=== PATIENT | female | born 1945 | race Caucasian/White ===

== ENCOUNTER 2024-10-05 09:58 | Inpatient (IN) ==
[2024-10-05] MEDS: ONDANSETRON INJ 2 MG/ML 2 ML VIAL IV STA (10:58)
[2024-10-05] MEDS: KETOROLAC TROMETHAMINE 15 MG/ML VIAL IV STA (10:58)
[2024-10-05 11:03] LABS: Basophils # (auto) 0.07 K/uL (0.00-0.20); Basophils % (auto) 0.5 %; Eosinophils # (auto) 0.13 K/uL (0.00-0.50); Hematocrit (blood only) 35.5 % (37.0-47.0); Hemoglobin 11.6 g/dl (12.0-16.0); Immature Granulocytes # (auto) 0.06 K/uL (0.01-0.20); Immature Granulocytes % (auto) 0.5 %; Lymphocytes % (auto) 17.9 %; Mean Corpuscular Hemoglobin 29.7 pg (25.0-34.0); Mean Corpuscular Hgb Conc 32.7 g/dL (32.0-36.0); Mean Corpuscular Volume 90.8 fL (80.0-100.0); Monocytes # (auto) 1.44 K/uL (0.11-0.59); Monocytes % (auto) 11.2 %; Neutrophils # (auto) 8.86 K/uL (1.40-6.50); Neutrophils % (auto) 68.9 %; Platelet Count 253 K/uL (130-400); RDW Coefficient of Variation 14.9 % (11.5-14.5); RDW Standard Deviation 49.2 fL (36.4-46.3); Red Blood Count 3.91 M/uL (4.20-5.40); White Blood Count 12.86 K/ul (4.8-10.8)
[2024-10-05 11:19] LABS: Albumin Level 3.9 gm/dl (3.4-5.0); BUN Creatinine Ratio 16.2 (10-20); Bilirubin Direct 0.2 mg/dl (0-0.2); Bilirubin,Total 0.8 mg/dl (0.2-1.0); Calcium 9.2 mg/dl (8.6-10.3); Creatinine Clr Calc Pharmacy 77.7 ml/min; Potassium 3.8 mmol/L (3.5-5.1); Total Protein 7.3 gm/dl (6.0-8.3)
[2024-10-05 11:24] LABS: Troponin I High Sensitivity 10.2 pg/ml (0-14)
[2024-10-05 11:34] LABS: Partial Thromboplastin Time 28 Seconds (21-31); Prothrombin Time 10.9 Seconds (9.0-12.0)
--- NOTE | 2024-10-05 11:38 | Emergency Department Note ---
History of Present Illness General Chief Complaint: Abdominal Pain Stated Complaint: RUQ PAIN W/ BLOOD TINGED SPUTUM Time Seen by Provider: 10/05/24 10:33 History of Present Illness Provider Complaint: abdominal pain Onset (ago): hour(s) (14) Pain Consistency: intermittent Location: RUQ Radiation: R flank Severity: severe Maximum Pain Intensity: 10 Current Pain Intensity: 9 Quality: + stabbing and + sharp Relieved By: + nothing Exacerbated By: + nothing Context: no foreign travel, no possible food poisoning, no sick contacts, no recent antibiotic use, no recent surgery/procedure, no recent injury or no history of similar episodes Associated Symptoms: + nausea and + dysuria; no vomiting, no fever, no chills, no hematemesis, no hematuria, no chest pain and no breathing difficulty Related Data Patient Confirmed : No Home Medications Medication Instructions Recorded Confirmed Type duloxetine 60 mg capsule,delayed 60 mg PO QAM 11/25/21 10/05/24 History release sprinkle gabapentin 300 mg capsule 300 mg PO TID 11/25/21 10/05/24 History insulin aspart U-100 100 unit/mL 40 unit subcut TIDM 11/25/21 10/05/24 History subcutaneous solution insulin glargine 100 unit/mL (3 50 unit subcut BID 11/25/21 10/05/24 History mL) subcutaneous pen pantoprazole 40 mg tablet,delayed 40 mg PO QAM 11/25/21 10/05/24 History release aspirin 325 mg tablet,delayed 325 mg PO QAM 10/20/22 10/05/24 History release metoprolol succinate 25 mg 12.5 mg PO QAM 10/20/22 10/05/24 History tablet,extended release 24 hr psyllium husk 0.4 gram capsule 0.4 g PO DAILY PRN Constipation 10/20/22 10/05/24 History (Metamucil) cholecalciferol (vitamin D3) 25 25 mcg PO DAILY 10/05/24 10/05/24 History mcg (1,000 unit) tablet (Vitamin D3) dulaglutide 0.75 mg/0.5 mL 0.75 mg subcut WK 10/05/24 10/05/24 History subcutaneous pen injector (Trulicity) Allergies Allergy/AdvReac Type Severity Reaction Status Date / Time Sulfa (Sulfonamide Allergy Intermediate Rash Verified 10/05/24 13:43 Antibiotics) [id number] Reductase AdvReac Intermediate MUSCLE Verified 10/05/24 13:43 Inhibitor PAIN/STIFFNESS Past Med/Surg History Problem List (Updated 10/05/24 @ 15:26 by Mejia Carroll MD) Pulmonary emboli (Acute) CAD (coronary artery disease) Acute pulmonary embolism Encounter for pre-operative examination Medical History Diastolic heart failure Aortic stenosis Borderline severe per 10/14/22 ECHO Poor historian Hard of hearing Femoral artery stenosis, left stent placed several yrs ago Neuropathy Depression Constipation Irregular heart beat metoprolol for this per pt> follows with Dr. Marley Hyperlipidemia hx of > no meds Hypertension History of COVID-2020 Sleep apnea cpap Diabetes mellitus, type 2 GERD (gastroesophageal reflux disease) Surgical History Hx of lipoma removed from neck History of total knee replacement left History of colonoscopy History of cholecystectomy History of appendectomy History of cataract surgery bilat Family History Mother Diabetes Grandmother (Maternal) Diabetes Social History Smoking Status: Never smoker Second Hand Exposure: No; Do You Dip or Chew Tobacco: No; Hx Alcohol Use: No Hx Substance Use: No Preferred Language: Slovenian Communication Ability: Effective Tenant Relations Coordinator Required: No Beliefs That Will Affect Care: None Current Living Situation: Alone Feels Safe at Home: Yes Assistive Devices: CPAP, Glasses, Hearing Aid - Bilateral and Walker Physical Exam 2 Vital Signs: Vital Signs - 24 hr 10/05/24 10:14 10/05/24 10:28 10/05/24 10:29 Temperature 37 C 37 C Temperature Source Oral Oral Pulse Rate 70 74 Pulse Rate [Apical ] 74 Pulse Rate from Sp O2 Sensor Pulse Rhythm Regular Pulse Rhythm [Apic al] Regular Pulse Strength Normal Pulse Strength [Ap ical] Normal Respiratory Rate 25 H 25 H Respiratory Effort / Characteristics Labored Spontaneous Labore d Respiratory Depth Shallow Shallow Respiratory Patter n Tachypnea Tachypnea Blood Pressure 158/66 H Blood Pressure [Ri ght Arm] 158/66 H Blood Pressure Dorie n 96 Blood Pressure Dorie n [Right Arm] 96 Blood Pressure Pos ition [Right Arm] Sitting Pulse Oximetry 96 96 Oxygen Delivery Me thod Room Air Room Air Sepsis Recent Feve r Within 48 Hours No Sepsis New/Unexpla ined Change in Men jesus manuel Status No Sepsis Action Take n by Nursing No Action Required 10/05/24 10:41 10/05/24 11:00 10/05/24 11:30 Temperature Temperature Source Pulse Rate 75 72 67 Pulse Rate [Apical ] Pulse Rate from Sp O2 Sensor 71 67 Pulse Rhythm Regular Pulse Rhythm [Apic al] Pulse Strength Pulse Strength [Ap ical] Respiratory Rate 20 14 20 Respiratory Effort / Characteristics Respiratory Depth Respiratory Patter n Blood Pressure 130/60 137/60 Blood Pressure [Ri ght Arm] Blood Pressure Dorie n 83 85 Blood Pressure Dorie n [Right Arm] Blood Pressure Pos ition [Right Arm] Pulse Oximetry 96 97 92 Oxygen Delivery Me thod Room Air Room Air Room Air Sepsis Recent Feve r Within 48 Hours Sepsis New/Unexpla ined Change in Men jesus manuel Status Sepsis Action Take n by Nursing 10/05/24 12:48 10/05/24 14:30 10/05/24 14:31 Temperature Temperature Source Pulse Rate 65 66 Pulse Rate [Apical ] 64 Pulse Rate from Sp O2 Sensor 65 Pulse Rhythm Pulse Rhythm [Apic al] Pulse Strength Pulse Strength [Ap ical] Respiratory Rate 16 18 Respiratory Effort / Characteristics Non-Labored Respiratory Depth Normal Respiratory Patter n Blood Pressure 132/44 L Blood Pressure [Ri ght Arm] 130/53 L Blood Pressure Dorie n 73 Blood Pressure Dorie n [Right Arm] 78 Blood Pressure Pos ition [Right Arm] Pulse Oximetry 93 98 Oxygen Delivery Me thod Room Air Room Air Sepsis Recent Feve r Within 48 Hours Sepsis New/Unexpla ined Change in Men jesus manuel Status Sepsis Action Take n by Nursing Physical Exam: Physical Exam GENERAL: oriented to person, place, and time. appears well-developed and well- nourished. She does not appear distressed. HENT: Exam performed. -Head: Normocephalic and atraumatic. -Right Ear: External ear normal. No mastoid erythema -Left Ear: External ear normal. No mastoid erythema -Mouth/Throat: The oropharynx is clear and moist. No trismus in the jaw. No dental abscesses or uvula swelling. No oropharyngeal exudate or tonsillar abscesses. EYES: Conjunctivae and EOM are normal.Right eye exhibits no discharge. Left eye exhibits no discharge. No scleral icterus. NECK: Normal range of motion. Neck supple. No JVD present. No tracheal deviation and normal range of motion present. CV: Normal rate, regular rhythm, systolic murmur and intact distal pulses. There is no peripheral edema. Palpable radial pulses bue. PULM/CHEST: Effort normal and breath sounds normal. No respiratory distress. No stridor. no wheezes.no rales. -Chest Wall: no tenderness to palpation ABD: The abdomen is soft. Bowel sounds are normal. no distension. No mass is present. There is tenderness to palpation of the right upper quadrant. There is no rebound, no guarding, positive Barakat's sign and no tenderness at McBurney's point. Rovsig negative MUSC/SKEL: Normal range of motion. There is no peripheral edema, tenderness or deformity. NEURO: Motor and sensation grossly intact. SKIN: Skin is warm and dry. not diaphoretic. PSYCH: normal mood and affect. Behavior is normal. Judgment and thought content normal. Course Course 1033: The patient was evaluated in room C5. A complete history and physical exam was performed Cardiac monitoring: An order was placed for continuous cardiac monitoring. The monitor shows a rate of 70 with sinus rhythm interpreted by me 1150: Patient's D-dimer is elevated. Will obtain CT of the chest. 1320: Vital signs stable. Labs show white blood cell count 12.86 hemoglobin 11.6 otherwise unremarkable. Imaging is significant for bilateral pulmonary emboli with moderate clot burden but no evidence of right heart strain. There is also some pulmonary infarct. Patient be started on heparin drip and admitted to the hospitalist team. Administered Medications Heparin Sodium/Dextrose (Heparin 09777 Unit/500 Ml D5w) 25,000 units in 500 mls @ 29 mls/hr IV .[id number] PENDING SALE TO [facility]; Protocol Stop: 11/04/24 13:44 Last Admin: 10/05/24 13:50 Dose: 1,450 units/hr, 29 mls/hr Documented By: SRL Co-signed By: HB Discontinued Medications Heparin Sodium (Porcine) (Heparin Sod (Porcine) 1000 Unit/Ml) 1 units IV NOW ONE Stop: 10/05/24 13:37 Last Admin: 10/05/24 13:49 Dose: 6,000 units Documented By: SRL Co-signed By: HB Heparin Sodium/Dextrose (Heparin Iv Adult Wt-Based Standard W/ Initial Bolus Protocol) 1 each IV NOW STA; Protocol Stop: 10/05/24 13:22 Last Admin: 10/05/24 13:48 Dose: Not Given Documented By: APOORVA Ioversol (Optiray 320 125ml) 120 ml IV ONCE ONE Stop: 10/05/24 12:31 Last Admin: 10/05/24 12:31 Dose: 120 ml Documented By: KSENIA Ketorolac Tromethamine (Ketorolac Tromethamine 15 Mg/Ml Vial) 15 mg IV NOW STA Stop: 10/05/24 10:42 Last Admin: 10/05/24 10:58 Dose: 15 mg Documented By: APOORVA Ondansetron HCl (Ondansetron Inj 2 Mg/Ml 2 Ml Vial) 4 mg IV NOW STA Stop: 10/05/24 10:42 Last Admin: 10/05/24 10:58 Dose: 4 mg Documented By: APOORVA Medical Decision Making Laboratory Data Attestation: I reviewed the patient's lab results. 10/05/24 10:10 10/05/24 10:10 Lab Results 10/05/24 10/05/24 Range/Units 10:10 10:59 WBC 12.86 H (4.8-10.8) K/ul RBC 3.91 L (4.20-5.40) M/uL Hgb 11.6 L (12.0-16.0) g/dl Hct 35.5 L (37.0-47.0) % MCV 90.8 (80.0-100.0) fL MCH 29.7 (25.0-34.0) pg MCHC 32.7 (32.0-36.0) g/dL RDW Std Deviation 49.2 H (36.4-46.3) fL RDW Coeff of Elaine 14.9 H (11.5-14.5) % Plt Count 253 (130-400) K/uL MPV 9.0 L (9.4-12.4) fL Immature Gran % (Auto) 0.5 % Neut % (Auto) 68.9 % Lymph % (Auto) 17.9 % [place] % (Auto) 11.2 % Eos % (Auto) 1.0 % Baso % (Auto) 0.5 % Neut # (Auto) 8.86 H (1.40-6.50) K/uL Lymph # (Auto) 2.30 (1.20-3.40) K/uL [place] # (Auto) 1.44 H (0.11-0.59) K/uL Eos # (Auto) 0.13 (0.00-0.50) K/uL Baso # (Auto) 0.07 (0.00-0.20) K/uL Immature Gran # (Auto) 0.06 (0.01-0.20) K/uL PT 10.9 (9.0-12.0) Seconds INR 1.0 (0.9-1.1) APTT 28 (21-31) Seconds PTT Ratio 1.0 D-Dimer 5860 H* (0-500) ug/L FEU Sodium 138 (136-145) mmol/L Potassium 3.8 (3.5-5.1) mmol/L Chloride 98 (98-107) mmol/L Carbon Dioxide 32 (21-32) mmol/L Anion Gap 8 (3-11) BUN 12 (6-23) mg/dl Creatinine 0.74 (0.6-1.2) mg/dl Est Cr Clr Drug Dosing 77.7 ml/min eGFR 82.25 BUN/Creatinine Ratio 16.2 (10-20) Glucose 177 H (70-99(Fasting)) mg/dl Calcium 9.2 (8.6-10.3) mg/dl Total Bilirubin 0.8 (0.2-1.0) mg/dl Direct Bilirubin 0.2 (0-0.2) mg/dl AST 12 L (13-39) U/L ALT 9 (7-52) U/L Alkaline Phosphatase 61 (34-104) U/L Troponin I High Sens 10.2 (0-14) pg/ml Total Protein 7.3 (6.0-8.3) gm/dl Albumin 3.9 (3.4-5.0) gm/dl Lipase 3 L (11-82) U/L SARS-CoV-2 (PCR) NEGATIVE (Negative) Influenza Type A (PCR) Negative (Neg) Influenza Type B (PCR) Negative (Neg) RSV (RT-PCR) Negative (Neg) Imaging Data Radiologist's Impression: Chest/Abdomen X-ray 10/05/24 10:41 PA CHEST RADIOGRAPH AND UPRIGHT AND SUPINE AP RADIOGRAPHS OF THE ABDOMEN CLINICAL HISTORY: Abdominal pain. COMPARISON STUDY: CT of the abdomen and pelvis July 20, 2023. Chest radiograph July 20, 2023. FINDINGS: No pneumothorax or pleural effusion is present. Mild cardiomegaly is noted. There is no evidence for pulmonary edema. A 6.5 cm hazy right lower lung opacity is present. Status post cholecystectomy. Gas throughout small and large bowel is noted. There is a moderate amount of stool within the colon and rectum. No evidence for a bowel obstruction. No free air. IMPRESSION: 1. 6.5 cm hazy right lower lung opacity. Given pulmonary emboli on same-day chest CT, this represents a pulmonary infarct. 2. No free air or evidence for a bowel obstruction. 3. Moderate amount of stool within the colon and rectum. ACT 112: Negative or not required by law. Electronically signed by: Maik Chakraborty M.D. 10/05/2024 12:41 PM Gallbladder Ultrasound 10/05/24 10:41 US gallbladder CLINICAL HISTORY: ruq pain status post cholecystectomy COMPARISON STUDY: CT dated 07/20/2023 FINDINGS: The pancreas is obscured by bowel gas and body habitus. The liver is diffusely echogenic, likely associated with steatosis. No focal liver lesions are depicted. There is no ascites. The gallbladder surgically absent. The common bile duct measures 14 mm which is rather distended even for the postcholecystectomy patient. The right kidney demonstrate no focal lesions. No hydronephrosis. IMPRESSION: Echogenic liver consistent with steatosis. Dilated common bile duct of uncertain significance and status post cholecystectomy patient. ACT 112: Negative or not required by law. Electronically signed by: Renea Daniels M.D. 10/05/2024 12:03 PM Chest CTA 10/05/24 11:48 CT angio chest PE protocol CT DOSE: 2380.91 mGy.cm HISTORY: Right upper quadrant pain, shortness of breath, hemoptysis TECHNIQUE: Multiple CTA images of the chest were obtained after the intravenous administration of 112 ml Optiray. Coronal and sagittal MIPS were obtained from the axial data set and were submitted for review. All measurements were obtained according to NASCET criteria. A dose lowering technique was utilized adhering to the principles of ALARA. COMPARISON STUDY: None FINDINGS: There are multiple bilateral acute pulmonary emboli resulting in a moderate clot burden. There is no definite evidence of significant right heart strain at the present time. There is a consolidation in the periphery of the right upper lobe. It is somewhat wedge-shaped. It could represent a pulmonary infarct. There is also an area of pleural enhancement in the left lower lobe for which a CT follow-up is recommended in 3 months. The lung bae otherwise clear. The upper airway is unremarkable. The heart is enlarged. There is no pericardial effusion. IMPRESSION: Bilateral, moderate clot burden pulmonary emboli. No definite evidence of right heart strain. Developing pulmonary infarct versus pneumonia right upper lobe. Focal area of pleural thickening and enhancement left lower lobe. Recommend a 3 month follow-up chest CT for evaluation of this finding. ACT 112: Negative or not required by law. The above report was generated using voice recognition software. It may contain grammatical, syntax or spelling errors. Electronically signed by: Renea Daniels M.D. 10/05/2024 1:01 PM Abdomen/Pelvis CT 10/05/24 12:29 CT OF THE ABDOMEN AND PELVIS WITH CONTRAST CLINICAL HISTORY: Abdominal pain. COMPARISON STUDY: CT of the abdomen and pelvis July 20, 2023. TECHNIQUE: Following IV administration of 120 mL of Optiray, axial images of the abdomen and pelvis were obtained from the lung bases to the proximal femurs. Images were reviewed in the axial, sagittal, and coronal planes. IV contrast was administered without complication. Automated exposure control was utilized for the study. A dose lowering technique was utilized adhering to the principles of ALARA. FINDINGS: Multiple pulmonary emboli are better depicted on the chest CT. A right middle lobe airspace opacity represents a pulmonary infarct. No pneumatosis, free air or portal venous gas is present. Biliary ductal dilatation is unchanged and related to cholecystectomy. There are no hepatic lesions. Spleen, adrenal glands and pancreas are unremarkable. There is no evidence for a bowel obstruction. Sigmoid diverticulosis is noted. No evidence for acute diverticulitis. There is no lymphadenopathy. There are no fluid collections. A 3.8 cm hypodense right ovarian lesion is noted. Nodular component within the wall measures approximately 1.7 cm. This lesion is indeterminate. No hydronephrosis. Left lower pole renal cyst is present. IMPRESSION: 1. No acute process within the abdomen or pelvis. 2. No bowel obstruction. No bowel wall thickening. Colonic diverticulosis. No evidence for acute diverticulitis. 3. 3.8 cm cystic right ovarian lesion with possible nodular thickening of the wall. This is indeterminate. Nonemergent pelvic ultrasound is recommended to assess complexity. 4. Multiple pulmonary emboli and a right middle lobe pulmonary infarct better depicted on the chest CT which will be reported separately. ACT 112: Positive. There are findings on this exam that require communication between the performing entity and the patient following Patient Test Result Information Act ([place] Act 112) guidelines. Electronically signed by: Maik Chakraborty M.D. 10/05/2024 1:12 PM ECG Data Attestation: I personally reviewed and interpreted this ECG as follows: Indication: abdominal pain Rate (beats per minute): 69 Rhythm: normal sinus Findings: + RBBB; no ST depression, no ST elevation or no prolonged QT MDM Narrative 1033: The patient was evaluated in room C5. A complete history and physical exam was performed Cardiac monitoring: An order was placed for continuous cardiac monitoring. The monitor shows a rate of 70 with sinus rhythm interpreted by me 1150: Patient's D-dimer is elevated. Will obtain CT of the chest. 1320: Vital signs stable. Labs show white blood cell count 12.86 hemoglobin 11.6 otherwise unremarkable. Imaging is significant for bilateral pulmonary emboli with moderate clot burden but no evidence of right heart strain. There is also some pulmonary infarct. Patient be started on heparin drip and admitted to the hospitalist team. Impression & Plan Pulmonary emboli Critical Care Time Critical Care Time: Yes Total Critical Care Time: 42 I have personally spent greater than 42 minutes of critical care time in the direct management of this patient. This includes bedside care, interpretation of diagnostic studies, and testing, discussion with consultants, patient, and family members, and other required patient management activities. This 42 minutes is in excess of all separately billable procedures. Discharge Plan Visit Data Chief Complaint: Abdominal Pain Stated Complaint: RUQ PAIN W/ BLOOD TINGED SPUTUM ED Provider: Mejia Carroll Discharge Problem: Pulmonary emboli Patient Disposition: Admitted As Inpatient Forms Stand Alone Forms: My [facility] Prescriptions Prescriptions: No Action insulin aspart U-100 100 unit/mL Solution 40 unit SUBCUT TIDM pantoprazole 40 mg Tablet,Delayed Release (Dr/Ec) 40 mg PO QAM gabapentin 300 mg Capsule 300 mg PO TID insulin glargine 100 unit/mL (3 mL) Insulin Pen 50 unit SUBCUT BID Rx Instructions: Inject 50 units in the morning AND 50 units before bedtime duloxetine 60 mg Capsule, Delayed Rel Sprinkle 60 mg PO QAM aspirin 325 mg Tablet,Delayed Release (Dr/Ec) 325 mg PO QAM metoprolol succinate 25 mg tablet extended release 24 hr 12.5 mg PO QAM psyllium husk [Metamucil] 0.4 gram Capsule 0.4 g PO DAILY PRN (Reason: Constipation) Trulicity 0.75 mg/0.5 mL pen injector 0.75 mg SUBCUT WK Rx Instructions: WED cholecalciferol (vitamin D3) [Vitamin D3] 25 mcg (1,000 unit) Tablet 25 mcg PO DAILY Referrals Referrals: Charito Valdez CRNP [Primary Care Provider] - Discharge Problem: Pulmonary emboli Qualifiers: Pulmonary embolism type: unspecified Chronicity: unspecified Acute cor pulmonale presence: without acute cor pulmonale Qualified Code(s): I26.99 - Other pulmonary embolism without acute cor pulmonale
[2024-10-05 11:43] LABS: D Dimer 5860 ug/L FEU (0-500)
--- NOTE | 2024-10-05 12:05 | Ultrasound Report ---
US gallbladder CLINICAL HISTORY: ruq pain status post cholecystectomy COMPARISON STUDY: CT dated 07/20/2023 FINDINGS: The pancreas is obscured by bowel gas and body habitus. The liver is diffusely echogenic, likely associated with steatosis. No focal liver lesions are depict ed. There is no ascites. The gallbladder surgically absent. The common bile duct measures 14 mm which is rather distended even for the postcholecystectomy patient. The right kidney demonstrate no focal lesions. No hydronephrosis. IMPRESSION: Echogenic liver consistent with steatosis. Dilated common bile duct of uncertain signifi cance and status post cholecystectomy patient. ACT 112: Negative or not required by law. Electronically signed by: Renea Daniels M.D. 10/05/2024 12:03 PM
--- OUTSIDE RECORDS SUMMARY | 2024-10-05 12:07 | External Medical Summary | Summary of Care ---
Author Name Unknown Organization [facility] Address [address] [place] [address] Phone [phone] Care Team Providers Care Community Resource Officer Name Role Phone Charito Valdez Argelia JOHNSON Primary Care Provider Reason for Visit * Reason Onset Date Comments Test Results 09/14/2024 Encounter Details Date Type Department Care Team (Late st Contact Info) Description 09/14/2024 Telephone Family Medicine [address] [place] [phone] Delmi Palacios MD [address] [place] [address] [place] [address] Test Results Allergies Active Allergy Reactions Criticality Noted Date Comments Statins Muscle pain 10/08/2021 Sulfa Antibiotics Hives 03/20/2021 documented as of this encounter (statuses as of 09/14/2024) Medications Folic Acid 400 MCG Oral Tablet Take 1 Tablet by mouth in the morning. Active Blood Pressure Cuff CHECK B/P DAILY 1 Each 2 Active CPAP every night at bedtime . Active Metamucil 0.36 GM Oral Capsule (Psyllium) Take by mouth daily. Active Aspirin 325 MG Oral Tablet Take 1 Tablet by mouth in the morning. Active Docusate Sodium 100 MG Oral Capsule (Colace) Take 1 Capsule by mouth in the morning and 1 Capsule before bedtime. 60 Capsule 11 3 Active Insulin Syringe-Needle U-100 30G X 1/2" 1 ML Use as directed. 180 Each 3 3 Active DULoxetine HCl 60 MG Oral Capsule Delayed Release Particles (Cymbalta)Indicat ions:Current moderate episode of major depressive disorder, unspecified whether recurrent (HCC),DM type 2 with diabetic peripheral neuropathy (HCC) Take 1 Capsule by mouth in the morning. Do not cut, crush or chew. 90 Capsule 3 4 Active Albuterol Sulfate HFA 108 (90 Base) MCG/ACT Inhalation Aerosol SolutionIndicatio ns:Upper respiratory tract infection, unspecified type Inhale 2 Puffs by mouth every 6 hours as needed for Cough. 18 g 3 4 Active Global Ease Inject Pen [place] 31G X 8 MM (Insulin Pen Needle) Use as needed up to 4 times per day 400 Each 3 4 Active OneTouch Ultra In Vitro Strip (Glucose Blood)Indications :Type 2 diabetes mellitus with stage 1 chronic kidney disease, with long-term current use of insulin (HCC) USE UP TO 3 TIMES A DAY DIRECTED. 300 Strip 1 4 Active BD Insulin Syringe 25G X 5/8" 1 ML (Insulin Syringe-Needle U-100) Use as indicated for daily insulin injections 100 Each 5 4 Active Pantoprazole Sodium 40 MG Oral Tablet Delayed Release (Protonix)Indicat ions:Gastro-esoph ageal reflux disease without esophagitis Take 1 Tablet by mouth in the morning. 90 Tablet 2 4 Active Insulin Aspart 100 UNIT/ML Injection Solution (NovoLOG)Indicati ons:Type 2 diabetes mellitus with diabetic peripheral angiopathy without gangrene, unspecified whether residential insulin use (HCC) INJECT UNDER THE SKIN 40 UNITS 3 TIMES DAILY BEFORE MEALS 40 mL 5 4 Active Lantus SoloStar 100 UNIT/ML Subcutaneous Solution Pen-injector Inject 50 Units under the skin in the morning and 50 Units before bedtime. 30 mL 5 4 Active Ezetimibe 10 MG Oral Tablet (Zetia) Take 1 Tablet by mouth in the morning. 30 Tablet 11 4 Active Fluticasone Propionate 50 MCG/ACT Nasal Suspension (Flonase) Administer 2 Sprays into each nostril in the morning. 18.2 mL 3 4 Active Torsemide 10 MG Oral Tablet (Demadex) Take 2 Tablets by mouth in the morning. 60 Tablet 3 4 12/10/19 25 Active Trulicity 0.75 MG/0.5ML Subcutaneous Solution Auto-injector (Dulaglutide)Mirian cations:Type 2 diabetes mellitus with stage 1 chronic kidney disease, with long-term current use of insulin (HCC) Inject 0.75 mg under the skin once a week. 2 mL 5 Active Metoprolol Succinate ER 25 MG Oral Tablet Extended Release 24 Hour (toPROL XL)Indications:Hy pertension goal BP (blood pressure) < 140/90 Take 1/2 TABLET BY MOUTH DAILY in the morning. 45 Tablet 1 5 Active Gabapentin 300 MG Oral Capsule (Neurontin)Indica tions:Chronic right-sided low back pain with right-sided sciatica take 1 capsule in the morning, 1 capsule at noon and 2 capsules in the evening. 120 Capsule 5 Active Cefdinir 300 MG Oral Capsule (Omnicef)Indicati ons:Acute cystitis without hematuria Take 1 Capsule by mouth in the morning and 1 Capsule before bedtime. Do all this for 7 days. 14 Capsule 5 09/21/19 25 Active documented as of this encounter (statuses as of 09/14/2024) Active Problems Problem Noted Date Diagnosed Date Face pain 07/20/2024 Fall 07/20/2024 Bilateral impacted cerumen 07/20/2024 Lipoma of torso 04/25/2024 Deformity of toenail 03/28/2024 Onychomycosis 03/28/2024 Upper respiratory tract infection 03/28/2024 Suprapubic mass 03/28/2024 Bilateral leg edema 01/27/2024 Need for amrizcnmja-ehhhxnf-cohuxvqrs (Tdap) vac cine 01/27/2024 Skin lesion 10/07/2023 Need for hepatitis C screening test 10/07/2023 Open wound of pinna of ear w ithout complication, right, initial encounter 08/17/2023 Type 2 diabetes mellitus with diabetic cataract 06/08/2023 Hypertensive heart and kidne y disease without heart failure and with chronic kidney disease stage I 03/23/2023 Atherosclerosis of aorta 01/20/2023 Seasonal allergic rhinitis due to pollen 023 Cataract 12/09/2022 Chronic idiopathic constipation 10/26/2022 Disorder of thyroid, unspecified 06/10/2022 Body mass index (BMI) of 40.0 to 44.9 in adult 0 01/25/2022 Overview: Per Obesity protocol Aortic valve stenosis 12/08/2021 RANDALL (obstructive sleep apnea) 12/08/2021 Current moderate episode of major depressive dis order 11/23/2021 Morbid obesity due to excess calories 11/23/2021 Type 2 diabetes mellitus wit h diabetic polyneuropathy, with long-term current use of insulin 11/23/2021 Gastro-esophageal reflux disease without esophag itis 06/22/2021 Type 2 diabetes mellitus wit h stage 1 chronic kidney disease, with long-term current use of insulin 03/20/2021 HTN, goal below 140/90 03/20/2021 documented as of this encounter (statuses as of 09/14/2024) Resolved Problems Problem Noted Date Diagnosed Date Resolved Date Hospital discharge follow-up 10/07/2023 01/27/2024 Otitis externa 06/16/2023 01/03/2024 Preoperative general physical examination 12/09/2022 03/15/2023 Hypertensive heart disease w ithout CHF (congestive heart failure) 06/10/2022 08/16/2023 Overview (08/16/2023): More specified condition noted on pl PRUITT (dyspnea on exertion) 12/08/2021 Type 2 diabetes mellitus wit h diabetic peripheral angiopathy without gangrene 11/23/2021 0 03/15/2023 documented as of this encounter (statuses as of 09/14/2024) Immunizations Name Administration Dates Next Due COVID-19 mRNA, LNP-s, No Pre serve, 2-Dose Series (Moderna) 11/08/2020,10/11/2020 Pneumococcal Conjugate Vacc, 13 Valent (Prevnar) 05/31/2016 Pneumococcal Polysaccharide PPV23 (Pneumovax) 02/24/2012 Seasonal Influenza Virus Vac cine, Unspecified Formulation 06/22/2021 Seasonal Influenza, High Dos e, Trivalent, PF, IM (Fluzone HD) 06/05/2024 Seasonal Influenza, Quadriva lent Hd (Fluzone Hd) 06/16/2023,05/04/2022,06/22/2021 TDAP (age 10 and older)(Boostrix) 01/27/2024 documented as of this encounter Social History Tobacco Use Types Packs/Day Years Used Date Smoking Tobacco: Never Smokeless Tobacco: Never Alcohol Use Standard Drinks/Week Comments Never 0 (1 standard drink = 0.6 oz pur e alcohol) AUDIT-C Answer Date Recorded Q1: How often do you have a drink containing alc ohol? Never 03/20/2021 Q2: How many drinks containi ng alcohol do you have on a typical day when you are drinking? Not asked 03/20/2021 Q3: How often do you have six or more drinks on one occasion? Never 03/20/2021 PHQ-2 Answer Date Recorded PHQ Adult Total Score 4 06/05/2024 Utilities Answer Date Recorded Do you have trouble paying y our heating, water, or electric bill? (Adult - for ages 18 years and over) Not on file 01/31/2024 Is your family able to pay t he heat, water, or electric bill? (Household - for ages 0-17 years) Not on file 01/31/2024 Does your family have access to good internet? (Household - for ages 0-17 years) Not on file 01/31/2024 Social Connections Answer Date Recorded How often do you feel lonely or isolated from those around you? (Adult - for ages 18 years and over) Not on file 01/31/2024 Comments No Sex and Gender Information Value Date Recorded Sex Assigned at Not on file Legal Sex Female 5:05 AM EST Gender Identity Not on file Sexual Orientation Not on file documented as of this encounter Miscellaneous Notes * Telephone Encounter - Oneyda Conrad LPN - 09/14/2024 3:46 PM EST Will cotton picking machine operator Rx for ABX * Telephone Encounter - Minnie Mancilla OSA - 09/14/2024 3:44 PM EST Reason for patient's call: patient calling for clarification on UTI results. Caller was transferred to at the nurse line. Caller was transferred Oneyda to nurse line. * Telephone Encounter - Delmi Palacios MD - 09/14/2024 2:52 PM EST Spoke to the pt - sent cefdinir 300mg BID for 1 week documented in this encounter Plan of Treatment Upcoming Encounters Date Type Department Care Team (Late st Contact Info) Description 09/27/2024 1:30 PM EST Office Visit Cardiology, [facility] [address] [place] [address] Judit Little CRNP [address] [place] [address] 10/19/2024 4:20 PM EST Office Visit Family Medicine [address] [place] [phone] William Crowder CRNP [address] [place] [address] [place] [address] 11/01/2024 3:20 PM EDT Office Visit [facility] [place] [phone] Mariola Gonzalez PA-C [address] [place] [address] [place] [address] 11/07/2024 9:30 AM EDT Cardiac Studies Cardiac Studies, [facility] [address] [place] [address] 11/07/2024 1:00 PM EDT Office Visit Cardiology, [facility] [address] [place] [address] Abdullahi Richards MD [address] [place] [address] Health Maintenance Due Date Last Done Comments Zoster Vaccines (1 of 2) 1994 DXA Scan 08/05/2022 08/05/2015, 08/05/2015 Diabetic Foot Exam 06/10/2023 06/10/2022, 06/22/2021 COVID-19 Vaccine ( season) 2024 11/08/2020, 10/11/2020 Diabetic Eye Exam 09/28/2024 09/28/2023, , 06/22/2022, Additional history exists Albumin/Creatinine Ratio 10/07/2024 024, 06/10/2022, 06/22/2021 HbA1c 12/04/2024 06/05/2024, 08/0 04/2024, 10/07/2023, Additional history exists Adult Wellness Visit 06/05/2025 06/05/2024 Depression Monitoring 06/05/2025 06/05/2024 GFR 07/20/2025 07/20/2024, 08/0 04/2024, 01/03/2024, Additional history exists DTap/Tdap Vaccines (2 - Td or Tdap) 01/26/2034 01/27/2024 Pneumococcal Vaccine: 50+ Years Completed 05/31/2016, 02/24/2012 Influenza Vaccine (FLU shot) Completed , 06/16/2023, 05/04/2022, Additional history exists HPV (Gardasil) Vaccine Aged Out No lo nger eligible based on patient's age to complete this topic Hepatitis B Vaccine Aged Out No longe r eligible based on patient's age to complete this topic MENINGOCOCCAL (MENACTRA/MENVEO) Aged Out No longer eligible based on patient's age to complete this topic documented as of this encounter Medical Devices Implanted Type Area Sales Order Clerk Device Identifier Shelf Expiration Date Model / Serial / Lot Lens Intraoc 22.5 - [id number] - [id number] Implanted:Qty: 1 on 10/19/2022 by Jamaal Cristina MD at OR [facility] Left: Eye [employer]CH [employer] LOMB 07/14/2027 [id number] / [id number] / [id number] documented as of this encounter Visit Diagnoses Diagnosis Acute cystitis without hematuria- Primary Acute cystitis documented in this encounter Advance Directives * Full Code (Latest Code Status on File) Date Activated Date Inactivated Comments 05/18/2024 12:44 PM 05/18/2024 5:43 PM This order reflects the patients wishes and were consensually agreed upon. Question Answer Comments Discussion of Advance Directives occurred with: Patient * Full Code Date Activated Date Inactivated Comments 05/18/2024 10:01 AM 05/18/2024 12:44 PM This order reflects the patients wishes and were consensually agreed upon. Question Answer Comments Discussion of Advance Directives occurred with: Patient * No Code Date Activated Date Inactivated Comments 10/19/2022 7:31 AM 10/19/2022 2:22 PM This order ref lects the patients wishes and were consensually agreed upon. Question Answer Comments Discussion of Advance Directives occurred with: Patient Does the patient have a Living Will? No Does the patient have Health Care Power of Attor jasmyne? No Care Teams Community Resource Officer Relationship Specialty Start Date End Date Charito Valdez CRNP [address] [place] [address] PCP - General Nurse Practitioner 10/08/22 documented as of this encounter
--- OUTSIDE RECORDS SUMMARY | 2024-10-05 12:07 | External Medical Summary | Summary of Care ---
Author Name Unknown Organization [facility] Address [address] [place] [address] Phone [phone] Care Team Providers Care Minor League Baseball Player Name Role Phone Charito Valdez Argelia JOHNSON Primary Care Provider Reason for Visit * Reason Onset Date Comments Test Results 09/14/2024 Encounter Details Date Type Department Care Team (Late st Contact Info) Description 09/14/2024 Telephone Family Medicine [address] [place] [phone] Delmi Palacios MD [address] [place] [address] [place] [address] Test Results Allergies Active Allergy Reactions Criticality [...] 3 4 Active Global Ease Inject Pen [place] 31G X 8 MM (Insulin Pen Needle) [...] diabetic peripheral angiopathy without gangrene, unspecified whether mcc insulin use (HCC) INJECT UNDER THE SKIN [...] 03/28/2024 Bilateral leg edema 01/27/2024 Need for vbubbwcuye-pbsyxks-hlinphztm (Tdap) vac cine 01/27/2024 Skin lesion 10/07/2023 [...] LPN - 09/14/2024 3:46 PM EST Will picker packer Rx for ABX * Telephone Encounter - [...] 09/27/2024 1:30 PM EST Office Visit Cardiology, [facility] [address] [place] [address] Judit Little CRNP [address] [place] [address] 10/19/2024 4:20 PM EST Office Visit Family Medicine [address] [place] [address] William Crowder CRNP [address] [place] [address] [place] [address] 11/01/2024 3:20 PM EDT Office Visit [facility] [address] [facility] [place] [phone] Mariola Gonzalze PA-C [address] [place] [address] [place] [address] 11/07/2024 9:30 AM EDT Cardiac Studies Cardiac Studies, [facility] [address] [place] [address] 11/07/2024 1:00 PM EDT Office Visit Cardiology, [facility] [address] [place] [address] Abdullahi Richards MD [address] [place] [address] Health Maintenance Due Date Last Done Comments [...] this encounter Medical Devices Implanted Type Area Leader Tier Device Identifier Shelf Expiration Date Model / Serial / Lot Lens Intraoc 22.5 - [id number] - [id number] Implanted:Qty: 1 on 10/19/2022 by Jamaal Cristina MD at OR [facility] Left: Eye BAUSCH [employer] LOMB 07/14/2027 [id number] / [id number] / [id number] documented as of this encounter Visit Diagnoses [...] Power of Attor jasmyne? No Care Teams Minor League Baseball Player Relationship Specialty Start Date End Date Charito Valdez CRNP [address] [place] [address] PCP - General Nurse Practitioner 10/08/22 documented as of this encounter
--- OUTSIDE RECORDS SUMMARY | 2024-10-05 12:07 | External Medical Summary | Summary of Care ---
Author Name Unknown Organization [facility] Address [address] [place] [address] Phone [phone] Care Team Providers Care Line Service Attendant Name Role Phone Charito Valdez Argelia JOHNSON Primary Care Provider Reason for Visit * Reason Onset Date Comments Test Results 09/14/2024 Encounter Details Date Type Department Care Team (Late st Contact Info) Description 09/14/2024 Telephone Family Medicine [address] [place] [phone] Delmi Palacios MD [address] [place] [address] [place] [address] Test Results Allergies Active Allergy Reactions Criticality [...] 3 4 Active Global Ease Inject Pen [place] 31G X 8 MM (Insulin Pen Needle) [...] diabetic peripheral angiopathy without gangrene, unspecified whether halfway insulin use (HCC) INJECT UNDER THE SKIN [...] 03/28/2024 Bilateral leg edema 01/27/2024 Need for ujkzwszxbf-dgmegob-kuzjiitgf (Tdap) vac cine 01/27/2024 Skin lesion 10/07/2023 [...] LPN - 09/14/2024 3:46 PM EST Will pick up operator Rx for ABX * Telephone Encounter [...] 09/27/2024 1:30 PM EST Office Visit Cardiology, [facility] [address] [place] [address] Judit Little CRNP [address] [place] [address] 10/19/2024 4:20 PM EST Office Visit Family Medicine [address] [place] [phone] William Crowder CRNP [address] [place] [address] [place] [address] 11/01/2024 3:20 PM EDT Office Visit [facility] [address] [facility] [place] [phone] Mariola Gonzalez PA-C [address] [place] [address] [place] [address] 11/07/2024 9:30 AM EDT Cardiac Studies Cardiac Studies, [facility] [address] [place] [address] 11/07/2024 1:00 PM EDT Office Visit Cardiology, [facility] [address] [place] [address] Abdullahi Richards MD [address] [place] [address] Health Maintenance Due Date Last Done Comments [...] this encounter Medical Devices Implanted Type Area Model Artists' Device Identifier Shelf Expiration Date Model / Serial / Lot Lens Intraoc 22.5 - [id number] - [id number] Implanted:Qty: 1 on 10/19/2022 by Jamaal Cristina MD at OR [facility] Left: Eye BAUSCH & LOMB 07/14/2027 [id number] / [id number] / [id number] documented as of this encounter Visit Diagnoses [...] Power of Attor jasmyne? No Care Teams Line Service Attendant Relationship Specialty Start Date End Date Charito Valdez CRNP [address] [place] [address] PCP - General Nurse Practitioner 10/08/22 documented as of this encounter
--- OUTSIDE RECORDS SUMMARY | 2024-10-05 12:07 | External Medical Summary | Summary of Care ---
Author Name Unknown Organization [facility] Address [address] [place] [address] Phone [phone] Care Team Providers Care Aerospace Technician Name Role Phone Charito Valdez Argelia JOHNSON Primary Care Provider Reason for Visit * Reason Onset Date Comments Test Results 09/13/2024 Encounter Details Date Type Department Care Team (Late st Contact Info) Description 09/13/2024 Telephone Family Medicine [address] [place] [phone] Delmi Palacios MD [address] [place] [address] [place] [address] Test Results Allergies Active Allergy Reactions Criticality [...] 3 4 Active Global Ease Inject Pen [place] 31G X 8 MM (Insulin Pen Needle) [...] diabetic peripheral angiopathy without gangrene, unspecified whether retirement insulin use (HCC) INJECT UNDER THE SKIN [...] in the evening. 120 Capsule 5 Active documented as of this encounter (statuses as of 09/14/2024) Active Problems Problem Noted Date Diagnosed Date Face pain 07/20/2024 Fall 07/20/2024 Bilateral impacted cerumen 07/20/2024 Lipoma of torso 04/25/2024 Deformity of toenail 03/28/2024 Onychomycosis 03/28/2024 Upper respiratory tract infection 03/28/2024 Suprapubic mass 03/28/2024 Bilateral leg edema 01/27/2024 Need for yeeflgmlgf-ggzrrmk-yzdlswgrx (Tdap) vac cine 01/27/2024 Skin lesion 10/07/2023 [...] encounter Miscellaneous Notes * Telephone Encounter - Ana Doan CMA - 09/14/2024 2:47 PM EST Patient is aware. * Telephone Encounter - Delmi Palacios MD - 09/13/2024 7:52 AM EST Please call the pt Your urine analysis showed no sign of infection but please increase your water intake documented in this encounter Plan of Treatment Upcoming Encounters Date Type Department Care Team (Late st Contact Info) Description 09/27/2024 1:30 PM EST Office Visit Cardiology, [facility] [address] [facility] [place] [address] Judit Little CRNP [address] [facility] [place] [address] 10/19/2024 4:20 PM EST Office Visit Family Medicine [address] [place] [phone] William Crowder CRNP [address] [place] [address] [place] [address] 11/01/2024 3:20 PM EDT [facility] [address] [facility] [place] [phone] Mariola Gonzalez PA-C [address] [place] [address] [place] [address] 11/07/2024 9:30 AM EDT Cardiac Studies Cardiac Studies, [facility] [address] [facility] [place] [address] 11/07/2024 1:00 PM EDT Office Visit Cardiology, [facility] [address] [facility] [place] [address] Abdullahi Richards MD [address] [place] [address] Health Maintenance Due Date Last Done Comments [...] this encounter Medical Devices Implanted Type Area Flatbed Driver Device Identifier Shelf Expiration Date Model / Serial / Lot Lens Intraoc 22.5 - [id number] - [id number] Implanted:Qty: 1 on 10/19/2022 by Jamaal Cristina MD at OR [facility] Left: Eye BAUSCH & LOMB 07/14/2027 [id number] / [id number] / [id number] documented as of this encounter Advance Directives * Full Code [...] Power of Attor jasmyne? No Care Teams Aerospace Technician Relationship Specialty Start Date End Date Charito Valdez CRNP [address] [place] [address] PCP - General Nurse Practitioner 10/08/22 documented as of this encounter
--- OUTSIDE RECORDS SUMMARY | 2024-10-05 12:07 | External Medical Summary | Summary of Care ---
Author Name Unknown Organization [facility] Address [address] [place] [address] Phone [phone] Care Team Providers Care Single Pointed Operator Name Role Phone Charito Valdez Primary Care Provider Reason for Visit * Reason Comments eRx-Medication Refill Encounter Details Date Type Department Care Team (Late st Contact Info) Description 09/20/2024 Refill Family Practice [facility] [address] [place] [address] Charito Valdez CRNP [address] [place] [address] Type 2 diabetes mellitus with stage 1 chronic kidney disease, with long-term current use of insulin ([facility]) Allergies Active Allergy Reactions Criticality Noted Date Comments Statins Muscle pain 10/08/2021 Sulfa Antibiotics Hives 03/20/2021 documented as of this encounter (statuses as of 09/21/2024) Medications Folic Acid 400 MCG Oral Tablet Take 1 Tablet by mouth in the morning. Active Blood Pressure Cuff CHECK B/P DAILY 1 Each 03/04/20 22 Active CPAP every night at bedtime . Active Metamucil 0.36 GM Oral Capsule (Psyllium) Take by mouth daily. Active Aspirin 325 MG Oral Tablet Take 1 Tablet by mouth in the morning. Active Docusate Sodium 100 MG Oral Capsule (Colace) Take 1 Capsule by mouth in the morning and 1 Capsule before bedtime. 60 Capsule 11 12/10/19 23 Active Insulin Syringe-Needle U-100 30G X 1/2" 1 ML Use as directed. 180 Each 3 06/16/20 23 Active DULoxetine HCl 60 MG Oral Capsule Delayed Release Particles (Cymbalta)Indica tions:Current moderate episode of major depressive disorder, unspecified whether recurrent (HCC),DM type 2 with diabetic peripheral neuropathy (HCC) Take 1 Capsule by mouth in the morning. Do not cut, crush or chew. 90 Capsule 3 12/27/19 24 Active Albuterol Sulfate HFA 108 (90 Base) MCG/ACT Inhalation Aerosol SolutionIndicati ons:Upper respiratory tract infection, unspecified type Inhale 2 Puffs by mouth every 6 hours as needed for Cough. 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 300 Strip 1 06/11/20 24 Active BD Insulin Syringe 25G X 5/8" 1 ML (Insulin Syringe-Needle U-100) Use as indicated for daily insulin injections 100 Each 5 06/15/20 24 Active Pantoprazole Sodium 40 MG Oral Tablet Delayed Release (Protonix)Indica tions:Gastro-eso phageal reflux disease without esophagitis Take 1 Tablet by mouth in the morning. 90 Tablet 2 06/28/20 24 Active Insulin Aspart 100 UNIT/ML Injection Solution (NovoLOG)Indicat ions:Type 2 diabetes mellitus with diabetic peripheral angiopathy without gangrene, unspecified whether long wall mining machine tender insulin use (HCC) INJECT UNDER THE SKIN 40 UNITS 3 TIMES DAILY BEFORE MEALS 40 mL 5 07/04/20 24 Active Lantus SoloStar 100 UNIT/ML Subcutaneous Solution Pen-injector Inject 50 Units under the skin in the morning and 50 Units before bedtime. 30 mL 5 07/04/20 24 Active Ezetimibe 10 MG Oral Tablet (Zetia) Take 1 Tablet by mouth in the morning. 30 Tablet 11 07/20/20 24 Active Fluticasone Propionate 50 MCG/ACT Nasal Suspension (Flonase) Administer 2 Sprays into each nostril in the morning. 18.2 mL 3 07/20/20 24 Active Torsemide 10 MG Oral Tablet (Demadex) Take 2 Tablets by mouth in the morning. 60 Tablet 3 08/11/20 24 025 Active Metoprolol Succinate ER 25 MG Oral Tablet Extended Release 24 Hour (toPROL XL)Indications:H ypertension goal BP (blood pressure) < 140/90 Take 1/2 TABLET BY MOUTH DAILY in the morning. 45 Tablet 1 08/24/19 25 Active Gabapentin 300 MG Oral Capsule (Neurontin)Indic ations:Chronic right-sided low back pain with right-sided sciatica take 1 capsule in the morning, 1 capsule at noon and 2 capsules in the evening. 120 Capsule 09/06/19 25 Active Cefdinir 300 MG Oral Capsule (Omnicef)Indicat ions:Acute cystitis without hematuria Take 1 Capsule by mouth in the morning and 1 Capsule before bedtime. Do all this for 7 days. 14 Capsule 09/14/19 25 025 Active Trulicity 0.75 MG/0.5ML Subcutaneous Solution Auto-injector (Dulaglutide)Ind ications:Type 2 diabetes mellitus with stage 1 chronic kidney disease, with long-term current use of insulin (HCC) Inject 0.75 mg under the skin once a week. 2 mL 3 09/21/19 25 Active Trulicity 0.75 MG/0.5ML Subcutaneous Solution Auto-injector (Dulaglutide)Ind ications:Type 2 diabetes mellitus with stage 1 chronic kidney disease, with long-term current use of insulin (HCC) Inject 0.75 mg under the skin once a week. 2 mL 08/22/19 25 025 Discontinued documented as of this encounter (statuses as of 09/21/2024) Active Problems Problem Noted Date Diagnosed Date Face pain 07/20/2024 Fall 07/20/2024 Bilateral impacted cerumen 07/20/2024 Lipoma of torso 04/25/2024 Deformity of toenail 03/28/2024 Onychomycosis 03/28/2024 Upper respiratory tract infection 03/28/2024 Suprapubic mass 03/28/2024 Bilateral leg edema 01/27/2024 Need for plizjhwmqt-hkspmep-exrjesnob (Tdap) vac cine 01/27/2024 Skin lesion 10/07/2023 [...] as of this encounter (statuses as of 09/21/2024) Resolved Problems Problem Noted Date Diagnosed Date Resolved Date Hospital discharge follow-up 10/07/2023 01/27/2024 Otitis externa 06/16/2023 01/03/2024 Preoperative general physical examination 12/09/2022 03/15/2023 [facility] (congestive heart failure) 06/10/2022 08/16/2023 Overview (08/16/2023): More specified condition noted on pl [address] (dyspnea on exertion) 12/08/2021 Type 2 diabetes mellitus wit h diabetic peripheral angiopathy without gangrene 11/23/2021 0 03/15/2023 documented as of this encounter (statuses as of 09/21/2024) Immunizations Name Administration Dates Next Due COVID-19 [...] encounter Miscellaneous Notes * Telephone Encounter - Megan Wyatt [facility] - 09/21/2024 7:49 AM ESTSigned Prescriptions: Disp Refills Trulicity 0.75 MG/0.5ML Subcutaneous Solut*2 mL 3 Sig: Inject 0.75 mg under the skin once a week.Authorizing Provider: CHARITO VALDEZ User: MEGAN WYATT documented in this encounter Plan of Treatment Upcoming Encounters Date Type Department Care Team (Late st Contact Info) Description 09/27/2024 1:30 PM EST Office Visit Cardiology, [facility] [address] [facility] [place] [address] Judit Little CRNP 132 [facility] [place] [address] 10/19/2024 4:20 PM EST Office Visit Family Medicine [address] [place] [phone] William Crowder CRNP [address] [place] [address] [place] [address] 11/01/2024 3:20 PM EDT Office Visit [facility]at[facility] [place] [address] [facility] [place] [phone] Mariola Gonzalez PA-C [address] [place] [address] [place] [address] 11/07/2024 9:30 AM EDT Cardiac Studies Cardiac Studies, [facility] [address] [facility] [place] [address] 11/07/2024 1:00 PM EDT Office Visit Cardiology, [facility] [place] [address] Abdullahi Richards MD [address] [facility] [place] [address] Health Maintenance Due Date Last Done Comments [...] this encounter Medical Devices Implanted Type Area Policy Analyst Device Identifier Shelf Expiration Date Model / Serial / Lot Lens Intraoc 22.5 - [id number] - [id number] Implanted:Qty: 1 on 10/19/2022 by Jamaal Cristina MD at OR [facility] Left: Eye [employer] 07/14/2027 [id number] / [id number] documented as of this encounter Visit Diagnoses Diagnosis Type 2 diabetes mellitus with stage 1 chronic kidney disease, with long-term current use of insulin (HCC) documented in this encounter Advance Directives * [...] Power of Attor jasmyne? No Care Teams Single Pointed Operator Relationship Specialty Start Date End Date Charito Valdez CRNP [address] [place] [address] PCP - General Nurse Practitioner 10/08/22 documented as of this encounter
--- OUTSIDE RECORDS SUMMARY | 2024-10-05 12:08 | External Medical Summary | Summary of Care ---
Author Name Unknown Organization [facility] Address [address] [place] [address] Phone [phone] Care Team Providers Care Compliance Professional Name Role Phone Charito Valdez Argelia JOHNSON Primary Care Provider Reason for Visit * Reason Onset Date Comments Test Results 09/13/2024 Encounter Details Date Type Department Care Team (Late st Contact Info) Description 09/13/2024 Telephone Family Medicine [address] [place] [phone] Delmi Palacios MD [address] [place] [address] [place] [address] Test Results Allergies Active Allergy Reactions Criticality Noted Date Comments Statins Muscle pain 10/08/2021 Sulfa Antibiotics Hives 03/20/2021 documented as of this encounter (statuses as of 09/13/2024) Medications Folic Acid 400 MCG Oral Tablet [...] 3 4 Active Global Ease Inject Pen [place] 31G X 8 MM (Insulin Pen Needle) [...] diabetic peripheral angiopathy without gangrene, unspecified whether skilled nursing insulin use (HCC) INJECT UNDER THE SKIN [...] as of this encounter (statuses as of 09/13/2024) Active Problems Problem Noted Date Diagnosed Date Face pain 07/20/2024 Fall 07/20/2024 Bilateral impacted cerumen 07/20/2024 Lipoma of torso 04/25/2024 Deformity of toenail 03/28/2024 Onychomycosis 03/28/2024 Upper respiratory tract infection 03/28/2024 Suprapubic mass 03/28/2024 Bilateral leg edema 01/27/2024 Need for mnrczpqglh-mxkussb-yqrkcqgxi (Tdap) vac cine 01/27/2024 Skin lesion 10/07/2023 [...] as of this encounter (statuses as of 09/13/2024) Resolved Problems Problem Noted Date Diagnosed Date [...] as of this encounter (statuses as of 09/13/2024) Immunizations Name Administration Dates Next Due COVID-19 [...] encounter Miscellaneous Notes * Telephone Encounter - Delmi Palacios MD - 09/13/2024 7:52 AM EST Please call the pt Your urine analysis showed no sign of infection but please increase your water intake documented in this encounter Plan of Treatment Upcoming Encounters Date Type Department Care Team (Late st Contact Info) Description 09/27/2024 1:30 PM EST Office Visit Cardiology, [facility] [address] [place] [address] Judit Little CRNP [address] [place] [address] 10/19/2024 4:20 PM EST Office Visit Family Medicine [address] [place] [phone] William Crowder CRNP [address] [place] [address] [place] [address] 11/01/2024 3:20 PM EDT [facility] [address] [facility] [phone] Mariola Gonzalez PA-C [address] [place] [address] [place] [address] 11/07/2024 9:30 AM EDT Cardiac Studies Cardiac Studies, [facility] 132 [place] [address] 11/07/2024 1:00 PM EDT Office Visit Cardiology, [facility] [address] [place] [address] Abdullahi Richards MD [address] [place] [address] Health Maintenance Due Date Last Done Comments Zoster Vaccines (1 of 2) 1994 DXA Scan 08/05/2022 08/05/2015, 08/05/2015 Diabetic Foot Exam 06/10/2023 06/10/2022, 06/22/2021 COVID-19 Vaccine ( season) 2024 11/08/2020, 10/11/2020 Diabetic Eye Exam 09/28/2024 09/28/2023, , 06/22/2022, Additional history exists Albumin/Creatinine Ratio 10/07/202410/07/2 024, 06/10/2022, 06/22/2021 HbA1c 12/04/2024 06/05/2024, 08/0 [...] this encounter Medical Devices Implanted Type Area Silk Screener Device Identifier Shelf Expiration Date Model / Serial / Lot Lens Intraoc 22.5 - [id number] - [id number] Implanted:Qty: 1 on 10/19/2022 by Jamaal Cristina MD at OR [facility] Left: Eye [employer] 07/14/2027 [id number] / [id number] / [id number] documented as of this encounter Advance Directives [...] Power of Attor jasmyne? No Care Teams Compliance Professional Relationship Specialty Start Date End Date Charito Valdez CRNP [address] [place] [address] PCP - General Nurse Practitioner 10/08/22 documented as of this encounter
--- OUTSIDE RECORDS SUMMARY | 2024-10-05 12:08 | External Medical Summary ---
Author Name Unknown Address Unknown Organization K01:LABORATORY [facility] - [address] [facility] [address] Laboratory Report Ordering Provider Test Date Status CAROLEE FISHER 09/12/2024 13:06:13 Marianne l Observation Date Value Abnormality Reference (Units ) Status Color of Urine by Auto 09/12/2024 13:06:13 Colorless Colorless, Light Yellow, Yellow, Dark Yellow Final Clarity, Urine 09/12/2024 13:06:13 Clear Clear Final Glucose [Mass/volume] in Urine by Automated test strip 09/12/2024 13:06:13 Negative Negative (mg/dL) Final Bilirubin.total [Presence] in Urine by Automated test strip 09/12/2024 13:06:13 Negative Negative Final Ketones [Mass/volume] in Urine by Automated test strip 09/12/2024 13:06:13 Negative Negative (mg/dL) Final Specific gravity, Urine 09/12/2024 13:06:13 1.008 1.003-1.030 Final Hemoglobin [Presence] in Urine by Automated test strip 09/12/2024 13:06:13 Negative Negative Final pH, Urine 09/12/2024 13:06:13 6.0 5.0-7.5 (Units) Final Protein [Mass/volume] in Urine by Automated test strip 09/12/2024 13:06:13 Negative Negative (mg/dL) Final Urobilinogen [Mass/volume] in Urine by Automated test strip 09/12/2024 13:06:13 Normal Normal (mg/dL) Final Nitrite [Presence] in Urine by Automated test strip 09/12/2024 13:06:13 Negative Negative Final Leukocyte esterase [Presence] in Urine by Automated test strip 09/12/2024 13:06:13 Negative Negative Final RBC, Urine 09/12/2024 13:06:13 0-2 0-2 (/HPF) Final WBC, Urine 09/12/2024 13:06:13 0-2 0-2 (/HPF) Final Bacteria [#/area] in Urine sediment by Microscopy high power field 09/12/2024 13:06:13 0-25 0-25 (/HPF) Final Hyaline casts, Urine 09/12/2024 13:06:13 5-9 Abnormal None (/LPF) Final Performing Location LAB[facility]ATORY [facility] - [facility] [address] [facility] [address]
--- OUTSIDE RECORDS SUMMARY | 2024-10-05 12:08 | External Medical Summary ---
Author Name Unknown Address Unknown Organization K01:[facility]ORY [facility] - [address] [address] [facility] [place] [address] Laboratory Report Ordering Provider Test Date Status CAROLEE FISHER 09/12/2024 13:06:13 Marianne l <10,000 colonies/ml mixed no rmal mounika Observation Date Value Abnormality Reference (Units ) Status Bacteria identified in Specimen by Culture 09/12/2024 13:06:13 [id number]^ESCHE RICHIA COLI Abnormal Final 10,000 to 100,000 colonies/m L Escherichia coli Performing Location [facility]ORY [facility] - [address] [facility] [address] [facility] [place] [address] Ordering Provider Test Date Status CAROLEE FISHER 09/12/2024 13:06:13 Marianne l Observation Date Value Abnormality Reference (Units ) Status Ampicillin 09/12/2024 13:06:13 >=32 Resistant Final Ampicillin + Sulbactam 09/12/2024 13:06:13 >=32 Resistant Final Cefazolin 09/12/2024 13:06:13 <=4 Susceptible Final Cefepime susceptibility 09/12/2024 13:06:13 <=1 Susceptible Final Ceftriaxone suceptibility 09/12/2024 13:06:13 <=1 Susceptible Final Ciprofloxacin 09/12/2024 13:06:13 1 Resistant Final Due to serious side effects, the FDA has advised against using Ciprofloxacin to treat uncomplicated UTIs and respiratory tract infections unless there are no alternative treatment options. Gentamicin susceptibility 09/12/2024 13:06:13 <=1 Susc eptible Final Levofloxacin susceptibility 09/12/2024 13:06:13 1 In termediate Final Due to serious side effects, the FDA has advised against using Levofloxacin to treat uncomplicated UTIs and respiratory tract infections unless there are no alternative treatment options. Nitrofurantoin susceptibility 09/12/2024 13:06:13 <=16 Susceptible Final Piperacillin + Tazobactamsusceptibility 09/12/2024 13:06:13 <=4 Susceptible Final TMP-SMZ susceptibility 09/12/2024 13:06:13 <=20 Suscept ible Final Test: Culture, Urine, Quanti tative
Specimen Source: Urine, Clean Catch
Specimen Type: Urine
Specimen Date: 09/12/2024 1306
Result Date: 09/14/2024 1341
Result Status: Final result
Abnormal: Yes
Resulting Lab: LAB[facility]ORY [facility]
[address]
[facility] [address]

CULTURE

10,000 to 100,000 colonies/mL Escherichia coli (Abnormal)

<10,000 colonies/ml mixed normal mounika

SUSCEPTIBILITY

Escherichia coli
METHOD MICROBROTH
DILUTIONS

AMPICILLIN >=32 Resistant
AMPICILLIN/SULBACTAM >=32 Resistant
CEFAZOLIN <=4 Susceptible
CEFEPIME <=1 Susceptible
CEFTRIAXONE <=1 Susceptible
CIPROFLOXACIN 1 Resistant
[1]
GENTAMICIN <=1 Susceptible
LEVOFLOXACIN 1 Intermediate
[2]
NITROFURANTOIN <=16 Susceptible
PIPERACILLIN TAZOBACTAM <=4 Susceptible
TRIMETH/SULFAMETHOXAZOLE <=20 Susceptible

[1] Due to serious side effects, the FDA has advised against using
Ciprofloxacin to treat uncomplicated UTIs and respiratory tract infections
unless there are no alternative treatment options.

[2] Due to serious side effects, the FDA has advised against using
Levofloxacin to treat uncomplicated UTIs and respiratory tract infections
unless there are no alternative treatment options.

null Performing Location LABORATORY [facility] - [address] [facility] [place] [address]
--- OUTSIDE RECORDS SUMMARY | 2024-10-05 12:08 | External Medical Summary | Summary of Care ---
Author Name Unknown Organization [facility] Address [address] [place] [address] Phone [phone] Care Team Providers Care Spice Miller Name Role Phone Charito Valdez Argelia JOHNSON Primary Care Provider Reason for Visit * Reason Onset Date Comments Test Results 09/13/2024 Encounter Details Date Type Department Care Team (Late st Contact Info) Description 09/13/2024 Telephone Family Medicine [address] [place] [phone] Delmi Palacios MD [address] [place] [address] [place] [address] Test Results Allergies Active Allergy Reactions Criticality [...] 3 4 Active Global Ease Inject Pen [place] 31G X 8 MM (Insulin Pen Needle) [...] diabetic peripheral angiopathy without gangrene, unspecified whether mcfp insulin use (HCC) INJECT UNDER THE SKIN [...] 03/28/2024 Bilateral leg edema 01/27/2024 Need for idztvsoqpb-uzfumzc-djsjrgxbv (Tdap) vac cine 01/27/2024 Skin lesion 10/07/2023 [...] 09/27/2024 1:30 PM EST Office Visit Cardiology, [facility] [address] [facility] [place] [address] Judit Little CRNP [address] [facility] [place] [address] 10/19/2024 4:20 PM EST Office Visit Family Medicine [address] [place] [phone] William Crowder CRNP [address] [place] [address] [place] [address] 11/01/2024 3:20 PM EDT [facility] [address] [place] [phone] Mariola Gonzalez PA-C [address] [place] [address] [place] [address] 11/07/2024 9:30 AM EDT Cardiac Studies Cardiac Studies, [facility] [address] [facility] [place] [address] 11/07/2024 1:00 PM EDT Office Visit Cardiology, [facility] [address] [facility] [place] [address] Abdullahi Richards MD [address] [place] [address] Health Maintenance Due Date Last Done Comments [...] this encounter Medical Devices Implanted Type Area Medical Sales Representative Device Identifier Shelf Expiration Date Model / Serial / Lot Lens Intraoc 22.5 - [id number] - [id number] Implanted:Qty: 1 on 10/19/2022 by Jamaal Cristina MD at OR [facility] Left: Eye [employer]OM[employer] 07/14/2027 [id number] / [id number] documented as of this encounter Advance Directives [...] Power of Attor jasmyne? No Care Teams Spice Miller Relationship Specialty Start Date End Date Charito Valdez CRNP [address] [place] [address] PCP - General Nurse Practitioner 10/08/22 documented as of this encounter
--- OUTSIDE RECORDS SUMMARY | 2024-10-05 12:08 | External Medical Summary | Summary of Care ---
Author Name Unknown Organization [facility] Address [address] [place] [address] Phone [phone] Care Team Providers Care Field Worker Name Role Phone Charito Freed Primary Care Provider Reason for Visit * Reason Comments eRx-Medication Refill Encounter Details Date Type Department Care Team (Late st Contact Info) Description 08/24/2024 Refill Family Practice [facility] [address] [place] [address] Charito Freed CRNP [address] [place] [address] Hypertension goal BP (blood pressure) < 140/90 Allergies Active Allergy Reactions Criticality Noted Date Comments Statins Muscle pain 10/08/2021 Sulfa Antibiotics Hives 03/20/2021 documented as of this encounter (statuses as of 08/24/2024) Medications Folic Acid 400 MCG Oral Tablet Take 1 Tablet by mouth in the morning. Active Blood Pressure Cuff CHECK B/P DAILY 1 Each 022 Active CPAP every night at bedtime . Active Metamucil 0.36 GM Oral Capsule (Psyllium) Take by mouth daily. Active Aspirin 325 MG Oral Tablet Take 1 Tablet by mouth in the morning. Active One-A-Day Womens 50+ Oral Tablet Take 1 Tablet by mouth every morning. Active Docusate Sodium 100 MG Oral Capsule (Colace) Take 1 Capsule by mouth in the morning and 1 Capsule before bedtime. 60 Capsule 11 023 Active Insulin Syringe-Needle U-100 30G X 1/2" 1 ML Use as directed. 180 Each 3 023 Active DULoxetine HCl 60 MG Oral Capsule Delayed Release Particles (Cymbalta)Indicati ons:Current moderate episode of major depressive disorder, unspecified whether recurrent (HCC),DM type 2 with diabetic peripheral neuropathy (HCC) Take 1 Capsule by mouth in the morning. Do not cut, crush or chew. 90 Capsule 3 024 Active Albuterol Sulfate HFA 108 (90 Base) MCG/ACT Inhalation Aerosol SolutionIndication s:Upper respiratory tract infection, unspecified type Inhale 2 Puffs by mouth every 6 hours as needed for Cough. 18 g 3 024 Active Global Ease Inject Pen Rebuck 31G X 8 MM (Insulin Pen Needle) Use as needed up to 4 times per day 400 Each 3 024 Active OneTouch Ultra In Vitro Strip (Glucose Blood)Indications: Type 2 diabetes mellitus with stage 1 chronic kidney disease, with long-term current use of insulin (HCC) USE UP TO 3 TIMES A DAY DIRECTED. 300 Strip 1 024 Active BD Insulin Syringe 25G X 5/8" 1 ML (Insulin Syringe-Needle U-100) Use as indicated for daily insulin injections 100 Each 5 024 Active Pantoprazole Sodium 40 MG Oral Tablet Delayed Release (Protonix)Indicati ons:Gastro-esophag eal reflux disease without esophagitis Take 1 Tablet by mouth in the morning. 90 Tablet 2 024 Active Insulin Aspart 100 UNIT/ML Injection Solution (NovoLOG)Indicatio ns:Type 2 diabetes mellitus with diabetic peripheral angiopathy without gangrene, unspecified whether termite technician insulin use (HCC) INJECT UNDER THE SKIN 40 UNITS 3 TIMES DAILY BEFORE MEALS 40 mL 5 024 Active Lantus SoloStar 100 UNIT/ML Subcutaneous Solution Pen-injector Inject 50 Units under the skin in the morning and 50 Units before bedtime. 30 mL 5 024 Active Erythromycin Ethylsuccinate 200 MG/5ML Oral Suspension Reconstituted (Ees)Indications:G astroparesis Take 2.5 mL by mouth in the morning and 2.5 mL at noon and 2.5 mL before bedtime. with meals. 250 mL 1 024 Active Ezetimibe 10 MG Oral Tablet (Zetia) Take 1 Tablet by mouth in the morning. 30 Tablet 11 024 Active Levocetirizine Dihydrochloride 5 MG Oral Tablet Take 0.5 Tablets by mouth every evening. 90 Tablet 3 024 Active Fluticasone Propionate 50 MCG/ACT Nasal Suspension (Flonase) Administer 2 Sprays into each nostril in the morning. 18.2 mL 3 024 Active Gabapentin 300 MG Oral Capsule (Neurontin)Indicat ions:Chronic right-sided low back pain with right-sided sciatica take 1 capsule in the morning, 1 capsule at noon and 2 capsules in the evening. 120 Capsule 024 Active Torsemide 10 MG Oral Tablet (Demadex) Take 2 Tablets by mouth in the morning. 60 Tablet 3 024 2024 Active Trulicity 0.75 MG/0.5ML Subcutaneous Solution Auto-injector (Dulaglutide)Indic ations:Type 2 diabetes mellitus with stage 1 chronic kidney disease, with long-term current use of insulin (HCC) Inject 0.75 mg under the skin once a week. 2 mL 025 Active Metoprolol Succinate ER 25 MG Oral Tablet Extended Release 24 Hour (toPROL XL)Indications:Hyp ertension goal BP (blood pressure) < 140/90 Take 1/2 TABLET BY MOUTH DAILY in the morning. 45 Tablet 1 025 Active Metoprolol Succinate ER 25 MG Oral Tablet Extended Release 24 Hour (toPROL XL)Indications:Hyp ertension goal BP (blood pressure) < 140/90 Take 1/2 TABLET BY MOUTH DAILY in the morning. 45 Tablet 2 024 2024 Discontinued documented as of this encounter (statuses as of 08/24/2024) Active Problems Problem Noted Date Diagnosed Date Face pain 07/20/2024 Fall 07/20/2024 Bilateral impacted cerumen 07/20/2024 Lipoma of torso 04/25/2024 Deformity of toenail 03/28/2024 Onychomycosis 03/28/2024 Upper respiratory tract infection 03/28/2024 Suprapubic mass 03/28/2024 Bilateral leg edema 01/27/2024 Need for gtmdjfyhnx-yxahmhq-atqgzgznj (Tdap) vac cine 01/27/2024 Skin lesion 10/07/2023 [...] as of this encounter (statuses as of 08/24/2024) Resolved Problems Problem Noted Date Diagnosed Date [...] as of this encounter (statuses as of 08/24/2024) Immunizations Name Administration Dates Next Due COVID-19 [...] encounter Miscellaneous Notes * Telephone Encounter - Tata Sinclair RPh - 08/24/2024 4:18 PM ESTSigned Prescriptions: Disp Refills Metoprolol Succinate ER 25 MG Oral Tablet *45 Tab*1 Sig: Take 1/2 TABLET BY MOUTH DAILY in the morning.Authorizing Provider: CHARITO FREED User: TATA SINCLAIR documented in this encounter Plan of Treatment Upcoming Encounters Date Type Department Care Team (Late st Contact Info) Description 08/28/2024 11:30 AM EST Office Visit Pharmacy, [facility] [address] [facility] [address] [place] [address] [facility] [address] [facility] [place] [address] 09/27/2024 1:30 PM EST Office Visit Cardiology, [facility] [address] [facility] [facility] [place] [address] Judit Little CRNP [address] [place] [address] 10/18/2024 1:00 PM EST Office Visit Family Medicine [address] [place] [phone] William Crowder CRNP [address] [place] [address] [place] [address] 11/01/2024 3:20 PM EDT [facility] [address] [facility] [place] [phone] Mariola Gonzalez PA-C [address] [place] [address] [place] [address] Health Maintenance Due Date Last Done Comments [...] this encounter Medical Devices Implanted Type Area Mason Apprentice Device Identifier Shelf Expiration Date Model / Serial / Lot Lens Intraoc 22.5 - [id number] - [id number] Implanted:Qty: 1 on 10/19/2022 by Jamaal Cristina MD at OR [facility] Left: Eye [employer] LOMB 07/14/2027 [id number] / [id number] / [id number] documented as of this encounter Visit Diagnoses Diagnosis Hypertension goal BP (blood pressure) < 140/90 Unspecified essential hypertension documented in this encounter Advance Directives * [...] Power of Attor jasmyne? No Care Teams Field Worker Relationship Specialty Start Date End Date Charito Freed CRNP [address] [place] [address] PCP - General Nurse Practitioner 10/08/22 documented as of this encounter
--- OUTSIDE RECORDS SUMMARY | 2024-10-05 12:08 | External Medical Summary | Summary of Care ---
Author Name Unknown Organization [facility] Address [address] [place] [address] Phone [phone] Care Team Providers Care Waste Salvager Name Role Phone Charito Valdez Argelia JOHNSON Primary Care Provider Encounter Details Date Type Department Care Team (Late st Contact Info) Description 09/04/2024 Population Health External Data Unspecified Department Allergies Active Allergy Reactions Criticality Noted Date Comments Statins Muscle pain 10/08/2021 Sulfa Antibiotics Hives 03/20/2021 documented as of this encounter (statuses as of 09/04/2024) Medications Folic Acid 400 MCG Oral Tablet [...] 60 MG Oral Capsule Delayed Release Particles (Cymbalta)Indicatio ns:Current moderate episode of major depressive disorder, unspecified whether recurrent (HCC),DM type 2 with diabetic peripheral neuropathy (HCC) Take 1 Capsule by mouth in the morning. Do not cut, crush or chew. 90 Capsule 3 12/27/19 24 Active Albuterol Sulfate HFA 108 (90 Base) MCG/ACT Inhalation Aerosol SolutionIndications :Upper respiratory tract infection, unspecified type Inhale 2 Puffs by mouth every 6 hours as needed for Cough. 18 g 3 03/23/20 24 Active Global Ease Inject Pen Holley 31G X 8 MM (Insulin Pen Needle) Use as needed up to 4 times per day 400 Each 3 06/11/20 24 Active OneTouch Ultra In Vitro Strip (Glucose Blood)Indications:T ype 2 diabetes mellitus with stage 1 chronic kidney disease, with long-term current use of insulin (HCC) USE UP TO 3 TIMES A DAY DIRECTED. 300 Strip 1 06/11/20 24 Active BD Insulin Syringe 25G X 5/8" 1 ML (Insulin Syringe-Needle U-100) Use as indicated for daily insulin injections 100 Each 5 06/15/20 24 Active Pantoprazole Sodium 40 MG Oral Tablet Delayed Release (Protonix)Indicatio ns:Gastro-esophagea l reflux disease without esophagitis Take 1 Tablet by mouth in the morning. 90 Tablet 2 06/28/20 24 Active Insulin Aspart 100 UNIT/ML Injection Solution (NovoLOG)Indication s:Type 2 diabetes mellitus with diabetic peripheral angiopathy without gangrene, unspecified whether residential insulin use (HCC) INJECT UNDER THE SKIN 40 UNITS 3 TIMES DAILY BEFORE MEALS 40 mL 5 07/04/20 24 Active Lantus SoloStar 100 UNIT/ML Subcutaneous Solution Pen-injector Inject 50 Units under the skin in the morning and 50 Units before bedtime. 30 mL 5 07/04/20 24 Active Erythromycin Ethylsuccinate 200 MG/5ML Oral Suspension Reconstituted (Ees)Indications:Ga stroparesis Take 2.5 mL by mouth in the morning and 2.5 mL at noon and 2.5 mL before bedtime. with meals. 250 mL 1 07/06/20 24 Active Ezetimibe 10 MG Oral Tablet (Zetia) Take 1 Tablet by mouth in the morning. 30 Tablet 11 07/20/20 24 Active Levocetirizine Dihydrochloride 5 MG Oral Tablet Take 0.5 Tablets by mouth every evening. 90 Tablet 3 07/20/20 24 Active Fluticasone Propionate 50 MCG/ACT Nasal Suspension (Flonase) Administer 2 Sprays into each nostril in the morning. 18.2 mL 3 07/20/20 24 Active Gabapentin 300 MG Oral Capsule (Neurontin)Indicati ons:Chronic right-sided low back pain with right-sided sciatica take 1 capsule in the morning, 1 capsule at noon and 2 capsules in the evening. 120 Capsule 08/02/20 24 Active Torsemide 10 MG Oral Tablet (Demadex) Take 2 Tablets by mouth in the morning. 60 Tablet 3 08/11/20 24 025 Active Trulicity 0.75 MG/0.5ML Subcutaneous Solution Auto-injector (Dulaglutide)Indica tions:Type 2 diabetes mellitus with stage 1 chronic kidney disease, with long-term current use of insulin (HCC) Inject 0.75 mg under the skin once a week. 2 mL 08/22/19 25 Active Metoprolol Succinate ER 25 MG Oral Tablet Extended Release 24 Hour (toPROL XL)Indications:Hype rtension goal BP (blood pressure) < 140/90 Take 1/2 TABLET BY MOUTH DAILY in the morning. 45 Tablet 1 08/24/19 25 Active documented as of this encounter (statuses as of 09/04/2024) Active Problems Problem Noted Date Diagnosed Date Face pain 07/20/2024 Fall 07/20/2024 Bilateral impacted cerumen 07/20/2024 Lipoma of torso 04/25/2024 Deformity of toenail 03/28/2024 Onychomycosis 03/28/2024 Upper respiratory tract infection 03/28/2024 Suprapubic mass 03/28/2024 Bilateral leg edema 01/27/2024 Need for cdwnvcbgej-lbdsgqh-bwgqnuvab (Tdap) vac cine 01/27/2024 Skin lesion 10/07/2023 [...] as of this encounter (statuses as of 09/04/2024) Resolved Problems Problem Noted Date Diagnosed Date [...] as of this encounter (statuses as of 09/04/2024) Immunizations Name Administration Dates Next Due COVID-19 [...] on file documented as of this encounter Plan of Treatment Upcoming Encounters Date Type Department Care Team (Late st Contact Info) Description 09/27/2024 1:30 PM EST Office Visit Cardiology, [facility] [address] [place] [address] Judit Little CRNP [address] [place] [address] 10/18/2024 1:00 PM EST Office Visit Family Medicine [address] [phone] William Crowder CRNP [address] [place] [address] [place] [address] 11/01/2024 3:20 PM EDT Office Visit Dermatology, [address] [place] [phone] Mariola Gonzalez, ALFONZO [address] [place] [address] [place] [address] 11/07/2024 9:30 AM EDT Cardiac Studies Cardiac Studies, [facility] [address] [facility] [place] [address] 11/07/2024 1:00 PM EDT Office Visit Cardiology, [facility] [address] [facility] [place] [address] Abdullahi Richards MD [address], [place] [id number] Health Maintenance Due Date Last Done Comments Zoster Vaccines (1 of 2) 1994 DXA Scan 08/05/2022 08/05/2015, 08/05/2015 Diabetic Foot Exam 06/10/2023 06/10/2022, 06/22/2021 COVID-19 Vaccine ( season) 2024 11/08/2020, 10/11/2020 Diabetic Eye Exam 09/28/2024 09/28/2023, , 06/22/2022, Additional history exists Albumin/Creatinine Ratio 10/07/20242 024, 06/10/2022, 06/22/2021 HbA1c 12/04/2024 06/05/2024, 08/0 [...] this encounter Medical Devices Implanted Type Area Night Baker Device Identifier Shelf Expiration Date Model / Serial / Lot Lens Intraoc 22.5 - [id number] - [id number] Implanted:Qty: 1 on 10/19/2022 by Jamaal Cristina MD at OR [facility] Left: Eye [employer]CH [employer] LOMB 07/14/2027 [id number] / [id number] / [id number] documented as of this encounter Advance Directives [...] Power of Attor jasmyne? No Care Teams Waste Salvager Relationship Specialty Start Date End Date Charito Valdez CRNP [address] [place] [address] PCP - General Nurse Practitioner 10/08/22 documented as of this encounter
--- OUTSIDE RECORDS SUMMARY | 2024-10-05 12:08 | External Medical Summary | Summary of Care ---
Author Name Unknown Organization [facility] Address [address] [place] [address] Phone [phone] Care Team Providers Care Java Programmer Name Role Phone Charito Freed Primary Care Provider Reason for Visit * Reason Comments eRx-Medication Refill Encounter Details Date Type Department Care Team (Late st Contact Info) Description 09/06/2024 Refill Family Practice [facility] [address] [place] [address] Charito Freed CRNP [address] [place] [address] Chronic right-sided low back pain with right-sided sciatica Allergies Active Allergy Reactions Criticality Noted Date Comments Statins Muscle pain 10/08/2021 Sulfa Antibiotics Hives 03/20/2021 documented as of this encounter (statuses as of 09/06/2024) Medications Folic Acid 400 MCG Oral Tablet [...] 3 024 Active Global Ease Inject Pen Bagley 31G X 8 MM (Insulin Pen Needle) [...] diabetic peripheral angiopathy without gangrene, unspecified whether jail insulin use (HCC) INJECT UNDER THE SKIN [...] the morning. 18.2 mL 3 024 Active Torsemide 10 MG Oral Tablet [...] the morning. 45 Tablet 1 025 Active Gabapentin 300 MG Oral Capsule (Neurontin)Indicat ions:Chronic right-sided low back pain with right-sided sciatica take 1 capsule in the morning, 1 capsule at noon and 2 capsules in the evening. 120 Capsule 025 Active Gabapentin 300 MG Oral Capsule (Neurontin)Indicat ions:Chronic right-sided low back pain with right-sided sciatica take 1 capsule in the morning, 1 capsule at noon and 2 capsules in the evening. 120 Capsule 024 2024 Discontinued documented as of this encounter (statuses as of 09/06/2024) Active Problems Problem Noted Date Diagnosed Date Face pain 07/20/2024 Fall 07/20/2024 Bilateral impacted cerumen 07/20/2024 Lipoma of torso 04/25/2024 Deformity of toenail 03/28/2024 Onychomycosis 03/28/2024 Upper respiratory tract infection 03/28/2024 Suprapubic mass 03/28/2024 Bilateral leg edema 01/27/2024 Need for bkgsdzhcyl-lfclpfc-vzecmmjxt (Tdap) vac cine 01/27/2024 Skin lesion 10/07/2023 [...] as of this encounter (statuses as of 09/06/2024) Resolved Problems Problem Noted Date Diagnosed Date [...] as of this encounter (statuses as of 09/06/2024) Immunizations Name Administration Dates Next Due COVID-19 [...] encounter Miscellaneous Notes * Telephone Encounter - Rhed, Charito Argelia, SIMULATION SOFTWARE ENGINEER - 09/06/2024 12:53 PM EST Signed Prescriptions: Disp Refills Gabapentin 300 MG Oral Capsule (Neurontin) 120 Ca*0 Sig: take 1 capsule in the morning, 1 capsule at noon and 2 capsules in the evening. Authorizing Provider: CHARITO FREED * Telephone Encounter - Jayleen Mejia RPh - 09/06/2024 12:46 PM EST Pending Prescriptions: Disp Refills Gabapentin 300 MG Oral Capsule [Pharmacy M*120 Ca*0 Sig: take 1 capsule in the morning, 1 capsule at noon and 2 capsules in the evening. * Telephone Encounter - Jayleen Mejia RPh - 09/06/2024 12:46 PM EST [facility] is currently not authorized to approve refills for the pended medication(s) per refill protocol. Please approve if appropriate. Thank you, Jayleen Mejia, PharmD Clinical Pharmacist [facility] ([facility]) 09/06/24 12:46 PM [phone] documented in this encounter Plan of Treatment Upcoming Encounters Date Type Department Care Team (Late st Contact Info) Description 09/27/2024 1:30 PM EST Office Visit Cardiology, [facility] [address] [facility] [place] [address] Judit Little CRNP [address] [facility] [place] [address] 10/18/2024 1:00 PM EST Office Visit Family Medicine [address] [place] [phone] William Crowder CRNP [address] [place] [address] [place] [address] 11/01/2024 3:20 PM EDT [facility] [address] [facility] [place] [phone] Mariola Gonzalez PA-C [address] [place] [address] [place] [address] 11/07/2024 9:30 AM EDT Cardiac Studies Cardiac Studies, [facility] [address] [facility] [place] [address] 11/07/2024 1:00 PM EDT Office Visit Cardiology, [facility] [address] [facility] [place] [address] Abdullahi Richards MD [address] [place] [address] Health Maintenance Due Date Last Done Comments [...] this encounter Medical Devices Implanted Type Area Cable Rigger Device Identifier Shelf Expiration Date Model / Serial / Lot Lens Intraoc 22.5 - [id number] - [id number] Implanted:Qty: 1 on 10/19/2022 by Jamaal Cristina MD at OR [facility] Left: Eye [employer] LOMB 07/14/2027 [id number] / [id number] / [id number] documented as of this encounter Visit Diagnoses Diagnosis Chronic right-sided low back pain with right-sided sciatica documented in this encounter Advance Directives * [...] Power of Attor jasmyne? No Care Teams Java Programmer Relationship Specialty Start Date End Date Charito Freed CRNP [address] [place] [address] PCP - General Nurse Practitioner 10/08/22 documented as of this encounter
--- OUTSIDE RECORDS SUMMARY | 2024-10-05 12:09 | External Medical Summary | Summary of Care ---
Author Name Unknown Organization [facility] Address [address] [place] [address] Phone [phone] Care Team Providers Care Second Baker Name Role Phone Charito Valdez Primary Care Provider Encounter Details Date Type Department Care Team (Late st Contact Info) Description 07/23/2024 Telephone Family Practice [facility] [address] [place] [address] Charito Valdez CRNP [address] [place] [address] Allergies Active Allergy Reactions Criticality Noted Date Comments Statins Muscle pain 10/08/2021 Sulfa Antibiotics Hives 03/20/2021 documented as of this encounter (statuses as of 07/25/2024) Medications Folic Acid 400 MCG Oral Tablet [...] ML Use as directed. 180 Each 3 11/02/20 23 Active Metoprolol Succinate ER 25 MG Oral Tablet Extended Release 24 Hour (toPROL XL)Indications:Hype rtension goal BP (blood pressure) < 140/90 Take 1/2 TABLET BY MOUTH DAILY in the morning. 45 Tablet 2 11/22/19 24 Active DULoxetine HCl 60 MG Oral Capsule [...] 03/23/20 24 Active Global Ease Inject Pen Campbell 31G X 8 MM (Insulin Pen Needle) [...] injections 100 Each 5 06/15/20 24 Active Gabapentin 300 MG Oral Capsule (Neurontin)Indicati ons:Chronic right-sided low back pain with right-sided sciatica take 1 capsule in the morning, 1 capsule at noon and 2 capsules in the evening. 120 Capsule 06/28/20 24 Active Pantoprazole Sodium 40 MG Oral Tablet Delayed Release (Protonix)Indicatio ns:Gastro-esophagea l reflux disease without esophagitis Take 1 Tablet by mouth in the morning. 90 Tablet 2 06/28/20 24 Active Insulin Aspart 100 UNIT/ML Injection Solution (NovoLOG)Indication s:Type 2 diabetes mellitus with diabetic peripheral angiopathy without gangrene, unspecified whether senior living insulin use (HCC) INJECT UNDER THE SKIN [...] morning. 18.2 mL 3 07/20/20 24 Active documented as of this encounter (statuses as of 07/25/2024) Active Problems Problem Noted Date Diagnosed Date Face pain 07/20/2024 Fall 07/20/2024 Bilateral impacted cerumen 07/20/2024 Lipoma of torso 04/25/2024 Deformity of toenail 03/28/2024 Onychomycosis 03/28/2024 Upper respiratory tract infection 03/28/2024 Suprapubic mass 03/28/2024 Bilateral leg edema 01/27/2024 Need for uxsupglukf-ylunvbs-sqwqbsrag (Tdap) vac cine 01/27/2024 Skin lesion 10/07/2023 [...] as of this encounter (statuses as of 07/25/2024) Resolved Problems Problem Noted Date Diagnosed Date [...] as of this encounter (statuses as of 07/25/2024) Immunizations Name Administration Dates Next Due COVID-19 [...] encounter Miscellaneous Notes * Telephone Encounter - Meghana Ferguson LPN - 07/25/2024 1:50 PM EST Attempted to call pt's mobile number - mailbox full Called pt's son/POA made aware of message * Telephone Encounter - Charito Valdez CRNP - 07/23/2024 6:53 AM EST Please notify pat that her kidneys and electolytes and magnesium are normal. Jose, DILMA, ALEX [facility] documented in this encounter Plan of Treatment Upcoming Encounters Date Type Department Care Team (Late st Contact Info) Description 08/28/2024 11:30 AM EST Office Visit Pharmacy, [facility] [address] [facility] [place] [address] [facility] [place] [address] 09/27/2024 1:30 PM EST Office Visit Cardiology, [facility] [address] [place] [address] Judit Little CRNP [address] [facility] [place] [address] 10/18/2024 1:00 PM EST Office Visit Family Medicine [address] [place] [phone] William Crowder CRNP [address] [place] [address] [place] [address] 11/01/2024 3:20 PM EDT [facility] [place] [phone] Mariola Gonzalez PA-C [address] [place] [address] [place] [address] Health Maintenance Due Date Last Done Comments [...] Td or Tdap) 01/26/2034 01/27/2024 Pneumococcal Vaccine: 65+ Years Completed 05/31/2016, 02/24/2012 Influenza Vaccine (FLU [...] this encounter Medical Devices Implanted Type Area Gas System Operator Device Identifier Shelf Expiration Date Model / Serial / Lot Lens Intraoc 22.5 - [id number] - [id number] Implanted:Qty: 1 on 10/19/2022 by Jamaal Cristina MD at OR [facility] Left: Eye [employer]CH [employer] LOMB 07/14/2027 [id number] / [id number] / [id number] documented as of this encounter Advance Directives [...] Power of Attor jasmyne? No Care Teams Second Baker Relationship Specialty Start Date End Date Charito Valdez CRNP [address] [place] [address] PCP - General Nurse Practitioner 10/08/22 documented as of this encounter
--- OUTSIDE RECORDS SUMMARY | 2024-10-05 12:09 | External Medical Summary ---
Author Name Unknown Address Unknown Organization K0G:[facility] [address] [place] [address] Laboratory Report Ordering Provider Test Date Status LOURDES GUTIERREZ 07/20/2024 11:56:00 Final Observation Date Value Abnormality Reference (Units ) Status BUN 07/20/2024 11:56:00 13 6-20 (mg/dL) Final Creatinine 07/20/2024 11:56:00 0.8 0.5-1.0 (mg/dL) Final Glomerular filtration rate/1.73 sq M.predicted [Volume Rate/Area] in Serum, Plasma or Blood by Creatinine-based formula (CKD-EPI) 07/20/2024 11:56:00 75 >=60 (mL/min) Final eGFR is calculated based on the CKD-EPI 2020 equation. Sodium 07/20/2024 11:56:00 139 135-146 (m mol/L) Final Potassium 07/20/2024 11:56:00 4.4 3.5-5.1 (m mol/L) Final Cl 07/20/2024 11:56:00 96 Below low normal 98- 107 (mmol/L) Final CO2 07/20/2024 11:56:00 31 22-32 (mmo l/L) Final Anion gap 07/20/2024 11:56:00 12 7-15 (mmol /L) Final Glucose 07/20/2024 11:56:00 176 Above high normal 70 -120 (mg/dL) Final Calcium 07/20/2024 11:56:00 9.5 8.4-10.2 ( mg/dL) Final Performing Location [facility] [place] [address]
--- OUTSIDE RECORDS SUMMARY | 2024-10-05 12:09 | External Medical Summary | Summary of Care ---
Author Name Unknown Organization [facility] Address [address] [place] [address] Phone [phone] Care Team Providers Care Order Picker/Assembler Name Role Phone Charito Valdezlle ALEX Primary Care Provider Reason for Visit * Reason Onset Date Comments No Show 07/19/2024 [facility] No Show Auto mation Encounter Details Date Type Department Care Team (Late st Contact Info) Description 07/19/2024 Telephone Otolaryngology [facility] [address] [place] [address] Mahesh Martin PA-C [address] [place] [address] No Show ([facility] No Show Automation) Allergies Active Allergy Reactions Criticality Noted Date Comments Statins Muscle pain 10/08/2021 Sulfa Antibiotics Hives 03/20/2021 documented as of this encounter (statuses as of 07/19/2024) Medications Folic Acid 400 MCG Oral Tablet [...] bedtime. 60 Capsule 11 12/10/19 23 Active Levocetirizine Dihydrochloride 5 MG Oral Tablet TAKE ONE TABLET BY MOUTH ONE TIME DAILY IN THE EVENING 90 Tablet 3 04/06/20 23 Active Fluticasone Propionate 50 MCG/ACT Nasal Suspension (Flonase) Administer 2 Sprays into each nostril in the morning. 18.2 mL 3 04/06/20 Active Insulin Syringe-Needle U-100 30G X 1/2" 1 ML Use as directed. 180 Each 3 06/16/20 Active Metoprolol Succinate ER 25 MG Oral Tablet Extended Release 24 Hour (toPROL XL)Indications:Hype rtension goal BP (blood pressure) < 140/90 Take 1/2 TABLET BY MOUTH DAILY in the morning. 45 Tablet 2 11/22/19 24 Active Lidocaine 0.5 % External GelIndications:Type 2 diabetes mellitus with diabetic polyneuropathy, with long-term current use of insulin (HCC) Apply topically to affected area 2 times a day. Apply to hand and feet twice daily 170 g 3 12/02/19 Active Additional Information Patient not taking.Reported on 05/18/2024 DULoxetine HCl 60 MG Oral Capsule Delayed [...] Cough. 18 g 3 03/23/20 24 Active Benzonatate 100 MG Oral CapsuleIndications: Upper respiratory tract infection, unspecified type Take 1 Capsule by mouth 3 times a day as needed for Cough. 30 Capsule 1 03/23/20 24 Active Additional Information Patient not taking.Reported on 05/18/2024 oxyCODONE-Acetamino phen 5-325 MG Oral Tablet (Percocet) Take 1 Tablet by mouth every 6 hours as needed for Pain, Moderate. 10 Tablet 1:20 PM EDT 05/18/20 Active Additional Information Patient not taking.Reported on 06/18/2024 Cephalexin 500 MG Oral Capsule (Keflex) Take 1 Capsule by mouth every 6 hours. 40 Capsule 06/04/20 24 Active Trulicity 3 MG/0.5ML Subcutaneous Solution Pen-injector (Dulaglutide) Inject 3 mg under the skin once a week. 3 mL 3 3:45 PM EDT 06/05/20 Active Global Ease Inject Pen [place] 31G X 8 MM (Insulin Pen Needle) Use as needed up to 4 times per day 400 Each 3 06/11/20 Active OneTouch Ultra In Vitro Strip (Glucose Blood)Indications:T ype 2 diabetes mellitus with stage 1 chronic kidney disease, with long-term current use of insulin (HCC) USE UP TO 3 TIMES A DAY DIRECTED. 300 Strip 1 06/11/20 Active BD Insulin Syringe 25G X 5/8" [...] diabetic peripheral angiopathy without gangrene, unspecified whether half-way insulin use (HCC) INJECT UNDER THE SKIN [...] meals. 250 mL 1 07/06/20 24 Active documented as of this encounter (statuses as of 07/19/2024) Active Problems Problem Noted Date Diagnosed Date Lipoma of torso 04/25/2024 Deformity of toenail 03/28/2024 Onychomycosis 03/28/2024 Upper respiratory tract infection 03/28/2024 Suprapubic mass 03/28/2024 Bilateral leg edema 01/27/2024 Need for wufeyeqqmx-enhdanq-utlktusps (Tdap) vac cine 01/27/2024 Skin lesion 10/07/2023 [...] as of this encounter (statuses as of 07/19/2024) Resolved Problems Problem Noted Date Diagnosed Date [...] as of this encounter (statuses as of 07/19/2024) Immunizations Name Administration Dates Next Due COVID-19 [...] encounter Miscellaneous Notes * Telephone Encounter - Kevin, No Show - 07/19/2024 8:13 AM EST Dear Melanie Arrieta, Looks like you missed an appointment with MAHESH MARTIN on 07/16/2024 at 11:30 AM. If you haven't already rescheduled, you have a couple of options: Reschedule in [email or web address] Call us at [phone] Can't make a future appointment? Cancel and let someone else have your spot! It's easy to do via [email or web address] or by calling us. [facility]. We hope to see you back in our office soon. Sincerely, MAHESH MARTIN documented in this encounter Plan of Treatment Upcoming Encounters Date Type Department Care Team (Late st Contact Info) Description 07/20/2024 11:00 AM EST Office Visit Family Practice [facility] [address] [place] [address] Charito Valdez CRNP [address] [place] [address] 08/28/2024 11:30 AM EST Office Visit Pharmacy, [facility] [address] [place] [address] [facility] [address] [place] [address] 09/27/2024 1:30 PM EST Office Visit Cardiology, [facility] [address] [place] [address] Judit Little CRNP [address] [place] [address] 11/01/2024 3:20 PM EDT Office Visit Dermatology, [address] [place] [phone] Mariola Gonzalez PA-C [address] [place] [address] [place] [address] Health Maintenance Due Date Last Done Comments Zoster Vaccines (1 of 2) 1994 DXA Scan 08/05/2022 08/05/2015, 08/05/2015 Diabetic Foot Exam 06/10/2023 06/10/2022, 06/22/2021 COVID-19 Vaccine ( season) 2024 11/08/2020, 10/11/2020 Diabetic Eye Exam 09/28/2024 09/28/2023, , 06/22/2022, Additional history exists Albumin/Creatinine Ratio 10/07/2024 024, 06/10/2022, 06/22/2021 HbA1c 12/04/2024 06/05/2024, 08/0 04/2024, 10/07/2023, Additional history exists GFR 03/23/2025 03/23/2024, 05/2 08/2023, 09/30/2023, Additional history exists Adult Wellness Visit 06/05/2025 06/05/2024 Depression Monitoring 06/05/2025 06/05/2024 DTap/Tdap Vaccines (2 - Td or Tdap) [...] this encounter Medical Devices Implanted Type Area Environmental Services Assistant Device Identifier Shelf Expiration Date Model / Serial / Lot Lens Intraoc 22.5 - [id number] - [id number] Implanted:Qty: 1 on 10/19/2022 by Jamaal Cristina MD at OR [facility] Left: Eye BAUSCH & LOMB 07/14/2027 [id number] / [id number] documented as of this encounter Advance Directives [...] Power of Attor jasmyne? No Care Teams Order Picker/Assembler Relationship Specialty Start Date End Date Charito Valdez CRNP [address] [place] [address] PCP - General Nurse Practitioner 10/08/22 documented as of this encounter
--- OUTSIDE RECORDS SUMMARY | 2024-10-05 12:09 | External Medical Summary | Summary of Care ---
Author Name Unknown Organization [facility] Address [address] [place] [address] Phone [phone] Care Team Providers Care Target Man Name Role Phone Charito Valdez Argelia JOHNSON Primary Care Provider Reason for Visit * Reason Comments Outpatient Testing Encounter Details Date Type Department Care Team (Late st Contact Info) Description 07/20/2024 11:50 AM EST Laboratory Laboratory, [facility] [address] [place] [address] [facility] [address] [place] [address] HTN, goal below 140/90 Allergies Active Allergy Reactions Criticality Noted Date Comments Statins Muscle pain 10/08/2021 Sulfa Antibiotics Hives 03/20/2021 documented as of this encounter (statuses as of 07/20/2024) Medications Folic Acid 400 MCG Oral Tablet [...] directed. 180 Each 3 06/16/20 23 Active Metoprolol Succinate ER 25 MG [...] 03/23/20 24 Active Global Ease Inject Pen [place] 31G X 8 MM (Insulin Pen Needle) [...] diabetic peripheral angiopathy without gangrene, unspecified whether terminal operator insulin use (HCC) INJECT UNDER THE SKIN [...] meals. 250 mL 1 07/06/20 24 Active Trulicity 0.75 MG/0.5ML Subcutaneous Solution Auto-injector (Dulaglutide)Indica tions:Type 2 diabetes mellitus with stage 1 chronic kidney disease, with long-term current use of insulin (HCC) Inject 0.75 mg under the skin once a week. 2 mL 07/20/20 24 Active Ezetimibe 10 MG Oral Tablet [...] as of this encounter (statuses as of 07/20/2024) Active Problems Problem Noted Date Diagnosed Date Face pain 07/20/2024 Fall 07/20/2024 Bilateral impacted cerumen 07/20/2024 Lipoma of torso 04/25/2024 Deformity of toenail 03/28/2024 Onychomycosis 03/28/2024 Upper respiratory tract infection 03/28/2024 Suprapubic mass 03/28/2024 Bilateral leg edema 01/27/2024 Need for rgojxqxevr-ruccdyp-jzqdzwqoe (Tdap) vac cine 01/27/2024 Skin lesion 10/07/2023 [...] as of this encounter (statuses as of 07/20/2024) Resolved Problems Problem Noted Date Diagnosed Date [...] as of this encounter (statuses as of 07/20/2024) Immunizations Name Administration Dates Next Due COVID-19 [...] 08/28/2024 11:30 AM EST [facility] [address] [place] [address] [facility] [place] [address] [place] [address] 09/27/2024 1:30 PM EST Office Visit Cardiology, [facility] [address] [place] [address] Judit Little CRNP [address] [place] [address] 10/18/2024 1:00 PM EST Office Visit Family Medicine [address] [place] [phone] William Crowder CRNP [address] [place] [address] [place] [address] 11/01/2024 3:20 PM EDT Office Visit Dermatology, [place] [facility] [address] [facility] [place] [phone] Mariola Gonzalez PA-C [address] [place] [address] [place] [address] Pending Results Name Type Priority Associated Diagnoses Date /Time BASIC METABOLIC PANEL Lab Routine HTN, goal below 140/90 07/20/2024 11:56 AM EST MAGNESIUM Lab Routine HTN, goal below 140/90 07/20/2024 11:56 AM EST Health Maintenance Due Date Last Done Comments Zoster Vaccines (1 of 2) 1994 DXA Scan 08/05/2022 08/05/2015, 08/05/2015 Diabetic Foot Exam 06/10/2023 06/10/2022, 06/22/2021 COVID-19 Vaccine ( season) 2024 11/08/2020, 10/11/2020 Diabetic Eye Exam 09/28/2024 09/28/2023, , 06/22/2022, Additional history exists Albumin/Creatinine Ratio 10/07/2024 024, 06/10/2022, 06/22/2021 HbA1c 12/04/2024 06/05/2024, 08/0 04/2024, 10/07/2023, Additional history exists GFR 03/23/2025 03/23/2024, 12/14, 09/30/2023, Additional history exists Adult Wellness Visit [...] this encounter Medical Devices Implanted Type Area Engine Pilot Device Identifier Shelf Expiration Date Model / Serial / Lot Lens Intraoc 22.5 - [id number] - [id number] Implanted:Qty: 1 on 10/19/2022 by Jamaal Cristina MD at OR [facility] Left: Eye BAUSCH & LOMB 07/14/2027 [id number] / [id number] / [id number] documented as of this encounter Visit Diagnoses Diagnosis HTN, goal below 140/90 Unspecified essential hypertension documented in this [...] Power of Attor jasmyne? No Care Teams Target Man Relationship Specialty Start Date End Date Charito Valdez CRNP [address] [place] [address] PCP - General Nurse Practitioner 10/08/22 documented as of this encounter
--- OUTSIDE RECORDS SUMMARY | 2024-10-05 12:09 | External Medical Summary | Summary of Care ---
Author Name Unknown Organization [facility] Address [address] [place] [address] Phone [phone] Care Team Providers Care Plaster Helper Name Role Phone Charito Valdezlle ALEX Primary Care Provider Reason for Visit * Reason Onset Date Comments Advice 04/19/2024 Encounter Details Date Type Department Care Team (Late st Contact Info) Description 04/19/[address] [facility] [address] [place] [address] Yovany Pringle MD [address] [place] [address] Advice Allergies Active Allergy Reactions Criticality Noted Date [...] before bedtime. 60 Capsule 11 023 Active Levocetirizine Dihydrochloride 5 MG Oral Tablet TAKE ONE TABLET BY MOUTH ONE TIME DAILY IN THE EVENING 90 Tablet 3 023 Active Fluticasone Propionate 50 MCG/ACT Nasal Suspension (Flonase) Administer 2 Sprays into each nostril in the morning. 18.2 mL 3 023 Active Insulin Syringe-Needle U-100 30G X 1/2" 1 ML Use as directed. 180 Each 3 023 Active Metoprolol Succinate ER 25 MG Oral Tablet Extended Release 24 Hour (toPROL XL)Indications:Hyp ertension goal BP (blood pressure) < 140/90 Take 1/2 TABLET BY MOUTH DAILY in the morning. 45 Tablet 2 024 Active Lidocaine 0.5 % External GelIndications:Typ e 2 diabetes mellitus with diabetic polyneuropathy, with long-term current use of insulin (HCC) Apply topically to affected area 2 times a day. Apply to hand and feet twice daily 170 g 3 024 Active Additional Information Patient not taking.Reported on [...] for Cough. 18 g 3 024 Active Benzonatate 100 MG Oral CapsuleIndications :Upper respiratory tract infection, unspecified type Take 1 Capsule by mouth 3 times a day as needed for Cough. 30 Capsule 1 024 Active Additional Information Patient not taking.Reported on 05/18/2024 Global Ease Inject Pen [place] 31G X 8 MM (Insulin Pen Needle) Use as needed up to 4 times per day 400 Each 3 10/29/ 023 2023 Discontinued(R efill) Pantoprazole Sodium 40 MG Oral Tablet Delayed Release (Protonix)Indicati ons:Gastro-esophag eal reflux disease without esophagitis Take 1 Tablet by mouth in the morning. 90 Tablet 2 024 2023 Discontinued OneTouch Ultra In Vitro Strip (Glucose Blood)Indications: Type 2 diabetes mellitus with stage 1 chronic kidney disease, with long-term current use of insulin (HCC) USE UP TO 3 TIMES A DAY DIRECTED. 300 Strip 1 024 2023 Discontinued(R efill) Lantus SoloStar 100 UNIT/ML Subcutaneous Solution Pen-injector Inject 50 Units under the skin in the morning and 50 Units before bedtime. 90 mL 1 024 2023 Discontinued Lisinopril 5 MG Oral Tablet (Prinivil) Take 1 Tablet by mouth in the morning. 30 Tablet 6 024 2023 Discontinued(M edication List Clean Up) Torsemide 10 MG Oral Tablet (Demadex) Take 2 Tablets by mouth in the morning. 60 Tablet 3 024 2023 Trulicity 1.5 MG/0.5ML Subcutaneous Solution Pen-injector (Dulaglutide) Inject 1.5 mg under the skin once a week. E11.9 2 mL 3 05/11/20 24 4:46 PM EDT 024 2023 Discontinued Gabapentin 300 MG Oral Capsule (Neurontin)Indicat ions:Chronic right-sided low back pain with right-sided sciatica take 1 capsule in the morning, 1 capsule at noon and 2 capsules in the evening. 120 Capsule 024 2023 Discontinued Insulin Aspart 100 UNIT/ML Injection Solution (NovoLOG)Indicatio ns:Type 2 diabetes mellitus with diabetic peripheral angiopathy without gangrene, unspecified whether fci insulin use (HCC) INJECT UNDER THE SKIN 40 UNITS 3 TIMES A DAY BEFORE MEALS. 40 mL 2 024 2023 Discontinued Erythromycin Ethylsuccinate 200 MG/5ML Oral Suspension Reconstituted (Ees)Indications:G astroparesis Take 2.5 mL by mouth in the morning and 2.5 mL at noon and 2.5 mL before bedtime. with meals. 250 mL 1 024 2023 Discontinued(R efill) documented as of this encounter (statuses as of 07/19/2024) Active Problems Problem Noted Date Diagnosed Date Lipoma of torso 04/25/2024 Deformity of toenail 03/28/2024 Onychomycosis 03/28/2024 Upper respiratory tract infection 03/28/2024 Suprapubic mass 03/28/2024 Bilateral leg edema 01/27/2024 Need for xdxpqgfrbs-anvmlpz-zhtlddmsa (Tdap) vac cine 01/27/2024 Skin lesion 10/07/2023 [...] Vac cine, Unspecified Formulation 06/22/2021 Seasonal Influenza, Quadriva lent Hd (Fluzone Hd) [...] encounter Miscellaneous Notes * Telephone Encounter - Raine Lam LPN - 04/23/2024 8:08 AM EDT Called pt again, unable to reach her, her poa answered and he made aware that it was cancelled, also aware that will follow up with issues if needed, and that it was not a hernia per dr pringle ( explained to pt when in office) * Telephone Encounter - Raine Lam LPN - 04/20/2024 12:39 PM EDT Attempted to call pt regarding cancelling the US- unable to reach her, voicemail full, unable to leave a msg. But it looks like the US was cancelled. * Telephone Encounter - Bonifacio Oglesby RDMS - 04/20/2024 8:01 AM EDT Scheduling: Can you please notify patient of the above and cancel their ultrasound appt scheduled for today. Thank you! Ultrasound Dept. * Telephone Encounter - Raine Lam LPN - 04/19/2024 4:[address] pringle , please see and advise * Telephone Encounter - Gali Calderon RDMS - 04/19/2024 4:00 PM EDT Melanie is scheduled for an abdomen US tomorrow. This was ordered for "suprapubic mass /hernia". The patient just had an US last week for the same reason. US was performed 04/11/24. It was read as "grossly unremarkable". Please advise if US should be repeated. Thank you! documented in this encounter Plan of Treatment Upcoming Encounters Date Type Department Care Team (Late st Contact Info) Description 07/20/2024 11:00 AM EST Office Visit Family Practice [facility] [address] [facility] [place] [address] Charito Valdez CRNP [address] [place] [address] 08/28/2024 11:30 AM EST Office Visit Pharmacy, [facility] [address] [facility] [place] [address] [facility] [address] [facility] [place] [address] 09/27/2024 1:30 PM EST Office Visit Cardiology, [facility] [address] [facility] [place] [address] Judit Little CRNP [address] [place] [address] 11/01/2024 3:20 PM EDT Office Visit [facility]ology[facility] [address] [place] [phone] Mariola Gonzalez PA-C [address] [place] [address] [place] [address] Health Maintenance Due Date Last Done Comments [...] this encounter Medical Devices Implanted Type Area Calender Roll Operator Device Identifier Shelf Expiration Date Model / Serial / Lot Lens Intraoc 22.5 - [id number] - [id number] Implanted:Qty: 1 on 10/19/2022 by Jamaal Cristina MD at OR [facility] Left: Eye BAUSCH & LOMB 07/14/2027 [id number] / [id number] / [id number] documented as of this encounter Advance Directives [...] Power of Attor jasmyne? No Care Teams Plaster Helper Relationship Specialty Start Date End Date Charito Valdez CRNP [address] [place] [address] PCP - General Nurse Practitioner 10/08/22 documented as of this encounter
--- OUTSIDE RECORDS SUMMARY | 2024-10-05 12:09 | External Medical Summary | Summary of Care ---
Author Name Unknown Organization [facility] Address [address] [place] [address] Phone [phone] Care Team Providers Care Sand Mill Operator Core Sand Name Role Phone Charito Valdez Primary Care Provider Reason for Visit * Reason Comments Medication Refill Encounter Details Date Type Department Care Team (Late st Contact Info) Description 08/22/2024 Refill Family Practice [facility] [address] [facility] [place] [address] Charito Valdez CRNP [address] [place] [address] Type 2 diabetes mellitus with stage 1 chronic kidney disease, with long-term current use of insulin ([facility]) Allergies Active Allergy Reactions Criticality Noted Date Comments Statins Muscle pain 10/08/2021 Sulfa Antibiotics Hives 03/20/2021 documented as of this encounter (statuses as of 08/22/2024) Medications Folic Acid 400 MCG Oral Tablet [...] 03/23/20 24 Active Global Ease Inject Pen [place] 31G X 8 MM (Insulin Pen Needle) [...] peripheral angiopathy without gangrene, unspecified whether termite control representative insulin use (HCC) INJECT UNDER THE SKIN [...] a week. 2 mL 08/22/19 25 Active Trulicity 0.75 MG/0.5ML Subcutaneous Solution Auto-injector (Dulaglutide)Indica tions:Type 2 diabetes mellitus with stage 1 chronic kidney disease, with long-term current use of insulin (HCC) Inject 0.75 mg under the skin once a week. 2 mL 4 2:44 PM EST 07/24/20 24 025 Discontin ued(Refil l) documented as of this encounter (statuses as of 08/22/2024) Active Problems Problem Noted Date Diagnosed Date Face pain 07/20/2024 Fall 07/20/2024 Bilateral impacted cerumen 07/20/2024 Lipoma of torso 04/25/2024 Deformity of toenail 03/28/2024 Onychomycosis 03/28/2024 Upper respiratory tract infection 03/28/2024 Suprapubic mass 03/28/2024 Bilateral leg edema 01/27/2024 Need for ozyzxhqobw-odmvtaj-swuhxteje (Tdap) vac cine 01/27/2024 Skin lesion 10/07/2023 [...] as of this encounter (statuses as of 08/22/2024) Resolved Problems Problem Noted Date Diagnosed Date [...] as of this encounter (statuses as of 08/22/2024) Immunizations Name Administration Dates Next Due COVID-19 [...] encounter Miscellaneous Notes * Telephone Encounter - Charito Valdez CRNP - 08/22/2024 2:31 PM EST Signed Prescriptions: Disp Refills Trulicity 0.75 MG/0.5ML Subcutaneous Solut*2 mL 0 Sig: Inject 0.75 mg under the skin once a week. Authorizing Provider: CHARITO VALDEZ * Telephone Encounter - Inez Worthington MED MGIUEL - 08/22/2024 2:17 PM EST Pending Prescriptions: Disp Refills Trulicity 0.75 MG/0.5ML Subcutaneous Solut*2 mL 0 Sig: Inject 0.75 mg under the skin once a week. documented in this encounter Plan of Treatment Upcoming Encounters Date Type Department Care Team (Late st Contact Info) Description 08/28/2024 11:30 AM EST [facility] [place] [address] [facility] [place] [address] [place] [address] 09/27/2024 1:30 PM EST [facility] [address] [address] Judit Little, ALEX [address] [place] [address] 10/18/2024 1:00 PM EST Office Visit Family Medicine [address] [place] [phone] William Crowder CRNP [address] [place] [address] [place] [address] 11/01/2024 3:20 PM EDT Office Visit Dermatology, [address] [place] [phone] Mariola Gonzalez PA-C [address] [place] [address] [place] [address] Health Maintenance Due Date Last Done Comments [...] this encounter Medical Devices Implanted Type Area Escapement Matcher Device Identifier Shelf Expiration Date Model / Serial / Lot Lens Intraoc 22.5 - [id number] - [id number] Implanted:Qty: 1 on 10/19/2022 by Jamaal Cristina MD at OR [facility] Left: Eye BAUSCH & LOMB 07/14/2027 [id number] / [id number] / [id number] documented as of this encounter Visit Diagnoses [...] Power of Attor jasmyne? No Care Teams Sand Mill Operator Core Sand Relationship Specialty Start Date End Date Charito Valdez CRNP [address] [place] [address] PCP - General Nurse Practitioner 10/08/22 documented as of this encounter
--- OUTSIDE RECORDS SUMMARY | 2024-10-05 12:09 | External Medical Summary | Summary of Care ---
Author Name Unknown Organization [facility] Address [address] [place] [address] Phone [phone] Care Team Providers Care Laborer Dairy Farm Name Role Phone Charito Valdez Primary Care Provider Reason for Visit * Reason Comments eRx-Medication Refill Encounter Details Date Type Department Care Team (Late st Contact Info) Description 08/09/2024 Refill Family Practice [facility] [address] [place] [address] Charito Valdez CRNP [address] [place] [address] Allergies Active Allergy Reactions Criticality Noted Date Comments Statins Muscle pain 10/08/2021 Sulfa Antibiotics Hives 03/20/2021 documented as of this encounter (statuses as of 08/11/2024) Medications Folic Acid 400 MCG Oral Tablet [...] the morning. 45 Tablet 2 024 Active DULoxetine HCl 60 MG Oral Capsule [...] 3 024 Active Global Ease Inject Pen [place] 31G X 8 MM (Insulin Pen Needle) [...] diabetic peripheral angiopathy without gangrene, unspecified whether correction insulin use (HCC) INJECT UNDER THE SKIN [...] before bedtime. with meals. 250 mL 1 Active Ezetimibe 10 MG Oral Tablet (Zetia) Take 1 Tablet by mouth in the morning. 30 Tablet 11 Active Levocetirizine Dihydrochloride 5 MG Oral Tablet Take 0.5 Tablets by mouth every evening. 90 Tablet 3 Active Fluticasone Propionate 50 MCG/ACT Nasal Suspension (Flonase) Administer 2 Sprays into each nostril in the morning. 18.2 mL 3 Active Trulicity 0.75 MG/0.5ML Subcutaneous Solution Auto-injector (Dulaglutide)Indic ations:Type 2 diabetes mellitus with stage 1 chronic kidney disease, with long-term current use of insulin (HCC) Inject 0.75 mg under the skin once a week. 2 mL 4 2:44 PM EST Active Gabapentin 300 MG Oral Capsule (Neurontin)Indicat ions:Chronic right-sided low back pain with right-sided sciatica take 1 capsule in the morning, 1 capsule at noon and 2 capsules in the evening. 120 Capsule Active Torsemide 10 MG Oral Tablet (Demadex) Take 2 Tablets by mouth in the morning. 60 Tablet 3 024 2024 Active Torsemide 10 MG Oral Tablet (Demadex) Take 2 Tablets by mouth in the morning. 60 Tablet 3 024 2023 Discontinued documented as of this encounter (statuses as of 08/11/2024) Active Problems Problem Noted Date Diagnosed Date Face pain 07/20/2024 Fall 07/20/2024 Bilateral impacted cerumen 07/20/2024 Lipoma of torso 04/25/2024 Deformity of toenail 03/28/2024 Onychomycosis 03/28/2024 Upper respiratory tract infection 03/28/2024 Suprapubic mass 03/28/2024 Bilateral leg edema 01/27/2024 Need for efrpsvxtgg-odfyfqk-evhgxmqhl (Tdap) vac cine 01/27/2024 Skin lesion 10/07/2023 [...] as of this encounter (statuses as of 08/11/2024) Resolved Problems Problem Noted Date Diagnosed Date Resolved Date Hospital discharge follow-up 10/07/2023 01/27/2024 Otitis externa 06/16/2023 01/03/2024 Preoperative general physical examination 12/09/2022 03/15/2023 [facility] 06/10/2022 08/16/2023 Overview (08/16/2023): More specified condition noted on pl [address] (dyspnea on exertion) 12/08/2021 Type 2 diabetes mellitus wit h diabetic peripheral angiopathy without gangrene 11/23/2021 0 03/15/2023 documented as of this encounter (statuses as of 08/11/2024) Immunizations Name Administration Dates Next Due COVID-19 [...] encounter Miscellaneous Notes * Telephone Encounter - Susannah Núñez [facility] - 08/11/2024 6:19 AM ESTSigned Prescriptions: Disp Refills Torsemide 10 MG Oral Tablet (Demadex) 60 Tab*3 Sig: Take 2 Tablets by mouth in the morning.Authorizing Provider: CHARITO VALDEZ User: SUSANNAH NÚÑEZ documented in this encounter Plan of Treatment Upcoming Encounters Date Type Department Care Team (Late st Contact Info) Description 08/28/2024 11:30 AM EST Office Visit Pharmacy, [facility] [address] [facility] [place] [address] [facility] [address] [facility] [place] [address] 09/27/2024 1:30 PM EST Office Visit Cardiology, [facility] [address] [facility] [place] [address] Judit Little CRNP 132 [facility] [place] [address] 10/18/2024 1:00 PM EST Office Visit Family Medicine [address] [place] [phone] William Crowder CRNP [address] [place] [address] [place] [address] 11/01/2024 3:20 PM EDT [facility] [address] [facility] [place] [phone] Mariola Gonzalez PA-C [address] [place] [address] [place] [address] Health Maintenance Due Date Last Done Comments [...] this encounter Medical Devices Implanted Type Area Pneumatic Tube Fitter Device Identifier Shelf Expiration Date Model / Serial / Lot Lens Intraoc 22.5 - [id number] - [id number] Implanted:Qty: 1 on 10/19/2022 by Jamaal Cristina MD at OR [facility] Left: Eye [employer] 07/14/2027 [id number] / [id number] / [id number] documented as of this encounter Advance Directives [...] Power of Attor jasmyne? No Care Teams Laborer Dairy Farm Relationship Specialty Start Date End Date Charito Valdez CRNP [address] [place] [address] PCP - General Nurse Practitioner 10/08/22 documented as of this encounter
--- OUTSIDE RECORDS SUMMARY | 2024-10-05 12:09 | External Medical Summary | Summary of Care ---
Author Name Unknown Organization [facility] Address [address] [place] [address] Phone [phone] Care Team Providers Care Laboratory Director Name Role Phone Charito Valdez Primary Care Provider Reason for Visit * Reason Comments Medication Refill Encounter Details Date Type Department Care Team (Late st Contact Info) Description 07/23/2024 Refill Family Practice [facility] [address] [facility] [place] [address] Charito Valdez CRNP [address] [facility] [place] [address] Type 2 diabetes mellitus with stage 1 chronic kidney disease, with long-term current use of insulin ([facility]) Allergies Active Allergy Reactions Criticality Noted Date Comments Statins Muscle pain 10/08/2021 Sulfa Antibiotics Hives 03/20/2021 documented as of this encounter (statuses as of 07/24/2024) Medications Folic Acid 400 MCG Oral Tablet [...] 03/23/20 24 Active Global Ease Inject Pen [place] 31G X 8 MM (Insulin Pen Needle) [...] morning. 18.2 mL 3 07/20/20 24 Active Trulicity 0.75 MG/0.5ML Subcutaneous Solution Auto-injector (Dulaglutide)Indica tions:Type 2 diabetes mellitus with stage 1 chronic kidney disease, with long-term current use of insulin (HCC) Inject 0.75 mg under the skin once a week. 2 mL 07/24/20 24 Active Trulicity 0.75 MG/0.5ML Subcutaneous Solution Auto-injector (Dulaglutide)Indica tions:Type 2 diabetes mellitus with stage 1 chronic kidney disease, with long-term current use of insulin (HCC) Inject 0.75 mg under the skin once a week. 2 mL 07/20/20 24 024 Discontin ued(Refil l) documented as of this encounter (statuses as of 07/24/2024) Active Problems Problem Noted Date Diagnosed Date Face pain 07/20/2024 Fall 07/20/2024 Bilateral impacted cerumen 07/20/2024 Lipoma of torso 04/25/2024 Deformity of toenail 03/28/2024 Onychomycosis 03/28/2024 Upper respiratory tract infection 03/28/2024 Suprapubic mass 03/28/2024 Bilateral leg edema 01/27/2024 Need for hdixachpye-qicmmwn-qxcsbqiww (Tdap) vac cine 01/27/2024 Skin lesion 10/07/2023 [...] as of this encounter (statuses as of 07/24/2024) Resolved Problems Problem Noted Date Diagnosed Date [...] as of this encounter (statuses as of 07/24/2024) Immunizations Name Administration Dates Next Due COVID-19 [...] encounter Miscellaneous Notes * Telephone Encounter - Nichelle Ramirez RP - 07/24/2024 3:45 PM EST Signed Prescriptions: Disp Refills Trulicity 0.75 MG/0.5ML Subcutaneous Solut*2 mL 0 Sig: Inject 0.75 mg under the skin once a week.Authorizing Provider: CHARITO VALDEZ User: NICHELLE RAMIREZ * Telephone Encounter - Nichelle Ramirez RPh - 07/24/2024 3:44 PM EST Patient is switching pharmacies. Reissued balance of refills on current prescription(s) to [facility] Thank you, Jameson KleinD, LOIS Clinical Pharmacist [facility] 07/24/24 3:45 PM [phone] documented in this encounter Plan of Treatment Upcoming Encounters Date Type Department Care Team (Late st Contact Info) Description 08/28/2024 11:30 AM EST Office Visit Pharmacy, [facility] [address] [place] [address] [facility] [address] [place] [address] 09/27/2024 1:30 PM EST Office Visit Cardiology, [facility] [address] [place] [address] Judit Little CRNP [address] [place] [address] 10/18/2024 1:00 PM EST Office Visit Family Medicine [address] [place] [phone] William Crowder CRNP [address] [place] [address] [place] [address] 11/01/2024 3:20 PM EDT Office [address] [place] [phone] Mariola Gonzalez PA-C [address] [place] [address] [place] [address] Health Maintenance Due Date Last Done Comments [...] this encounter Medical Devices Implanted Type Area Bed And Breakfast Innkeeper Device Identifier Shelf Expiration Date Model / Serial / Lot Lens Intraoc 22.5 - [id number] - [id number] Implanted:Qty: 1 on 10/19/2022 by Jamaal Cristina MD at OR [facility] Left: Eye [employer] 07/14/2027 [id number] / [id number] / [id number] documented as of this encounter Visit Diagnoses [...] Power of Attor jasmyne? No Care Teams Laboratory Director Relationship Specialty Start Date End Date Charito Valdez CRNP [address] [place] [address] PCP - General Nurse Practitioner 10/08/22 documented as of this encounter
--- OUTSIDE RECORDS SUMMARY | 2024-10-05 12:09 | External Medical Summary | Summary of Care ---
Author Name Unknown Organization [facility] Address [address] [place] [address] Phone [phone] Care Team Providers Care Dyeing Machine Feeder Name Role Phone Charito Valdez Argelia JOHNSON Primary Care Provider Reason for Visit * Reason Comments eRx-Medication Refill Encounter Details Date Type Department Care Team (Late st Contact Info) Description 08/02/2024 Refill Family Practice [facility] [address] [place] [address] Torres Crespo MD [address] [place] [address] Chronic right-sided low back pain with right-sided sciatica Allergies Active Allergy Reactions Criticality Noted Date Comments Statins Muscle pain 10/08/2021 Sulfa Antibiotics Hives 03/20/2021 documented as of this encounter (statuses as of 08/02/2024) Medications Folic Acid 400 MCG Oral Tablet [...] 3 024 Active Global Ease Inject Pen [place] 31G X 8 MM (Insulin Pen Needle) [...] diabetic peripheral angiopathy without gangrene, unspecified whether local company intermodal truck driver insulin use (HCC) INJECT UNDER THE SKIN [...] capsules in the evening. 120 Capsule Active Gabapentin 300 MG Oral Capsule (Neurontin)Indicat ions:Chronic right-sided low back pain with right-sided sciatica take 1 capsule in the morning, 1 capsule at noon and 2 capsules in the evening. 120 Capsule 024 2023 Discontinued documented as of this encounter (statuses as of 08/02/2024) Active Problems Problem Noted Date Diagnosed Date Face pain 07/20/2024 Fall 07/20/2024 Bilateral impacted cerumen 07/20/2024 Lipoma of torso 04/25/2024 Deformity of toenail 03/28/2024 Onychomycosis 03/28/2024 Upper respiratory tract infection 03/28/2024 Suprapubic mass 03/28/2024 Bilateral leg edema 01/27/2024 Need for gwimtovmph-muxfuoy-anwxneffq (Tdap) vac cine 01/27/2024 Skin lesion 10/07/2023 Need for hepatitis C screening test 10/07/2023 [facility], initial encounter 08/17/2023 Type 2 [...] as of this encounter (statuses as of 08/02/2024) Resolved Problems Problem Noted Date Diagnosed Date [...] as of this encounter (statuses as of 08/02/2024) Immunizations Name Administration Dates Next Due COVID-19 [...] Telephone Encounter - Charito Valdez CRNP - 08/02/2024 2:37 PM EST Signed Prescriptions: Disp Refills Gabapentin 300 MG Oral Capsule (Neurontin) 120 Ca*0 Sig: take 1 capsule in the morning, 1 capsule at noon and 2 capsules in the evening. Authorizing Provider: CHARITO VALDEZ * Telephone Encounter - Aneta Allen LPN - 08/02/2024 2:19 PM ESTPending Prescriptions: Disp Refills Gabapentin 300 MG Oral Capsule [Pharmacy M*120 Ca*0 Sig: take 1 capsule in the morning, 1 capsule at noon and 2 capsules in the evening. * Telephone Encounter - Aneta Allen LPN - 08/02/2024 2:19 PM EST Did you pend patient's preferred pharmacy and medication before forwarding?yes Pharmacy: [id number] [address] [facility] Pending Prescriptions: Disp Refills Gabapentin 300 MG Oral Capsule (Neurontin*120 Ca*0 Sig: take 1 capsule in the morning, 1 capsule at noon and 2 capsules in the evening. Last Visit: 07/20/2024 (in office), 07/03/2021 (telemedicine) Next Visit: Visit date not found If no future appointments scheduled, and last appointment is greater than a year ago, please schedule patient for a follow-up appointment Last date the medication was ordered: 06/28/2024 Is this request for a controlled substance?No Urine Drug Screen:No results found for this or any previous visit. Patient Phone Numbers Labs: Lab Results Component Value Date/Time CREAT 0.8 07/20/2024 11:56 AM POTASSIUM 4.4 07/20/2024 11:56 AM TSH 1.84 09/09/2022 02:52 PM LDL 158 (H) 06/05/2024 03:37 PM ALT 22 01/03/2024 02:05 PM HGBA1C 7.6 (H) 06/05/2024 03:37 PM * Telephone Encounter - Manjinder Brown - 08/02/2024 1:13 PM ESTPending Prescriptions: Disp Refills Gabapentin 300 MG Oral Capsule [Pharmacy M*120 Ca*0 Sig: take 1capsule in the morning, 1 capsule at noon and 2 capsules in the evening. documented in this encounter Plan of Treatment Upcoming Encounters Date Type Department Care Team (Late st Contact Info) Description 08/28/2024 11:30 AM EST Office Visit Pharmacy, [facility] [address] [place] [address] [facility] [address] [place] [address] 09/27/2024 1:30 PM EST Office Visit Cardiology, [facility] [address] [place] [address] Judit Little CRNP [address] [place] [address] 10/18/2024 1:00 PM EST Office Visit Family Medicine [address] [place] [phone] William Crowder, ALEX [address] [place] [address] [place] [address] 11/01/2024 3:20 PM EDT Office Visit [address] [place] [phone] Mariola Gonzalez PA-C [address] [place] [address] [place] [address] Health Maintenance Due Date Last Done Comments [...] this encounter Medical Devices Implanted Type Area Boom Stick Worker Device Identifier Shelf Expiration Date Model / Serial / Lot Lens Intraoc 22.5 - [id number] - [id number] Implanted:Qty: 1 on 10/19/2022 by Jamaal Cristina MD at [facility] Left: Eye [employer]OM[employer] 07/14/2027 [id number] / [id number] / [id number] documented as of this encounter Visit Diagnoses [...] Power of Attor jasmyne? No Care Teams Dyeing Machine Feeder Relationship Specialty Start Date End Date Charito Valdez CRNP [address] [place] [address] PCP - General Nurse Practitioner 10/08/22 documented as of this encounter
--- OUTSIDE RECORDS SUMMARY | 2024-10-05 12:09 | External Medical Summary | Summary of Care ---
Author Name Unknown Organization [facility] Address [address] [place] [address] Phone [phone] Care Team Providers Care Tubing Tester Name Role Phone Charito Valdez Primary Care Provider Reason for Visit * Reason Comments Follow Up Patient presents in office today for a 3m follow-up visit. Encounter Details Date Type Department Care Team (Late st Contact Info) Description 07/20/2024 11:00 AM EST Office Visit Family Practice [facility] [address] [place] [address] Charito Valdez CRNP [address] [place] [address] Type 2 diabetes mellitus with stage 1 chronic kidney disease, with long-term current use of insulin (HCC)*; Disorder of thyroid, unspecified; HTN, goal below 140/90; Fall, initial encounter; Face pain; Bilateral impacted cerumen Allergies Active Allergy Reactions Criticality Noted Date [...] 3 024 Active Global Ease Inject Pen [place] 31G X 8 MM (Insulin Pen Needle) Use as needed up to 4 times per day 400 Each 3 024 Active OneTouch Ultra In Vitro Strip (Glucose Blood)Indications: Type 2 diabetes mellitus with stage 1 chronic kidney disease, with long-term current use of insulin ([facility]) USE UP TO 3 TIMES A DAY DIRECTED. 300 Strip 1 024 Active BD Insulin Syringe 25G X 5/8" 1 ML (Insulin Syringe-Needle U-100) Use as indicated for daily insulin injections 100 Each 5 024 Active Gabapentin 300 MG Oral Capsule (Neurontin)Indicat ions:Chronic right-sided low back pain with right-sided sciatica take 1 capsule in the morning, 1 capsule at noon and 2 capsules in the evening. 120 Capsule 024 Active Pantoprazole Sodium 40 MG Oral Tablet Delayed Release (Protonix)Indicati ons:Gastro-esophag eal reflux disease without esophagitis Take 1 Tablet by mouth in the morning. 90 Tablet 2 11/14/2 024 Active Insulin Aspart 100 UNIT/ML Injection [...] with meals. 250 mL 1 024 Active Trulicity 0.75 MG/0.5ML Subcutaneous Solution Auto-injector (Dulaglutide)Indic ations:Type 2 diabetes mellitus with stage 1 chronic kidney disease, with long-term current use of insulin (HCC) Inject 0.75 mg under the skin once a week. 2 mL Active Ezetimibe 10 MG Oral Tablet (Zetia) Take 1 Tablet by mouth in the morning. 30 Tablet 11 024 Active Levocetirizine Dihydrochloride 5 MG Oral Tablet Take 0.5 Tablets by mouth every evening. 90 Tablet 3 Active Fluticasone Propionate 50 MCG/ACT Nasal Suspension (Flonase) Administer 2 Sprays into each nostril in the morning. 18.2 mL 3 024 Active Levocetirizine Dihydrochloride 5 MG Oral Tablet TAKE ONE TABLET BY MOUTH ONE TIME DAILY IN THE EVENING 90 Tablet 3 023 2023 Discontinued(R efill) Fluticasone Propionate 50 MCG/ACT Nasal Suspension (Flonase) Administer 2 Sprays into each nostril in the morning. 18.2 mL 3 023 2023 Discontinued(R efill) Lidocaine 0.5 % External GelIndications:Typ e 2 diabetes mellitus with diabetic polyneuropathy, with long-term current use of insulin (HCC) Apply topically to affected area 2 times a day. Apply to hand and feet twice daily 170 g 3 024 2023 Discontinued Benzonatate 100 MG Oral CapsuleIndications :Upper respiratory tract infection, unspecified type Take 1 Capsule by mouth 3 times a day as needed for Cough. 30 Capsule 1 024 2023 Discontinued oxyCODONE-Acetamin ophen 5-325 MG Oral Tablet (Percocet) Take 1 Tablet by mouth every 6 hours as needed for Pain, Moderate. 10 Tablet 05/18/20 1:20 PM EDT 024 2023 Discontinued Cephalexin 500 MG Oral Capsule (Keflex) Take 1 Capsule by mouth every 6 hours. 40 Capsule 024 2023 Discontinued Trulicity 3 MG/0.5ML Subcutaneous Solution Pen-injector (Dulaglutide) Inject 3 mg under the skin once a week. 3 mL 3 06/05/20 24 3:45 PM EDT 024 2023 Discontinued documented as of this encounter (statuses as of 07/20/2024) Active Problems Problem Noted Date Diagnosed Date Face pain 07/20/2024 Fall 07/20/2024 Bilateral impacted cerumen 07/20/2024 Lipoma of torso 04/25/2024 Deformity of toenail 03/28/2024 Onychomycosis 03/28/2024 Upper respiratory tract infection 03/28/2024 Suprapubic mass 03/28/2024 Bilateral leg edema 01/27/2024 Need for mdnfyuhlqh-sysirgn-xbdecwzlv (Tdap) vac cine 01/27/2024 Skin lesion 10/07/2023 [...] on file documented as of this encounter Last Filed Vital Signs Vital Sign Reading Time Taken Comments Blood Pressure 120/60 07/20/2024 10:48 AM EST Pulse 71 07/20/2024 10:48 AM EST Temperature - - Respiratory Rate 16 07/20/2024 10:48 AM EST Oxygen Saturation 98% 07/20/2024 10:48 AM EST Inhaled Oxygen Concentration - - Weight 107.5 kg (237 lb) 07/20/2024 10:48 AM EST Height 162.6 cm (5' 4") 07/20/2024 10:48 AM EST Body Mass Index 40.68 07/20/2024 10:48 AM EST documented in this encounter Progress Notes * Charito Valdez CRNP - 07/20/2024 11:10 AM EST Images from the original note were not included. Follow up Family Medicine Visit CC: Chief Complaint Patient presents with Follow Up Patient presents in office today for a 3m follow-up visit. History of Present Illness: Melanie Arrieta is a 78 year old female presenting today for followup. She notes that she fell because her walker flipped over. She fell forward and hit her face. She still has left orbital tenderness. Nose was sore and headache afterward. She now has new heavy duty walker and balance. She wasn't to now get her labs results by phone and not to go to grandson who is working. She stopped taking trulicity on 06/29/2024 due to nausea and vomiting. She got eyes checked not long ago. New glasses are now digging into side of left face. Wavy lines in vision sometimes. Social History Socioeconomic History Marital status: Single Spouse name: Not on file Number of children: Not on file Years of education: Not on file Highest education level: Not on file Occupational History Not on file Tobacco Use Smoking status: Never Smokeless tobacco: Never Vaping Use Vaping status: Never Used Substance and Sexual Activity Alcohol use: Never Drug use: Never Sexual activity: Not on file Other Topics Concern Not on file Social History Narrative Not on file Social Needs Financial Resource Strain: Not on file Food Insecurity: Not on file Transportation Needs: Not on file Social Connections: Unknown (01/31/2024) Social Connections How often do you feel lonely or isolated from those around you? (Adult - for ages 18 years and over): Not on file Housing Stability: Not on file PMH: Past Medical History: Diagnosis Date Sleep apnea, obstructive Past Surgical History: Procedure Laterality Date CORONARY ANGIOGRAPHY W/LEFT HEART CATH Right 09/30/2023 CORONARY ANGIOGRAPHY W/LEFT HEART CATH performed by Abdullahi Richards MD at [facility] [place]K/CHEST SUBQ TUMOR REMOVAL, 3 CM OR MORE N/A 05/18/2024 EXCISION NECK/CHEST SUBQ TUMOR, 3 CM OR MORE performed by Yovany Lynn MD at [facility] PROCEDURE - GENERAL 05/18/2024 excision of lipoma, torso by Dr Yovany Lnyn REMOVE CATARACT, INSERT LENS PROSTH Left 10/19/2022 LEFT EXTRACAPSULAR CATARACT REMOVAL WITH INTRAOCULAR LENS performed by Jamaal Cristina MD at OR [facility] Current Outpatient Medications Medication Sig Dispense Refill Erythromycin Ethylsuccinate 200 MG/5ML Oral Suspension Reconstituted (Ees) Take 2.5 mL by mouth in the morning and 2.5 mL at noon and 2.5 mL before bedtime. with meals. 250 mL 1 Insulin Aspart 100 UNIT/ML Injection Solution (NovoLOG) INJECT UNDER THE SKIN 40 UNITS 3 TIMES DAILY BEFORE MEALS 40 mL 5 Lantus SoloStar 100 UNIT/ML Subcutaneous Solution Pen-injector Inject 50 Units under the skin in the morning and 50 Units before bedtime. 30 mL 5 Gabapentin 300 MG Oral Capsule (Neurontin) take 1 capsule in the morning, 1 capsule at noon and 2 capsules in the evening. 120 Capsule 0 Pantoprazole Sodium 40 MG Oral Tablet Delayed Release (Protonix) Take 1 Tablet by mouth in the morning. 90 Tablet 2 BD Insulin Syringe 25G X 5/8" 1 ML (Insulin Syringe-Needle U-100) Use as indicated for daily insulin injections 100 Each 5 Global Ease Inject Pen [place] 31G X 8 MM (Insulin Pen Needle) Use as needed up to 4 times per day 400 Each 3 OneTouch Ultra In Vitro Strip (Glucose Blood) USE UP TO 3 TIMES A DAY DIRECTED. 300 Strip 1 Albuterol Sulfate HFA 108 (90 Base) MCG/ACT Inhalation Aerosol Solution Inhale 2 Puffs by mouth every 6 hours as needed for Cough. 18 g 3 DULoxetine HCl 60 MG Oral Capsule Delayed Release Particles (Cymbalta) Take 1 Capsule by mouth in the morning. Do not cut, crush or chew. 90 Capsule 3 Metoprolol Succinate ER 25 MG Oral Tablet Extended Release 24 Hour (toPROL XL) Take 1/2 TABLET BY MOUTH DAILY in the morning. 45 Tablet 2 Insulin Syringe-Needle U-100 30G X 1/2" 1 ML Use as directed. 180 Each 3 Levocetirizine Dihydrochloride 5 MG Oral Tablet TAKE ONE TABLET BY MOUTH ONE TIME DAILY IN THE EVENING 90 Tablet 3 Docusate Sodium 100 MG Oral Capsule (Colace) Take 1 Capsule by mouth in the morning and 1 Capsule before bedtime. 60 Capsule 11 One-A-Day Womens 50+ Oral Tablet Take 1 Tablet by mouth every morning. Aspirin 325 MG Oral Tablet Take 1 Tablet by mouth in the morning. Metamucil 0.36 GM Oral Capsule (Psyllium) Take by mouth daily. CPAP every night at bedtime . Blood Pressure Cuff CHECK B/P DAILY 1 Each 0 Folic Acid 400 MCG Oral Tablet Take 1 Tablet by mouth in the morning. Trulicity 3 MG/0.5ML Subcutaneous Solution Pen-injector (Dulaglutide) Inject 3 mg under the skin once a week. (Patient not taking: Reported on 07/20/2024) 3 mL 3 Cephalexin 500 MG Oral Capsule (Keflex) Take 1 Capsule by mouth every 6 hours. (Patient not taking:Reported on 07/20/2024) 40 Capsule 0 oxyCODONE-Acetaminophen 5-325 MG Oral Tablet (Percocet) Take 1 Tablet by mouth every 6 hours as needed for Pain, Moderate. (Patient not taking: Reported on 07/20/2024) 10 Tablet 0 Benzonatate 100 MG Oral Capsule Take 1 Capsule by mouth 3 times a day as needed for Cough. (Patientnot taking: Reported on 07/20/2024) 30 Capsule 1 Lidocaine 0.5 % External Gel Apply topically to affected area 2 times a day. Apply to hand and feettwice daily (Patient not taking: Reported on 07/20/2024) 170 g 3 Fluticasone Propionate 50 MCG/ACT Nasal Suspension (Flonase) Administer 2 Sprays into each nostril in the morning. (Patient not taking: Reported on 07/20/2024) 18.2 mL 3 No current facility-administered medications for this visit. Review of patient's allergies indicates: Allergen Reactions Statins Muscle pain Sulfa Antibiotics Hives Most Recent Immunizations Administered Date(s) Administered COVID-19 mRNA, LNP-s, No Preserve, 2-Dose Series (Moderna) 11/08/2020 Pneumococcal Conjugate Vacc, 13 Valent (Prevnar) 05/31/2016 Pneumococcal Polysaccharide PPV23 (Pneumovax) 02/24/2012 Seasonal Influenza Virus Vaccine, Unspecified Formulation 06/22/2021 Seasonal Influenza, High Dose, Trivalent, PF, IM (Fluzone HD) 06/05/2024 Seasonal Influenza, Quadrivalent Hd (Fluzone Hd) 06/16/2023 TDAP (age 10 and older)(Boostrix) 01/27/2024 Review of Systems: Review of Systems Constitutional: Negative for fatigue and fever. HENT: Left sided facial soreness Respiratory: Negative for shortness of breath. Cardiovascular: Negative for chest pain. Gastrointestinal: Negative for abdominal pain. Neurological: Negative for dizziness and syncope. Physical Exam: BP 120/60 | Pulse 71 | Resp 16 | Ht 5' 4" (1.626 m) | Wt 237 lb (107.5 kg) | SpO2 98% | BMI 40.68 kg/m | BSA 2.2 m Physical Exam HENT: Head: Normocephalic. Comments: Ttp, at site of glasses Right Ear: There is impacted cerumen. Left Ear: There is impacted cerumen. Cardiovascular: Rate and Rhythm: Normal rate and regular rhythm. Pulmonary: Effort: Pulmonary effort is normal. Breath sounds: Normal breath sounds. Neurological: General: No focal deficit present. Mental Status: She is alert and oriented to person, place, and time. Psychiatric: Mood and Affect: Mood normal. Behavior: Behavior normal. Thought Content: Thought content normal. Judgment: Judgment normal. Assessment and Plan: 1. Type 2 diabetes mellitus with stage 1 chronic kidney disease, with long-term current use of insulin (HCC) (Primary) Stopped trulicity due to se with increased dose Recommend start at lower dose. She is agreeable - Trulicity 0.75 MG/0.5ML Subcutaneous Solution Auto-injector (Dulaglutide); Inject 0.75 mg under the skin once a week. Dispense: 2 mL; Refill: 0 2. Disorder of thyroid, unspecified Due for recheck 3. HTN, goal below 140/90 stable - BASIC METABOLIC PANEL; Future - MAGNESIUM; Future 4. Fall, initial encounter Fell and saw UC 5. Face pain At site of glasses Recommend she have adjustment 6. Bilateral impacted cerumen PLANNED on irrigating but patient and I forgot and she left before this was completed. I have advised the patient to call our office incase of any worsening or new symptoms. I spent a total of 40-54 minutes (exact time 40 mins) on the date of service in preparation, delivery, and documentation of the care provided to Melanie Arrieta excluding any time spent in the performance of separately billed services. Jose, DILMA, ALEX [facility] documented in this encounter Nursing Notes * Inez Worthington, MED ASSIST - 07/20/2024 10:44 AM EST The patient has been properly identified by confirmation of name and date of . Chief Complaint Patient presents with Follow Up Patient presents in office today for a 3m follow-up visit. documented in this encounter Plan of Treatment Upcoming Encounters Date Type Department Care Team (Late st Contact Info) Description 08/28/2024 11:30 AM EST Office Visit Pharmacy, [facility] [address] [facility] [place] [address] [facility] [address] [facility] [place] [address] 09/27/2024 1:30 PM EST Office Visit Cardiology, [facility] [address] [facility] [place] [address] Judit Little CRNP [address] [facility] [place] [address] 10/18/2024 1:00 PM EST Office Visit Family Medicine [address] [place] [phone] William Crowder CRNP [address] [place] [address] [place] [address] 11/01/2024 3:20 PM EDT Office [facility] [address] [facility] [place] [phone] Mariola Gonzalez PA-C [address] [place] [address] [place] [id number] Pending Results Name Type Priority Associated Diagnoses Date /Time MAGNESIUM Lab Routine HTN, goal below 140/90 07/20/2024 11:56 AM EST Scheduled Orders Name Type Priority Associated Diagnoses Orde r Schedule MAGNESIUM Lab Routine HTN, goal below 140/90 Expected: 07/20/2024 (Approximate), Expires: 07/20/2025 Health Maintenance Due Date Last Done Comments [...] this encounter Medical Devices Implanted Type Area Operations Trainer Device Identifier Shelf Expiration Date Model / Serial / Lot Lens Intraoc 22.5 - [id number] - [id number] Implanted:Qty: 1 on 10/19/2022 by Jamaal Cristina MD at OR [facility] Left: Eye [employer] 07/14/2027 [id number] / [id number] / [id number] documented as of this encounter Results * (ABNORMAL) BASIC METABOLIC PANEL (07/20/2024 11:56 AM EST) BUN 13 6 - 20 mg/dL 07/20/2024 1:11 PM EST [facility] [place] 57-10 CREATININE 0.8 0.5 - 1.0 mg/dL 07/20/2024 1:11 PM EST [facility] 57-10 EGFR 75 >=60 mL/min 07/20/2024 1:11 PM EST [facility] 57-10 Comment:eGFR is calculated b ased on the CKD-EPI 2020 equation. SODIUM 139 135 - 146 mmol/L 07/20/2024 1:11 PM EST [facility] [place] 57-10 POTASSIUM 4.4 3.5 - 5.1 mmol/L 07/20/2024 1:11 PM EST [facility] 57-10 CHLORIDE 96(L) 98 - 107 mmol/L 07/20/2024 1:11 PM EST [facility] 57-10 CO2 31 22 - 32 mmol/L 07/20/2024 1:11 PM EST [facility] [place] 57-10 ANION GAP 12 7 - 15 mmol/L 07/20/2024 1:11 PM EST [facility] [place] 57-10 GLUCOSE 176(H) 70 - 120 mg/dL 07/20/2024 1:11 PM EST [facility] [place] 57-10 CALCIUM 9.5 8.4 - 10.2 mg/dL 07/20/2024 1:11 PM EST [facility] 57-10 Blood Venous blood specimen / Unknown Venipuncture / Unknown 07/20/2024 11:56 AM EST 07/20/2024 11:56 AM EST us Charito JOHNSON LAB BLOOD ORDERABLES F inal Result [facility] 57-[address] [place] [address] documented in this encounter Visit Diagnoses Diagnosis Type 2 diabetes mellitus with stage 1 chronic kidney disease, with long-term current use of insulin (HCC)- Primary Disorder of thyroid, unspecified HTN, goal below 140/90 Unspecified essential hypertension Fall, initial encounter Face pain Headache Bilateral impacted cerumen Impacted cerumen documented in this encounter Advance Directives * [...] Power of Attor jasmyne? No Care Teams Tubing Tester Relationship Specialty Start Date End Date Charito Valdez CRNP [address] [place] [address] PCP - General Nurse Practitioner 10/08/22 documented as of this encounter
--- OUTSIDE RECORDS SUMMARY | 2024-10-05 12:09 | External Medical Summary ---
Author Name Unknown Address Unknown Organization [id number]:[facility] [address] [facility] [address] Laboratory Report Ordering Provider Test Date Status LOURDES GUTIERREZ 07/20/2024 11:56:00 Final Observation Date Value Abnormality Reference (Units ) Status Magnesium 07/20/2024 11:56:00 2.3 1.5-2.6 (m g/dL) Final Performing Location [facility] [address] [facility] [address]
--- OUTSIDE RECORDS SUMMARY | 2024-10-05 12:10 | External Medical Summary | Summary of Care ---
Author Name Unknown Organization [facility] Address [address] [place] [address] Phone [phone] Care Team Providers Care Snuff Box Finisher Name Role Phone Charito Valdez Primary Care Provider Reason for Visit * Reason Comments eRx-Medication Refill Encounter Details Date Type Department Care Team (Late st Contact Info) Description 06/26/[address] [facility] [address] [facility] [place] [address] Charito Valdez CRNP [address] [place] [address] Chronic right-sided low back pain with right-sided sciatica; Gastro-esophageal reflux disease without esophagitis Allergies Active Allergy Reactions Criticality Noted Date Comments Statins Muscle pain 10/08/2021 Sulfa Antibiotics Hives 03/20/2021 documented as of this encounter (statuses as of 06/28/2024) Medications Folic Acid 400 MCG Oral Tablet [...] and 1 Capsule before bedtime. 60 Capsule 023 Active Levocetirizine Dihydrochloride 5 MG Oral Tablet TAKE ONE TABLET BY MOUTH ONE TIME DAILY IN THE EVENING 90 Tablet 023 Active Fluticasone Propionate 50 MCG/ACT Nasal [...] hand and feet twice daily 170 g 024 Active Additional Information Patient not taking.Reported on 05/18/2024 Lantus SoloStar 100 UNIT/ML Subcutaneous Solution Pen-injector Inject 50 Units under the skin in the morning and 50 Units before bedtime. 90 mL 024 Active DULoxetine HCl 60 MG Oral Capsule Delayed Release Particles (Cymbalta)Indicati ons:Current moderate episode of major depressive disorder, unspecified whether recurrent (HCC),DM type 2 with diabetic peripheral neuropathy (HCC) Take 1 Capsule by mouth in the morning. Do not cut, crush or chew. 90 Capsule 024 Active Albuterol Sulfate HFA 108 (90 Base) MCG/ACT Inhalation Aerosol SolutionIndication s:Upper respiratory tract infection, unspecified type Inhale 2 Puffs by mouth every 6 hours as needed for Cough. 18 g 024 Active Benzonatate 100 MG Oral CapsuleIndications :Upper respiratory tract infection, unspecified type Take 1 Capsule by mouth 3 times a day as needed for Cough. 30 Capsule 1 024 Active Additional Information Patient not taking.Reported on 05/18/2024 Insulin Aspart 100 UNIT/ML Injection Solution (NovoLOG)Indicatio ns:Type 2 diabetes mellitus with diabetic peripheral angiopathy without gangrene, unspecified whether retirement insulin use (HCC) INJECT UNDER THE SKIN 40 UNITS 3 TIMES A DAY BEFORE MEALS. 40 mL 2 Active Erythromycin Ethylsuccinate 200 MG/5ML Oral Suspension Reconstituted (Ees)Indications:G astroparesis Take 2.5 mL by mouth in the morning and 2.5 mL at noon and 2.5 mL before bedtime. with meals. 250 mL 1 Active oxyCODONE-Acetamin ophen 5-325 MG Oral Tablet (Percocet) Take 1 Tablet by mouth every 6 hours as needed for Pain, Moderate. 10 Tablet 05/18/20 24 1:20 PM EDT Active Additional Information Patient not taking.Reported on 06/18/2024 Cephalexin 500 MG Oral Capsule (Keflex) Take 1 Capsule by mouth every 6 hours. 40 Capsule Active Trulicity 3 MG/0.5ML Subcutaneous Solution Pen-injector (Dulaglutide) Inject 3 mg under the skin once a week. 3 mL 3 06/05/20 24 3:45 PM EDT Active Global Ease Inject Pen [place] 31G X 8 MM (Insulin Pen Needle) Use as needed up to 4 times per day 400 Each 3 Active OneTouch Ultra In Vitro Strip (Glucose Blood)Indications: Type 2 diabetes mellitus with stage 1 chronic kidney disease, with long-term current use of insulin (HCC) USE UP TO 3 TIMES A DAY DIRECTED. 300 Strip 1 Active BD Insulin Syringe 25G X 5/8" 1 ML (Insulin Syringe-Needle U-100) Use as indicated for daily insulin injections 100 Each 5 Active Gabapentin 300 MG Oral Capsule (Neurontin)Indicat ions:Chronic right-sided low back pain with right-sided sciatica take 1 capsule in the morning, 1 capsule at noon and 2 capsules in the evening. 120 Capsule Active Pantoprazole Sodium 40 MG Oral Tablet Delayed Release (Protonix)Indicati ons:Gastro-esophag eal reflux disease without esophagitis Take 1 Tablet by mouth in the morning. 90 Tablet 2 024 Active Pantoprazole Sodium 40 MG Oral Tablet Delayed Release (Protonix)Indicati ons:Gastro-esophag eal reflux disease without esophagitis Take 1 Tablet by mouth in the morning. 90 Tablet 2 024 2023 Discontinued Gabapentin 300 MG Oral Capsule (Neurontin)Indicat ions:Chronic right-sided low back pain with right-sided sciatica take 1 capsule in the morning, 1 capsule at noon and 2 capsules in the evening. 120 Capsule 024 2023 Discontinued documented as of this encounter (statuses as of 06/28/2024) Active Problems Problem Noted Date Diagnosed Date Lipoma of torso 04/25/2024 Deformity of toenail 03/28/2024 Onychomycosis 03/28/2024 Upper respiratory tract infection 03/28/2024 Suprapubic mass 03/28/2024 Bilateral leg edema 01/27/2024 Need for ztfqjxetko-iyqrnyg-xfdxgrhqq (Tdap) vac cine 01/27/2024 Skin lesion 10/07/2023 [...] as of this encounter (statuses as of 06/28/2024) Resolved Problems Problem Noted Date Diagnosed Date [...] as of this encounter (statuses as of 06/28/2024) Immunizations Name Administration Dates Next Due COVID-19 [...] encounter Miscellaneous Notes * Telephone Encounter - Torres Rucker MD - 06/28/2024 11:16 AM EST Signed Prescriptions: Disp Refills Gabapentin 300 MG Oral Capsule (Neurontin) 120 Ca*0 Sig: take 1 capsule in the morning, 1 capsule at noon and 2 capsules in the evening. Authorizing Provider: TORRES RUCKER Pantoprazole Sodium 40 MG Oral Tablet Mary Ann*90 Tab*2 Sig: Take 1 Tablet by mouth in the morning. Authorizing Provider: CHARITO VALDEZ Ordering User: YAW DRUMMOND * Telephone Encounter - Yaw Drummond [facility] - 06/28/2024 9:21 AM EST Pending Prescriptions: Disp Refills Gabapentin 300 MG Oral Capsule (Neurontin) 120 Ca*0 Sig: take 1 capsule in the morning, 1 capsule at noon and 2 capsules in the evening. Signed Prescriptions: Disp Refills Pantoprazole Sodium 40 MG Oral Tablet Mary Ann*90 Tab*2 Sig: Take 1 Tablet by mouth in the morning. Authorizing Provider: CHARITO VALDEZ Ordering User: YAW DRUMMOND * Telephone Encounter - Yaw Drummond RP - 06/28/2024 9:21 AM EST Pending Prescriptions: Disp Refills Gabapentin 300 MG Oral Capsule (Neurontin) 120 Ca*0 Sig: take 1 capsule in the morning, 1 capsule at noon and 2 capsules in the evening. Signed Prescriptions: Disp Refills Pantoprazole Sodium 40 MG Oral Tablet Mary Ann*90 Tab*2 Sig: Take 1 Tablet by mouth in the morning. Authorizing Provider: CHARITO VALDEZ Ordering User: YAW DRUMMOND 03/28/2024 (in office), 07/03/2021 (telemedicine) 07/20/2024 If no future appointments scheduled, and last appointment is greater than a year ago, please schedule patient for a follow-up appointment Last date the medication was ordered: 05/24/24 Pharmacy: [id number] [facility] Is this request for a controlled substance?No Urine Drug Screen:No results found for this or any previous visit. Patient Phone Numbers Labs: Lab Results Component Value Date/Time CREAT 0.8 03/23/2024 03:35 PM POTASSIUM 4.5 03/23/2024 03:35 PM TSH 1.84 09/09/2022 02:52 PM LDL 158 (H) 06/05/2024 03:37 PM ALT 22 01/03/2024 02:05 PM HGBA1C 7.6 (H) 06/05/2024 03:37 PM documented in this encounter Plan of Treatment Upcoming Encounters Date Type Department Care Team (Late st Contact Info) Description 07/16/2024 11:30 AM EST Office Visit Otolaryngology [facility] [address] [place] [address] Ross Martin PA-C [address] [place] [address] 07/20/2024 11:00 AM EST Office Visit Family Practice [facility] [address] [facility] [place] [address] Charito Valdez CRNP [address] [facility] [place] [address] 08/28/2024 11:30 AM EST Office Visit Pharmacy, [facility] [address] [facility] [place] [address] [facility] [address] [facility] [place] [address] 09/27/2024 1:30 PM EST Office Visit Cardiology, [facility] [address] [facility] [place] [address] Judit Little CRNP [address] [facility] [place] [address] 11/01/2024 3:20 PM EDT [address] [address] Mariola Gonzalez PA-C [address] [place] [address] [place] [address] Health Maintenance Due Date Last Done Comments Zoster Vaccines (1 of 2) 1994 DXA Scan 08/05/2022 08/05/2015, 08/05/2015 Diabetic Foot Exam 06/10/2023 06/10/2022, 06/22/2021 COVID-19 Vaccine (3 - 2024-25 season) 2024 11/08/2020, 10/11/2020 Diabetic Eye Exam [...] this encounter Medical Devices Implanted Type Area Patternmaker All Around Device Identifier Shelf Expiration Date Model / Serial / Lot Lens Intraoc 22.5 - [id number] - [id number] Implanted:Qty: 1 on 10/19/2022 by Jamaal Cristina MD at OR [facility] Left: Eye [employer] LOMB 07/14/2027 [id number] / [id number] documented as of this encounter Visit Diagnoses Diagnosis Chronic right-sided low back pain with right-sided sciatica Gastro-esophageal reflux disease without esophagitis Esophageal reflux documented in this encounter Advance Directives * [...] Power of Attor jasmyne? No Care Teams Snuff Box Finisher Relationship Specialty Start Date End Date Charito Valdez CRNP [address] [place] [address] PCP - General Nurse Practitioner 10/08/22 documented as of this encounter
--- OUTSIDE RECORDS SUMMARY | 2024-10-05 12:10 | External Medical Summary | Summary of Care ---
Author Name Unknown Organization [facility] Address [address] [place] [address] Phone [phone] Care Team Providers Care Bisque Finisher Name Role Phone Charito Valdez Primary Care Provider Reason for Visit * Reason Onset Date Comments Medication Refill 06/11/2024 Encounter Details Date Type Department Care Team (Late st Contact Info) Description 06/11/2024 Telephone Family Practice [facility] [address] [facility] [place] [address] Charito Valdez CRNP [address] [facility] [place] [address] Medication Refill Allergies Active Allergy Reactions Criticality Noted Date Comments Statins Muscle pain 10/08/2021 Sulfa Antibiotics Hives 03/20/2021 documented as of this encounter (statuses as of 06/12/2024) Medications Medication Sig Dispensed Refills Start Date End Date Status Folic Acid 400 MCG Oral Tablet Take 1 Tablet by mouth in the morning. Active Blood Pressure Cuff CHECK B/P DAILY 1 Each 03/04/2022 Active CPAP every night at bedtime . [...] 1 Capsule before bedtime. 60 Capsule 11 12/09/2022 Active Levocetirizine Dihydrochloride 5 MG Oral Tablet TAKE ONE TABLET BY MOUTH ONE TIME DAILY IN THE EVENING 90 Tablet 3 04/06/2023 Active Fluticasone Propionate 50 MCG/ACT Nasal Suspension (Flonase) Administer 2 Sprays into each nostril in the morning. 18.2 mL 3 04/06/2023 Active Insulin Syringe-Needle U-100 30G X 1/2" 1 ML Use as directed. 180 Each 3 06/16/2023 Active Pantoprazole Sodium 40 MG Oral Tablet Delayed Release (Protonix)Indications :Gastro-esophageal reflux disease without esophagitis Take 1 Tablet by mouth in the morning. 90 Tablet 2 11/22/2023 Active Metoprolol Succinate ER 25 MG Oral Tablet Extended Release 24 Hour (toPROL XL)Indications:Hypert ension goal BP (blood pressure) < 140/90 Take 1/2 TABLET BY MOUTH DAILY in the morning. 45 Tablet 2 11/22/2023 Active Lidocaine 0.5 % External GelIndications:Type 2 diabetes mellitus with diabetic polyneuropathy, with long-term current use of insulin (HCC) Apply topically to affected area 2 times a day. Apply to hand and feet twice daily 170 g 3 12/02/2023 Active Additional Information Patient not taking.Reported on 05/18/2024 Lantus SoloStar 100 UNIT/ML Subcutaneous Solution Pen-injector Inject 50 Units under the skin in the morning and 50 Units before bedtime. 90 mL 1 12/27/2023 Active DULoxetine HCl 60 MG Oral Capsule Delayed Release Particles (Cymbalta)Indications :Current moderate episode of major depressive disorder, unspecified whether recurrent (HCC),DM type 2 with diabetic peripheral neuropathy (HCC) Take 1 Capsule by mouth in the morning. Do not cut, crush or chew. 90 Capsule 3 12/27/2023 Active Albuterol Sulfate HFA 108 (90 Base) MCG/ACT Inhalation Aerosol SolutionIndications:U pper respiratory tract infection, unspecified type Inhale 2 Puffs by mouth every 6 hours as needed for Cough. 18 g 3 03/23/2024 Active Benzonatate 100 MG Oral CapsuleIndications:Up per respiratory tract infection, unspecified type Take 1 Capsule by mouth 3 times a day as needed for Cough. 30 Capsule 1 03/23/2024 Active Additional Information Patient not taking.Reported on 05/18/2024 Insulin Aspart 100 UNIT/ML Injection Solution (NovoLOG)Indications: Type 2 diabetes mellitus with diabetic peripheral angiopathy without gangrene, unspecified whether fci insulin use (HCC) INJECT UNDER THE SKIN 40 UNITS 3 TIMES A DAY BEFORE MEALS. 40 mL 2 04/04/2024 Active Erythromycin Ethylsuccinate 200 MG/5ML Oral Suspension Reconstituted (Ees)Indications:Jordyn roparesis Take 2.5 mL by mouth in the morning and 2.5 mL at noon and 2.5 mL before bedtime. with meals. 250 mL 1 04/10/2024 Active oxyCODONE-Acetaminoph en 5-325 MG Oral Tablet (Percocet) Take 1 Tablet by mouth every 6 hours as needed for Pain, Moderate. 10 Tablet 05/18/2024 Active Gabapentin 300 MG Oral Capsule (Neurontin)Indication s:Chronic right-sided low back pain with right-sided sciatica take 1 capsule in the morning, 1 capsule at noon and 2 capsules in the evening. 120 Capsule 05/24/2024 Active Cephalexin 500 MG Oral Capsule (Keflex) Take 1 Capsule by mouth every 6 hours. 40 Capsule 06/04/2024 Active Trulicity 3 MG/0.5ML Subcutaneous Solution Pen-injector (Dulaglutide) Inject 3 mg under the skin once a week. 3 mL 3 06/05/2024 Active Global Ease Inject Pen [place] 31G X 8 MM (Insulin Pen Needle) Use as needed up to 4 times per day 400 Each 3 06/11/2024 Active OneTouch Ultra In Vitro Strip (Glucose Blood)Indications:Typ e 2 diabetes mellitus with stage 1 chronic kidney disease, with long-term current use of insulin (HCC) USE UP TO 3 TIMES A DAY DIRECTED. 300 Strip 1 06/11/2024 Active documented as of this encounter (statuses as of 06/12/2024) Active Problems Problem Noted Date Diagnosed Date Lipoma of torso 04/25/2024 Deformity of toenail 03/28/2024 Onychomycosis 03/28/2024 Upper respiratory tract infection 03/28/2024 Suprapubic mass 03/28/2024 Bilateral leg edema 01/27/2024 Need for fibinitnhj-zasshlc-qfgyunere (Tdap) vac cine 01/27/2024 Skin lesion 10/07/2023 [...] as of this encounter (statuses as of 06/12/2024) Resolved Problems Problem Noted Date Diagnosed Date Resolved Date Hospital discharge follow-up 10/07/2023 01/27/2024 Otitis externa 06/16/2023 01/03/2024 Preoperative general physical examination 12/09/2022 03/15/2023 [facility] 06/10/2022 08/16/2023 Overview: More specified condition noted on pl [address] (dyspnea on exertion) 12/08/2021 Type 2 diabetes mellitus wit h diabetic peripheral angiopathy without gangrene 11/23/2021 0 03/15/2023 documented as of this encounter (statuses as of 06/12/2024) Immunizations Name Administration Dates Next Due COVID-19 [...] years and over) Not on file 01/31/2024 Sex and Gender Information Value Date Recorded Sex Assigned at Not on file Gender Identity Not on file Sexual Orientation Not on file Job Start Date Occupation Industry Not on file Not on file Not on file documented as of this encounter Miscellaneous Notes * Telephone Encounter - Charito Valdez CRNP - 06/12/2024 2:35 PM EDT 1/2 INCH IS ABOUT 12 MM. That is quite long Please call patient and find out what is going on. Jose, MSN, ALEX [facility] * Telephone Encounter - Sulema Gleason yam curer - 06/11/2024 9:45 AM EDT Pt asking if she can get a longer needle than the Insulin Syringe-Needle U-100 30G X 1/2" 1 ML, dueto =it bending when she uses it. Please advise. Thank you, Sulema Gleason [facility] Lab Tech II [facility] ([facility]) 06/11/2024,9:47 AM documented in this encounter Plan of Treatment Upcoming Encounters Date Type Department Care Team (Late st Contact Info) Description 06/18/2024 2:00 PM EST Office Visit General Surgery, [facility] [address] [place] [address] Yovany Lynn MD [address] [place] [address] 07/16/2024 11:30 AM EST Office Visit Otolaryngology [facility] [address] [place] [address] Ross Martin PA-C [address] [place] [address] 07/20/2024 1:40 PM EST Office Visit Family Practice [facility] [address] [place] [address] Charito Valdez CRNP [address] [place] [address] 08/28/2024 11:30 AM EST [facility] [place] [address] [facility] [address] [place] [address] 09/27/2024 1:30 PM EST Office Visit Cardiology, [facility] [place] [address] Judit Little CRNP [address] [place] [address] 11/01/2024 3:20 PM EDT Office Visit Dermatology[address] [place] [address] Mariola Gonzalez, ALFONZO [address] [place] [address] [place] [address] Health Maintenance Due Date Last Done Comments [...] this encounter Medical Devices Implanted Type Area Cooker Loader Device Identifier Shelf Expiration Date Model / Serial / Lot Lens Intraoc 22.5 - [id number] - [id number] Implanted:Qty: 1 on 10/19/2022 by Jamaal Cristina MD at OR [facility] Left: Eye [employer] LOMB 07/14/2027 [id number] / [id number] / [id number] documented as of this encounter Advance Directives [...] Power of Attor jasmyne? No Care Teams Bisque Finisher Relationship Specialty Start Date End Date Charito Valdez CRNP [address] [place] [address] PCP - General Nurse Practitioner 10/08/22 documented as of this encounter
--- OUTSIDE RECORDS SUMMARY | 2024-10-05 12:10 | External Medical Summary | Summary of Care ---
Author Name Unknown Organization [facility] Address [address] [place] [address] Phone [phone] Care Team Providers Care Textile Designs Sales Representative Name Role Phone Charito Valdez Primary Care Provider Reason for Visit * Reason Onset Date Comments Medication Refill 06/11/2024 Encounter Details Date Type Department Care Team (Late st Contact Info) Description 06/11/2024 Refill Family Practice [facility] [address] [place] [address] Charito Valdez CRNP [address] [place] [address] Allergies Active Allergy Reactions Criticality Noted Date Comments Statins Muscle pain 10/08/2021 Sulfa Antibiotics Hives 03/20/2021 documented as of this encounter (statuses as of 06/15/2024) Medications Medication Sig Dispensed Refills Start Date [...] 3 06/05/2024 Active Global Ease Inject Pen [place] 31G X 8 MM (Insulin Pen Needle) [...] as of this encounter (statuses as of 06/15/2024) Active Problems Problem Noted Date Diagnosed Date Lipoma of torso 04/25/2024 Deformity of toenail 03/28/2024 Onychomycosis 03/28/2024 Upper respiratory tract infection 03/28/2024 Suprapubic mass 03/28/2024 Bilateral leg edema 01/27/2024 Need for stiorpygyf-fcmyoeg-qccwoldyt (Tdap) vac cine 01/27/2024 Skin lesion 10/07/2023 [...] as of this encounter (statuses as of 06/15/2024) Resolved Problems Problem Noted Date Diagnosed Date Resolved Date Hospital discharge follow-up 10/07/2023 01/27/2024 Otitis externa 06/16/2023 01/03/2024 Preoperative general physical examination 12/09/2022 03/15/2023 Hypertensive heart disease w ithout CHF (congestive heart failure) 06/10/2022 08/16/2023 Overview: More specified condition noted on pl [address] (dyspnea on exertion) 12/08/2021 Type 2 diabetes mellitus wit h diabetic peripheral angiopathy without gangrene 11/23/2021 0 03/15/2023 documented as of this encounter (statuses as of 06/15/2024) Immunizations Name Administration Dates Next Due COVID-19 [...] as of this encounter Miscellaneous Notes * Addendum Note - Tg Anaya LPN - 06/15/2024 1:48 PM EDTAddended by: TG ANAYA on: 06/15/2024 01:48 PM Modules accepted: Orders * Telephone Encounter - Tg Anaya LPN - 06/15/2024 1:47 PM EDT 25G 5/8in is a subQ size needle. Can she try that? * Telephone Encounter - Meghana Ferguson LPN - 06/13/2024 3:34 PM EDT Left message for pt to call back. * Telephone Encounter - Charito Valdez CRNP - 06/12/2024 2:35 PM EDT 1/2 INCH IS ABOUT 12 MM. That is quite long Please call patient and find out what is going on. Jose, DILMA, ALEX [facility] * Telephone Encounter - Sulema Gleason PHARM Tech - 06/11/2024 9:45 AM EDT Pt asking if she can get a longer needle than the Insulin Syringe-Needle U-100 30G X 1/2" 1 ML, dueto =it bending when she uses it. Please advise. Thank you, Sulema Gleason [facility] Cash Register Servicer II [facility] ([facility]) 06/11/2024,9:47 AM documented in this encounter Plan of Treatment Upcoming Encounters Date Type Department Care Team (Late st Contact Info) Description 06/18/2024 2:00 PM EST Office Visit General Surgery, [facility] [address] [place] [address] Yovany Lynn MD [address] [place] [address] 07/16/2024 11:30 AM EST Office Visit Otolaryngology [facility] [address] [place] [address] Ross Martin PA-C [address] [place] [address] 07/20/2024 1:40 PM EST Office Visit Family Practice [facility] [address] [place] [address] Charito Valdez CRNP [address] [place] [address] 08/28/2024 11:30 AM EST Office Visit Pharmacy, [facility] [address] [facility] [place] [address] [facility] [address] [place] [address] 09/27/2024 1:30 PM EST Office Visit Cardiology, [facility] [address] [facility] [place] [address] Judit Little CRNP [address] [place] [address] 11/01/2024 3:20 PM EDT Office Visit Dermatology[address] [place] [address] Mariola Gonzalez [place]hel[place] [address] [place] [address] [place] [address] Health Maintenance Due Date Last Done Comments [...] this encounter Medical Devices Implanted Type Area Digital Imaging Technician Device Identifier Shelf Expiration Date Model / Serial / Lot Lens Intraoc 22.5 - [id number] - [id number] Implanted:Qty: 1 on 10/19/2022 by Jamaal Cristina MD at OR [facility] Left: Eye [employer] LOMB 07/14/2027 [id number] / [id number] / [id number] documented as of this encounter Advance Directives [...] Power of Attor jasmyne? No Care Teams Textile Designs Sales Representative Relationship Specialty Start Date End Date Charito Valdez CRNP [address] [place] [address] PCP - General Nurse Practitioner 10/08/22 documented as of this encounter
--- OUTSIDE RECORDS SUMMARY | 2024-10-05 12:10 | External Medical Summary | Summary of Care ---
Author Name Unknown Organization [facility] Address [address] [place] [address] Phone [phone] Care Team Providers Care String Winding Machine Operator Name Role Phone Charito Valdez Argelia JOHNSON Primary Care Provider Reason for Visit * Reason Onset Date Comments Medication Refill 07/06/2024 Encounter Details Date Type Department Care Team (Late st Contact Info) Description 07/06/2024 Refill Family Practice [facility] [address] [facility] [place] [address] Lizette Hill PA-C [address] [facility] [place] [address] Gastroparesis Allergies Active Allergy Reactions Criticality Noted Date Comments Statins Muscle pain 10/08/2021 Sulfa Antibiotics Hives 03/20/2021 documented as of this encounter (statuses as of 07/06/2024) Medications Folic Acid 400 MCG Oral Tablet [...] in the morning. 18.2 mL 3 04/06/20 23 Active Insulin Syringe-Needle U-100 30G X [...] feet twice daily 170 g 3 12/02/19 24 Active Additional Information Patient not taking.Reported [...] skin once a week. 3 mL 3 4 3:45 PM EDT 06/05/20 Active Global Ease Inject Pen [place] 31G X 8 MM (Insulin Pen Needle) [...] diabetic peripheral angiopathy without gangrene, unspecified whether custodial insulin use (HCC) INJECT UNDER THE SKIN [...] meals. 250 mL 1 07/06/20 24 Active Erythromycin Ethylsuccinate 200 MG/5ML Oral Suspension Reconstituted (Ees)Indications:Ga stroparesis Take 2.5 mL by mouth in the morning and 2.5 mL at noon and 2.5 mL before bedtime. with meals. 250 mL 1 04/10/20 24 024 Discontin ued(Refil l) documented as of this encounter (statuses as of 07/06/2024) Active Problems Problem Noted Date Diagnosed Date Lipoma of torso 04/25/2024 Deformity of toenail 03/28/2024 Onychomycosis 03/28/2024 Upper respiratory tract infection 03/28/2024 Suprapubic mass 03/28/2024 Bilateral leg edema 01/27/2024 Need for tsxwnwqhfz-jenduyd-wdlvbizqr (Tdap) vac cine 01/27/2024 Skin lesion 10/07/2023 [...] as of this encounter (statuses as of 07/06/2024) Resolved Problems Problem Noted Date Diagnosed Date [...] as of this encounter (statuses as of 07/06/2024) Immunizations Name Administration Dates Next Due COVID-19 [...] Telephone Encounter - Charito Valdez CRNP - 07/06/2024 3:53 PM EST Signed Prescriptions: Disp Refills Erythromycin Ethylsuccinate 200 MG/5ML Ora*250 mL 1 Sig: Take 2.5 mL by mouth in the morning and 2.5 mL at noon and 2.5 mL before bedtime. with meals. Authorizing Provider: CHARITO VALDEZ * Telephone Encounter - Gaviota Ruiz NA - 07/06/2024 2:03 PM ESTPending Prescriptions: Disp Refills Erythromycin Ethylsuccinate 200 MG/5ML Ora*250 mL 1 Sig: Take 2.5 mL by mouth in the morning and 2.5 mL at noon and 2.5 mL before bedtime. with meals. * Telephone Encounter - Jeanette Savage OSA - 07/06/2024 1:57 PM EST Did you pend patient's preferred pharmacy and medication before forwarding?yes Pharmacy: [id number] [id number] [facility] Pending Prescriptions: Disp Refills Erythromycin Ethylsuccinate 200 MG/5ML Or*250 mL 1 Sig: Take 2.5 mL by mouth in the morning and 2.5 mL at noon and 2.5 mL before bedtime. with meals. Last Visit: 06/28/2023 (in office), Visit date not found (telemedicine) Next Visit: Visit date not found If no future appointments scheduled, and last appointment is greater than a year ago, please schedule patient for a follow-up appointment Last date the medication was ordered: 04/10/2024 Is this request for a controlled substance?No Urine Drug Screen:No results found for this or any previous visit. Patient Phone Numbers Labs: Lab Results Component Value Date/Time CREAT 0.8 03/23/2024 03:35 PM POTASSIUM 4.5 03/23/2024 03:35 PM TSH 1.84 09/09/2022 02:52 PM LDL 158 (H) 06/05/2024 03:37 PM ALT 22 01/03/2024 02:05 PM HGBA1C 7.6 (H) 06/05/2024 03:37 PM * Telephone Encounter - Jeanette Savage OSA - 07/06/2024 1:55 PM EST Needed Prior Auth : Erythrom ETH 200 Mg/ 5 ML DALY Anip Third Republican Rejection Information: [facility]: [id number] documented in this encounter Plan of Treatment Upcoming Encounters Date Type Department Care Team (Late st Contact Info) Description 07/16/2024 11:30 AM EST Office Visit Otolaryngology [facility] [address] [place] [address] Ross Martin PA-C [address] [place] [address] 07/20/2024 11:00 AM EST Office Visit Family Practice [facility] [address] [place] [address] Charito Valdez CRNP [address] [place] [address] 08/28/2024 11:30 AM EST Office Visit Pharmacy, [facility] 132 [facility] [place] [address] [facility] [place] [address] 09/27/2024 1:30 PM EST Office Visit Cardiology, [facility] [address] [place] [address] Judit Little CRNP [address] [place] [address] 11/01/2024 3:20 PM EDT Office Visit Dermatology, [facility] [address] [place] [id number] Mariola Gonzalez PA-C [address] [place] [address] [place] [address] Health Maintenance Due Date Last Done Comments [...] this encounter Medical Devices Implanted Type Area Retail Salesworker Device Identifier Shelf Expiration Date Model / Serial / Lot Lens Intraoc 22.5 - [id number] - [id number] Implanted:Qty: 1 on 10/19/2022 by Jamaal Cristina MD at OR [facility] Left: Eye BAUSCH & LOMB 07/14/2027 [id number] / [id number] / [id number] documented as of this encounter Visit Diagnoses Diagnosis Gastroparesis documented in this encounter Advance Directives * [...] Power of Attor jasmyne? No Care Teams String Winding Machine Operator Relationship Specialty Start Date End Date Charito Valdez CRNP [address] [place] [address] PCP - General Nurse Practitioner 10/08/22 documented as of this encounter
--- OUTSIDE RECORDS SUMMARY | 2024-10-05 12:10 | External Medical Summary | Summary of Care ---
Author Name Unknown Organization [facility] Address [address] [place] [address] Phone [phone] Care Team Providers Care Green Prize Packer Name Role Phone Charito Valdez Primary Care Provider Reason for Visit * Reason Onset Date Comments Medication Refill 06/11/2024 Encounter Details Date Type Department Care Team (Late st Contact Info) Description 06/11/2024 Telephone Family Practice [facility] [address] [facility] [place] [address] Charito Valdez CRNP [address] [facility] [place] [address] Medication Refill Allergies Active Allergy Reactions Criticality Noted Date Comments Statins Muscle pain 10/08/2021 Sulfa Antibiotics Hives 03/20/2021 documented as of this encounter (statuses as of 06/13/2024) Medications Medication Sig Dispensed Refills Start Date [...] 3 06/05/2024 Active Global Ease Inject Pen [place] 31G X 8 MM (Insulin Pen Needle) [...] as of this encounter (statuses as of 06/13/2024) Active Problems Problem Noted Date Diagnosed Date Lipoma of torso 04/25/2024 Deformity of toenail 03/28/2024 Onychomycosis 03/28/2024 Upper respiratory tract infection 03/28/2024 Suprapubic mass 03/28/2024 Bilateral leg edema 01/27/2024 Need for zozrnjxmfh-jpfegbb-bjbnueesp (Tdap) vac cine 01/27/2024 Skin lesion 10/07/2023 [...] as of this encounter (statuses as of 06/13/2024) Resolved Problems Problem Noted Date Diagnosed Date Resolved Date Hospital discharge follow-up 10/07/2023 01/27/2024 Otitis externa 06/16/2023 01/03/2024 Preoperative general physical examination 12/09/2022 03/15/2023 [facility] 06/10/2022 08/16/2023 Overview: More specified condition noted on pl [address] (dyspnea on exertion) 12/08/2021 Type 2 diabetes mellitus wit h diabetic peripheral angiopathy without gangrene 11/23/2021 0 03/15/2023 documented as of this encounter (statuses as of 06/13/2024) Immunizations Name Administration Dates Next Due COVID-19 [...] what is going on. Jose, MSN, [place] [facility] * Telephone Encounter - Sulema Gleason PHARM Tech - 06/11/2024 9:45 AM EDT Pt asking if she can get a longer needle than the Insulin Syringe-Needle U-100 30G X 1/2" 1 ML, dueto =it bending when she uses it. Please advise. Thank you, Sulema Gleason [facility] Psychiatric Nursing Assistant II [facility] ([facility]) 06/11/2024,9:47 AM documented in this encounter Plan of Treatment Upcoming Encounters Date Type Department Care Team (Late st Contact Info) Description 06/18/2024 2:00 PM EST Office Visit General Surgery, [facility] [address] [place] [address] [address] Yovany Lynn MD [address] [place] [address] 07/16/2024 11:30 AM EST Office Visit Otolaryngology [facility] [address] [place] [address] Ross Martin PA-C [address] [place] [address] 07/20/2024 1:40 PM EST Office Visit Family Practice [facility] [address] [place] [address] Charito Valdez CRNP [address] [place] [address] 08/28/2024 11:30 AM EST Office Visit Pharmacy, [address] [place] [address] [facility] [address] [place] [address] 09/27/2024 1:30 PM EST Office Visit Cardiology, [facility] [place] [address] Judit Little CRNP [address] [place] [address] 11/01/2024 3:20 PM EDT Office Visit Dermatology[address], [place] [address] Mariola Gonzalez, PAChel[place] [address] [place] [address] [place] [address] Health Maintenance Due Date Last Done Comments Zoster Vaccines (1 of 2) 1994 DXA Scan 08/05/2022 08/05/2015, 08/05/2015 Diabetic Foot Exam 06/10/2023 06/10/2022, 06/22/2021 COVID-19 Vaccine ( season) 2024 11/08/2020, 10/11/2020 Diabetic Eye Exam 09/28/2024 09/28/2023, , 06/22/2022, Additional history exists Albumin/Creatinine Ratio 10/07/202410/07/2 024, 06/10/2022, 06/22/2021 HbA1c 12/04/2024 06/05/2024, 08/0 04/2024, 10/07/2023, Additional history exists GFR 03/23/2025 03/23/2024, 0508/2023, 09/30/2023, Additional history exists Adult Wellness Visit [...] this encounter Medical Devices Implanted Type Area Diving Instructor Device Identifier Shelf Expiration Date Model / Serial / Lot Lens Intraoc 22.5 - [id number] - [id number] Implanted:Qty: 1 on 10/19/2022 by Jamaal Cristina MD at OR [facility] Left: Eye BAUSCH [employer] LOMB 07/14/2027 [id number] / [id number] / [id number] documented as of this encounter Advance Directives [...] Power of Attor jasmyne? No Care Teams Green Prize Packer Relationship Specialty Start Date End Date Charito Valdez CRNP [address] [place] [address] PCP - General Nurse Practitioner 10/08/22 documented as of this encounter
--- OUTSIDE RECORDS SUMMARY | 2024-10-05 12:10 | External Medical Summary | Summary of Care ---
Author Name Unknown Organization [facility] Address [address] [place] [address] Phone [phone] Care Team Providers Care Band Nailer Name Role Phone Charito Valdez Primary Care Provider Reason for Visit * Reason Onset Date Comments Medication Refill 06/11/2024 Encounter Details Date Type Department Care Team (Late st Contact Info) Description 06/11/2024 Telephone Family Practice [facility] [address] [facility] [place] [address] Charito Valdez CRNP [address] [facility] [place] [address] Medication Refill Allergies Active Allergy Reactions Criticality Noted Date Comments Statins Muscle pain 10/08/2021 Sulfa Antibiotics Hives 03/20/2021 documented as of this encounter (statuses as of 06/11/2024) Medications Medication Sig Dispensed Refills Start Date [...] 3 06/05/2024 Active Global Ease Inject Pen [place] 31G X 8 MM (Insulin Pen Needle) [...] as of this encounter (statuses as of 06/11/2024) Active Problems Problem Noted Date Diagnosed Date Lipoma of torso 04/25/2024 Deformity of toenail 03/28/2024 Onychomycosis 03/28/2024 Upper respiratory tract infection 03/28/2024 Suprapubic mass 03/28/2024 Bilateral leg edema 01/27/2024 Need for eiuibcjlib-ttatcaj-rfegrhulx (Tdap) vac cine 01/27/2024 Skin lesion 10/07/2023 [...] as of this encounter (statuses as of 06/11/2024) Resolved Problems Problem Noted Date Diagnosed Date Resolved Date Hospital discharge follow-up 10/07/2023 01/27/2024 Otitis externa 06/16/2023 01/03/2024 Preoperative general physical examination 12/09/2022 03/15/2023 [facility] 06/10/2022 08/16/2023 Overview: More specified condition noted on pl [address] (dyspnea on exertion) 12/08/2021 Type 2 diabetes mellitus wit h diabetic peripheral angiopathy without gangrene 11/23/2021 0 03/15/2023 documented as of this encounter (statuses as of 06/11/2024) Immunizations Name Administration Dates Next Due COVID-19 [...] encounter Miscellaneous Notes * Telephone Encounter - Sulema Gleason, forestry and wildlife manager - 06/11/2024 9:45 AM EDT Pt asking if she can get a longer needle than the Insulin Syringe-Needle U-100 30G X 1/2" 1 ML, dueto =it bending when she uses it. Please advise. Thank you, Sulema Gleason CPhT Administration Manager II [facility] ([facility]) 06/11/2024,9:47 AM documented in this encounter Plan of Treatment Upcoming Encounters Date Type Department Care Team (Late st Contact Info) Description 06/18/2024 2:00 PM EST Office Visit General Surgery, [facility] [address] [place] [address] Yovany Lynn MD [address] [place] [address] 07/16/2024 11:30 AM EST Office Visit Otolaryngology [facility] [address] [place] [address] Ross Martin PA-C [address] [place] [address] 07/20/2024 1:40 PM EST Office Visit Family Practice [facility] [address] [place] [address] Charito Valdez CRNP [address] [place] [address] 08/28/2024 11:30 AM EST Office Visit Pharmacy, [facility] [address] [place] [address] [facility] [address] [place] [address] 09/27/2024 1:30 PM EST Office Visit Cardiology, [facility] [address] [place] [address] Judit Little CRNP [address] [place] [address] 11/01/2024 3:20 PM EDT Office Visit Dermatology, [place] [address] [facility] [place] [address] Mariola Gonzalez PA-C [address] [place] [address] [place] [address] Health Maintenance Due Date Last Done Comments [...] this encounter Medical Devices Implanted Type Area Firer Low Pressure Device Identifier Shelf Expiration Date Model / Serial / Lot Lens Intraoc 22.5 - [id number] - [id number] Implanted:Qty: 1 on 10/19/2022 by Jamaal Cirstina MD at OR [facility] Left: Eye BAUSCH & LOMB 07/14/2027 [id number] / [id number] / [id number] documented as of this encounter Advance Directives [...] Power of Attor jasmyne? No Care Teams Band Nailer Relationship Specialty Start Date End Date Charito Valdez CRNP [address] [place] [address] PCP - General Nurse Practitioner 10/08/22 documented as of this encounter
--- OUTSIDE RECORDS SUMMARY | 2024-10-05 12:10 | External Medical Summary | Summary of Care ---
Author Name Unknown Organization [facility] Address [address] [place] [address] Phone [phone] Care Team Providers Care Director Experimental Medicine Name Role Phone Charito Valdez Argelia JOHNSON Primary Care Provider Reason for Visit * Reason Comments Post-Op 05/18/2024 EXCISION O N ABDOMEN Encounter Details Date Type Department Care Team (Late st Contact Info) Description 06/18/2024 2:00 PM EST Office Visit General Surgery, [facility] [address] [place] [address] Yovany Lynn MD [address] [place] [address] Lipoma of torso* Allergies Active Allergy Reactions Criticality Noted Date Comments Statins Muscle pain 10/08/2021 Sulfa Antibiotics Hives 03/20/2021 documented as of this encounter (statuses as of 06/18/2024) Medications Medication Sig Dispensed Refills Start Date [...] diabetic peripheral angiopathy without gangrene, unspecified whether prison insulin use (HCC) INJECT UNDER THE SKIN [...] for Pain, Moderate. 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 300 Strip 1 06/11/2024 Active BD Insulin Syringe 25G X 5/8" 1 ML (Insulin Syringe-Needle U-100) Use as indicated for daily insulin injections 100 Each 5 06/15/2024 Active documented as of this encounter (statuses as of 06/18/2024) Active Problems Problem Noted Date Diagnosed Date Lipoma of torso 04/25/2024 Deformity of toenail 03/28/2024 Onychomycosis 03/28/2024 Upper respiratory tract infection 03/28/2024 Suprapubic mass 03/28/2024 Bilateral leg edema 01/27/2024 Need for rzlqxlgqxd-sakytjz-tpdlckfhh (Tdap) vac cine 01/27/2024 Skin lesion 10/07/2023 [...] as of this encounter (statuses as of 06/18/2024) Resolved Problems Problem Noted Date Diagnosed Date [...] as of this encounter (statuses as of 06/18/2024) Immunizations Name Administration Dates Next Due COVID-19 [...] on file documented as of this encounter Progress Notes * Yovany Lynn MD - 06/18/2024 1:21 PM EST Melanie Arrieta is s/p an excision of a subcutaneous mass from their abdominal wall on 05/18/2024. The patient is overall doing well. The patient is not having any pain. Fever has not been present. This patient has no wound drainage and has no wound erythema. The patient has no drains in place. PE: There were no vitals taken for this visit. General: alert, healthy, and no distress Incision site: healing well and clean, dry and intact Path: Final Diagnosis A. Abdominal wall, Abdominal wall mass, excision: Mature adipose tissue with fat necrosis, consistent with benign lipoma Assessment: Melanie Arrieta is doing well. All questions answered. Plan: follow - up as needed Yovany Lynn MD documented in this encounter Nursing Notes * Hollie Braden LPN - 06/18/2024 1:07 PM EST Chief Complaint Patient presents with Post-Op 05/18/2024 EXCISION ON ABDOMEN Patient states she does not have pain or soreness, she has a few antibiotics left and there was only a little yellow seepage left not like it was beofre. documented in this encounter Plan of Treatment Upcoming Encounters Date Type Department Care Team (Late st Contact Info) Description 07/16/2024 11:30 AM EST Office Visit Otolaryngology [facility] [address] [place] [address] [address] Ross Martin PA-C [address] [place] [address] 07/20/2024 1:40 PM EST Office Visit Family Practice [facility] [address] [place] [address] Charito Valdez CRNP [address] [place] [address] 08/28/2024 11:30 AM EST Office Visit Pharmacy, [facility] [address] [place] [address] [facility] [address] [place] [address] 09/27/2024 1:30 PM EST Office Visit Cardiology, [facility] [address] [place] [address] Judit Little CRNP [address] [place] [address] 11/01/2024 3:20 PM EDT Office Visit Dermatology[address], [place] [address] Mariola Gonzalez, PAChel[place] [address] [place] [address] [place] [address] Health Maintenance Due Date Last Done Comments [...] this encounter Medical Devices Implanted Type Area Timekeeper Supervisor Device Identifier Shelf Expiration Date Model / Serial / Lot Lens Intraoc 22.5 - [id number] - [id number] Implanted:Qty: 1 on 10/19/2022 by Jamaal Cristina MD at OR [facility] Left: Eye BAUSCH & LOMB 07/14/2027 [id number] / [id number] / [id number] documented as of this encounter Visit Diagnoses Diagnosis Lipoma of torso- Primary documented in this encounter Advance Directives * [...] Power of Attor jasmyne? No Care Teams Director Experimental Medicine Relationship Specialty Start Date End Date Charito Valdez CRNP [address] [place] [address] PCP - General Nurse Practitioner 10/08/22 documented as of this encounter
--- OUTSIDE RECORDS SUMMARY | 2024-10-05 12:10 | External Medical Summary | Summary of Care ---
Author Name Unknown Organization [facility] Address [address] [place] [address] Phone [phone] Care Team Providers Care Equipment Associate Name Role Phone Charito Valdez Primary Care Provider Reason for Visit * Reason Onset Date Comments Medication Refill 06/11/2024 Encounter Details Date Type Department Care Team (Late st Contact Info) Description 06/11/2024 Telephone Family Practice [facility] [address] [facility] [place] [address] Charito Valdez CRNP [address] [facility] [place] [address] Medication Refill Allergies Active Allergy Reactions Criticality [...] diabetic peripheral angiopathy without gangrene, unspecified whether group home insulin use (HCC) INJECT UNDER THE SKIN [...] 3 06/05/2024 Active Global Ease Inject Pen [place] 31G X 8 MM (Insulin Pen Needle) [...] 03/28/2024 Bilateral leg edema 01/27/2024 Need for kwewaopvdj-sittkpd-wiprkixyz (Tdap) vac cine 01/27/2024 Skin lesion 10/07/2023 [...] examination 12/09/2022 03/15/2023 [facility] ([facility]ive heart failure) 06/10/2022 08/16/2023 [...] Notes * Telephone Encounter - Sulema Gleason, cardiovascular rn - 06/11/2024 9:45 AM EDT Pt asking if she can get a longer needle than the Insulin Syringe-Needle U-100 30G X 1/2" 1 ML, dueto =it bending when she uses it. Please advise. Thank you, Sulema Gleason CPhT Studio Model II [facility] ([facility]) 06/11/2024,9:47 AM documented in this encounter Plan of Treatment Upcoming Encounters Date Type Department Care Team (Late st Contact Info) Description 06/18/2024 2:00 PM EST Office Visit General Surgery, [facility] [address] [place] [address] Yovany Lynn MD [address] [place] [address] 07/16/2024 11:30 AM EST Office Visit Otolaryngology [facility] [address] [place] [address] Ross Martin PA-C [address] [place] [address] 07/20/2024 1:40 PM EST Office Visit Family Practice [facility] [address] [place] [address] Charito Valdez CRNP [address] [place] [address] 08/28/2024 11:30 AM EST Office Visit Pharmacy, [facility] [address] [address] [facility] [address] [place] [address] 09/27/2024 1:30 PM EST Office Visit Cardiology, [facility] [address] [address] Judit Little CRNP [address] [place] [address] 11/01/2024 3:20 PM EDT Office Visit Dermatology, [place] [address] [facility] [place] [address] Mariola Gonzalez PA-C [address] [place] [address] [place] [address] Health Maintenance Due Date Last Done Comments [...] this encounter Medical Devices Implanted Type Area Fire Patroller Device Identifier Shelf Expiration Date Model / Serial / Lot Lens Intraoc 22.5 - [id number] - [id number] Implanted:Qty: 1 on 10/19/2022 by Jamaal Cristina MD at OR [facility] Left: Eye BAUSCH & LOMB 07/14/2027 [id number] / [id number] / [id number] documented as of this encounter Advance Directives [...] Power of Attor jasmyne? No Care Teams Equipment Associate Relationship Specialty Start Date End Date Charito Valdez CRNP [address] [place] [address] PCP - General Nurse Practitioner 10/08/22 documented as of this encounter
--- OUTSIDE RECORDS SUMMARY | 2024-10-05 12:10 | External Medical Summary | Summary of Care ---
Author Name Unknown Organization [facility] Address [address] [place] [address] Phone [phone] Care Team Providers Care Leave Specialist Name Role Phone Charito Freed Primary Care Provider Reason for Visit * Reason Comments eRx-Medication Refill Encounter Details Date Type Department Care Team (Late st Contact Info) Description 07/02/2024 Refill Family Practice [facility] [address] [place] [address] Charito Freed CRNP [address] [place] [address] Type 2 diabetes mellitus with diabetic peripheral angiopathy without gangrene, unspecified whether long wall mining machine tender insulin use (HCC) Allergies Active Allergy Reactions Criticality Noted Date Comments Statins Muscle pain 10/08/2021 Sulfa Antibiotics Hives 03/20/2021 documented as of this encounter (statuses as of 07/04/2024) Medications Folic Acid 400 MCG Oral Tablet [...] each nostril in the morning. 18.2 mL 023 Active Insulin Syringe-Needle U-100 30G X 1/2" 1 ML Use as directed. 180 Each 3 023 Active Metoprolol Succinate ER 25 MG Oral Tablet Extended Release 24 Hour (toPROL XL)Indications:Hyp ertension goal BP (blood pressure) < 140/90 Take 1/2 TABLET BY MOUTH DAILY in the morning. 45 Tablet 2 Active Lidocaine 0.5 % External GelIndications:Typ e [...] Additional Information Patient not taking.Reported on 05/18/2024 Erythromycin Ethylsuccinate 200 MG/5ML Oral Suspension Reconstituted (Ees)Indications:G astroparesis Take 2.5 mL by mouth in the morning and 2.5 mL at noon and 2.5 mL before bedtime. with meals. 250 mL 024 Active oxyCODONE-Acetamin ophen 5-325 MG Oral Tablet [...] PM EDT Active Global Ease Inject Pen [place] 31G X 8 MM (Insulin Pen Needle) [...] mouth in the morning. 90 Tablet 2 Active Insulin Aspart 100 UNIT/ML Injection Solution (NovoLOG)Indicatio ns:Type 2 diabetes mellitus with diabetic peripheral angiopathy without gangrene, unspecified whether long wall mining machine tender insulin use (HCC) INJECT UNDER THE SKIN 40 UNITS 3 TIMES DAILY BEFORE MEALS 40 mL 5 Active Lantus SoloStar 100 UNIT/ML Subcutaneous Solution Pen-injector Inject 50 Units under the skin in the morning and 50 Units before bedtime. 30 mL 5 024 Active Lantus SoloStar 100 UNIT/ML Subcutaneous Solution Pen-injector Inject 50 Units under the skin in the morning and 50 Units before bedtime. 90 mL 1 024 2023 Discontinued Insulin Aspart 100 UNIT/ML Injection Solution (NovoLOG)Indicatio ns:Type 2 diabetes mellitus with diabetic peripheral angiopathy without gangrene, unspecified whether long wall mining machine tender insulin use (HCC) INJECT UNDER THE SKIN 40 UNITS 3 TIMES A DAY BEFORE MEALS. 40 mL 2 024 2023 Discontinued documented as of this encounter (statuses as of 07/04/2024) Active Problems Problem Noted Date Diagnosed Date Lipoma of torso 04/25/2024 Deformity of toenail 03/28/2024 Onychomycosis 03/28/2024 Upper respiratory tract infection 03/28/2024 Suprapubic mass 03/28/2024 Bilateral leg edema 01/27/2024 Need for librfdxnut-pmevcst-gdckstgew (Tdap) vac cine 01/27/2024 Skin lesion 10/07/2023 [...] as of this encounter (statuses as of 07/04/2024) Resolved Problems Problem Noted Date Diagnosed Date [...] as of this encounter (statuses as of 07/04/2024) Immunizations Name Administration Dates Next Due COVID-19 [...] encounter Miscellaneous Notes * Telephone Encounter - Kim Schaefer RPh - 07/04/2024 5:07 AM ESTSigned Prescriptions: Disp Refills Insulin Aspart 100 UNIT/ML Injection Solut*40 mL 5 Sig: INJECT UNDER THE SKIN 40 UNITS 3 TIMES DAILY BEFORE MEALSAuthorizing Provider: CHARITO FREED User: KIM SCHAEFER Lantus SoloStar 100 UNIT/ML Subcutaneous S*30 mL 5 Sig: Inject 50 Units under the skin in the morning and 50 Units before bedtime.Authorizing Provider: CHARITO FREED User: KIM SCHAEFER documented in this encounter Plan of Treatment Upcoming Encounters Date Type Department Care Team (Late st Contact Info) Description 07/16/2024 11:30 AM EST Office Visit Otolaryngology [facility] [address] [place] [place] [address] Ross Martin PA-C [address] [place] [address] 07/20/2024 11:00 AM EST [facility] [place] [address] Charito Freed CRNP [address] [place] [address] 08/28/2024 11:30 AM EST Office Visit Pharmacy, [facility] [address] [facility] [place] [address] [facility] [address] [facility] [place] [address] 09/27/2024 1:30 PM EST Office Visit Cardiology, [facility] [address] [facility] [place] [address] Judit Little CRNP [address] [place] [address] 11/01/2024 3:20 PM EDT Office [facility], [facility] [address] Mariola Gonzalez, [place] [address] [place] [address] [place] [address] Health Maintenance Due Date Last Done Comments [...] this encounter Medical Devices Implanted Type Area Material Dispatcher Device Identifier Shelf Expiration Date Model / Serial / Lot Lens Intraoc 22.5 - [id number] - [id number] Implanted:Qty: 1 on 10/19/2022 by Jamaal Cristina MD at [facility] Left: Eye [employer] 07/14/2027 [id number] / [id number] / [id number] documented as of this encounter Visit Diagnoses Diagnosis Type 2 diabetes mellitus with diabetic peripheral angiopathy without gangrene, unspecified whether mcfp insulin use (HCC) documented in this encounter Advance Directives [...] Power of Attor jasmyne? No Care Teams Leave Specialist Relationship Specialty Start Date End Date Charito Freed CRNP [address] [place] [address] PCP - General Nurse Practitioner 10/08/22 documented as of this encounter
--- OUTSIDE RECORDS SUMMARY | 2024-10-05 12:11 | External Medical Summary | Summary of Care ---
Author Name Unknown Organization [facility] Address [address] [place] [address] Phone [phone] Care Team Providers Care Hydrogen Plant Operations Manager Name Role Phone Charito Valdez Primary Care Provider Reason for Visit * Reason Onset Date Comments Med Request 06/11/2024 Encounter Details Date Type Department Care Team (Late st Contact Info) Description 06/11/2024 Telephone Family Practice [facility] [address] [facility] [place] [address] Charito Valdez CRNP [address] [place] [address] Med Request Allergies Active Allergy Reactions Criticality Noted Date [...] before bedtime. 60 Capsule 11 3 Active Levocetirizine Dihydrochloride 5 MG Oral Tablet TAKE ONE TABLET BY MOUTH ONE TIME DAILY IN THE EVENING 90 Tablet 3 3 Active Fluticasone Propionate 50 MCG/ACT Nasal Suspension (Flonase) Administer 2 Sprays into each nostril in the morning. 18.2 mL 3 3 Active Insulin Syringe-Needle U-100 30G X 1/2" 1 ML Use as directed. 180 Each 3 3 Active Pantoprazole Sodium 40 MG Oral Tablet Delayed Release (Protonix)Indication s:Gastro-esophageal reflux disease without esophagitis Take 1 Tablet by mouth in the morning. 90 Tablet 2 4 Active Metoprolol Succinate ER 25 MG Oral Tablet Extended Release 24 Hour (toPROL XL)Indications:Hyper tension goal BP (blood pressure) < 140/90 Take 1/2 TABLET BY MOUTH DAILY in the morning. 45 Tablet 2 4 Active Lidocaine 0.5 % External GelIndications:Type 2 diabetes mellitus with diabetic polyneuropathy, with long-term current use of insulin (HCC) Apply topically to affected area 2 times a day. Apply to hand and feet twice daily 170 g 3 4 Active Additional Information Patient not taking.Reported on 05/18/2024 Lantus SoloStar 100 UNIT/ML Subcutaneous Solution Pen-injector Inject 50 Units under the skin in the morning and 50 Units before bedtime. 90 mL 1 4 Active DULoxetine HCl 60 MG Oral Capsule Delayed Release Particles (Cymbalta)Indication s:Current moderate episode of major depressive disorder, unspecified whether recurrent (HCC),DM type 2 with diabetic peripheral neuropathy (HCC) Take 1 Capsule by mouth in the morning. Do not cut, crush or chew. 90 Capsule 3 4 Active Albuterol Sulfate HFA 108 (90 Base) MCG/ACT Inhalation Aerosol SolutionIndications: Upper respiratory tract infection, unspecified type Inhale 2 Puffs by mouth every 6 hours as needed for Cough. 18 g 3 4 Active Benzonatate 100 MG Oral CapsuleIndications:U pper respiratory tract infection, unspecified type Take 1 Capsule by mouth 3 times a day as needed for Cough. 30 Capsule 1 4 Active Additional Information Patient not taking.Reported on 05/18/2024 Insulin Aspart 100 UNIT/ML Injection Solution (NovoLOG)Indications :Type 2 diabetes mellitus with diabetic peripheral angiopathy without gangrene, unspecified whether long-term insulin use (HCC) INJECT UNDER THE SKIN 40 UNITS 3 TIMES A DAY BEFORE MEALS. 40 mL 2 4 Active Erythromycin Ethylsuccinate 200 MG/5ML Oral Suspension Reconstituted (Ees)Indications:Gas troparesis Take 2.5 mL by mouth in the morning and 2.5 mL at noon and 2.5 mL before bedtime. with meals. 250 mL 1 4 Active oxyCODONE-Acetaminop hen 5-325 MG Oral Tablet (Percocet) Take 1 Tablet by mouth every 6 hours as needed for Pain, Moderate. 10 Tablet 4 Active Gabapentin 300 MG Oral Capsule (Neurontin)Indicatio ns:Chronic right-sided low back pain with right-sided sciatica take 1 capsule in the morning, 1 capsule at noon and 2 capsules in the evening. 120 Capsule 4 Active Cephalexin 500 MG Oral Capsule (Keflex) Take 1 Capsule by mouth every 6 hours. 40 Capsule 4 Active Trulicity 3 MG/0.5ML Subcutaneous Solution Pen-injector (Dulaglutide) Inject 3 mg under the skin once a week. 3 mL 3 4 Active Global Ease Inject Pen [place] 31G X 8 MM (Insulin Pen Needle) Use as needed up to 4 times per day 400 Each 3 4 Active OneTouch Ultra In Vitro Strip (Glucose Blood)Indications:Ty pe 2 diabetes mellitus with stage 1 chronic kidney disease, with long-term current use of insulin (HCC) USE UP TO 3 TIMES A DAY DIRECTED. 300 Strip 1 4 Active Global Ease Inject Pen [place] 31G X 8 MM (Insulin Pen Needle) Use as needed up to 4 times per day 400 Each 3 3 06/11/20 24 Discontinu ed(Refill) OneTouch Ultra In Vitro Strip (Glucose Blood)Indications:Ty pe 2 diabetes mellitus with stage 1 chronic kidney disease, with long-term current use of insulin (HCC) USE UP TO 3 TIMES A DAY DIRECTED. 300 Strip 1 4 06/11/20 24 Discontinu ed(Refill) documented as of this encounter (statuses as of 06/11/2024) Active Problems Problem Noted Date Diagnosed Date Lipoma of torso 04/25/2024 Deformity of toenail 03/28/2024 Onychomycosis 03/28/2024 Upper respiratory tract infection 03/28/2024 Suprapubic mass 03/28/2024 Bilateral leg edema 01/27/2024 Need for fjjsthgeuo-ftkjowv-gcketpxjn (Tdap) vac cine 01/27/2024 Skin lesion 10/07/2023 [...] Miscellaneous Notes * Telephone Encounter - Sulema Gleason PHARM Tech - 06/11/2024 9:49 AM EDT Did you pend patient's preferred pharmacy and medication before forwarding?yes Pharmacy: [id number] [address] [facility] Pending Prescriptions: Disp Refills Global Ease Inject Pen [place] 31G X 8 MM*400 Ea*3 Sig: Use as needed up to 4 times per day OneTouch Ultra In Vitro Strip (Glucose Bl*300 St*1 Sig: USE UP TO 3 TIMES A DAY DIRECTED. Last Visit: 03/28/2024 (in office), 07/03/2021 (telemedicine) Next Visit: 07/20/2024 If no future appointments scheduled, and last appointment is greater than a year ago, please schedule patient for a follow-up appointment Last date the medication was ordered: 11/22/23,10/29/22 Is this request for a controlled substance?No [...] 2:00 PM EST Office Visit General Surgery, [address] [place] [address] Yovany Lynn MD [address] [place] [address] 07/16/2024 11:30 AM EST Office Visit Otolaryngology [facility] [address] [place] [address] Ross Martin PA-C [address] [place] [address] 07/20/2024 1:40 PM EST Office Visit Family Practice [facility] [address] [place] [address] Charito Valdez CRNP [address] [place] [address] 08/28/2024 11:30 AM EST [facility] [place] [address] [facility] [address] [place] [address] 09/27/2024 1:30 PM EST Office Visit Cardiology, [facility] [address] [place] [address] Judit Little CRNP [address] [place] [address] 11/01/2024 3:20 PM EDT Office Visit Dermatology[address] [place] [address] Mariola Gonzalez PA-C [address] [place] [address] [place] [address] Health Maintenance Due Date Last Done Comments [...] this encounter Medical Devices Implanted Type Area Press Room Supervisor Device Identifier Shelf Expiration Date Model / Serial / Lot Lens Intraoc 22.5 - [id number] - [id number] Implanted:Qty: 1 on 10/19/2022 by Jamaal Cristina MD at [facility] Left: Eye [employer] 07/14/2027 [id number] / [id number] / [id number] documented as of this encounter Visit Diagnoses [...] Power of Attor jasmyne? No Care Teams Hydrogen Plant Operations Manager Relationship Specialty Start Date End Date Charito Valdez CRNP [address] [place] [address] PCP - General Nurse Practitioner 10/08/22 documented as of this encounter
--- OUTSIDE RECORDS SUMMARY | 2024-10-05 12:11 | External Medical Summary | Summary of Care ---
Author Name Unknown Organization [facility] Address [address] [place] [address] Phone [phone] Care Team Providers Care Professional Builder Name Role Phone Charito Valdez Argelia JOHNSON Primary Care Provider Reason for Visit * Reason Comments Dosage Adjustment In Person (Anticoag Cl inic) Adult Annual Wellness Visit, Subsequent Visit Encounter Details Date Type Department Care Team (Late st Contact Info) Description 06/05/2024 3:00 PM EDT Pharmacy Pharmacy, [facility] [address] [id number] [facility] [address] [place] [address] Routine general medical examination at a health care facility* Allergies Active Allergy Reactions Criticality Noted Date Comments Statins Muscle pain 10/08/2021 Sulfa Antibiotics Hives 03/20/2021 documented as of this encounter (statuses as of 06/05/2024) Medications Medication Sig Dispensed Refills Start Date [...] 1 Tablet by mouth every morning. Active Global Ease Inject Pen Wayne 31G X 8 MM (Insulin Pen Needle) Use as needed up to 4 times per day 400 Each 3 10/30/19 23 Active Docusate Sodium 100 MG Oral Capsule [...] directed. 180 Each 3 06/16/20 23 Active Pantoprazole Sodium 40 MG Oral Tablet Delayed Release (Protonix)Indicatio ns:Gastro-esophagea l reflux disease without esophagitis Take 1 Tablet by mouth in the morning. 90 Tablet 2 11/22/19 24 Active Metoprolol Succinate ER 25 MG Oral Tablet Extended Release 24 Hour (toPROL XL)Indications:Hype rtension goal BP (blood pressure) < 140/90 Take 1/2 TABLET BY MOUTH DAILY in the morning. 45 Tablet 2 11/22/19 24 Active OneTouch Ultra In Vitro Strip (Glucose Blood)Indications:T ype 2 diabetes mellitus with stage 1 chronic kidney disease, with long-term current use of insulin (HCC) USE UP TO 3 TIMES A DAY DIRECTED. 300 Strip 1 11/22/19 24 Active Lidocaine 0.5 % External [...] 50 Units before bedtime. 90 mL 1 12/27/19 24 Active DULoxetine HCl 60 MG Oral [...] 05/18/2024 Insulin Aspart 100 UNIT/ML Injection Solution (NovoLOG)Indication s:Type 2 diabetes mellitus with diabetic peripheral angiopathy without gangrene, unspecified whether retirement insulin use (HCC) INJECT UNDER THE SKIN 40 UNITS 3 TIMES A DAY BEFORE MEALS. 40 mL 2 04/04/20 24 Active Erythromycin Ethylsuccinate 200 MG/5ML Oral Suspension Reconstituted (Ees)Indications:Ga stroparesis Take 2.5 mL by mouth in the morning and 2.5 mL at noon and 2.5 mL before bedtime. with meals. 250 mL 1 04/10/20 24 Active oxyCODONE-Acetamino phen 5-325 MG Oral Tablet (Percocet) Take 1 Tablet by mouth every 6 hours as needed for Pain, Moderate. 10 Tablet 05/18/20 24 Active Gabapentin 300 MG Oral Capsule (Neurontin)Indicati ons:Chronic right-sided low back pain with right-sided sciatica take 1 capsule in the morning, 1 capsule at noon and 2 capsules in the evening. 120 Capsule 05/24/20 24 Active Cephalexin 500 MG Oral Capsule (Keflex) Take 1 Capsule by mouth every 6 hours. 40 Capsule 06/04/20 24 Active Lisinopril 5 MG Oral Tablet (Prinivil) Take 1 Tablet by mouth in the morning. 30 Tablet 6 01/03/20 24 024 Discontinued(Mn dication List Clean Up) Trulicity 1.5 MG/0.5ML Subcutaneous Solution Pen-injector (Dulaglutide) Inject 1.5 mg under the skin once a week. E11.9 2 mL 3 02/13/20 24 024 Discontinued documented as of this encounter (statuses as of 06/05/2024) Active Problems Problem Noted Date Diagnosed Date Lipoma of torso 04/25/2024 Deformity of toenail 03/28/2024 Onychomycosis 03/28/2024 Upper respiratory tract infection 03/28/2024 Suprapubic mass 03/28/2024 Bilateral leg edema 01/27/2024 Need for hlyfpvldsu-uxsfbhz-tyqkcjukz (Tdap) vac cine 01/27/2024 Skin lesion 10/07/2023 [...] as of this encounter (statuses as of 06/05/2024) Resolved Problems Problem Noted Date Diagnosed Date [...] as of this encounter (statuses as of 06/05/2024) Immunizations Name Administration Dates Next Due COVID-19 [...] more drinks on one occasion? Never 03/20/2021 Utilities Answer Date Recorded Do you have [...] Sign Reading Time Taken Comments Blood Pressure 121/58 06/05/2024 2:39 PM EDT Pulse 70 06/05/2024 2:39 PM EDT Temperature - - Respiratory Rate - - Oxygen Saturation - - Inhaled Oxygen Concentration - - Weight 109.7 kg (241 lb 12.8 oz) 06/05/2024 2:39 PM EDT Height - - Body Mass Index 41.48 05/18/2024 9:54 AM EDT documented in this encounter Patient Instructions * Patient Instructions* Rae Domingo, [facility] - 06/05/2024 2:07 PM EDT Hi Ms. Arrieta, As your primary care physician, I know that regular visits with my patients who have several chronic conditions can go a long way in helping you stay healthy. Many times, the clinic team and I are in touch with you and/or other care team members between office visits to adjust medications, discuss any changes in your health, and review our care plan to make sure it is still meeting your needs. I am dedicated to helping you take a more active role in your overall care. It is important that there are resources available to you, so I created a personalized plan of care with a Health Calendar for you, which is included on the next page of this letter. Below is a list that summarizes your electronic health record: Health Maintenance Due: Health Maintenance Due Topic Date Due Depression Monitoring Never done Zoster Vaccines (1 of 2) Never done Adult Wellness Visit Never done DXA Scan 08/05/2022 Diabetic Foot Exam 06/10/2023 Influenza Vaccine (FLU shot) (1) 04/15/2024 COVID-19 Vaccine ( season) 2024 Current Medication List: (as of 02/22/2024 (in office), Visit date not found (telemedicine) ) Current Outpatient Medications Medication Sig Dispense Refill Folic Acid 400 MCG Oral Tablet Take 1 Tablet by mouth in the morning. Blood Pressure Cuff CHECK B/P DAILY 1 Each 0 CPAP every night at bedtime . Metamucil 0.36 GM Oral Capsule (Psyllium) Take by mouth daily. (Patient not taking: Reported on11/09/2023) Aspirin 325 MG Oral Tablet Take 1 Tablet by mouth in the morning. One-A-Day Womens 50+ Oral Tablet Take 1 Tablet by mouth every morning. (Patient not taking: Reported on 11/09/2023) Global Ease Inject Pen Wayne 31G X 8 MM (Insulin Pen Needle) Use as needed up to 4 times per day 400 Each 3 Docusate Sodium 100 MG Oral Capsule (Colace) Take 1 Capsule by mouth in the morning and 1 Capsule before bedtime. 60 Capsule 11 Levocetirizine Dihydrochloride 5 MG Oral Tablet TAKE ONE TABLET BY MOUTH ONE TIME DAILY IN THE EVENING 90 Tablet 3 Fluticasone Propionate 50 MCG/ACT Nasal Suspension (Flonase) Administer 2 Sprays into each nostril in the morning. 18.2 mL 3 Insulin Syringe-Needle U-100 30G X 1/2" 1 ML Use as directed. 180 Each 3 Pantoprazole Sodium 40 MG Oral Tablet Delayed Release (Protonix) Take 1 Tablet by mouth in the morning. 90 Tablet 2 Metoprolol Succinate ER 25 MG Oral Tablet Extended Release 24 Hour (toPROL XL) Take 1/2 TABLET BY MOUTH DAILY in the morning. 45 Tablet 2 OneTouch Ultra In Vitro Strip (Glucose Blood) USE UP TO 3 TIMES A DAY DIRECTED. 300 Strip 1 Lidocaine 0.5 % External Gel Apply topically to affected area 2 times a day. Apply to hand and feet twice daily (Patient not taking: Reported on 05/18/2024) 170 g 3 Lantus SoloStar 100 UNIT/ML Subcutaneous Solution Pen-injector Inject 50 Units under the skin in the morning and 50 Units before bedtime. 90 mL 1 DULoxetine HCl 60 MG Oral Capsule Delayed Release Particles (Cymbalta) Take 1 Capsule by mouth in the morning. Do not cut, crush or chew. 90 Capsule 3 Lisinopril 5 MG Oral Tablet (Prinivil) Take 1 Tablet by mouth in the morning. (Patient not taking: Reported on 03/23/2024) 30 Tablet 6 Trulicity 1.5 MG/0.5ML Subcutaneous Solution Pen-injector (Dulaglutide) Inject 1.5 mg under theskin once a week. E11.9 2 mL 3 Albuterol Sulfate HFA 108 (90 Base) MCG/ACT Inhalation Aerosol Solution Inhale 2 Puffs by mouthevery 6 hours as needed for Cough. 18 g 3 Benzonatate 100 MG Oral Capsule Take 1 Capsule by mouth 3 times a day as needed for Cough. (Patient not taking: Reported on 05/18/2024) 30 Capsule 1 Insulin Aspart 100 UNIT/ML Injection Solution (NovoLOG) INJECT UNDER THE SKIN 40 UNITS 3 TIMES A DAY BEFORE MEALS. 40 mL 2 Erythromycin Ethylsuccinate 200 MG/5ML Oral Suspension Reconstituted (Ees) Take 2.5 mL by mouthin the morning and 2.5 mL at noon and 2.5 mL before bedtime. with meals. 250 mL 1 oxyCODONE-Acetaminophen 5-325 MG Oral Tablet (Percocet) Take 1 Tablet by mouth every 6 hours asneeded for Pain, Moderate. 10 Tablet 0 Gabapentin 300 MG Oral Capsule (Neurontin) take 1 capsule in the morning, 1 capsule at noon and2 capsules in the evening. 120 Capsule 0 Cephalexin 500 MG Oral Capsule (Keflex) Take 1 Capsule by mouth every 6 hours. 40 Capsule 0 No current facility-administered medications for this visit. Current List of Allergies: (as of 02/22/2024 (in office), Visit date not found (telemedicine) ) Review of patient's allergies indicates: Allergen Reactions Statins Muscle pain Sulfa Antibiotics Hives Most Recent Lab Results: Results for orders placed or performed during the hospital encounter of 05/18/24 SURGICAL PATHOLOGY Result Value Ref Range Final Diagnosis A. Abdominal wall, Abdominal wall mass, excision: Mature adipose tissue with fat necrosis, consistent with benign lipoma Gross Description A. Abdominal wall. Received in formalin with a container labeled with "Melanie Arrieta", "[id number]", "1945" and " abdominal wall mass". Received is a yellow lobulated focally disrupted fragment of soft tissue, 7.5 x10.4 x 5.5 cm with a perkins-bates dull wrinkled skin ellipse, 8.0 x 2.5 cm. The skin surface is unremarkable. The specimen is serially sectioned demonstrating perkins-yellow lobulated adipose tissue without areas of induration areas of discoloration or discrete lesion. Heddler sections submitted in 3 cassettes Gross By: AY Sign Out Location Pathologist sign out performed at [facility] [place] [address]. Photographic images and diagrams represent gaspar findings in this case; they are not intended to replace a complete review of the final diagnostic report. The following statement applies to Flow Cytometry, Histology, In situ Hybridization Assays and Molecular Genetics. This test was developed and performed at [facility] and its performance characteristics determined by [employer]. It has not been cleared or approved by the U.S. Food and Drug Administration. The FDA has determined that such clearance or approval is not necessary. This test is used for clinical purposes. It should not be regarded as investigationalor for research. Special stains, including histochemical stains, and studies using immunologic and BRENDEN methodology (where applicable) are performed with appropriate positive and negative control reactions. GLUCOSE METER, POINT OF CARE Result Value Ref Range GLUCOSE - POCT 113 70 - 120 mg/dL GLUCOSE METER, POINT OF CARE Result Value Ref Range GLUCOSE - POCT 112 70 - 120 mg/dL Sincerely, ALEX Kumar [facility] (as of 02/22/2024 (in office), Visit date not found (telemedicine) ) Care needs Care needs Last completed Due next Zoster (Shingles) Vaccine (1 of 2) --- Never done Adult Wellness Visit --- Never done Bone Density 08/05/2015 08/05/2022 Diabetic Foot Exam 06/10/2022 06/10/2023 Flu vaccine (recommended) (1) 06/16/2023 04/15/2024 COVID-19 Vaccine (3 - 2023- season) 2020 04/15/2024 A1C blood sugar test 03/23/2024 09/23/2024 Diabetic Eye Exam 09/28/2023 09/28/2024 Urine albumin/creatinine test 10/07/2023 10/07/2024 Kidney Function Test 03/23/2024 03/23/2025 Diphtheria, tetanus & pertussis vaccines (2 - Td or Tdap) 01/27/2024 01/26/2034 As you look over the recommended services, be sure to check with your insurance company to determine what's covered. [employer] is a great tool that helps you review your medical record online, including test results, doctor notes and your health summary. You can also schedule appointments with me and other members of your care team, request prescription refills and ask for advice related to your medical conditions at [email or web address]. documented in this encounter Progress Notes * Rae Domingo RPh - 06/05/2024 2:07 PM EDT I had the privilege of seeing Melanie Arrieta for an Annual Wellness Visit today. Care Gaps and Best Practices were addressed as appropriate I reviewed health maintenance items and preventative health recommendations. All other screenings and interventions are noted below. Adult Annual Wellness Visit: Melanie Arrieta is a 78 year old female who presents for an Adult Annual Wellness Visit. Depression Screening: Did the patient complete the screening questionnaire for Depression? Yes Is the patient's total score for Depression 15 or greater? No, no further intervention needed, unless requested by patient. Did the patient answer positively to the suicide question? No, no further intervention needed, unless requested by patient. In general, compared to other people your age, what would you say that your health is? Good Ht Readings from Last 1 Encounters: 05/18/24 1.626 m (5' 4.02") Wt Readings from Last 1 Encounters: 06/05/24 109.7 kg (241 lb 12.8 oz) Body Mass Index: BMI Greater than 30 Body mass index is 41.48 kg/m. BP Readings from Last 1 Encounters: 06/05/24 121/58 Medical/Surgical/Family History Reviewed: Yes Past Medical History: Diagnosis Date Sleep apnea, obstructive Past Surgical History: Procedure Laterality Date CORONARY ANGIOGRAPHY W/LEFT HEART CATH Right 09/30/2023 CORONARY ANGIOGRAPHY W/LEFT HEART CATH performed by Abdullahi Richards MD [place] [facility] [place]ECK/CHEST SUBQ TUMOR REMOVAL, 3 CM OR MORE N/A 05/18/2024 EXCISION NECK/CHEST SUBQ TUMOR, 3 CM OR MORE performed by Yovany Lynn MD at [facility] PROCEDURE - GENERAL 05/18/2024 excision of lipoma, torso by Dr Yovany Lynn REMOVE CATARACT, INSERT LENS PROSTH Left 10/19/2022 LEFT EXTRACAPSULAR CATARACT REMOVAL WITH INTRAOCULAR LENS performed by Jamaal Cristina MD at OR [facility] No family history on file. Has patient ever had cancer? No Social History Tobacco Use Smoking status: Never Smokeless tobacco: Never Substance Use Topics Alcohol use: Never Vaping/E-Cigarette Use Vaping/E-Cigarette Use Never User Vaping/E-Cigarette Substances Vaping/E-Cigarette Devices Tobacco/Alcohol screening completed today? Yes Hospital Care: Admissions (within the last year): Not Applicable ER within 30 days: Yes, when: 05/16/24 and where: Urgent Care for fall Does the patient have an Advance Directives/Living Will? Yes Last Physical Exam: Last physical exam: 03/28/24 Does patient see primary provider regularly? Yes Does patient see other providers? Yes, Specialist Patient Care Team updated? Yes Review of patient's allergies indicates: Allergen Reactions Statins Muscle pain Sulfa Antibiotics Hives Immunization History Administered Date(s) Administered COVID-19 mRNA, LNP-s, No Preserve, 2-Dose Series (Moderna) 10/11/2020, 11/08/2020 Pneumococcal Conjugate Vacc, 13 Valent (Prevnar) 05/31/2016 Pneumococcal Polysaccharide PPV23 (Pneumovax) 02/24/2012 Seasonal Influenza Virus Vaccine, Unspecified Formulation 06/22/2021 Seasonal Influenza, High Dose, Trivalent, PF, IM (Fluzone HD) 06/05/2024 Seasonal Influenza, Quadrivalent Hd (Fluzone Hd) 06/22/2021, 05/04/2022, 06/16/2023 TDAP (age 10 and older)(Boostrix) 01/27/2024 Current Outpatient Medications Medication Sig Dispense Refill Folic Acid 400 MCG Oral Tablet Take 1 Tablet by mouth in the morning. Blood Pressure Cuff CHECK B/P DAILY 1 Each 0 CPAP every night at bedtime . Metamucil 0.36 GM Oral Capsule (Psyllium) Take by mouth daily. (Patient not taking: Reported on 11/09/2023) Aspirin 325 MG Oral Tablet Take 1 Tablet by mouth in the morning. One-A-Day Womens 50+ Oral Tablet Take 1 Tablet by mouth every morning. (Patient not taking: Reported on 11/09/2023) Global Ease Inject Pen Wayne 31G X 8 MM (Insulin Pen Needle) Use as needed up to 4 times per day 400 Each 3 Docusate Sodium 100 MG Oral Capsule (Colace) Take 1 Capsule by mouth in the morning and 1 Capsule before bedtime. 60 Capsule 11 Levocetirizine Dihydrochloride 5 MG Oral Tablet TAKE ONE TABLET BY MOUTH ONE TIME DAILY IN THE EVENING 90 Tablet 3 Fluticasone Propionate 50 MCG/ACT Nasal Suspension (Flonase) Administer 2 Sprays into each nostril in the morning. 18.2 mL 3 Insulin Syringe-Needle U-100 30G X 1/2" 1 ML Use as directed. 180 Each 3 Pantoprazole Sodium 40 MG Oral Tablet Delayed Release (Protonix) Take 1 Tablet by mouth in the morning. 90 Tablet 2 Metoprolol Succinate ER 25 MG Oral Tablet Extended Release 24 Hour (toPROL XL) Take 1/2 TABLET BY MOUTH DAILY in the morning. 45 Tablet 2 OneTouch Ultra In Vitro Strip (Glucose Blood) USE UP TO 3 TIMES A DAY DIRECTED. 300 Strip 1 Lidocaine 0.5 % External Gel Apply topically to affected area 2 times a day. Apply to hand and feettwice daily (Patient not taking: Reported on 05/18/2024) 170 g 3 Lantus SoloStar 100 UNIT/ML Subcutaneous Solution Pen-injector Inject 50 Units under the skin in the morning and 50 Units before bedtime. 90 mL 1 DULoxetine HCl 60 MG Oral Capsule Delayed Release Particles (Cymbalta) Take 1 Capsule by mouth in the morning. Do not cut, crush or chew. 90 Capsule 3 Albuterol Sulfate HFA 108 (90 Base) MCG/ACT Inhalation Aerosol Solution Inhale 2 Puffs by mouth every 6 hours as needed for Cough. 18 g 3 Benzonatate 100 MG Oral Capsule Take 1 Capsule by mouth 3 times a day as needed for Cough. (Patientnot taking: Reported on 05/18/2024) 30 Capsule 1 Insulin Aspart 100 UNIT/ML Injection Solution (NovoLOG) INJECT UNDER THE SKIN 40 UNITS 3 TIMES A DAY BEFORE MEALS. 40 mL 2 Erythromycin Ethylsuccinate 200 MG/5ML Oral Suspension Reconstituted (Ees) Take 2.5 mL by mouth in the morning and 2.5 mL at noon and 2.5 mL before bedtime. with meals. 250 mL 1 oxyCODONE-Acetaminophen 5-325 MG Oral Tablet (Percocet) Take 1 Tablet by mouth every 6 hours as needed for Pain, Moderate. 10 Tablet 0 Gabapentin 300 MG Oral Capsule (Neurontin) take 1 capsule in the morning, 1 capsule at noon and 2 capsules in the evening. 120 Capsule 0 Cephalexin 500 MG Oral Capsule (Keflex) Take 1 Capsule by mouth every 6 hours. 40 Capsule 0 Trulicity 3 MG/0.5ML Subcutaneous Solution Pen-injector (Dulaglutide) Inject 3 mg under the skin once a week. 3 mL 3 No current facility-administered medications for this visit. Patient Active Problem List Diagnosis Type 2 diabetes mellitus with stage 1 chronic kidney disease, with long-term current use of insulin([facility]) HTN, goal below 140/90 Gastro-esophageal reflux disease without esophagitis Current moderate episode of major depressive disorder ([facility]) Morbid obesity due to excess calories ([facility]) Type 2 diabetes mellitus with diabetic polyneuropathy, with long-term current use of insulin ([facility]) Aortic valve stenosis RANDALL (obstructive sleep apnea) Body mass index (BMI) of 40.0 to 44.9 in adult ([facility]) Disorder of thyroid, unspecified Chronic idiopathic constipation Seasonal allergic rhinitis due to pollen Cataract Atherosclerosis of aorta (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) Open wound of pinna of ear without complication, right, initial encounter Skin lesion Need for hepatitis C screening test Bilateral leg edema Need for ikhvdgjvyr-pehbfdt-psvgyikqc (Tdap) vaccine Deformity of toenail Onychomycosis Upper respiratory tract infection Suprapubic mass Lipoma of torso Medication Compliance: Patient is able to obtain all of her medications? Yes Patient takes medications as prescribed? Yes Patient manages own medications: Yes Patient uses a pill box? No Dental Exam: No Eye Screening: Yes: Every year Are you having trouble with hearing? Yes Do you use an assistive device to help your hearing? Yes Exercise Screening: does not exercise regularly Nutrition Assessment: Eats a poorly balanced diet Pain Screening: Are you having any pain? Yes. Pain Scale: 7 out of 10; Location: R leg, When: Acute, Duration: Acute, Aggravating Factors: Sensitive to touch, Relieved by: Unknown Sleep Screening Tool 'STOP': Do you snore? Unsure Do you feel fatigued during the day? Yes Do you wake up feeling like you haven't slept? Yes Have you been told you stop breathing at night? Yes Do you gasp for air or choke while sleeping? No Have you been told you have Sleep Apnea? Yes Do you have high blood pressure or are on medication(s) to control high blood pressure? No SCORE: If you check YES to two or more questions, make a referral for Obstructive Sleep Apnea Has been diagnosed with sleep apnea. Uses a CPAP. Patient and Caregiver Support System: Patient lives alone Means of Transportation: Family transports and County transportation Patient lives in first floor apartment. Community Resources: None Functional Status and ADL Skills: Has patient ever had an amputation? No Functional Assessment: 90- Able to carry on normal activity, minor symptoms of disease Ambulation: Patient ambulates with assistive device. Walker Dressing: Gets clothes and dresses without any assistance: Independent Able to move freely in chair or bed including turning over: Independent Repositioning (bed or chair): Not applicable Transfers: Independent Toileting: Goes to bathroom, uses toilet, arranges clothes and returns without any assistance: Independent Toileting: continent of bladder and continent of bowel Feeding: Self Bathing: Self; Not Applicable Requires none assistance with ADLs. Instrumental ADL's: Shopping: Independent Housekeeping: Independent Handling Finances: Independent DME Vendor Name: Not Applicable Fall Risk Assessment: Can the patient demonstrate that she can stand from a sitting position? Yes Has the patient had a fall within the last 6 months? Yes - mechanical fall on 05/16/24 Does the patient have a problem with her gait or balance? No Does the patient take 4 or more prescription medicines? Yes Does the patient use sedatives or narcotics? No Fall Risk Factors Present: History of falls within the past 6 months Yes Cause of fall: Walker got out in front of her while going downhill Pain since the fall: Denies pain related to the fall Uses more than 4 medications Uses assistive devices Older than age 70 Tag-El-mtx-Go Test: Time began at 3:23 pm. Patient stood from sitting position and walked approximately 10 feet, returned and sat down. Total time for nqz-wj-coh-go test was 35 seconds. Xob-Nh-jxu-Go Test completed? Yes Gender Specific Preventative Plan: Health Maintenance Topic Date Due Zoster Vaccines (1 of 2) Never done DXA Scan 08/05/2022 Diabetic Foot Exam 06/10/2023 COVID-19 Vaccine ( season) 2024 HbA1c 09/23/2024 Diabetic Eye Exam 09/28/2024 Albumin/Creatinine Ratio 10/07/2024 GFR 03/23/2025 Depression Monitoring 06/05/2025 Adult Wellness Visit 06/05/2025 DTap/Tdap Vaccines (2 - Td or Tdap) 01/26/2034 Influenza Vaccine (FLU shot) Completed Pneumococcal Vaccine: 65+ Years Completed Hepatitis B Vaccine Aged Out MENINGOCOCCAL (MENACTRA/MENVEO) Aged Out HPV (Gardasil) Vaccine Aged Out Follow Up/ Referrals/Handouts: No further action needed Routine general medical examination at a health care facility (Primary) Would patient like to schedule next AWV visit? No Rae Domingo, PharmD, [facility] AD8 Dementia Screening Interview Person answering questions: patient Remember, "Yes, a change" indicates that there has been a change in the last several years caused by cognitive (thinking and memory) problems 1. Problems with judgement (eg: problems making decisions, bad financial decisions, problems with thinking). No (0) 2. Less interest in hobbies/activities. No (0) 3. Repeats the same things over and over (questions, stories, or statements). No (0) 4. Trouble learning how to use a tool, appliance, or gadget (eg: VCR, computer, microwave, remote control). No (0) 5. Forgets correct month or year. No (0) 6. Trouble handling complicated financial affairs (eg: balancing checkbook, income taxes, paying bills). No (0) 7. Trouble remembering appointments. No (0) 8. Daily problems with thinking and/or memory. No (0) TOTAL AD8: 0 - AD8 Dementia Screening Score The final score is a sum of the number items marked "Yes, A Change". 0 - 1: Normal cognition; 2 or greater: Cognitive impairments is likely to be present - further testing required documented in this encounter Plan of Treatment Upcoming Encounters Date Type Department Care Team (Late st Contact Info) Description 06/18/2024 2:00 PM EST Office Visit General Surgery, [facility] [address] [address] Yovany Lynn MD [address] [place] [address] 07/16/2024 11:30 AM EST Office Visit Otolaryngology [facility] [address] [place] [address] Ross Martin PA-C [address] [place] [address] 07/20/2024 1:40 PM EST Office Visit Family Practice [facility] [address] [place] [address] Charito Valdze CRNP [address] [place] [address] 08/28/2024 11:30 AM EST Office Visit Pharmacy, [facility] [address] [facility] [place] [address] [facility] [address] [facility] [place] [address] 09/27/2024 1:30 PM EST Office Visit Cardiology, [facility] [address] [facility] [place] [address] Judit Little CRNP [address] [place] [address] 11/01/2024 3:20 PM EDT [address] [address] Mariola Gonzalez PA-C [address] [place] [address] [place] [address] Health Maintenance Due Date Last Done Comments Zoster Vaccines (1 of 2) 1994 DXA Scan 08/05/2022 08/05/2015, 08/05/2015 Diabetic Foot Exam 06/10/2023 06/10/2022, 06/22/2021 COVID-19 Vaccine ( season) 2024 11/08/2020, 10/11/2020 HbA1c 09/23/2024 03/23/2024, 09/16, 06/28/2023, Additional history exists Diabetic Eye Exam 09/28/2024 09/28/2023, , 06/22/2022, Additional history exists Albumin/Creatinine Ratio 10/07/2024 024, 06/10/2022, 06/22/2021 GFR 03/23/2025 03/23/2024, 12/14, 09/30/2023, Additional history [...] this encounter Medical Devices Implanted Type Area Bench Assembler Device Identifier Shelf Expiration Date Model / Serial / Lot Lens Intraoc 22.5 - [id number] - [id number] Implanted:Qty: 1 on 10/19/2022 by Jamaal Cristina MD at OR [facility] Left: Eye [employer]CH [employer] LOMB 07/14/2027 [id number] / [id number] / [id number] documented as of this encounter Visit Diagnoses Diagnosis Routine general medical examination at a health care facility- Primary documented in this encounter Advance Directives [...] Power of Attor jasmyne? No Care Teams Professional Builder Relationship Specialty Start Date End Date Charito Valdez CRNP [address] [address] PCP - General Nurse Practitioner 10/08/22 documented as of this encounter
--- OUTSIDE RECORDS SUMMARY | 2024-10-05 12:11 | External Medical Summary | Summary of Care ---
Author Name Unknown Organization [facility] Address [address] [place] [address] Phone [phone] Care Team Providers Care Rand Tacker Name Role Phone Charito Valdez Argelia JOHNSON Primary Care Provider Reason for Visit * Reason Onset Date Comments Medication Administration 06/05/2024 Flu an d/or Pneumo Inj Dosage Adjustment In Person (Anticoag Clinic) Diabetes Follow-Up Encounter Details Date Type Department Care Team (Late st Contact Info) Description 06/05/2024 2:30 PM EDT Office Visit Pharmacy, [facility] 132 [facility] [place] [address] [facility] 132 [facility] [place] [address] Type 2 diabetes mellitus with stage 1 chronic kidney disease, with long-term current use of insulin ([facility])*; Type 2 diabetes mellitus with diabetic polyneuropathy, with long-term current use of insulin ([facility]); Type 2 diabetes mellitus with diabetic cataract, with long-term current use of insulin ([facility]); Need for prophylactic vaccination and inoculation against influenza Allergies Active Allergy Reactions Criticality Noted Date [...] every morning. Active Global Ease Inject Pen [place] 31G X 8 MM (Insulin Pen Needle) Use as needed up to 4 times per day 400 Each 3 3 Active Docusate Sodium 100 MG Oral Capsule [...] the morning. 45 Tablet 2 4 Active OneTouch Ultra In Vitro Strip (Glucose Blood)Indications:T ype 2 diabetes mellitus with stage 1 chronic kidney disease, with long-term current use of insulin (HCC) USE UP TO 3 TIMES A DAY DIRECTED. 300 Strip 1 4 Active Lidocaine 0.5 % External GelIndications:Type [...] or chew. 90 Capsule 3 4 Active Lisinopril 5 MG Oral Tablet (Prinivil) Take 1 Tablet by mouth in the morning. 30 Tablet 6 4 Active Additional Information Patient not taking.Reported on 03/23/2024 Albuterol Sulfate HFA 108 (90 Base) MCG/ACT Inhalation Aerosol SolutionIndications :Upper respiratory tract infection, unspecified type Inhale 2 Puffs by mouth every 6 hours as needed for Cough. 18 g 3 4 Active Benzonatate 100 MG Oral CapsuleIndications: Upper respiratory tract infection, unspecified type Take 1 Capsule by mouth 3 times a day as needed for Cough. 30 Capsule 1 4 Active Additional Information Patient not taking.Reported on 05/18/2024 Insulin Aspart 100 UNIT/ML Injection Solution (NovoLOG)Indication s:Type 2 diabetes mellitus with diabetic peripheral angiopathy without gangrene, unspecified whether termite renewal inspector insulin use (HCC) INJECT UNDER THE SKIN 40 UNITS 3 TIMES A DAY BEFORE MEALS. 40 mL 2 4 Active Erythromycin Ethylsuccinate 200 MG/5ML Oral Suspension Reconstituted (Ees)Indications:Ga stroparesis Take 2.5 mL by mouth in the morning and 2.5 mL at noon and 2.5 mL before bedtime. with meals. 250 mL 1 4 Active oxyCODONE-Acetamino phen 5-325 MG Oral Tablet (Percocet) Take 1 Tablet by mouth every 6 hours as needed for Pain, Moderate. 10 Tablet 4 Active Gabapentin 300 MG Oral Capsule (Neurontin)Indicati [...] a week. 3 mL 3 4 Active Trulicity 1.5 MG/0.5ML Subcutaneous Solution Pen-injector (Dulaglutide) Inject 1.5 mg under the skin once a week. 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 Soreness or redness at injection site 2. Low grade fever 3. Body aches You may use Tylenol/Acetaminophen as needed for these symptoms. LET YOUR DOCTOR KNOW IMMEDIATELY IF YOU HAVE DIFFICULTY BREATHING OR SWALLOWING, EXPERIENCE ITCHINGOF FEET OR HANDS, HAVE SWELLING OF EYES, FACE OR INSIDE OF NOSE. documented in this encounter Progress Notes * Rae Domingo RPh - 06/05/2024 2:08 PM EDT Medication Therapy Disease Management Clinic - Diabetes Management Progress Note Melanie Arrieta, identified by name and date of , is a 78 year old female being seen for diabetes management/education. Patient presents for return diabetic visit. Patient expressed concern about R leg pain, described as sharp with extreme sensitivity to touch, as well as swelling. DIABETES: Current diabetic medications: Lantus 50 units in the morning and 50 units at bedtime Novolog 40 units TID with meals Trulicity 1.5 mg weekly Medication Injection Site: Abdomen Lifestyle: Diet: Mostly unchanged, sometimes eating less with meals (I.e. salads). Usually eating 2 meals a day (skips insulin when skipping meals). Hungry at night and snacking. Glucose Review/SMBG: Readings obtained from patient documented BG logbook Pre am 119 88 144 164 149 157 149 141 173 124 128 144 130 165 114 160 193 191 109 176 Pre AM meal Average 146 High 193 Low 88 Range 105 Count 20 Hypoglycemia: Does your blood sugar go below 70 mg/dL? No, having occasional symptoms of weakness, shakiness but not testing when these symptoms occur. Hyperglycemia symptoms present: polyphagia Recent Labs Units 03/23/24 1535 10/07/23 1147 06/28/23 1229 HEMOGLOBIN A1C - [facility] % 7.5* 7.5* 7.8* Recent Labs Units 03/23/24 1535 01/03/24 1405 09/30/23 0829 ESTIMATED GLOMERULAR FILTRATION RATE - [facility] mL/min 75 67 84 CREATININE - [facility] mg/dL 0.8 0.9 0.7 HYPERTENSION: Patient on ACEi/ARB: no, stopped lisinopril at last PCP visit due to orthostasis - will remove frommed list BP Readings from Last 3 Encounters: 06/05/24 121/58 05/18/24 124/51 03/28/24 134/60 Blood pressure at goal: yes HYPERLIPIDEMIA: Recent Labs Units 01/20/23 1420 LDL CHOLESTEROL (CALCULATED) - [facility] mg/dL 131* Does patient have clinical ASCVD? Yes, is patient LDL less than 55 mg/dL? No: Refer to Cardiology [facility] for advanced lipid management. Checking lipid panel and will consider ezetimibe vs referral to cardiology [facility] for PCSK9-inhibitor given statin intolerance. HEALTH MAINTENANCE REVIEW: Health Maintenance Due Topic Date Due Depression Monitoring Never done Zoster Vaccines (1 of 2) Never done Adult Wellness Visit Never done DXA Scan 08/05/2022 Diabetic Foot Exam 06/10/2023 Influenza Vaccine (FLU shot) (1) 04/15/2024 COVID-19 Vaccine ( season) 2024 ASSESSMENT & PLAN: ICD-10-CM 1. Type 2 diabetes mellitus with stage 1 chronic kidney disease, with long-term current use of insulin (HCC) E11.22 N18.1 Z79.4 2. Type 2 diabetes mellitus with diabetic polyneuropathy, with long-term current use of insulin (HCC) E11.42 Z79.4 3. Type 2 diabetes mellitus with diabetic cataract, with long-term current use of insulin (HCC) E11.36 Z79.4 4. Need for prophylactic vaccination and inoculation against influenza Z23 BG Readings - Blood sugars uncontrolled. Tests once daily - average 146. Most recent A1c at goal of<8%. Medications - Reviewed current regimen, patient is adherent to regimen. Diet, Exercise, Lifestyle - No significant lifestyle changes since last visit. Discussed with patient. Patient is agreeable to SMBG 1-2 time(s) daily. Patient aware to contact clinic if any hypoglycemia before next visit. Advised acute PCP visit for assessment of RLE pain. MEDICATION CHANGES: yes, see below; preferred pharmacy: [facility] ([email or web address]) Diabetic Medications: INCREASE: Trulicity 3 mg weekly Lantus 50 units in the morning and 50 units at bedtime Novolog 40 units TID with meals HEALTH MAINTENANCE INTERVENTIONS: Labs: Ordered & Scheduled: HgA1c and Lipid Panel Immunizations: Facilitated Administration Of: Influenza Foot Exam: Up to Date (follows with podiatry) Eye Exam: Up to Date Annual Wellness Visit: Visit Scheduled for today FOLLOW UP: Return to clinic in 12 weeks 08/28/2024 I spent a total of 40-54 minutes (exact time 40 mins) on the date of service in preparation, delivery, and documentation of the care provided to Melanie Arrieta excluding any time spent in the performance of separately billed services. Rae Domingo, PharmD, [facility] Clinical Pharmacist - Insole Rounder Medication Therapy Management Clinic 06/05/2024, 2:08 PM PRE - ADMINISTRATION DOCUMENTATION Are you experiencing any cold symptoms or fever? No Have you had Guillain-[place] Syndrome (an illness that causes paralysis) within the last 6 weeks? No Have you had the flu shot in the past? YES Have you ever had a reaction to the flu shot? No Rae Domingo RPh, 06/05/2024 3:00 PM Immunization Administration Documentation Time Out Procedure Performed: Yes Patient Identified (Ask Name/Date of ): Yes Does the patient have a fever greater than 101 degrees today? No Patient allergic to latex? No VFC Stock: No Immunization(s) verified: Yes, Immunization Name: Flu, VIS Sheet(s) given: Yes Verified Side and Site: Yes Verified Shot(s) with Parent(s)/Patient: Yes documented in this encounter Plan of Treatment Upcoming Encounters Date Type Department Care Team (Luis Carlos rick Contact Info) Description 06/18/2024 2:00 PM EST Office Visit General Surgery, [facility] [address] [place] [address] Yovany Lynn MD [address] [place] [address] 07/16/2024 11:30 AM EST Office Visit Otolaryngology [facility] [address] [place] [address] Ross Martin PA-C [address] [place] [address] 07/20/2024 1:40 PM EST Office Visit Family Practice [facility] [place] [address] Charito Valdez CRNP [address] [place] [address] 08/28/2024 11:30 AM EST Office Visit Pharmacy, [facility] 132 [facility] [place] [address] [facility] [place] [address] 09/27/2024 1:30 PM EST Office Visit Cardiology, [facility] [address] [facility] [place] [address] Judit Little CRNP [address] [place] [address] 11/01/2024 3:20 PM EDT Office Visit Dermatology, [address] [place] [address] Mariola Gonzalez, [place] [address] [place] [address] [place] [address] Pending Results Name Type Priority Associated Diagnoses Date /Time LIPID PANEL WITH DIRECT LDL IF TG IS HIGH Lab Routine Type 2 diabetes mellitus with stage 1 chronic kidney disease, with long-term current use of insulin ([facility]) 06/05/2024 3:37 PM EDT HEMOGLOBIN A1C Lab Routine Type 2 diabetes mellitus with stage 1 chronic kidney disease, with long-term current use of insulin ([facility]) 06/05/2024 3:37 PM EDT Scheduled Orders Name Type Priority Associated Diagnoses Orde r Schedule LIPID PANEL WITH DIRECT LDL IF TG IS HIGH Lab Routine Type 2 diabetes mellitus with stage 1 chronic kidney disease, with long-term current use of insulin ([facility]) Expected: 06/05/2024, Expires: 06/05/2025 HEMOGLOBIN A1C Lab Routine Type 2 diabetes mellitus with stage 1 chronic kidney disease, with long-term current use of insulin ([facility]) Expected: 06/15/2024, Expires: 06/05/2025 Health Maintenance Due Date Last Done Comments Zoster Vaccines (1 of 2) 1994 DXA Scan 08/05/2022 08/05/2015, 08/05/2015 Diabetic Foot Exam 06/10/2023 06/10/2022, 06/22/2021 COVID-19 Vaccine ( season) 2024 11/08/2020, 10/11/2020 HbA1c 09/23/2024 03/23/2024, 09/16, 06/28/2023, Additional history exists Diabetic Eye Exam 09/28/2024 09/28/2023, , 06/22/2022, Additional history exists Albumin/Creatinine Ratio 10/07/2024 024, 06/10/2022, 06/22/2021 GFR 03/23/2025 03/23/2024, 0508/2023, 09/30/2023, Additional history [...] this encounter Medical Devices Implanted Type Area Chefs Device Identifier Shelf Expiration Date Model / Serial / Lot Lens Intraoc 22.5 - [id number] - [id number] Implanted:Qty: 1 on 10/19/2022 by Jamaal Cristina MD at [facility] Left: Eye [employer]CH [employer] LOMB 07/14/2027 [id number] / [id number] / [id number] documented as of this encounter Visit Diagnoses Diagnosis Type 2 diabetes mellitus with stage 1 chronic kidney disease, with long-term current use of insulin (HCC)- Primary Type 2 diabetes mellitus with diabetic polyneuropathy, with long-term current use of insulin (HCC) Type 2 diabetes mellitus with diabetic cataract, with long-term current use of insulin (HCC) Need for prophylactic vaccination and inoculation against influenza documented in this encounter Advance Directives * [...] Power of Attor jasmyne? No Care Teams Rand Tacker Relationship Specialty Start Date End Date Charito Valdez CRNP [address] [address] PCP - General Nurse Practitioner 10/08/22 documented as of this encounter
--- OUTSIDE RECORDS SUMMARY | 2024-10-05 12:11 | External Medical Summary | Summary of Care ---
Author Name Unknown Organization [facility] Address [address] [place] [address] Phone [phone] Care Team Providers Care Microfilm Camera Operator Name Role Phone Charito Valdez Argelia JOHNSON Primary Care Provider Reason for Visit * Reason Onset Date Comments Medication Administration 06/05/2024 Flu an d/or Pneumo Inj Dosage Adjustment In Person (Anticoag Clinic) Diabetes Follow-Up Encounter Details Date Type Department Care Team (Late st Contact Info) Description 06/05/2024 2:30 PM EDT Office Visit Pharmacy, [facility] 132 [facility] [place] [address] [facility] 132 [facility] [place] [address] Type 2 diabetes mellitus with stage 1 chronic kidney disease, with long-term current use of insulin ([facility])*; Type 2 diabetes mellitus with diabetic polyneuropathy, with long-term current use of insulin ([facility]); Type 2 diabetes mellitus with diabetic cataract, with long-term current use of insulin ([facility]); Need for prophylactic vaccination and inoculation against [...] Cuff CHECK B/P DAILY 1 Each 03/04/20 Active CPAP every night at bedtime . Active Metamucil 0.36 GM Oral Capsule (Psyllium) Take by mouth daily. Active Aspirin 325 MG Oral Tablet Take 1 Tablet by mouth in the morning. Active One-A-Day Womens 50+ Oral Tablet Take 1 Tablet by mouth every morning. Active Global Ease Inject Pen [place] 31G X 8 MM (Insulin Pen Needle) [...] each nostril in the morning. 18.2 mL 04/06/20 23 Active Insulin Syringe-Needle U-100 30G [...] a week. 3 mL 3 06/05/20 24 Active Lisinopril 5 MG Oral Tablet (Prinivil) Take 1 Tablet by mouth in the morning. 30 Tablet 6 01/03/20 24 024 Discontinued(Pa dication List Clean Up) Trulicity 1.5 MG/0.5ML [...] 03/28/2024 Bilateral leg edema 01/27/2024 Need for qroscynzib-vkkfnua-ygknvpqhh (Tdap) vac cine 01/27/2024 Skin lesion 10/07/2023 [...] MEDICATION CHANGES: yes, see below; preferred pharmacy: [facility] ([facility]) Diabetic Medications: INCREASE: Trulicity 3 mg weekly [...] of separately billed services. Rae Domingo, PharmD, [facility] Clinical Pharmacist - Cadastral Surveyor Medication Therapy Management Clinic 06/05/2024, 2:08 PM PRE - ADMINISTRATION DOCUMENTATION Are you experiencing any cold symptoms or fever? No Have you had Guillain-[place] Syndrome (an illness that causes paralysis) within [...] with Parent(s)/Patient: Yes documented in this encounter Miscellaneous Notes * Addendum Note - Rae Domingo RPh - 06/05/2024 4:18 PM EDTAddended by: RAE DOMINGO on: 06/05/2024 04:18 PM Modules accepted: Orders documented in this encounter Plan of Treatment Upcoming Encounters Date Type Department Care Team (Late st Contact Info) Description 06/18/2024 2:00 PM EST Office Visit General Surgery, [facility] [address] [place] [address] Yovany Lynn MD [address] [place] [address] 07/16/2024 11:30 AM EST Office Visit Otolaryngology [facility] [address] [address] Ross Martin PA-C [address] [place] [address] 07/20/2024 1:40 PM EST Office Visit Family Practice [facility] [address] [address] Charito Valdez CRNP [address] [place] [address] 08/28/2024 11:30 AM EST [facility] [place] [address] [facility] [address] [place] [address] 09/27/2024 1:30 PM EST Office Visit Cardiology, [facility] [address] [address] Judit Little CRNP [address] [place] [address] 11/01/2024 3:20 PM EDT Office Visit [place] [address] [address] [facility] [place] [address] Mariola Gonzalez PA-C [address] [place] [address] [place] [address] Pending Results Name Type Priority Associated Diagnoses Date /Time LIPID PANEL WITH DIRECT LDL IF TG IS HIGH Lab Routine Type 2 diabetes mellitus with stage 1 chronic kidney disease, with long-term current use of insulin ([facility]) 06/05/2024 3:37 PM EDT HEMOGLOBIN A1C Lab Routine Type 2 diabetes mellitus with stage 1 chronic kidney disease, with long-term current use of insulin ([facility]) 06/05/2024 3:37 PM EDT Scheduled Orders Name Type Priority Associated Diagnoses Orde r Schedule LIPID PANEL WITH DIRECT LDL IF TG IS HIGH Lab Routine Type 2 diabetes mellitus with stage 1 chronic kidney disease, with long-term current use of insulin (HCC) Expected: 06/05/2024, Expires: 06/05/2025 HEMOGLOBIN A1C Lab Routine Type 2 diabetes mellitus with stage 1 chronic kidney disease, with long-term current use of insulin ([facility]) Expected: 06/15/2024, Expires: 06/05/2025 Health Maintenance Due [...] Additional history exists Adult Wellness Visit 06/05/2025 06/05/2024, 06/05/20 Depression Monitoring 06/05/2025 06/05/2024 DTap/Tdap Vaccines (2 [...] this encounter Medical Devices Implanted Type Area Program Arranger Device Identifier Shelf Expiration Date Model / Serial / Lot Lens Intraoc 22.5 - [id number] - [id number] Implanted:Qty: 1 on 10/19/2022 by Jamaal Cristina MD at OR [facility] Left: Eye [employer]USCH & LOMB 07/14/2027 [id number] / [id number] / [id number] documented as of this encounter Visit Diagnoses [...] Power of Attor jasmyne? No Care Teams Microfilm Camera Operator Relationship Specialty Start Date End Date Charito Valdez CRNP [address] [address] PCP - General Nurse Practitioner 10/08/22 documented as of this encounter
--- OUTSIDE RECORDS SUMMARY | 2024-10-05 12:11 | External Medical Summary | Summary of Care ---
Author Name Unknown Organization [facility] Address [address] [place] [address] Phone [phone] Care Team Providers Care Pen Ruler Operator Name Role Phone Charito Valdez Argelia JOHNSON Primary Care Provider Reason for Visit * Reason Onset Date Comments Medication Administration 06/05/2024 Flu an d/or Pneumo Inj Dosage Adjustment In Person (Anticoag Clinic) Diabetes Follow-Up Encounter Details Date Type Department Care Team (Late st Contact Info) Description 06/05/2024 2:30 PM EDT Office Visit Pharmacy, [facility] 132 [facility] [place] [address] [facility] 132 [facility] [place] [address] Type 2 diabetes mellitus with stage 1 chronic kidney disease, with long-term current use of insulin ([facility])*; Type 2 diabetes mellitus with diabetic polyneuropathy, with long-term current use of insulin ([facility]); Type 2 diabetes mellitus with diabetic cataract, with long-term current use of insulin ([facility]); Need for prophylactic vaccination and inoculation against [...] every morning. Active Global Ease Inject Pen [place] 31G X 8 MM (Insulin Pen Needle) [...] morning. 30 Tablet 6 01/03/20 24 024 Discontinued(Ga dication List Clean Up) Trulicity 1.5 MG/0.5ML [...] 03/28/2024 Bilateral leg edema 01/27/2024 Need for xxgyuhvksw-cvanoih-didcdwkyj (Tdap) vac cine 01/27/2024 Skin lesion 10/07/2023 [...] MEDICATION CHANGES: yes, see below; preferred pharmacy: [facility] Diabetic Medications: INCREASE: Trulicity 3 mg weekly [...] of separately billed services. Rae Domingo, PharmD, [facility] Clinical Pharmacist - Folding Machine Setter Medication Therapy Management [facility] 06/05/2024, 2:08 PM PRE - ADMINISTRATION DOCUMENTATION Are you experiencing any cold symptoms or fever? No Have you had Guillain-[place] Syndrome (an illness that causes paralysis) within [...] Notes * Addendum Note - Rae Domingo [facility] - 06/05/2024 4:29 PM EDTAddended by: RAE DOMINGO on: 06/05/2024 04:29 PM Modules accepted: Level of Service * Addendum Note - Rae Domingo [facility] - 06/05/2024 4:18 PM EDTAddended by: RAE DOMINGO on: 06/05/2024 04:18 PM Modules accepted: Orders documented in this encounter Plan of Treatment Upcoming Encounters Date Type Department Care Team (Late st Contact Info) Description 06/18/2024 2:00 PM EST Office Visit General Surgery, [facility] [address] [place] [address] Yovany Lynn MD [address] [place] [address] 07/16/2024 11:30 AM EST Office Visit Otolaryngology [facility] [address] [place] [address] Ross Martin PA-C [address] [place] [address] 07/20/2024 1:40 PM EST Office Visit Family Practice [facility] [address] [place] [address] Charito Valdez CRNP [address] [place] [address] 08/28/2024 11:30 AM EST Office Visit Pharmacy, [facility] [address] [place] [address] [facility] [address] [place] [address] 09/27/2024 1:30 PM EST Office Visit Cardiology, [facility] [address] [place] [address] Judit Little CRNP [address] [place] [address] 11/01/2024 3:20 PM EDT [address] [address] Mariola Gonzalez PA-C [address] [place] [address] [place] [address] Pending Results Name Type Priority Associated Diagnoses Date /Time LIPID PANEL WITH DIRECT LDL IF TG IS HIGH Lab Routine Type 2 diabetes mellitus with stage 1 chronic kidney disease, with long-term current use of insulin ([facility]) 06/05/2024 3:37 PM EDT HEMOGLOBIN A1C Lab Routine Type 2 diabetes mellitus with stage 1 chronic kidney disease, with long-term current use of insulin ([facility]) 06/05/2024 3:37 PM EDT Scheduled Orders Name Type Priority Associated Diagnoses Orde r Schedule LIPID PANEL WITH DIRECT LDL IF TG IS HIGH Lab Routine Type 2 diabetes mellitus with stage 1 chronic kidney disease, with long-term current use of insulin ([facility]) Expected: 06/05/2024, Expires: 06/05/2025 HEMOGLOBIN A1C Lab Routine Type 2 diabetes mellitus with stage 1 chronic kidney disease, with long-term current use of insulin ([facility]) Expected: 06/15/2024, Expires: 06/05/2025 Health Maintenance Due Date Last Done Comments Zoster Vaccines (1 of 2) 1994 DXA Scan 08/05/2022 08/05/2015, 08/05/2015 Diabetic Foot Exam 06/10/2023 06/10/2022, 06/22/2021 COVID-19 Vaccine ( season) 2024 11/08/2020, 10/11/2020 HbA1c 09/23/2024 03/23/2024, 09/16, 06/28/2023, Additional history exists Diabetic Eye Exam 09/28/2024 09/28/2023, , 06/22/2022, Additional history exists Albumin/Creatinine Ratio 10/07/2024 024, 06/10/2022, 06/22/2021 GFR 03/23/2025 03/23/2024, 05/2 08/2023, 09/30/2023, Additional history exists Adult Wellness Visit 06/05/2025 06/05/2024, 06/05/20 24 Depression Monitoring 06/05/2025 06/05/2024 DTap/Tdap Vaccines (2 [...] this encounter Medical Devices Implanted Type Area Transaction Processor Device Identifier Shelf Expiration Date Model / Serial / Lot Lens Intraoc 22.5 - [id number] - [id number] Implanted:Qty: 1 on 10/19/2022 by Jamaal Cristina MD at OR [facility] Left: Eye [employer]CH [employer] LOMB 07/14/2027 [id number] / [id number] / [id number] documented as of this encounter Visit Diagnoses [...] Power of Attor jasmyne? No Care Teams Pen Ruler Operator Relationship Specialty Start Date End Date Charito Valdez CRNP [address] [place] [address] PCP - General Nurse Practitioner 10/08/22 documented as of this encounter
--- OUTSIDE RECORDS SUMMARY | 2024-10-05 12:11 | External Medical Summary | Summary of Care ---
Author Name Unknown Organization [facility] Address [address] [place] [address] Phone [phone] Care Team Providers Care Pattern Cutter Name Role Phone Charito Valdez Argelia JOHNSON Primary Care Provider Reason for Visit * Reason Comments Follow Up Excision of groin Encounter Details Date Type Department Care Team (Late st Contact Info) Description 06/04/2024 1:00 PM EDT Nurse Only General Surgery, [facility] 132 [facility] [place] [address] [facility] [address] Follow Up (Excision of groin 05/18/2024) Allergies Active Allergy Reactions Criticality Noted Date Comments Statins Muscle pain 10/08/2021 Sulfa Antibiotics Hives 03/20/2021 documented as of this encounter (statuses as of 06/07/2024) Medications Medication Sig Dispensed Refills Start Date [...] every morning. Active Global Ease Inject Pen [place] 31G X 8 MM (Insulin Pen Needle) Use as needed up to 4 times per day 400 Each 3 03/17/20 23 Active Docusate Sodium 100 MG Oral [...] needed for Cough. 30 Capsule 1 03/23/20 Active Additional Information Patient not taking.Reported on 05/18/2024 Insulin Aspart 100 UNIT/ML Injection Solution (NovoLOG)Indication s:Type 2 diabetes mellitus with diabetic peripheral angiopathy without gangrene, unspecified whether side stitcher insulin use (HCC) INJECT UNDER THE SKIN [...] capsules in the evening. 120 Capsule 05/24/20 Active Lisinopril 5 MG Oral Tablet (Prinivil) Take 1 Tablet by mouth in the morning. 30 Tablet 6 01/03/20 24 024 Discontinued(Or dication List Clean Up) Trulicity 1.5 MG/0.5ML Subcutaneous Solution Pen-injector (Dulaglutide) Inject 1.5 mg under the skin once a week. E11.9 2 mL 3 02/13/20 24 024 Discontinued documented as of this encounter (statuses as of 06/07/2024) Active Problems Problem Noted Date Diagnosed Date Lipoma of torso 04/25/2024 Deformity of toenail 03/28/2024 Onychomycosis 03/28/2024 Upper respiratory tract infection 03/28/2024 Suprapubic mass 03/28/2024 Bilateral leg edema 01/27/2024 Need for qrmuownvgc-jruymbp-sgvyufrti (Tdap) vac cine 01/27/2024 Skin lesion 10/07/2023 [...] as of this encounter (statuses as of 06/07/2024) Resolved Problems Problem Noted Date Diagnosed Date [...] as of this encounter (statuses as of 06/07/2024) Immunizations Name Administration Dates Next Due COVID-19 [...] on file documented as of this encounter Nursing Notes * Raine Lam LPN - 06/04/2024 12:56 PM EDT Patient identified by name and date of . Chief Complaint Patient presents with Follow Up Excision of groin 05/18/2024 documented in this encounter Plan of Treatment Upcoming Encounters Date Type Department Care Team (Late st Contact Info) Description 06/18/2024 2:00 PM EST Office Visit General Surgery, [facility] [address] [place] [address] Yovany Lynn MD [address] [place] [address] 07/16/2024 11:30 AM EST Office Visit Otolaryngology [facility] [address] [place] [address] Ross Martin PA-C [address] [place] [address] 07/20/2024 1:40 PM EST Office Visit Family Practice [facility] [address] [place] [address] Charito Valdez CRNP [address] [place] [address] 08/28/2024 11:30 AM EST Office Visit Pharmacy, [facility] 132 [facility] [place] [address] [facility] [address] [place] [address] 09/27/2024 1:30 PM EST Office Visit Cardiology, [facility] [address] [place] [address] Judit Little CRNP [address] [place] [address] 11/01/2024 3:20 PM EDT Office [address] [address] Mariola Gonzalez PA-C [address] [place] [address] [place] [address] Health Maintenance Due Date Last Done Comments [...] this encounter Medical Devices Implanted Type Area Electroless Plater Device Identifier Shelf Expiration Date Model / Serial / Lot Lens Intraoc 22.5 - [id number] - [id number] Implanted:Qty: 1 on 10/19/2022 by Jamaal Cristina MD at OR [facility] Left: Eye [employer] LOMB 07/14/2027 [id number] / [id number] / [id number] documented as of this encounter Advance Directives [...] Power of Attor jasmyne? No Care Teams Pattern Cutter Relationship Specialty Start Date End Date Charito Valdez CRNP [address] [place] [address] PCP - General Nurse Practitioner 10/08/22 documented as of this encounter
--- OUTSIDE RECORDS SUMMARY | 2024-10-05 12:11 | External Medical Summary | Summary of Care ---
Author Name Unknown Organization [facility] Address [address] [place] [address] Phone [phone] Care Team Providers Care Surfacer Name Role Phone Charito Valdez Argelia JOHNSON Primary Care Provider Reason for Visit * Reason Onset Date Comments Medication Administration 06/05/2024 Flu an d/or Pneumo Inj Dosage Adjustment In Person (Anticoag Clinic) Diabetes Follow-Up Encounter Details Date Type Department Care Team (Late st Contact Info) Description 06/05/2024 2:30 PM EDT Office Visit Pharmacy, [facility] 132 [facility] [place] [address] [facility] 132 [facility] [place] [address] Type 2 diabetes mellitus with stage 1 chronic kidney disease, with long-term current use of insulin ([facility])*; Type 2 diabetes mellitus with diabetic polyneuropathy, with long-term current use of insulin ([facility]); Type 2 diabetes mellitus with diabetic cataract, with long-term current use of insulin ([facility]); Need for prophylactic vaccination and [...] every morning. Active Global Ease Inject Pen [place] 31G X 8 MM (Insulin Pen Needle) [...] morning. 30 Tablet 6 01/03/20 24 024 Discontinued(W[place] dication List Clean Up) Trulicity 1.5 MG/0.5ML [...] 03/28/2024 Bilateral leg edema 01/27/2024 Need for qdehruepjq-ixyxvul-lxmzyhjuq (Tdap) vac cine 01/27/2024 Skin lesion 10/07/2023 [...] Management Clinic - Diabetes Management Progress Note Melnaie Arrieta, identified by name and date of [...] MEDICATION CHANGES: yes, see below; preferred pharmacy: [facility] ([facility]) Diabetic Medications: INCREASE: Trulicity 3 mg weekly [...] of separately billed services. Rae Domingo, PharmD, [facility] Clinical Pharmacist - Pneumatic Deicer Inspector Medication Therapy Management Clinic 06/05/2024, 2:08 PM PRE - ADMINISTRATION DOCUMENTATION Are you experiencing any cold symptoms or fever? No Have you had Guillain-[place] Syndrome (an illness that causes paralysis) within [...] 2:00 PM EST Office Visit General Surgery, [facility] [address] [place] [address] Yovany Lynn MD [address] [place] [address] 07/16/2024 11:30 AM EST Office Visit Otolaryngology [facility] [address] [place] [address] Ross Martin PA-C [address] [place] [address] 07/20/2024 1:40 PM EST Office Visit Family Practice [facility] [address] [place] [address] Charito Valdez CRNP [address] [place] [address] 08/28/2024 11:30 AM EST [facility], [facility] [place] [address] [facility] [address] [place] [address] 09/27/2024 1:30 PM EST Office Visit Cardiology, [facility] [address] [place] [address] Judit Little CRNP [address] [place] [address] 11/01/2024 3:20 PM EDT Office Visit [place] [address] [address] [facility] [place] [address] Mariola Gonzalez PA-C [address] [place] [address] [place] [address] Pending Results Name Type Priority Associated Diagnoses Date /Time LIPID PANEL WITH DIRECT LDL IF TG IS HIGH Lab Routine Type 2 diabetes mellitus with stage 1 chronic kidney disease, with long-term current use of insulin ([facility]) 06/05/2024 3:37 PM EDT HEMOGLOBIN A1C Lab Routine Type 2 diabetes mellitus with stage 1 chronic kidney disease, with long-term current use of insulin ([facility]) 06/05/2024 3:37 PM EDT Scheduled [...] long-term current use of insulin ([facility]) Expected: 06/15/2024, Expires: 06/05/2025 Health [...] this encounter Medical Devices Implanted Type Area Cognos Consultant Device Identifier Shelf Expiration Date Model / Serial / Lot Lens Intraoc 22.5 - [id number] - [id number] Implanted:Qty: 1 on 10/19/2022 by Jamaal Cristina MD at OR [facility] Left: Eye 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 No Care Teams Surfacer Relationship Specialty Start Date End Date Charito Valdez CRNP [address] [place] [address] PCP - General Nurse Practitioner 10/08/22 documented as of this encounter
--- OUTSIDE RECORDS SUMMARY | 2024-10-05 12:11 | External Medical Summary | Summary of Care ---
Author Name Unknown Organization [facility] Address [address] [place] [address] Phone [phone] Care Team Providers Care Nurse Care Manager Name Role Phone Charito Valdez Argelia JOHNSON Primary Care Provider Reason for Visit * Reason Comments Outpatient Testing Encounter Details Date Type Department Care Team (Late st Contact Info) Description 06/05/2024 3:40 PM EDT Laboratory Laboratory, [facility] [address] [place] [address] [facility] [address] [place] [address] Type 2 diabetes mellitus with stage 1 chronic kidney disease, with long-term current use of insulin ([facility]) Allergies Active Allergy Reactions Criticality Noted [...] every morning. Active Global Ease Inject Pen [place] 31G X 8 MM (Insulin Pen Needle) Use as needed up to 4 times per day 400 Each 3 10/29/2022 Active Docusate Sodium 100 MG Oral Capsule [...] the morning. 45 Tablet 2 11/22/2023 Active OneTouch Ultra In Vitro Strip (Glucose Blood)Indications:Typ e 2 diabetes mellitus with stage 1 chronic kidney disease, with long-term current use of insulin (HCC) USE UP TO 3 TIMES A DAY DIRECTED. 300 Strip 1 11/22/2023 Active Lidocaine 0.5 % External GelIndications:Type [...] or chew. 90 Capsule 3 12/27/2023 Active Lisinopril 5 MG Oral Tablet (Prinivil) Take 1 Tablet by mouth in the morning. 30 Tablet 6 01/03/2024 Active Additional Information Patient not taking.Reported on [...] a week. 3 mL 3 06/05/2024 Active documented as of this encounter (statuses as of 06/05/2024) Active Problems Problem Noted Date Diagnosed Date Lipoma of torso 04/25/2024 Deformity of toenail 03/28/2024 Onychomycosis 03/28/2024 Upper respiratory tract infection 03/28/2024 Suprapubic mass 03/28/2024 Bilateral leg edema 01/27/2024 Need for nmhctkpuhz-xvmovfb-svivjotse (Tdap) vac cine 01/27/2024 Skin lesion 10/07/2023 [...] 2:00 PM EST Office Visit General Surgery, [facility] [address] [place] [address] Yovany Lynn MD [address] [place] [address] 07/16/2024 11:30 AM EST Office Visit Otolaryngology [facility] [address] [place] [address] Ross Martin PA-C [address] [place] [address] 07/20/2024 1:40 PM EST Office Visit Family Practice [facility] [address] [place] [address] Charito Valdez CRNP [address] [place] [address] 08/28/2024 11:30 AM EST [facility] [place] [address] [facility] [place] [address] 09/27/2024 1:30 PM EST Office Visit Cardiology, [facility] [address] [place] [address] Judit Little CRNP [address] [place] [address] 11/01/2024 3:20 PM EDT Office Visit Dermatology, [address] [place] [address] Mariola Gonzalez [place] [address] [place] [address] [place] [address] Pending Results Name Type Priority Associated Diagnoses Date /Time LIPID PANEL WITH DIRECT LDL IF TG IS HIGH Lab Routine Type 2 diabetes mellitus with stage 1 chronic kidney disease, with long-term current use of insulin ([facility]) 06/05/2024 3:37 PM EDT HEMOGLOBIN A1C Lab Routine Type 2 diabetes mellitus with stage 1 chronic kidney disease, with long-term current use of insulin ([facility]) 06/05/2024 3:37 PM EDT Health Maintenance Due Date Last Done Comments [...] this encounter Medical Devices Implanted Type Area Orthotic Practitioner Device Identifier Shelf Expiration Date Model / Serial / Lot Lens Intraoc 22.5 - [id number] - [id number] Implanted:Qty: 1 on 10/19/2022 by Jamaal Cristina MD at OR [facility] Left: Eye BAUSCH & LOMB 07/14/2027 [id number] / [id number] / [id number] documented as of this encounter Visit Diagnoses [...] Power of Attor jasmyne? No Care Teams Nurse Care Manager Relationship Specialty Start Date End Date Charito Valdez CRNP [address] [place] [address] PCP - General Nurse Practitioner 10/08/22 documented as of this encounter
--- OUTSIDE RECORDS SUMMARY | 2024-10-05 12:11 | External Medical Summary ---
Author Name Unknown Address Unknown Organization [id number]:[facility] [place] [facility] [place] [facility] [place] [address] [facility] [address] Laboratory Report Ordering Provider Test Date Status LIDIA MITCHELL 06/05/2024 15:37:45 Final Observation Date Value Abnormality Reference (Units ) Status HbA1C 06/05/2024 15:37:45 7.6 Above high normal 4. 0-5.6 (%) Final The use of HbA1c to monitor glycemic status is based on normal hemoglobin and HbA composition. This test should not be used in patients with abnormal hemoglobin that affects the half life of the red blood cell or the in vivo glycation rates. Glucose, estimated average 06/05/2024 15:37:45 171 Above high normal <126 (mg/dL) Kali abernathy Performing Location [facility] [place] [address] [facility] [place] [facility] [address]
--- OUTSIDE RECORDS SUMMARY | 2024-10-05 12:11 | External Medical Summary | Summary of Care ---
Author Name Unknown Organization [facility] Address [address] [place] [address] Phone [phone] Care Team Providers Care Bag Machine Operator Helper Name Role Phone Charito Valdez Argelia JOHNSON Primary Care Provider Reason for Visit * Reason Onset Date Comments Medication Administration 06/05/2024 Flu an d/or Pneumo Inj Dosage Adjustment In Person (Anticoag Clinic) Diabetes Follow-Up Encounter Details Date Type Department Care Team (Late st Contact Info) Description 06/05/2024 2:30 PM EDT Office Visit Pharmacy, [facility] [address] [place] [address] [facility] [address] [facility] [place] [address] Type 2 diabetes mellitus with stage 1 chronic kidney disease, with long-term current use of insulin ([facility])*; Type 2 diabetes mellitus with diabetic polyneuropathy, with long-term current use of insulin ([facility]); Type 2 diabetes mellitus with diabetic cataract, with long-term current use of insulin ([facility]); Need for prophylactic vaccination and [...] every morning. Active Global Ease Inject Pen [place] 31G X 8 MM (Insulin Pen Needle) [...] diabetic peripheral angiopathy without gangrene, unspecified whether snf insulin use (HCC) INJECT UNDER THE SKIN [...] morning. 30 Tablet 6 01/03/20 24 024 Discontinued(Ct dication List Clean Up) Trulicity 1.5 MG/0.5ML [...] 03/28/2024 Bilateral leg edema 01/27/2024 Need for tnjhlviaor-eheevgz-igqpmgifd (Tdap) vac cine 01/27/2024 Skin lesion 10/07/2023 [...] MEDICATION CHANGES: yes, see below; preferred pharmacy: [facility] ([place]) Diabetic Medications: INCREASE: Trulicity 3 mg weekly [...] PharmD, [facility] Clinical Pharmacist - [facility] 06/05/2024, 2:08 PM PRE - ADMINISTRATION DOCUMENTATION Are you experiencing any cold symptoms or fever? No Have you had Guillain-[place] Syndrome (an illness that causes paralysis) within [...] 2:00 PM EST Office Visit General Surgery, [facility] [address] [place] [address] Yovany Lynn MD [address] [place] [address] 07/16/2024 11:30 AM EST Office Visit Otolaryngology [facility] [address] [place] [address] Ross Martin PA-C [address] [place] [address] 07/20/2024 1:40 PM EST Office Visit Family Practice [facility] [address] [place] [address] Charito Valdez CRNP [address] [place] [address] 08/28/2024 11:30 AM EST Office Visit Pharmacy, [facility] [place] [address] [facility] [address] [place] [address] 09/27/2024 1:30 PM EST Office Visit Cardiology, [facility] [address] [place] [address] Judit Little CRNP [address] [place] [address] 11/01/2024 3:20 PM EDT Office Visit [place] [address] [facility] [place] [address] Mariola Gonzalez PA-C [address] [place] [address] [place] [phone] Pending Results Name Type Priority Associated Diagnoses Date /Time LIPID PANEL WITH DIRECT LDL IF TG IS HIGH Lab Routine Type 2 diabetes mellitus with stage 1 chronic kidney disease, with long-term current use of insulin ([facility]) 06/05/2024 3:37 PM EDT HEMOGLOBIN A1C Lab Routine Type 2 diabetes mellitus with stage 1 chronic kidney disease, with long-term current use of insulin ([facility]) 06/05/2024 3:37 PM EDT Scheduled [...] long-term current use of insulin ([facility]) Expected: 06/15/2024, Expires: 06/05/2025 Health [...] this encounter Medical Devices Implanted Type Area Traffic Rate Analyst Device Identifier Shelf Expiration Date Model / Serial / Lot Lens Intraoc 22.5 - [id number] - [id number] Implanted:Qty: 1 on 10/19/2022 by Jamaal Cristina MD at OR [facility] Left: Eye [employer] 07/14/2027 [id number] / [id number] / [id number] documented as of this encounter Visit Diagnoses [...] Power of Attor jasmyne? No Care Teams Bag Machine Operator Helper Relationship Specialty Start Date End Date Charito Valdez CRNP [address] [place] [address] PCP - General Nurse Practitioner 10/08/22 documented as of this encounter
[2024-10-05 12:12] LABS: Influenza A virus by PCR Negative (Neg); Influenza B virus by PCR Negative (Neg); RSV by PCR Negative (Neg); SARS CoV2 RNA(COVID-19) Ceph NEGATIVE (Negative)
--- OUTSIDE RECORDS SUMMARY | 2024-10-05 12:12 | External Medical Summary ---
Author Name Unknown Address Unknown Organization : Laboratory Report Ordering Provider Test Date Status MEG [facility] 05/18/2024 10:24:19 Final Observation Date Value Abnormality Reference (Units ) Status Glucose Point of Care 05/18/2024 10:24:19 113 70-120 (mg/dL) Final Performing Location
--- OUTSIDE RECORDS SUMMARY | 2024-10-05 12:12 | External Medical Summary | Summary of Care ---
Author Name Unknown Organization [facility] Address [address] [place] [address] Phone [phone] Care Team Providers Care Gear Tooth Lapping Machine Operator Name Role Phone Charito Valdez Argelia JOHNSON Primary Care Provider Reason for Visit * Reason Onset Date Comments Follow Up 05/21/2024 Encounter Details Date Type Department Care Team (Late st Contact Info) Description 05/21/2024 8:30 AM EDT Scheduled [facility] [address] [facility] [address] [place] [address] Arrived Allergies Active Allergy Reactions Criticality Noted Date Comments Statins Muscle pain 10/08/2021 Sulfa Antibiotics Hives 03/20/2021 documented as of this encounter (statuses as of 05/21/2024) Medications Medication Sig Dispensed Refills Start Date [...] every morning. Active Global Ease Inject Pen [place] 31G X 8 MM (Insulin Pen Needle) [...] Additional Information Patient not taking.Reported on 03/23/2024 Torsemide 10 MG Oral Tablet (Demadex) Take 2 Tablets by mouth in the morning. 60 Tablet 3 01/27/2024 Active Trulicity 1.5 MG/0.5ML Subcutaneous Solution Pen-injector (Dulaglutide) Inject 1.5 mg under the skin once a week. E11.9 2 mL 3 02/13/2024 Active Albuterol Sulfate HFA 108 (90 Base) [...] Additional Information Patient not taking.Reported on 05/18/2024 Gabapentin 300 MG Oral Capsule (Neurontin)Indication s:Chronic right-sided low back pain with right-sided sciatica take 1 capsule in the morning, 1 capsule at noon and 2 capsules in the evening. 120 Capsule 04/02/2024 Active Insulin Aspart 100 UNIT/ML Injection Solution (NovoLOG)Indications: Type 2 diabetes mellitus with diabetic peripheral angiopathy without gangrene, unspecified whether buttermaker helper insulin use (HCC) INJECT UNDER THE SKIN [...] for Pain, Moderate. 10 Tablet 05/18/2024 Active documented as of this encounter (statuses as of 05/21/2024) Active Problems Problem Noted Date Diagnosed Date Lipoma of torso 04/25/2024 Deformity of toenail 03/28/2024 Onychomycosis 03/28/2024 Upper respiratory tract infection 03/28/2024 Suprapubic mass 03/28/2024 Bilateral leg edema 01/27/2024 Need for bhjwoslwbr-mubpgwo-vjcatckzd (Tdap) vac cine 01/27/2024 Skin lesion 10/07/2023 [...] as of this encounter (statuses as of 05/21/2024) Resolved Problems Problem Noted Date Diagnosed Date [...] as of this encounter (statuses as of 05/21/2024) Immunizations Name Administration Dates Next Due COVID-19 [...] encounter Miscellaneous Notes * Telephone Encounter - Hollie Braden LPN - 05/21/2024 8:21 AM EDT PATIENT IS S/p excision of lipoma on torso on 05/18/[address] Yovany Lynn Pain Level- 0 Meds being taken for pain- 0 Are pain meds effective- n/a Incision sites- there was a little blood Does the patient have a drain- no Does the patient have dressings? Are they aware of dressing instructions- yes Appetite- ok has not eaten a lot Nausea/vomiting- none Bowel movement- yes Activity- walking Complying with activity restrictions- yes Coughing and deep breathing- yes Questions or concerns- there was a little blood on gauze Post operative follow up scheduled for 06/04/2024 documented in this encounter Plan of Treatment Upcoming Encounters Date Type Department Care Team (Late st Contact Info) Description 06/04/2024 1:15 PM EDT Office Visit General Surgery, [facility] [address] [place] [address] Yovany Lynn MD [address] [place] [address] 06/05/2024 2:30 PM EDT Office Visit Pharmacy, [facility] [address] [place] [address] [facility] [address] [place] [address] 06/05/2024 3:00 PM EDT Pharmacy Pharmacy, [facility] [address] [place] [address] [facility] [address] [place] [address] 06/29/2024 3:00 PM EST Office Visit Family Practice [facility] [address] [place] [address] Charito Valdez CRNP [address] [place] [address] 07/16/2024 11:30 AM EST Office Visit Otolaryngology [facility] [address] [facility] [place] [address] Ross Martin PA-C [address] [place] [address] 07/26/2024 3:00 PM EST Office Visit Cardiology, [facility] [address] [place] [address] Judit Little CRNP [address] [place] [address] 11/01/2024 3:20 PM EDT Office Visit Dermatology[address] [address] Mariola Gonzalez PA-C [address] [place] [address] [place] [address] Health Maintenance Due Date Last Done Comments Depression Monitoring 1956 Zoster Vaccines (1 of 2) 1994 Adult Wellness Visit 2010 DXA Scan 08/05/2022 08/05/2015, 08/05/2015 Diabetic Foot Exam 06/10/2023 06/10/2022, 06/22/2021 COVID-19 Vaccine ( season) 2024 11/08/2020, 10/11/2020 Influenza Vaccine (FLU shot) (#1) 2024 06/16/2023, 05/04/2022, 06/22/2021, Additional history exists HbA1c 09/23/2024 03/23/2024, 09/16, 06/28/2023, Additional history exists Diabetic Eye Exam 09/28/2024 09/28/2023, , 06/22/2022, Additional history exists Albumin/Creatinine Ratio 10/07/2024 024, 06/10/2022, 06/22/2021 GFR 03/23/2025 03/23/2024, 0508/2023, 09/30/2023, Additional history exists DTap/Tdap Vaccines (2 - Td or Tdap) 01/26/2034 01/27/2024 Pneumococcal Vaccine: 65+ Years Completed 05/31/2016, 02/24/2012 HPV (Gardasil) Vaccine Aged Out No lo nger eligible based on patient's age to complete this topic Hepatitis B Vaccine Aged Out No longe r eligible based on patient's age to complete this topic MENINGOCOCCAL (MENACTRA/MENVEO) Aged Out No longer eligible based on patient's age to complete this topic documented as of this encounter Medical Devices Implanted Type Area Dragger Device Identifier Shelf Expiration Date Model / Serial / Lot Lens Intraoc 22.5 - [id number] - [id number] Implanted:Qty: 1 on 10/19/2022 by Jamaal Cristina MD at [facility] Left: Eye [employer] 07/14/2027 [id number] / [id number] / [id number] documented as of this encounter Advance Directives [...] Power of Attor jasmyne? No Care Teams Gear Tooth Lapping Machine Operator Relationship Specialty Start Date End Date Charito Valdez CRNP [address] [place] [address] PCP - General Nurse Practitioner 10/08/22 documented as of this encounter
--- OUTSIDE RECORDS SUMMARY | 2024-10-05 12:12 | External Medical Summary | Summary of Care ---
Author Name Unknown Organization [facility] Address [address] [place] [address] Phone [phone] Care Team Providers Care Mushroom Grower Name Role Phone Charito Valdez Argelia JOHNSON Primary Care Provider Reason for Visit * Reason Comments Follow Up Hernia. Encounter Details Date Type Department Care Team (Late st Contact Info) Description 04/25/2024 3:45 PM EDT Office Visit General Surgery, [facility] [address] [place] [address] Yovany Lynn MD [address] [place] [address] Lipoma of torso* Allergies Active Allergy Reactions Criticality Noted Date Comments Statins Muscle pain 10/08/2021 Sulfa Antibiotics Hives 03/20/2021 documented as of this encounter (statuses as of 04/25/2024) Medications Medication Sig Dispensed Refills Start Date [...] every morning. Active Global Ease Inject Pen Glendive 31G X 8 MM (Insulin Pen Needle) Use as needed up to 4 times per day 400 Each 3 10/29/2022 Active Docusate Sodium 100 MG Oral Capsule (Colace) Take 1 Capsule by mouth in the morning and 1 Capsule before bedtime. 60 Capsule 11 12/09/2022 Active Additional Information Patient not taking.Reported on 11/09/2023 Levocetirizine Dihydrochloride 5 MG Oral Tablet TAKE [...] twice daily 170 g 3 12/02/2023 Active Lantus SoloStar 100 UNIT/ML Subcutaneous Solution [...] for Cough. 30 Capsule 1 03/23/2024 Active Gabapentin 300 MG Oral Capsule (Neurontin)Indication [...] with meals. 250 mL 1 04/10/2024 Active documented as of this encounter (statuses as of 04/25/2024) Active Problems Problem Noted Date Diagnosed Date Lipoma of torso 04/25/2024 Deformity of toenail 03/28/2024 Onychomycosis 03/28/2024 Upper respiratory tract infection 03/28/2024 Suprapubic mass 03/28/2024 Bilateral leg edema 01/27/2024 Need for unphpcbeft-ridglrw-ohalvzkmb (Tdap) vac cine 01/27/2024 Skin lesion 10/07/2023 [...] as of this encounter (statuses as of 04/25/2024) Resolved Problems Problem Noted Date Diagnosed Date [...] as of this encounter (statuses as of 04/25/2024) Immunizations Name Administration Dates Next Due COVID-19 [...] Progress Notes * Yovany Lynn MD - 04/25/2024 2:57 PM EDT [facility] [address] [facility] [place] [address] [facility] Chief Complaint: Pt. c/o lower abdominal wall mass; 8 cm HPI: Patient is seen in request of Charito JOHNSON. Melanie Arrieta is a 78 year old female who presents with lower abdominal wall mass; 8 cm. Past Surgical History: Procedure Laterality Date CORONARY ANGIOGRAPHY W/LEFT HEART CATH Right 09/30/2023 CORONARY ANGIOGRAPHY W/LEFT HEART CATH performed by Abdullahi Richards MD at [facility] REMOVE CATARACT, INSERT LENS PROSTH Left 10/19/2022 LEFT EXTRACAPSULAR CATARACT REMOVAL WITH INTRAOCULAR LENS performed by Jamaal Cristina MD at OR [facility] Past Medical History: Diagnosis Date Sleep apnea, obstructive Current Outpatient Medications Medication Sig Dispense Refill [...] Reported on 11/09/2023) Global Ease Inject Pen Glendive 31G X 8 MM (Insulin Pen Needle) Use as needed up to 4 times per day 400 Each 3 Docusate Sodium 100 MG Oral Capsule (Colace) Take 1 Capsule by mouth in the morning and 1 Capsule before bedtime. (Patient not taking: Reported on 11/09/2023) 60 Capsule 11 Levocetirizine Dihydrochloride 5 MG [...] day. Apply to hand and feettwice daily 170 g 3 Lantus SoloStar 100 UNIT/ML [...] taking: Reported on 03/23/2024) 30 Tablet 6 Torsemide 10 MG Oral Tablet (Demadex) Take 2 Tablets by mouth in the morning. 60 Tablet 3 Trulicity 1.5 MG/0.5ML Subcutaneous Solution Pen-injector (Dulaglutide) [...] as needed for Cough. 30 Capsule 1 Gabapentin 300 MG Oral Capsule (Neurontin) take 1 capsule in the morning, 1 capsule at noon and 2 capsules in the evening. 120 Capsule 0 Insulin Aspart 100 UNIT/ML Injection Solution (NovoLOG) INJECT UNDER THE SKIN 40 UNITS 3 TIMES A DAY BEFORE MEALS. 40 mL 2 Erythromycin Ethylsuccinate 200 MG/5ML Oral Suspension Reconstituted (Ees) Take 2.5 mL by mouth in the morning and 2.5 mL at noon and 2.5 mL before bedtime. with meals. 250 mL 1 No current facility-administered medications for this visit. History Social History Socioeconomic History Marital status: Single Tobacco Use Smoking status: Never Smokeless tobacco: Never Vaping Use Vaping status: Never Used Substance and Sexual Activity Alcohol use: Never Drug use: Never Social Determinants of Health Social Connections Review of patient's allergies indicates: Review of patient's allergies indicates: Allergen Reactions Statins Muscle pain Sulfa Antibiotics Hives Patient Information Form Reviewed and Scanned. ROS EXAM: CONSTITUTIONAL: No change in weight, No weakness, No fatigue, and No fevers, sweats, or chills NECK: No lumps or masses, No swollen glands, No recent swelling in thyroid area, No significant pain in neck, and No h/o goiter or thyroid disease PULMONARY: No cough, sputum, or hemoptysis, No wheezing, No rales, No shortness of breath, and No recent change in breathing CARDIOVASCULAR: No chest pain, No shortness of breath, No dyspnea on exertion, No orthopnea, No paroxysmal nocturnal dyspnea, No edema, No palpitations, and No syncope GASTROINTESTINAL: No abdominal pain, No change in bowel habits, No significant heartburn, No significant change in appetite, No nausea, vomiting, diarrhea, or constipation, No hematemesis, No blood in stools or black tarry stools, No abdominal bloating or early satiety, and No dysphagia HEMATOLOGIC: No coagulation disorder, No anemia, No abnormal bleeding, No chills, No bruising, No HIV risk factors, No night sweats, No swollen nodes, No weight loss, and No history of transfusion EXTREMITIES: No pain, redness or swelling on the joints SKIN/INTEGUMENTARY: No edema, No rash, and No itching NEUROLOGIC: Normal balance, No headaches, No seizures, and No weakness PSYCHIATRIC: No depression, No anxiety, and No psychosis Physical Exam: There were no vitals taken for this visit. Constitutional: alert,healthy,well nourished Head: normocephalic,atraumatic Eyes: conjunctiva non-injected,sclera white,EOMI Ears: pinna normal shape and color Nose: no mucosal erythema,no mucosal edema,no purulent discharge Mouth: no exudate,no erythema,lips, mucosa, and tongue normal Neck: supple,no JVD,trachea midline Lungs: clear to auscultation,breath sounds are equal and symmetric,no crepitus Heart: regular rate & rhythm,no murmur, gallops or rubs Abdomen: soft, non-tender, normal bowel sounds, lower abdominal wall mass; 8 cm; mobile and rubbery Back: normal curvature,normal ROM,no CVA tenderness Extremities: no joint deformities, effusion, or inflammation,no edema,no skin discoloration Neuro: alert,gait normal,motor normal Skin: no obvious rashes or significant lesions,warm and dry with good turgor IMPRESSION: lower abdominal wall mass; 8 cm PLAN: Will excsie at [facility] on 05/18/2024 Pt. understands this, all questions were answered to the pt. satisfaction and they signed the consent for surgery. Yovany Lynn MD 04/25/2024 3:02 PM documented in this encounter H&P Notes * Yovany Lynn MD - 04/25/2024 3:03 PM EDT [facility] [address] [place] [address] [facility] Chief Complaint: Pt. c/o lower abdominal wall mass; 8 cm HPI: Patient is seen in request of Charito JOHNSON. Melanie Arrieta is a 78 year old female who presents with lower abdominal wall mass; 8 cm. Past Surgical History: Procedure Laterality Date CORONARY ANGIOGRAPHY W/LEFT HEART CATH Right 09/30/2023 CORONARY ANGIOGRAPHY W/LEFT HEART CATH performed by Abdullahi Richards MD at [facility] REMOVE CATARACT, INSERT LENS PROSTH Left 10/19/2022 LEFT EXTRACAPSULAR CATARACT REMOVAL WITH INTRAOCULAR LENS performed by Jamaal Cristina MD at OR [facility] Past Medical History: Diagnosis Date Sleep apnea, obstructive Current Outpatient Medications Medication Sig Dispense Refill [...] Reported on 11/09/2023) Global Ease Inject Pen Glendive 31G X 8 MM (Insulin Pen Needle) Use as needed up to 4 times per day 400 Each 3 Docusate Sodium 100 MG Oral Capsule (Colace) Take 1 Capsule by mouth in the morning and 1 Capsule before bedtime. (Patient not taking: Reported on 11/09/2023) 60 Capsule 11 Levocetirizine Dihydrochloride 5 MG [...] day. Apply to hand and feettwice daily 170 g 3 Lantus SoloStar 100 UNIT/ML [...] taking: Reported on 03/23/2024) 30 Tablet 6 Torsemide 10 MG Oral Tablet (Demadex) Take 2 Tablets by mouth in the morning. 60 Tablet 3 Trulicity 1.5 MG/0.5ML Subcutaneous Solution Pen-injector (Dulaglutide) [...] as needed for Cough. 30 Capsule 1 Gabapentin 300 MG Oral Capsule (Neurontin) take 1 capsule in the morning, 1 capsule at noon and 2 capsules in the evening. 120 Capsule 0 Insulin Aspart 100 UNIT/ML Injection Solution (NovoLOG) INJECT UNDER THE SKIN 40 UNITS 3 TIMES A DAY BEFORE MEALS. 40 mL 2 Erythromycin Ethylsuccinate 200 MG/5ML Oral Suspension Reconstituted (Ees) Take 2.5 mL by mouth in the morning and 2.5 mL at noon and 2.5 mL before bedtime. with meals. 250 mL 1 No current facility-administered medications for this visit. History Social History Socioeconomic History Marital status: Single Tobacco Use Smoking status: Never Smokeless tobacco: Never Vaping Use Vaping status: Never Used Substance and Sexual Activity Alcohol use: Never Drug use: Never Social Determinants of Health Social Connections Review of patient's allergies indicates: Review of patient's allergies indicates: Allergen Reactions Statins Muscle pain Sulfa Antibiotics Hives Patient Information Form Reviewed and Scanned. ROS EXAM: CONSTITUTIONAL: No change in weight, No weakness, No fatigue, and No fevers, sweats, or chills NECK: No lumps or masses, No swollen glands, No recent swelling in thyroid area, No significant pain in neck, and No h/o goiter or thyroid disease PULMONARY: No cough, sputum, or hemoptysis, No wheezing, No rales, No shortness of breath, and No recent change in breathing CARDIOVASCULAR: No chest pain, No shortness of breath, No dyspnea on exertion, No orthopnea, No paroxysmal nocturnal dyspnea, No edema, No palpitations, and No syncope GASTROINTESTINAL: No abdominal pain, No change in bowel habits, No significant heartburn, No significant change in appetite, No nausea, vomiting, diarrhea, or constipation, No hematemesis, No blood in stools or black tarry stools, No abdominal bloating or early satiety, and No dysphagia HEMATOLOGIC: No coagulation disorder, No anemia, No abnormal bleeding, No chills, No bruising, No HIV risk factors, No night sweats, No swollen nodes, No weight loss, and No history of transfusion EXTREMITIES: No pain, redness or swelling on the joints SKIN/INTEGUMENTARY: No edema, No rash, and No itching NEUROLOGIC: Normal balance, No headaches, No seizures, and No weakness PSYCHIATRIC: No depression, No anxiety, and No psychosis Physical Exam: There were no vitals taken for this visit. Constitutional: alert,healthy,well nourished Head: normocephalic,atraumatic Eyes: conjunctiva non-injected,sclera white,EOMI Ears: pinna normal shape and color Nose: no mucosal erythema,no mucosal edema,no purulent discharge Mouth: no exudate,no erythema,lips, mucosa, and tongue normal Neck: supple,no JVD,trachea midline Lungs: clear to auscultation,breath sounds are equal and symmetric,no crepitus Heart: regular rate & rhythm,no murmur, gallops or rubs Abdomen: soft, non-tender, normal bowel sounds, lower abdominal wall mass; 8 cm; mobile and rubbery Back: normal curvature,normal ROM,no CVA tenderness Extremities: no joint deformities, effusion, or inflammation,no edema,no skin discoloration Neuro: alert,gait normal,motor normal Skin: no obvious rashes or significant lesions,warm and dry with good turgor IMPRESSION: lower abdominal wall mass; 8 cm PLAN: Will excsie at [facility] on 05/18/2024 Pt. understands this, all questions were answered to the pt. satisfaction and they signed the consent for surgery. Yovany Lynn MD 04/25/2024 3:02 PM documented in this encounter Nursing Notes * Ja Alvarez MED ASSIST - 04/25/2024 2:55 PM EDT Chief Complaint Patient presents with Follow Up Hernia. Verified patient. Some pain 6-02/21 on/off. Patient states that she feels her pain getting worse. documented in this encounter Plan of Treatment Upcoming Encounters Date Type Department Care Team (Late st Contact Info) Description 05/18/2024 Hospital Encounter OR [facility], Operating Room [facility] [address] [place] [id number] Yovany Lynn MD [address] [place] [address] 05/30/2024 1:00 PM EDT [facility] [address] [place] [address] [facility] [address] [place] [address] 05/30/2024 1:30 PM EDT [facility] [address] [address] [facility] [address] [place] [address] 06/04/2024 1:15 PM EDT Office Visit General Surgery, [facility] [address] [place] [address] Yovany Lynn MD [address] [place] [address] 06/29/2024 3:00 PM EST Office Visit Family Practice [facility] [address] [place] [address] Charito Valdez CRNP [address] [place] [address] 07/16/2024 11:40 AM EST Office Visit Otolaryngology [facility] [address] [place] [address] Ross Martin PA-C [address] [place] [address] 07/26/2024 3:00 PM EST Office Visit [facility] [place] [address] Judit Little CRNP [address] [place] [address] 11/01/2024 3:20 PM EDT Office Visit Dermatology[address] [place] [address] Mariola Gonzalez PA-C [address] [place] [address] [place] [id number] Scheduled Procedures Name Priority Associated Diagnoses Date/Ti me EXCISION NECK/CHEST SUBQ TUMOR, 3 CM OR MORE Lipoma of torso Health Maintenance Due Date Last Done Comments [...] 03/23/2025 03/23/2024, 12/14, 09/30/2023, Additional history exists DTap/Tdap Vaccines (2 [...] this encounter Medical Devices Implanted Type Area Materials Scientist Device Identifier Shelf Expiration Date Model / Serial / Lot Lens Intraoc 22.5 - [id number] - [id number] Implanted:Qty: 1 on 10/19/2022 by Jamaal Cristina MD at OR [facility] Left: Eye [employer] 07/14/2027 [id number] / [id number] / [id number] documented as of this encounter Visit Diagnoses Diagnosis Lipoma of torso- Primary Lipoma of torso- Primary documented in this encounter Advance Directives * No Code (Latest Code Status on File) Date Activated Date Inactivated Comments 10/19/2022 7:31 AM 10/19/2022 2:22 PM This order re flects the patients wishes and were consensually agreed upon. Question Answer Comments Discussion of Advance Directives occurred with: Patient Does the patient have a Living Will? No Does the patient have Health Care Power of Attor jasmyne? No Care Teams Mushroom Grower Relationship Specialty Start Date End Date Chariot Valdez CRNP [address] [place] [address] PCP - General Nurse Practitioner 10/08/22 documented as of this encounter
--- OUTSIDE RECORDS SUMMARY | 2024-10-05 12:12 | External Medical Summary | Summary of Care ---
Author Name Unknown Organization [facility] Address [address] [place] [address] Phone [phone] Care Team Providers Care Monorail Operator Name Role Phone BashirCharito san Primary Care Provider Reason for Visit * Auth/Cert Specialty Diagnoses / Procedures Referred By Shannon hardin Referred To Contact Diagnoses Lipoma of torso Lipoma of torso [D17.1] Procedures NECK/CHEST SUBQ TUMOR REMOVAL, 3 CM OR MORE EXCISION NECK/CHEST SUBQ TUMOR, 3 CM OR MORE Yovany Lynn MD [address] [place] [address] [facility] [email or web address] [place] [phone] Referral ID Status Reason Start Date Expiration Date Visits Re quested Visits Authorized [id number] Encounter Details Date Type Department Care Team (Latest Contact Info) Description 05/18/2024 9:48 AM EDT - 05/18/2024 1:37 PM EDT Hospital Encounter [facility], Operating Room [facility] [address] [place] [phone] Yovany Lynn MD [address] [place] [address] Discharge Disposition: Home - Self Care Allergies Active Allergy Reactions Criticality Noted Date Comments Statins Muscle pain 10/08/2021 Sulfa Antibiotics Hives 03/20/2021 documented as of this encounter (statuses as of 05/19/2024) Medications Medication Sig Dispensed Refills Start Date [...] every morning. Active Global Ease Inject Pen Ovando 31G X 8 MM (Insulin Pen Needle) [...] diabetic peripheral angiopathy without gangrene, unspecified whether penitentiary insulin use (HCC) INJECT UNDER THE SKIN [...] as of this encounter (statuses as of 05/19/2024) Active Problems Problem Noted Date Diagnosed Date Lipoma of torso 04/25/2024 Deformity of toenail 03/28/2024 Onychomycosis 03/28/2024 Upper respiratory tract infection 03/28/2024 Suprapubic mass 03/28/2024 Bilateral leg edema 01/27/2024 Need for qipechwxno-hmborbb-lhqeyplpr (Tdap) vac cine 01/27/2024 Skin lesion 10/07/2023 [...] as of this encounter (statuses as of 05/19/2024) Resolved Problems Problem Noted Date Diagnosed Date [...] as of this encounter (statuses as of 05/19/2024) Immunizations Name Administration Dates Next Due COVID-19 [...] Sign Reading Time Taken Comments Blood Pressure 124/51 05/18/2024 1:18 PM EDT Pulse 70 05/18/2024 1:18 PM EDT Temperature 36.4 C (97.6 F) 05/18/2024 1:03 PM ED T Respiratory Rate 16 05/18/2024 1:18 PM EDT Oxygen Saturation 95% 05/18/2024 1:18 PM EDT Inhaled Oxygen Concentration - - Weight 109.3 kg (241 lb) 05/18/2024 9:54 AM EDT Height 162.6 cm (5' 4.02") 05/18/2024 9:54 AM ED T Body Mass Index 41.35 05/18/2024 9:54 AM EDT documented in this encounter Discharge Instructions * Discharge Instr - AVS* Yovany Lynn MD - 05/18/2024 10:04 AM EDT Discharge Date: 05/18/2024 The information below provides you with the instructions and the list of medications you need to betaking following discharge from the hospital. If you have any questions, please ask before leaving.Please carry this letter with you when you see your doctor in the clinic. If you have questions, you can reach us at the numbers above. Post Anesthesia Instructions: 1. Do not drive today. 2. Resume driving when surgeon permits, in 1 day(s) as long as not taking narcotics. 3. Do not make important decisions or sign legal documents today. 4. Call surgeon for: Temperature evaluation greater than 101.5 degrees Uncontrollable pain Excessive Bleeding Persistent Nausea and vomiting Medication intolerance (nausea, vomiting, or rash) 5. For nausea and vomiting use only clear liquids such as: tea, soda, bouillon until nausea subsides, then gradually increase diet as tolerated. Don't take narcotics on empty stomach, this can cause worsening of your nausea. 6. If you have any concerns or questions, call your surgeon's office, . If the physician is unavailable and it is an emergency, call 911 or go to the nearest emergency room. Instructions for: EXCISION OF LESION OR SOFT TISSUE MASS/PILONIDAL CYST INCISION CARE: Keep the dressing dry for 36 hours, and then you may remove the dressing and shower. Avoid bathing until seen in clinic. If non-dissolving stitches are present you can cover them daily with a new dressing so they do not bother you. Dermabond will peel off in 7 days or so PAIN: Three regular strength or two extra strength Tylenol or Motrin are usually adequate for pain control postoperatively. If you have been given a prescription for a narcotic pain medication, do not drive or operate heavymachinery while taking the narcotic. Narcotic pain medications can cause nausea and be constipating. Please take with food. Use over thecounter laxatives as needed for constipation. WHAT TO EXPECT: There may be spotting on the dressing. Most bleeding can be controlled by direct pressure. However,if this is ineffective, call the office. It is not unusual for there to be some bruising. However, a lump which is black and blue is a hematoma. Please contact us. If you have any questions or concerns, please do not hesitate to call. BIOPSY RESULTS: It normally takes 4-5 working days for the pathology lab to process the biopsy. This usually works out well, so we can review your pathology with you on your follow-up visit. Activity : Rest today. Do not do any heavy lifting (more than 20lbs pounds) or any vigorous exercise for 1 week(s). Return to School or Work: May return to work/school as tolerated on light duty; 1 week(s) to returnwithout restrictions. Diet: Resume previous diet Follow-up Visit with: When: in 2 weeks Discharged To: Home documented in this encounter Progress Notes * Valerio Orourke [facility] - 05/18/2024 12:49 PM EDT PHARMACY DISCHARGE MEDICATION RECONCILIATION REVIEW [facility] [address] [address] Name: Melanie Arrieta Location: OR [facility]/AL Date: 05/18/2024 Time: 12:49 PM This discharge medication reconciliation was reviewed by a pharmacist and no corrections or interventions were required. * Yovany Lynn MD - 05/18/2024 12:46 PM EDT [facility] [address] [address] OUTPATIENT SURGERY DISCHARGE SUMMARY NOTE Name: Melanie Arrieta Location: OR [facility]/OR Date: 05/18/2024 Time: 12:46 PM Surgery Date: 05/18/2024 Procedure: EXCISION NECK/CHEST SUBQ TUMOR, 3 CM OR MORE N/A Surgeon: Yovany Lynn MD Discharge Diagnosis: lipoma After examination of this patient, I have determined she is ready for discharge to home when the patient meets criteria. Discharge instructions were given to the patient. documented in this encounter H&P Notes * Yovany Lynn MD - 05/18/2024 9:59 AM EDT No changes B CTA RRR Abd: 8 cm mass Source Note - Yovany Lynn MD - 04/25/2024 3:03 PM EDT [facility] [address] [place] [address] [place] Chief Complaint: Pt. c/o lower abdominal wall mass; 8 cm HPI: Patient is seen in request of Charito JOHNSON. Melanie Arrieta is a 78 year old female who presents with lower abdominal wall mass; 8 cm. Past Surgical History: Procedure Laterality Date CORONARY ANGIOGRAPHY W/LEFT HEART CATH Right 09/30/2023 CORONARY ANGIOGRAPHY W/LEFT HEART CATH performed by Abdullahi Richards MD at [facility] [place] REMOVE CATARACT, INSERT LENS PROSTH Left 10/19/2022 LEFT EXTRACAPSULAR CATARACT REMOVAL WITH INTRAOCULAR LENS performed by Jamaal Cristina MD at OR [facility] Past Medical History: Diagnosis Date Sleep apnea, [...] Reported on 11/09/2023) Global Ease Inject Pen Ovando 31G X 8 MM (Insulin Pen Needle) [...] mass; 8 cm PLAN: Will excsie at [facility] on 05/18/2024 Pt. understands this, all questions were answered to the pt. satisfaction and they signed the consent for surgery. Yovany Lynn MD 04/25/2024 3:02 PM documented in this encounter Nursing Notes * Brandie Cox RN - 05/18/2024 1:36 PM EDT Patient is alert, pain free lower abdominal dressing dry and intact, ice in place and tolerating pofluids prior to discharge. Patient has been visited by Dr. Lynn. Patient has received and demonstrates understanding of discharge instructions. Patient is transported via w/c to private auto accompanied by family and staff. * Brandie Cox RN - 05/18/2024 1:03 PM EDT Pt received PACU II awake, denies pain, dressing to lower abdomen dry and intact, ice in place. Taking po fluids and retaining. * Tyesha Shaikh RN - 05/18/2024 1:00 PM EDT Patient awake and oriented. Tolerating PO ice chips without nausea. Patient denies pain. Vital signs stable. Ready for discharge from PACU 1. * Tyesha Shaikh RN - 05/18/2024 12:27 PM EDT Patient received to pacu 1 status post excision of mass lower abdomen. Patient awake but drowsy. Denies pain. Denies nausea. Respirations are even and unlabored on 8L O2 via mask. NSR on monitor. Abdomen soft and non distended. Dressing to lower abdomen is clean, dry and intact, ice pack applied. Vital signs stable. * Mariola Meek RN - 05/18/2024 10:10 AM EDT Surgical consent verified with patient. Patient agrees with listed procedure and verified signature. documented in this encounter OR Notes * OR Surgeon - Yovany Lynn MD - 05/18/2024 10:01 AM EDT Operative note: Date: 05/18/2024 Pre-op diagnosis: Subcutaneous soft tissue mass abdominal wall, 8 cm Post-op diagnosis: Same Procedure: Excision of subcutaneous soft tissue mass from abdominal wall Surgeon: Yovany Lynn MD Was there a qualified resident that took part in the case? No - The skilled assistance of the advanced practitioner/physician was necessary for the successful completion of this case. Public Service Representative name: Ann Davis PA-C Public Service Representative role: The advanced practitioner/physician was essential for retraction, suction, proper positioning, maintaining reduction, sterile draping, and wound closure I understand that section 1842 (b)(7)(D) of the Social Security Act generally prohibits Medicare physician fee schedule payment for the services of [id number] in teaching hospitals when qualified residents are available to furnish such services. I certify that the services for which payme nt is claimed were medically necessary, and that no qualified resident was available to perform theservices. I further understand that these services are subject to post-payment review by the Medicare carrier. Anesthesia:general LMA with 0.5 % marcaine with epi, 20 cc EBL: 8 cc Drains: none Complications: none Specimens: Sent to pathology Condition: Good Indication for procedure: This patient presents with a changing and symptomatic subcutaneous soft tissue mass on their abdominal wall and they desire excision. They understand the risks of recurrence, bleeding, and wound problems including infection and dehisence. Consent has been signed. Description of procedure: After induction of excellent general LMA anesthesia the patient was prepped and draped in normal fashion. A local block was then created with xylocaine. An elliptical skin incision was made over the subcutaneous soft tissue mass. The mass and the skin paddle were then excised sharply down through the subcutaneous tissue to just above the fascia. The cavity was next irrigated with saline and hemostasis was noted to be present. The mass and skin were sent for pathological evaluation. A local block was then created with marcaine. The deep subcutaneous tissues were then approximated with vicryls and the skin was closed with appropriate nylon sutures. A sterile dressingwas then applied. The patient tolerated the procedure well and will be discharge to home in stable condition. Yovany Lynn MD 05/18/2024 12:29 PM documented in this encounter Plan of Treatment Upcoming Encounters Date Type Department Care Team (Late st Contact Info) Description 05/21/2024 8:30 AM EDT Scheduled Telephone General Surgery, [facility] [address] [place] [address] Nurse Suman Gen Surg [facility] [address] [place] [address] 06/04/2024 1:15 PM EDT Office Visit General Surgery, [facility] [address] [place] [address] Yovany Lynn MD [address] [place] [address] 06/05/2024 2:30 PM EDT Office Visit Pharmacy, [facility] [address] [place] [address] [facility] [address] [facility] [place] [address] 06/05/2024 3:00 PM EDT Pharmacy Pharmacy, [facility] [address] [place] [address] [facility] [address] [place] [address] 06/29/2024 3:00 PM EST Office Visit Family Practice [facility] [address] [place] [address] Charito Valdez CRNP [address] [place] [address] 07/16/2024 11:30 AM EST Office Visit Otolaryngology [facility] [address] [place] [address] Ross Martin PA-C [address] [place] [address] 07/26/2024 3:00 PM EST Office Visit Cardiology, [facility] [address] [place] [address] Judit Little CRNP [address] [place] [address] 11/01/2024 3:20 PM EDT Office Visit Dermatology[address] [address] Mariola Gonzalez PA-C [address] [place] [address] [place] [address] Pending Results Name Type Priority Associated Diagnoses Date /Time SURGICAL PATHOLOGY Pathology Routine Lipoma of torso 05/18/2024 12:10 PM EDT Scheduled Orders Name Type Priority Associated Diagnoses Order Schedule GLUCOSE METER, POINT OF CARE (COMMUNICATION ORDER) Point of Care Testing Routine As Needed until discontinued starting 05/18/2024 SURGICAL PATHOLOGY Pathology Routine Lipoma of torso Release Upon Ordering for 1 Occurrences starting 05/18/2024 GLUCOSE METER, POINT OF CARE (COMMUNICATION ORDER) Point of Care Testing Routine Perform Now for 1 Occurrences starting 05/18/2024 until 05/18/2024 Health Maintenance Due Date Last Done Comments [...] this encounter Medical Devices Implanted Type Area Spooler Device Identifier Shelf Expiration Date Model / Serial / Lot Lens Intraoc 22.5 - [id number] - [id number] Implanted:Qty: 1 on 10/19/2022 by Jamaal Cristina MD at OR [facility] Left: Eye [employer] 07/14/2027 [id number] / [id number] / [id number] documented as of this encounter Procedures Procedure Name Priority Date/Time Associated Diagnosis Comments GLUCOSE METER, POINT OF CARE AL 05/18/2024 12:34 PM EDT GLUCOSE METER, POINT OF CARE AL 05/18/2024 10:24 AM EDT documented in this encounter Results * GLUCOSE METER, POINT OF CARE (05/18/2024 12:34 PM EDT) GLUCOSE - POCT 112 70 - 120 mg/dL 05/18/2024 12:42 PM EDT [facility] [place] [facility] Blood Whole blood specimen / Unknown 05/18/2024 12:34 PM EDT 05/18/2024 12:42 PM EDT Yovany Lynn MD LAB POINT O F CARE TEST DOCKED DEVICE UNSOLICITED RESULTS Performing Organization Address City/[facility]/ZIP Co de Phone Number [facility] [place] [phone] [place] [address] * GLUCOSE METER, POINT OF CARE (05/18/2024 10:24 AM EDT) Pathologist [facility] GLUCOSE - POCT 113 70 - 120 mg/dL 05/18/2024 10:36 AM EDT [facility] [place] [facility] Blood Whole blood specimen / Unknown 05/18/2024 10:24 AM EDT 05/18/2024 10:36 AM EDT Yovany Lynn MD LAB POINT O F CARE TEST DOCKED DEVICE UNSOLICITED RESULTS Performing Organization Address City/[facility]/ZIP Co de Phone Number [phone] [place] [address] documented in this encounter Visit Diagnoses Diagnosis Lipoma of torso- Primary documented in this encounter Administered Medications Inactive Administered Medications - up to 3 most recent administrations Medication Order MAR Action Action Date Dose Rate Site Acetaminophen (Tylenol) tab 650 mg 650 mg, Oral, PRN Pain, Mild, Starting on Tue05/18/24 at 1309, Until Tue05/18/24 at 1738, For 1 dose, Maximum of 4 grams (4000 mg) per day., Post-op Acetaminophen (Tylenol) tab 975 mg 975 mg, Oral, PREOP, First dose on Tue05/18/24 at 1045, Last dose on Tue05/18/24 at 1045, For 1 dose, Maximum 4 g acetaminophen/day. Avoid in patients with severe hepatic impairment or severe active liver disease. Administer 60 minutes prior to OR., Pre-Op Given 05/18/2024 10:37 AM EDT 975 mg ceFAZolin in dextrose (Ancef) ivpb 2 g 2 g, IV Piggyback, PREOP, 1 dose, First dose on Tue05/18/24 at 1045, Administer 60 minutes prior to skin incision, Pre-Op New Bag 05/18/2024 11:42 AM EDT 2 g 100 mL/hr chlorhexidine gluconate cloth 2 % pad 1 Pad 1 Pad, External, PREOP, First dose on Tue05/18/24 at 1045, Last dose on Tue05/18/24 at 1045, For 1 dose, Cleanse surgical site area immediately before transferring intra-op, Pre-Op Given 05/18/2024 11:19 AM EDT 1 Pad dexAMETHasone Sodium Phosphate (Decadron) 4 MG/ML inj 4 mg 4 mg, IV Push, PRN Nausea, Starting on Tue05/18/24 at 1239, Until Tue05/18/24 at 1738, For 1 dose, PROTECT FROM LIGHT, PACU fentaNYL (PF) inj 25 mcg 25 mcg, IV Push, PRN Pain, Severe, Starting on Tue05/18/24 at 1239, Until Tue05/18/24 at 1738, For 6 doses, When given IV Push its recommended that the dose be given over 3 to 5 minutes., PACU isolyte-S pH 7.4 infusion Intravenous, at 100 mL/hr, Plasma-LYTE 148, isolyte-S, and isolyte-S pH 7.4 are considered equivalent - including for MAR barcode scanning., CONTINUOUS, Starting on Tue05/18/24 at 1030, Until Tue05/18/24 at 1738, Pre-Op Continue from Pre-Op 05/18/2024 11:41 AM EDT 100 mL/hr New Bag 05/18/2024 10:38 AM EDT 100 mL/hr ondansetron (Zofran) inj 4 mg 4 mg, IV Push, PRN Nausea, Starting on Tue05/18/24 at 1239, Until Tue05/18/24 at 1738, For 1 dose, PACU Povidone-Iodine nasal swab 4 Swab 4 Swab, Nasal, PREOP, First dose on Tue05/18/24 at 1045, Last dose on Tue05/18/24 at 1045, For 1 dose, Tilt the bottle slightly, dip one swab into solution and stir vigorously for 10 seconds. Withdraw the swab slowly to avoid wiping solution off during removal. Insert swab comfortably into one nostril and rotate for 15 seconds, covering all surfaces. Then focus on the inside tip of nostril and rotate for an additional 15 seconds. Using a new swab, Repeat above steps in the other nostril (Swab 2). Repeat the application in both nostrils using a fresh swab each times (Swab 3 and 4)., Pre-Op Given 05/18/2024 10:45 AM EDT 4 Swabs documented in this encounter Active and Recently Administered Medications Times are shown in EDT. Scheduled Medication Order 05/16/2024 05/17/2024 05/18/2024 Acetaminophen (Tylenol) tab 975 mg (COMPLETED) 975 mg, Oral, PREOP, First dose on Tue05/18/24 at 1045, Last dose on Tue05/18/24 at 1045, For 1 dose, Maximum 4 g acetaminophen/day. Avoid in patients with severe hepatic impairment or severe active liver disease. Administer 60 minutes prior to OR., Pre-Op 1037 (Given - Provid er: Mariola Meek RN) ceFAZolin in dextrose (Ancef) ivpb 2 g (COMPLETED) 2 g, IV Piggyback, PREOP, 1 dose, First dose on Tue05/18/24 at 1045, Administer 60 minutes prior to skin incision, Pre-Op 1142 (New Bag - Prov ider: Brandie Cox RN) chlorhexidine gluconate cloth 2 % pad 1 Pad (COMPLETED) 1 Pad, External, PREOP, First dose on Tue05/18/24 at 1045, Last dose on Tue05/18/24 at 1045, For 1 dose, Cleanse surgical site area immediately before transferring intra-op, Pre-Op 1119 (Given - Provid er: Mariola Meek RN) Povidone-Iodine nasal swab 4 Swab (COMPLETED) 4 Swab, Nasal, PREOP, First dose on Tue05/18/24 at 1045, Last dose on Tue05/18/24 at 1045, For 1 dose, Tilt the bottle slightly, dip one swab into solution and stir vigorously for 10 seconds. Withdraw the swab slowly to avoid wiping solution off during removal. Insert swab comfortably into one nostril and rotate for 15 seconds, covering all surfaces. Then focus on the inside tip of nostril and rotate for an additional 15 seconds. Using a new swab, Repeat above steps in the other nostril (Swab 2). Repeat the application in both nostrils using a fresh swab each times (Swab 3 and 4)., Pre-Op 1045 (Given - Provid er: Mariola Meek RN) Continuous Medication Order 05/16/2024 05/17/2024 05/18/2024 isolyte-S pH 7.4 infusion Intravenous, at 100 mL/hr, Plasma-LYTE 148, isolyte-S, and isolyte-S pH 7.4 are considered equivalent - including for MAR barcode scanning., CONTINUOUS, Starting on Tue05/18/24 at 1030, Until Tue05/18/24 at 1738, Pre-Op 1038 (New Bag - Prov ider: Mariola Meek RN)1141 (Continue from Pre-Op - Provider: GWYN Valverde)1225 (Anes Intra-Op Fluid - Provider: Carlton Mccormack CRNA) PRN Medication Order 05/16/2024 05/17/2024 05/18/2024 Acetaminophen (Tylenol) tab 650 mg 650 mg, Oral, PRN Pain, Mild, Starting on Tue05/18/24 at 1309, Until Tue05/18/24 at 1738, For 1 dose, Maximum of 4 grams (4000 mg) per day., Post-op bacitracin zinc ointment (CANCELED) ONCE PRN INTRA PROCEDURE, Starting on Tue05/18/24 at 1217, Until Tue05/18/24 at 1226, Intra-Op 1217 (Given - Provid er: Yovany Lynn MD - Comment: lower abdomen) BUPivacaine-EPINEPHrine (Sensorcaine W/ Epi) 0.5%-1:158830 inj (CANCELED) ONCE PRN INTRA PROCEDURE, Starting on Tue05/18/24 at 1203, Until Tue05/18/24 at 1226, Intra-Op 1203 (Given - Provid er: Yovany Lynn MD - Comment: lower abdomen) dexAMETHasone Sodium Phosphate (Decadron) 4 MG/ML inj 4 mg 4 mg, IV Push, PRN Nausea, Starting on Tue05/18/24 at 1239, Until Tue05/18/24 at 1738, For 1 dose, PROTECT FROM LIGHT, PACU fentaNYL (PF) inj 25 mcg 25 mcg, IV Push, PRN Pain, Severe, Starting on Tue05/18/24 at 1239, Until Tue05/18/24 at 1738, For 6 doses, When given IV Push its recommended that the dose be given over 3 to 5 minutes., PACU ondansetron (Zofran) inj 4 mg 4 mg, IV Push, PRN Nausea, Starting on Tue05/18/24 at 1239, Until Tue05/18/24 at 1738, For 1 dose, PACU documented in this encounter Advance Directives * [...] Power of Attor jasmyne? No Care Teams Monorail Operator Relationship Specialty Start Date End Date Charito Valdez CRNP [address] [place] [address] PCP - General Nurse Practitioner 10/08/22 documented as of this encounter
--- OUTSIDE RECORDS SUMMARY | 2024-10-05 12:12 | External Medical Summary | Summary of Care ---
Author Name Unknown Organization [facility] Address [address] [place] [address] Phone [phone] Care Team Providers Care Stave Saw Operator Name Role Phone Charito Valdez Argelia JOHNSON Primary Care Provider Reason for Visit * Reason Comments Follow Up Hernia. Encounter Details Date Type Department Care Team (Late st Contact Info) Description 04/25/2024 3:45 PM EDT Office Visit General Surgery, [facility] [address] [place] [address] Yovany Lynn MD [address] [place] [address] Lipoma of torso* Allergies Active Allergy Reactions [...] every morning. Active Global Ease Inject Pen [place] 31G X 8 MM (Insulin Pen Needle) [...] Active Problems Problem Noted Date Diagnosed Date Deformity of toenail 03/28/2024 Onychomycosis 03/28/2024 Upper respiratory tract infection 03/28/2024 Suprapubic mass 03/28/2024 Bilateral leg edema 01/27/2024 Need for ieeitdhqmu-gvwmouy-bjmhmsipi (Tdap) vac cine 01/27/2024 Skin lesion 10/07/2023 [...] examination 12/09/2022 03/15/2023 [facility] 06/10/2022 08/16/2023 [...] Lynn MD - 04/25/2024 2:57 PM EDT [facility] 132 [facility] [place] [address] [facility] Chief Complaint: Pt. c/o lower abdominal wall mass; 8 cm HPI: Patient is seen in request of Charito JOHNSON. Melanie Arrieta is a 78 year old female who presents with lower abdominal wall mass; 8 cm. Past Surgical History: Procedure Laterality Date CORONARY ANGIOGRAPHY W/LEFT HEART CATH Right 09/30/2023 CORONARY ANGIOGRAPHY W/LEFT HEART CATH performed by Abdullahi Richards MD at [facility] REMOVE CATARACT, INSERT LENS PROSTH Left 10/19/2022 LEFT EXTRACAPSULAR CATARACT REMOVAL WITH INTRAOCULAR LENS performed by Jamaal Cristina MD at OR [facility] Past Medical History: Diagnosis Date Sleep apnea, [...] Reported on 11/09/2023) Global Ease Inject Pen [place] 31G X 8 MM (Insulin Pen Needle) [...] mass; 8 cm PLAN: Will excsie at [facility] on 05/18/2024 Pt. understands this, all questions were answered to the pt. satisfaction and they signed the consent for surgery. Yovany Lynn MD 04/25/2024 3:02 PM documented in this encounter H&P Notes * Yovany Lynn MD - 04/25/2024 3:03 PM EDT [facility] [address] [place] [address] [facility] Chief Complaint: Pt. c/o lower abdominal wall mass; 8 cm HPI: Patient is seen in request of Charito JOHNSON. Melanie Arrieta is a 78 year old female who presents with lower abdominal wall mass; 8 cm. Past Surgical History: Procedure Laterality Date CORONARY ANGIOGRAPHY W/LEFT HEART CATH Right 09/30/2023 CORONARY ANGIOGRAPHY W/LEFT HEART CATH performed by Abdullahi Richards MD at [facility] REMOVE CATARACT, INSERT LENS PROSTH Left 10/19/2022 LEFT EXTRACAPSULAR CATARACT REMOVAL WITH INTRAOCULAR LENS performed by Jamaal Cristina MD at OR [facility] Past Medical History: Diagnosis Date Sleep apnea, [...] Reported on 11/09/2023) Global Ease Inject Pen [place] 31G X 8 MM (Insulin Pen Needle) [...] mass; 8 cm PLAN: Will excsie at [facility] on 05/18/2024 Pt. understands this, all questions were answered to the pt. satisfaction and they signed the consent for surgery. Yovany Lynn MD 04/25/2024 3:02 PM documented in this encounter Nursing Notes * Ja Alvarez MED ASSIST - 04/25/2024 2:55 PM EDT Chief Complaint Patient presents with Follow Up Hernia. Verified patient. Some pain [phone] on/off. Patient states that she feels her pain getting worse. documented in this encounter Plan of Treatment Upcoming Encounters Date Type Department Care Team (Late st Contact Info) Description 05/30/2024 1:00 PM EDT Office Visit Pharmacy, [facility] [address] [address] [facility] [address] [place] [address] 05/30/2024 1:30 PM EDT Pharmacy Pharmacy, [facility] [address] [address] [facility] [address] [place] [address] 06/29/2024 3:00 PM EST Office Visit Family Practice [facility] [address] [place] [address] Charito Valdez CRNP [address] [place] [address] 07/16/2024 11:40 AM EST Office Visit Otolaryngology [facility] [address] [place] [address] Ross Martin PA-C [address] [place] [address] 07/26/2024 3:00 PM EST Office Visit Cardiology, [facility] [address] [place] [address] Judit Little CRNP [address] [place] [address] 11/01/2024 3:20 PM EDT Office Visit Dermatology[address], [place] [address] Mariola Gonzalez PA-C [address] [place] [address] [place] [address] Scheduled Procedures Name Priority Associated Diagnoses Date/Ti [...] 10/07/2024 024, 06/10/2022, 06/22/2021 GFR 03/23/2025 03/23/2024, 05/08/2023, 09/30/2023, Additional history exists DTap/Tdap Vaccines (2 [...] this encounter Medical Devices Implanted Type Area [employer] Teacher Device Identifier Shelf Expiration Date Model / Serial / Lot Lens Intraoc 22.5 - [id number] - [id number] Implanted:Qty: 1 on 10/19/2022 by Jamaal Cristina MD at OR [facility] Left: Eye [employer]CH [employer] LOMB 07/14/2027 [id number] / [id number] documented as of this encounter Visit Diagnoses [...] Power of Attor jasmyne? No Care Teams Stave Saw Operator Relationship Specialty Start Date End Date Charito Valdez CRNP [address] [place] [address] PCP - General Nurse Practitioner 10/08/22 documented as of this encounter
--- OUTSIDE RECORDS SUMMARY | 2024-10-05 12:12 | External Medical Summary | Summary of Care ---
Author Name Unknown Organization [facility] Address [address] [place] [address] Phone [phone] Care Team Providers Care Valve Inserter Name Role Phone Charito Valdez Argelia JOHNSON Primary Care Provider Reason for Visit * Reason Onset Date Comments Medication Question 05/14/2024 Encounter Details Date Type Department Care Team (Late st Contact Info) Description 05/14/2024 Telephone [facility]ized [facility], [facility] Penalo[facility] [address] [place] [address] [place] [address] [facility] 132 [facility] [place] [address] Medication Question Allergies Active Allergy Reactions Criticality Noted Date Comments Statins Muscle pain 10/08/2021 Sulfa Antibiotics Hives 03/20/2021 documented as of this encounter (statuses as of 05/14/2024) Medications Medication Sig Dispensed Refills Start Date [...] every morning. Active Global Ease Inject Pen [place] 31G X 8 MM (Insulin Pen Needle) [...] diabetic peripheral angiopathy without gangrene, unspecified whether regional intermodal truck driver insulin use (HCC) INJECT [...] as of this encounter (statuses as of 05/14/2024) Active Problems Problem Noted Date Diagnosed Date Lipoma of torso 04/25/2024 Deformity of toenail 03/28/2024 Onychomycosis 03/28/2024 Upper respiratory tract infection 03/28/2024 Suprapubic mass 03/28/2024 Bilateral leg edema 01/27/2024 Need for upxrdvmyzq-aihmleq-zisqbgjci (Tdap) vac cine 01/27/2024 Skin lesion 10/07/2023 [...] as of this encounter (statuses as of 05/14/2024) Resolved Problems Problem Noted Date Diagnosed Date [...] as of this encounter (statuses as of 05/14/2024) Immunizations Name Administration Dates Next Due COVID-19 [...] encounter Miscellaneous Notes * Telephone Encounter - Emma Murray, [facility] - 05/14/2024 3:44 PM EDT Patient Phone Numbers Spoke to patient via phone. Patient notes will not be eating day before the procedure. Recommendingto not taking any Novolog until eating a meal after surgery. Patient will take Lantus on day beforeand hold morning dose of lantus day of procedure. Emma Murray, Pharm D, [facility] Clinical Pharmacist 05/14/2024, 3:47 PM * Telephone Encounter - Chloe Michaud CPhT - 05/14/2024 3:28 PM EDT Caller's name: Melanie Villa call back number(OFFICE NUMBER FOR ): [phone] Reason for call: Patient is scheduled for surgery on 05/18/2024. She needs instructions for her insulin that day. She is also concerned with the day before surgery as she will be on liquid diet that day. Please advise patient. Thank you, Chloe Michaud CPhT Statistician Mathematical II [facility] ([facility]) 05/14/2024,3:28 PM documented in this encounter Plan of Treatment Upcoming Encounters Date Type Department Care Team (Latest Contact Info) Description 05/18/2024 10:27 AM EDT Hospital Encounter [facility], Operating Room [facility] [address] [id number] Yovany Lynn MD [address] [place] [address] 05/18/2024 10:27 AM EDT - 05/18/2024 11:31 AM EDT Surgery [facility], Operating Room [facility] [address] [place] [phone] Yovany Lynn MD [address] [place] [address] EXCISION NECK/CHEST SUBQ TUMOR, 3 CM OR MORE 05/21/2024 8:30 AM EDT Scheduled [facility] [address] [place] [address] Nurse [facility] [address] [place] [address] 06/04/2024 1:15 PM EDT Office Visit General Surgery, [facility] [address] [place] [address] Yovany Lynn MD [address] [place] [address] 06/05/2024 2:30 PM EDT Office Visit Pharmacy, [facility] [address] [place] [address] [facility] [address] [place] [address] 06/05/2024 3:00 PM EDT Pharmacy Pharmacy, [facility] [address] [place] [address] [facility] [address] [place] [address] 06/29/2024 3:00 PM EST Office Visit Family Practice [facility] [address] [place] [address] Charito Valdez CRNP [address] [place] [address] 07/16/2024 11:30 AM EST Office Visit Otolaryngology [facility] [address] [place] [address] Ross Martin PA-C [address] [place] [address] 07/26/2024 3:00 PM EST Office Visit Cardiology, [facility] [address] [place] [address] Judit Little CRNP [address] [place] [address] 11/01/2024 3:20 PM EDT Office Visit Dermatology[address] [place] [address] Mariola Gonzalez PA-C [address] [place] [address] [place] [address] Scheduled Procedures Name Priority Associated Diagnoses Date/Ti me EXCISION NECK/CHEST SUBQ KULDEEP OR, 3 CM OR MORE Lipoma of torso 05/18/2024 10:27 AM EDT Health Maintenance Due Date Last Done [...] this encounter Medical Devices Implanted Type Area Tool Crib Attendant Device Identifier Shelf Expiration Date Model / Serial / Lot Lens Intraoc 22.5 - [id number] - [id number] Implanted:Qty: 1 on 10/19/2022 by Jamaal Cristina MD at OR [facility] Left: Eye [employer]CH [employer] LOMB 07/14/2027 [id number] / [id number] / [id number] documented as of this encounter Advance Directives * No Code [...] Power of Attor jasmyne? No Care Teams Valve Inserter Relationship Specialty Start Date End Date Charito Valdez CRNP [address] [place] [address] PCP - General Nurse Practitioner 10/08/22 documented as of this encounter
--- OUTSIDE RECORDS SUMMARY | 2024-10-05 12:12 | External Medical Summary | Summary of Care ---
Author Name Unknown Organization [facility] Address [address] [place] [address] Phone [phone] Care Team Providers Care Senior Analysis Specialist Name Role Phone Charito Valdez Argelia JOHNSON Primary Care Provider Reason for Visit * Reason Onset Date Comments Order Request 06/04/2024 Keflex 10 days Encounter Details Date Type Department Care Team (Late st Contact Info) Description 06/04/2024 Telephone General Surgery, [facility] [address] [place] [address] Yovany Lynn MD [address] [place] [address] Order Request (Keflex 10 days ) Allergies Active Allergy Reactions Criticality Noted Date Comments Statins Muscle pain 10/08/2021 Sulfa Antibiotics Hives 03/20/2021 documented as of this encounter (statuses as of 06/04/2024) Medications Medication Sig Dispensed Refills Start Date [...] every morning. Active Global Ease Inject Pen [place] 31G X 8 MM (Insulin Pen Needle) [...] Additional Information Patient not taking.Reported on 03/23/2024 Trulicity 1.5 MG/0.5ML Subcutaneous Solution Pen-injector (Dulaglutide) [...] peripheral angiopathy without gangrene, unspecified whether terminal clerk insulin use (HCC) INJECT UNDER THE SKIN [...] every 6 hours. 40 Capsule 06/04/2024 Active documented as of this encounter (statuses as of 06/04/2024) Active Problems Problem Noted Date Diagnosed Date Lipoma of torso 04/25/2024 Deformity of toenail 03/28/2024 Onychomycosis 03/28/2024 Upper respiratory tract infection 03/28/2024 Suprapubic mass 03/28/2024 Bilateral leg edema 01/27/2024 Need for ynvlaoflho-xobdwhw-ktivasuok (Tdap) vac cine 01/27/2024 Skin lesion 10/07/2023 [...] as of this encounter (statuses as of 06/04/2024) Resolved Problems Problem Noted Date Diagnosed Date [...] as of this encounter (statuses as of 06/04/2024) Immunizations Name Administration Dates Next Due COVID-19 [...] 06/05/2024 2:30 PM EDT Office Visit Pharmacy, [facility] [place] [address] [facility] [address] [place] [address] 06/05/2024 3:00 PM EDT Pharmacy Pharmacy, [facility] [place] [address] [facility] [address] [place] [address] 06/18/2024 2:00 PM EST Office Visit General Surgery, [facility] [address] [place] [address] Yovany Lynn MD [address] [place] [address] 07/16/2024 11:30 AM EST Office Visit Otolaryngology [facility] [place] [address] Ross Martin PA-C [address] [place] [address] 09/27/2024 1:30 PM EST Office Visit Cardiology, [facility] 132 [facility] [place] [address] Judit Little CRNP [address] [place] [address] 11/01/2024 3:20 PM EDT Office Visit Dermatology[address] [place] [address] Mariola Gonzalez PAChelsea [address] [place] [address] [place] [address] Health Maintenance Due Date Last Done Comments [...] this encounter Medical Devices Implanted Type Area Checkering Machine Adjuster Device Identifier Shelf Expiration Date Model / Serial / Lot Lens Intraoc 22.5 - [id number] - [id number] Implanted:Qty: 1 on 10/19/2022 by Jamaal Cristina MD at OR [facility] Left: Eye [employer] LOMB 07/14/2027 [id number] / [id number] / [id number] documented as of this encounter Advance Directives [...] Power of Attor jasmyne? No Care Teams Senior Analysis Specialist Relationship Specialty Start Date End Date Charito Valdez CRNP [address] [place] [address] PCP - General Nurse Practitioner 10/08/22 documented as of this encounter
--- OUTSIDE RECORDS SUMMARY | 2024-10-05 12:12 | External Medical Summary | Summary of Care ---
Author Name Unknown Organization [facility] Address [address] [place] [address] Phone [phone] Care Team Providers Care Acid Pump Operator Name Role Phone Charito Valdez Argelia JOHNSON Primary Care Provider Reason for Visit * Reason Comments Follow Up Hernia. Encounter Details Date Type Department Care Team (Late st Contact Info) Description 04/25/2024 3:45 PM EDT Office Visit General Surgery, [facility] [address] [place] [address] Yovany Lynn MD [address] [place] [address] Lipoma of torso* Allergies Active Allergy Reactions [...] every morning. Active Global Ease Inject Pen [place] 31G X 8 MM (Insulin Pen Needle) [...] diabetic peripheral angiopathy without gangrene, unspecified whether usp insulin use (HCC) INJECT UNDER THE SKIN [...] 03/28/2024 Bilateral leg edema 01/27/2024 Need for enkipisrgk-qbxbdzv-onrhacqoa (Tdap) vac cine 01/27/2024 Skin lesion 10/07/2023 [...] Lynn MD - 04/25/2024 2:57 PM EDT [facility] 132 [facility] [place] [address] [facility] Chief Complaint: Pt. c/o lower abdominal wall mass; 8 cm HPI: Patient is seen in request of Charito JOHNSON. Melanie Arrieta is a 78 year old female who presents with lower abdominal wall mass; 8 cm. Past Surgical History: Procedure Laterality Date CORONARY ANGIOGRAPHY W/LEFT HEART CATH Right 09/30/2023 CORONARY ANGIOGRAPHY W/LEFT HEART CATH performed by Abdullahi Richards MD at [facility] REMOVE CATARACT, INSERT LENS PROSTH Left 10/19/2022 LEFT EXTRACAPSULAR CATARACT REMOVAL WITH INTRAOCULAR LENS performed by Jamaal Cristina MD at OR [facility] Past Medical History: Diagnosis Date Sleep [...] Reported on 11/09/2023) Global Ease Inject Pen [place] 31G X 8 MM (Insulin Pen Needle) [...] mass; 8 cm PLAN: Will excsie at [facility] on 05/18/2024 Pt. understands this, all questions were answered to the pt. satisfaction and they signed the consent for surgery. Yovany Lynn MD 04/25/2024 3:02 PM documented in this encounter H&P Notes * Yovany Lynn MD - 04/25/2024 3:03 PM EDT [facility] [address] [place] [address] [facility] Chief Complaint: Pt. c/o lower abdominal wall mass; 8 cm HPI: Patient is seen in request of Charito JOHNSON. Melanie Arrieta is a 78 year old female who presents with lower abdominal wall mass; 8 cm. Past Surgical History: Procedure Laterality Date CORONARY ANGIOGRAPHY W/LEFT HEART CATH Right 09/30/2023 CORONARY ANGIOGRAPHY W/LEFT HEART CATH performed by Abdullahi Richards MD at [facility] REMOVE CATARACT, INSERT LENS PROSTH Left 10/19/2022 LEFT EXTRACAPSULAR CATARACT REMOVAL WITH INTRAOCULAR LENS performed by Jamaal Cristina MD at OR [facility] Past Medical History: Diagnosis Date Sleep [...] Reported on 11/09/2023) Global Ease Inject Pen [place] 31G X 8 MM (Insulin Pen Needle) [...] mass; 8 cm PLAN: Will excsie at [facility] on 05/18/2024 Pt. understands this, all [...] 05/18/2024 Hospital Encounter OR [facility], Operating Room [facility] [address] [place] [address] [phone] Yovany Lynn MD [address] [place] [address] 05/30/2024 1:00 PM EDT [facility] [address] [place] [address] [facility] [address] [place] [address] 05/30/2024 1:30 PM EDT [facility] [address] [place] [address] [facility] [address] [place] [address] 06/04/2024 1:15 PM EDT Office Visit General Surgery, [facility] [address] [place] [address] Yovany Lynn MD [address] [place] [address] 06/29/2024 3:00 PM EST Office Visit Family Practice [facility] [address] [place] [address] Charito Valdez CRNP [address] [place] [address] 07/16/2024 11:40 AM EST Office Visit Otolaryngology [facility] [address] [place] [address] Ross Martin PA-C [address] [place] [address] 07/26/2024 3:00 PM EST Office Visit Cardiology, [facility] [place] [address] Judit Little CRNP [address] [place] [address] 11/01/2024 3:20 PM EDT Office Visit Dermatology[address] [place] [address] Mariola Gonzalez PA-C [address] [place] [address] [place] [address] Scheduled Procedures Name Priority Associated Diagnoses Date/Ti [...] this encounter Medical Devices Implanted Type Area Tin Dipper Device Identifier Shelf Expiration Date Model / Serial / Lot Lens Intraoc 22.5 - [id number] - [id number] Implanted:Qty: 1 on 10/19/2022 by Jamaal Cristina MD at OR [facility] Left: Eye [employer]USCH & LOMB 07/14/2027 [id number] / [id number] / [id number] documented as of this encounter Visit Diagnoses [...] Power of Attor jasmyne? No Care Teams Acid Pump Operator Relationship Specialty Start Date End Date Charito Valdez CRNP [address] [place] [address] PCP - General Nurse Practitioner 10/08/22 documented as of this encounter
--- OUTSIDE RECORDS SUMMARY | 2024-10-05 12:12 | External Medical Summary | Summary of Care ---
Author Name Unknown Organization [facility] Address [address] [place] [address] Phone [phone] Care Team Providers Care Exterior Work Helper Name Role Phone Charito Valdez Primary Care Provider Reason for Visit * Reason Comments eRx-Medication Refill Encounter Details Date Type Department Care Team (Late st Contact Info) Description 05/23/2024 Refill Family Practice [facility] [address] [facility] [place] [address] Charito Valdez CRNP [address] [place] [address] Chronic right-sided low back pain with right-sided sciatica Allergies Active Allergy Reactions Criticality Noted Date Comments Statins Muscle pain 10/08/2021 Sulfa Antibiotics Hives 03/20/2021 documented as of this encounter (statuses as of 05/24/2024) Medications Medication Sig Dispensed Refills Start Date [...] every morning. Active Global Ease Inject Pen [place] 31G X 8 MM (Insulin Pen Needle) [...] in the morning. 60 Tablet 3 4 05/26/20 24 Active Trulicity 1.5 MG/0.5ML Subcutaneous Solution Pen-injector (Dulaglutide) Inject 1.5 mg under the skin once a week. E11.9 2 mL 3 4 Active Albuterol Sulfate HFA 108 [...] diabetic peripheral angiopathy without gangrene, unspecified whether [facility] insulin use (HCC) INJECT UNDER THE SKIN [...] in the evening. 120 Capsule 4 Active Gabapentin 300 MG Oral Capsule (Neurontin)Indicati ons:Chronic right-sided low back pain with right-sided sciatica take 1 capsule in the morning, 1 capsule at noon and 2 capsules in the evening. 120 Capsule 4 05/24/20 24 Discontinued documented as of this encounter (statuses as of 05/24/2024) Active Problems Problem Noted Date Diagnosed Date Lipoma of torso 04/25/2024 Deformity of toenail 03/28/2024 Onychomycosis 03/28/2024 Upper respiratory tract infection 03/28/2024 Suprapubic mass 03/28/2024 Bilateral leg edema 01/27/2024 Need for etauqbwqpr-zjxsbxn-bntfdcwak (Tdap) vac cine 01/27/2024 Skin lesion 10/07/2023 [...] as of this encounter (statuses as of 05/24/2024) Resolved Problems Problem Noted Date Diagnosed Date [...] as of this encounter (statuses as of 05/24/2024) Immunizations Name Administration Dates Next Due COVID-19 [...] Telephone Encounter - Charito Valdez CRNP - 05/24/2024 8:26 AM EDT Signed Prescriptions: Disp Refills Gabapentin 300 MG Oral Capsule (Neurontin) 120 Ca*0 Sig: take 1 capsule in the morning, 1 capsule at noon and 2 capsules in the evening. Authorizing Provider: CHARITO VALDEZ * Telephone Encounter - Aneta Allen LPN - 05/24/2024 8:20 AM EDTPending Prescriptions: Disp Refills Gabapentin 300 MG Oral Capsule [Pharmacy M*120 Ca*0 Sig: take 1 capsule in the morning, 1 capsule at noon and 2 capsules in the evening. * Telephone Encounter - Aneta Allen LPN - 05/24/2024 8:20 AM EDTPending Prescriptions: Disp Refills Gabapentin 300 MG Oral Capsule [Pharmacy M*120 Ca*0 Sig: take 1 capsule in the morning, 1 capsule at noon and 2 capsules in the evening. * Telephone Encounter - Korin Lemus OSA - 05/23/2024 1:20 PM EDT LM for pt to call back she already has an appt for 06/29 set but asked if she wants to move that * Telephone Encounter - Charito Valdez CRNP - 05/23/2024 1:18 PM EDT Pending Prescriptions: Disp Refills Gabapentin 300 MG Oral Capsule [Pharmacy M*120 Ca*0 Sig: take 1 capsule in the morning, 1 capsule at noon and 2 capsules in the evening. * Telephone Encounter - Charito Valdez CRNP - 05/23/2024 1:17 PM EDT Needs follow up appt for refills Jose, DILMA, ALEX [facility] * Telephone Encounter - Aneta Allen LPN - 05/23/2024 1:16 PM EDTPending Prescriptions: Disp Refills Gabapentin 300 MG Oral Capsule [Pharmacy M*120 Ca*0 Sig: take 1 capsule in the morning, 1 capsule at noon and 2 capsules in the evening. * Telephone Encounter - Aneta Allen LPN - 05/23/2024 1:16 PM EDT Did you pend patient's preferred pharmacy and medication before forwarding?yes Pharmacy: [id number] [facility] Pending Prescriptions: Disp Refills Gabapentin 300 MG Oral Capsule (Neurontin*120 Ca*0 Sig: take 1 capsule in the morning, 1 capsule at noon and 2 capsules in the evening. Last Visit: 03/28/2024 (in office), 07/03/2021 (telemedicine) Next Visit: 06/29/2024 If no future appointments scheduled, and last appointment is greater than a year ago, please schedule patient for a follow-up appointment Last date the medication was ordered: 04/02/2024 Is this request for a controlled substance?No Urine Drug Screen:No results found for this or any previous visit. Patient Phone Numbers Labs: Lab Results Component Value Date/Time CREAT 0.8 03/23/2024 03:35 PM POTASSIUM 4.5 03/23/2024 03:35 PM TSH 1.84 09/09/2022 02:52 PM LDL 131 (H) 01/20/2023 02:20 PM ALT 22 01/03/2024 02:05 PM HGBA1C 7.5 (H) 03/23/2024 03:35 PM * Telephone Encounter - Manjinder Brown - 05/23/2024 1:15 PM EDTPending Prescriptions: Disp Refills Gabapentin 300 MG Oral Capsule [Pharmacy M*120 Ca*0 Sig: take 1capsule in the morning, 1 capsule at noon and 2 capsules in the evening. documented in this encounter Plan of Treatment Upcoming Encounters Date Type Department Care Team (Late st Contact Info) Description 06/04/2024 1:15 PM EDT Office Visit General Surgery, [facility] [address] [place] [address] Yovany Lynn MD [address] [place] [address] 06/05/2024 2:30 PM EDT Office Visit Pharmacy, [facility] [address] [place] [address] [facility] [address] [place] [address] 06/05/2024 3:00 PM EDT Pharmacy Pharmacy, [facility] [address] [place] [address] [facility] [address] [place] [address] 06/29/2024 3:00 PM EST Office Visit Family Practice [facility] [address] [place] [address] Charito Valdez CRNP [address] [place] [address] 07/16/2024 11:30 AM EST Office Visit Otolaryngology [facility] [address] [place] [address] Ross Martin PA-C [address] [place] [address] 09/27/2024 1:30 PM EST Office Visit Cardiology, [facility] [address] [place] [address] Judit Little CRNP [address] [place] [address] 11/01/2024 3:20 PM EDT Office Visit Dermatology[address] [place] [address] Mariola Gonzalez PA-C [address] [place] [address] [place] [address] Health Maintenance Due Date Last Done Comments [...] this encounter Medical Devices Implanted Type Area Captain Room Service Device Identifier Shelf Expiration Date Model / Serial / Lot Lens Intraoc 22.5 - [id number] - [id number] Implanted:Qty: 1 on 10/19/2022 by Jamaal Cristina MD at [facility] Left: Eye [employer] LOMB 07/14/2027 [id number] / [id number] / [id number] documented as of this encounter Visit Diagnoses [...] Power of Attor jasmyne? No Care Teams Exterior Work Helper Relationship Specialty Start Date End Date Charito Valdez CRNP [address] [place] [address] PCP - General Nurse Practitioner 10/08/22 documented as of this encounter
--- OUTSIDE RECORDS SUMMARY | 2024-10-05 12:12 | External Medical Summary | Summary of Care ---
Author Name Unknown Organization [facility] Address [address] [place] [address] Phone [phone] Care Team Providers Care Radio Recorder Name Role Phone Charito Valdez Argelia JOHNSON Primary Care Provider Reason for Visit * Reason Comments Follow Up Hernia. Encounter Details Date Type Department Care Team (Late st Contact Info) Description 04/25/2024 3:45 PM EDT Office Visit General Surgery, [facility] [address] [place] [address] Yovany Lynn MD [address] [place] [address] Lipoma of torso* Allergies Active Allergy Reactions [...] every morning. Active Global Ease Inject Pen [place] 31G X 8 MM (Insulin Pen [...] 03/28/2024 Bilateral leg edema 01/27/2024 Need for ejpapgsjcy-vxhrfjp-faqvsapuv (Tdap) vac cine 01/27/2024 Skin lesion 10/07/2023 [...] examination 12/09/2022 03/15/2023 [facility] 06/10/2022 08/16/2023 Overview: [...] Lynn MD - 04/25/2024 2:57 PM EDT [facility] [address] [facility] [place] [address] [facility] Chief Complaint: Pt. c/o lower abdominal wall mass; 8 cm HPI: Patient is seen in request of Charito JOHNSON. Melanie Arrieta is a 78 year old female who presents with lower abdominal wall mass; 8 cm. Past Surgical History: Procedure Laterality Date CORONARY ANGIOGRAPHY W/LEFT HEART CATH Right 09/30/2023 CORONARY ANGIOGRAPHY W/LEFT HEART CATH performed by Abdullahi Richards MD at [facility] REMOVE CATARACT, INSERT LENS PROSTH Left 10/19/2022 LEFT EXTRACAPSULAR CATARACT REMOVAL WITH INTRAOCULAR LENS performed by Jamaal Cristina MD at [facility] Past Medical History: Diagnosis Date Sleep apnea, [...] Reported on 11/09/2023) Global Ease Inject Pen [place] 31G X 8 MM (Insulin Pen [...] mass; 8 cm PLAN: Will excsie at [facility] on 05/18/2024 Pt. understands this, all questions were answered to the pt. satisfaction and they signed the consent for surgery. Yovany Lynn MD 04/25/2024 3:02 PM documented in this encounter H&P Notes * Yovany Lynn MD - 04/25/2024 3:03 PM EDT [facility] [address] [place] [place] [address] [facility] Chief Complaint: Pt. c/o lower abdominal wall mass; 8 cm HPI: Patient is seen in request of Charito JOHNSON. Melanie Arrieta is a 78 year old female who presents with lower abdominal wall mass; 8 cm. Past Surgical History: Procedure Laterality Date CORONARY ANGIOGRAPHY W/LEFT HEART CATH Right 09/30/2023 CORONARY ANGIOGRAPHY W/LEFT HEART CATH performed by Abdullahi Richards MD at [facility] REMOVE CATARACT, INSERT LENS PROSTH Left 10/19/2022 LEFT EXTRACAPSULAR CATARACT REMOVAL WITH INTRAOCULAR LENS performed by Jamaal Cristina MD at OR [facility] Past Medical History: Diagnosis Date Sleep apnea, [...] Reported on 11/09/2023) Global Ease Inject Pen [place] 31G X 8 MM (Insulin Pen [...] mass; 8 cm PLAN: Will excsie at [facility] on 05/18/2024 Pt. understands this, all questions [...] 05/30/2024 1:00 PM EDT Office Visit Pharmacy, [facility] [address] [address] [facility] [address] [place] [address] 05/30/2024 1:30 PM EDT Pharmacy Pharmacy, [facility] [address] [address] [facility] [address] [place] [address] 06/29/2024 3:00 PM EST Office Visit Family Practice [facility] [address] [place] [address] Charito Valdez CRNP [address] [place] [address] 07/16/2024 11:40 AM EST Office Visit Otolaryngology [facility] [address] [place] [address] Ross Martin PA-C [address] [place] [address] 07/26/2024 3:00 PM EST Office Visit Cardiology, [facility] [address] [place] [address] Judit Little CRNP [address] [place] [address] 11/01/2024 3:20 PM EDT Office Visit Dermatology[address], [place] [address] Mariola Gonzalez PA-C [address] [place] [address] [place] [address] Scheduled Procedures Name Priority Associated Diagnoses Date/Ti [...] this encounter Medical Devices Implanted Type Area Rn Camp Device Identifier Shelf Expiration Date Model / Serial / Lot Lens Intraoc 22.5 - [id number] - [id number] Implanted:Qty: 1 on 10/19/2022 by Jamaal Cristina MD at [facility] Left: Eye [employer] LOMB 07/14/2027 [id number] / [id number] / [id number] documented as of this encounter Visit Diagnoses [...] Power of Attor jasmyne? No Care Teams Radio Recorder Relationship Specialty Start Date End Date Charito Valdez CRNP [address] [place] [address] PCP - General Nurse Practitioner 10/08/22 documented as of this encounter
--- OUTSIDE RECORDS SUMMARY | 2024-10-05 12:12 | External Medical Summary ---
Author Name Unknown Address Unknown Organization : Laboratory Report Ordering Provider Test Date Status MEG WALLS 05/18/2024 12:34:36 Final Observation Date Value Abnormality Reference (Units ) Status Glucose Point of Care 05/18/2024 12:34:36 112 70-120 (mg/dL) Final Performing Location
--- OUTSIDE RECORDS SUMMARY | 2024-10-05 12:12 | External Medical Summary | Summary of Care ---
Author Name Unknown Organization [facility] Address [address] [place] [address] Phone [phone] Care Team Providers Care Cmo Name Role Phone Charito Valdez Argelia JOHNSON Primary Care Provider Reason for Visit * Reason Comments Follow Up Hernia. Encounter Details Date Type Department Care Team (Late st Contact Info) Description 04/25/2024 3:45 PM EDT Office Visit General Surgery, [facility] [address] [place] [address] Yovany Lynn MD [address] [place] [address] Lipoma of torso* Allergies Active Allergy Reactions [...] every morning. Active Global Ease Inject Pen [place] 31G X 8 MM (Insulin Pen Needle) [...] 03/28/2024 Bilateral leg edema 01/27/2024 Need for tlsgnfxgke-uklorhu-kwryeuphh (Tdap) vac cine 01/27/2024 Skin lesion 10/07/2023 [...] examination 12/09/2022 03/15/2023 [facility] 06/10/2022 08/16/2023 [...] Lynn MD - 04/25/2024 2:57 PM EDT [facility] 132 [facility] [place] [address] [facility] Chief Complaint: Pt. c/o lower abdominal wall mass; 8 cm HPI: Patient is seen in request of Charito JOHNSON. Melanie Arrieta is a 78 year old female who presents with lower abdominal wall mass; 8 cm. Past Surgical History: Procedure Laterality Date CORONARY ANGIOGRAPHY W/LEFT HEART CATH Right 09/30/2023 CORONARY ANGIOGRAPHY W/LEFT HEART CATH performed by Abdullahi Richards MD at [facility] REMOVE CATARACT, INSERT LENS PROSTH Left 10/19/2022 LEFT EXTRACAPSULAR CATARACT REMOVAL WITH INTRAOCULAR LENS performed by Jamaal Cristina MD at OR [facility] Past Medical History: Diagnosis Date Sleep [...] Reported on 11/09/2023) Global Ease Inject Pen [place] 31G X 8 MM (Insulin Pen Needle) [...] mass; 8 cm PLAN: Will excsie at [facility] on 05/18/2024 Pt. understands this, all questions were answered to the pt. satisfaction and they signed the consent for surgery. Yovany Lynn MD 04/25/2024 3:02 PM documented in this encounter H&P Notes * Yovany Lynn MD - 04/25/2024 3:03 PM EDT [facility] [address] [place] [address] [facility] Chief Complaint: Pt. c/o lower abdominal wall mass; 8 cm HPI: Patient is seen in request of Charito JOHNSON. Melanie Arrieta is a 78 year old female who presents with lower abdominal wall mass; 8 cm. Past Surgical History: Procedure Laterality Date CORONARY ANGIOGRAPHY W/LEFT HEART CATH Right 09/30/2023 CORONARY ANGIOGRAPHY W/LEFT HEART CATH performed by Abdullahi Richards MD at [facility] REMOVE CATARACT, INSERT LENS PROSTH Left 10/19/2022 LEFT EXTRACAPSULAR CATARACT REMOVAL WITH INTRAOCULAR LENS performed by Jamaal Cristina MD at OR [facility] Past Medical History: Diagnosis Date Sleep [...] Reported on 11/09/2023) Global Ease Inject Pen [place] 31G X 8 MM (Insulin Pen Needle) [...] mass; 8 cm PLAN: Will excsie at [facility] on 05/18/2024 Pt. understands this, [...] 05/30/2024 1:00 PM EDT Office Visit Pharmacy, [facility] [address] [address] [facility] [address] [place] [address] 05/30/2024 1:30 PM EDT Pharmacy Pharmacy, [facility] [address] [address] [facility] [address] [place] [address] 06/29/2024 3:00 PM EST Office Visit Family Practice [facility] [address] [place] [address] Charito Valdez CRNP [address] [place] [address] 07/16/2024 11:40 AM EST Office Visit Otolaryngology [facility] [address] [place] [address] Ross Martin PA-C [address] [place] [address] 07/26/2024 3:00 PM EST Office Visit Cardiology, [facility] [address] [place] [address] Judit Little CRNP [address] [place] [address] 11/01/2024 3:20 PM EDT Office Visit Dermatology[address], [place] [address] Mariola Gonzalez PA-C [address] [place] [address] [place] [address] Scheduled Procedures Name Priority Associated Diagnoses Date/Ti [...] this encounter Medical Devices Implanted Type Area Refractory Tile Helper Device Identifier Shelf Expiration Date Model / Serial / Lot Lens Intraoc 22.5 - [id number] - [id number] Implanted:Qty: 1 on 10/19/2022 by Jamaal Cristina MD at OR [facility] Left: Eye [employer]CH [employer] LOMB 07/14/2027 [id number] / [id number] / [id number] documented as of this encounter Visit Diagnoses [...] Power of Attor jasmyne? No Care Teams Cmo Relationship Specialty Start Date End Date Charito Valdez CRNP [address] [place] [address] PCP - General Nurse Practitioner 10/08/22 documented as of this encounter
--- OUTSIDE RECORDS SUMMARY | 2024-10-05 12:13 | External Medical Summary | Summary of Care ---
Author Name Unknown Organization [facility] Address [address] [place] [address] Phone [phone] Care Team Providers Care Lighting Fixtures Decorator Name Role Phone Charito Valdez Primary Care Provider Reason for Visit * Reason Onset Date Comments Test Results 04/16/2024 Encounter Details Date Type Department Care Team (Late st Contact Info) Description 04/16/[address] [facility] [address] [email or web address] [place] [address] Charito Valdez CRNP [address] [place] [address] Test Results Allergies Active Allergy Reactions Criticality Noted Date Comments Statins Muscle pain 10/08/2021 Sulfa Antibiotics Hives 03/20/2021 documented as of this encounter (statuses as of 04/17/2024) Medications Medication Sig Dispensed Refills Start Date [...] every morning. Active Global Ease Inject Pen [place] 31G X 8 MM (Insulin Pen Needle) [...] diabetic peripheral angiopathy without gangrene, unspecified whether terminologist insulin use (HCC) INJECT UNDER THE SKIN 40 UNITS 3 TIMES A DAY BEFORE MEALS. 40 mL 2 04/04/2024 Active Erythromycin Ethylsuccinate 200 MG/5ML Oral Suspension Reconstituted (Ees)Indications:Jordyn roparesis Take 2.5 mL by mouth in the morning and 2.5 mL at noon and 2.5 mL before bedtime. with meals. 250 mL 1 04/10/2024 Active documented as of this encounter (statuses as of 04/17/2024) Active Problems Problem Noted Date Diagnosed Date Deformity of toenail 03/28/2024 Onychomycosis 03/28/2024 Upper respiratory tract infection 03/28/2024 Suprapubic mass 03/28/2024 Bilateral leg edema 01/27/2024 Need for jumubecrjf-klfivjw-zcdncwhqg (Tdap) vac cine 01/27/2024 Skin lesion 10/07/2023 [...] as of this encounter (statuses as of 04/17/2024) Resolved Problems Problem Noted Date Diagnosed Date Resolved Date Hospital discharge follow-up 10/07/2023 01/27/2024 Otitis externa 06/16/2023 01/03/2024 Preoperative general physical examination 12/09/2022 03/15/2023 Hypertensive heart disease w [facility] CHF (congestive heart failure) 06/10/2022 08/16/2023 Overview: More specified condition noted on pl PRU[address] (dyspnea on exertion) 12/08/2021 Type 2 diabetes mellitus wit h diabetic peripheral angiopathy without gangrene 11/23/2021 0 03/15/2023 documented as of this encounter (statuses as of 04/17/2024) Immunizations Name Administration Dates Next Due COVID-19 [...] encounter Miscellaneous Notes * Telephone Encounter - Tg Anaya LPN - 04/17/2024 4:54 PM EDT Grandson aware and will pass onto pt. * Telephone Encounter - Charito Valdez CRNP - 04/16/2024 10:06 AM EDT Please notify patient ultrasound did not show hernia. Keep appt with general surgery Jose, MSN, ALEX [facility] documented in this encounter Plan of Treatment Upcoming Encounters Date Type Department Care Team (Late st Contact Info) Description 04/19/2024 3:30 PM EDT Office Visit General Surgery, [facility] [address] [place] [address] Yovany Lynn MD [address] [place] [address] 04/24/2024 2:40 PM EDT Office Visit Podiatry [facility] [address] [place] [address] Oneyda Grigsby DPM [address] [place] [address] 05/30/2024 1:00 PM EDT Office Visit Pharmacy, [facility] [address] [place] [address] [facility] [address] [place] [address] 05/30/2024 1:30 PM EDT Pharmacy Pharmacy, [facility] [address] [place] [address] [facility] [address] [place] [address] 06/29/2024 3:00 PM EST Office Visit Family Practice [facility] [address] [place] [address] Charito Valdez CRNP [address] [place] [address] 07/16/2024 11:40 AM EST Office Visit Otolaryngology [facility] [address] [place] [address] Ross Martin PA-C [address] [place] [address] 07/26/2024 3:00 PM EST Office Visit Cardiology, [facility] [address] [place] [address] Judit Little CRNP [address] [place] [address] 11/01/2024 3:20 PM EDT Office Visit Dermatology[address] [place] [address] Mariola Gonzalez PA-C [address] [place] [address] [place] [address] Health Maintenance Due Date Last Done Comments [...] this encounter Medical Devices Implanted Type Area Procedure Analyst Device Identifier Shelf Expiration Date Model / Serial / Lot Lens Intraoc 22.5 - [id number] - [id number] Implanted:Qty: 1 on 10/19/2022 by Jamaal Cristina MD at [facility] Left: Eye [employer] LOMB 07/14/2027 [id number] / [id number] / [id number] documented as of this encounter Advance Directives [...] Power of Attor jasmyne? No Care Teams Lighting Fixtures Decorator Relationship Specialty Start Date End Date Charito Valdez CRNP [address] [place] [address] PCP - General Nurse Practitioner 10/08/22 documented as of this encounter
--- OUTSIDE RECORDS SUMMARY | 2024-10-05 12:13 | External Medical Summary | Summary of Care ---
Author Name Unknown Organization [facility] Address [address] [place] [address] Phone [phone] Care Team Providers Care Clinical Trial Head Name Role Phone Charito Valdez Argelia JOHNSON Primary Care Provider Reason for Visit * Reason Onset Date Comments Medication Refill 04/09/2024 Encounter Details Date Type Department Care Team (Late st Contact Info) Description 04/09/2024 Refill Family Practice [facility] [address] [facility] [place] [address] Lizette Hill PA-C [address] [facility] [place] [address] Gastroparesis Allergies Active Allergy Reactions Criticality Noted Date Comments Statins Muscle pain 10/08/2021 Sulfa Antibiotics Hives 03/20/2021 documented as of this encounter (statuses as of 04/10/2024) Medications Medication Sig Dispensed Refills Start Date [...] every morning. Active Global Ease Inject Pen [place] 31G X 8 MM (Insulin Pen Needle) Use as needed up to 4 times per day 400 Each 3 3 Active Docusate Sodium 100 MG Oral Capsule (Colace) Take 1 Capsule by mouth in the morning and 1 Capsule before bedtime. 60 Capsule 11 3 Active Additional Information Patient not taking.Reported on [...] twice daily 170 g 3 4 Active Lantus SoloStar 100 UNIT/ML Subcutaneous [...] for Cough. 30 Capsule 1 4 Active Gabapentin 300 MG Oral Capsule (Neurontin)Indicatio ns:Chronic right-sided low back pain with right-sided sciatica take 1 capsule in the morning, 1 capsule at noon and 2 capsules in the evening. 120 Capsule 4 Active Insulin Aspart 100 UNIT/ML Injection Solution (NovoLOG)Indications :Type 2 diabetes mellitus with diabetic peripheral angiopathy without gangrene, unspecified whether computer terminal operator insulin use (HCC) INJECT UNDER THE SKIN 40 UNITS 3 TIMES A DAY BEFORE MEALS. 40 mL 2 4 Active Erythromycin Ethylsuccinate 200 MG/5ML Oral Suspension Reconstituted (Ees)Indications:Gas troparesis Take 2.5 mL by mouth in the morning and 2.5 mL at noon and 2.5 mL before bedtime. with meals. 250 mL 1 4 Active Erythromycin Ethylsuccinate 200 MG/5ML Oral Suspension Reconstituted (Ees)Indications:Gas troparesis Take 2.5 mL by mouth in the morning and 2.5 mL at noon and 2.5 mL before bedtime. with meals. 250 mL 5 3 04/09/20 24 Discontinu ed(Refill) documented as of this encounter (statuses as of 04/10/2024) Active Problems Problem Noted Date Diagnosed Date Deformity of toenail 03/28/2024 Onychomycosis 03/28/2024 Upper respiratory tract infection 03/28/2024 Suprapubic mass 03/28/2024 Bilateral leg edema 01/27/2024 Need for mjllzxegzx-zgwidir-yxofmifdi (Tdap) vac cine 01/27/2024 Skin lesion 10/07/2023 [...] as of this encounter (statuses as of 04/10/2024) Resolved Problems Problem Noted Date Diagnosed Date [...] as of this encounter (statuses as of 04/10/2024) Immunizations Name Administration Dates Next Due COVID-19 [...] Telephone Encounter - Charito Valdez CRNP - 04/10/2024 7:37 AM EDT Signed Prescriptions: Disp Refills Erythromycin Ethylsuccinate 200 MG/5ML Ora*250 mL 1 Sig: Take 2.5 mL by mouth in the morning and 2.5 mL at noon and 2.5 mL before bedtime. with meals. Authorizing Provider: CHARITO VALDEZ * Telephone Encounter - Magdalene Philippe LPN - 04/09/2024 3:17 PM EDTPending Prescriptions: Disp Refills Erythromycin Ethylsuccinate 200 MG/5ML Ora*250 mL 5 Sig: Take 2.5 mL by mouth in the morning and 2.5 mL at noon and 2.5 mL before bedtime. with meals. * Telephone Encounter - Letha Méndez CMA - 04/09/2024 2:51 PM EDTPending Prescriptions: Disp Refills Erythromycin Ethylsuccinate 200 MG/5ML Ora*250 mL 5 Sig: Take 2.5 mL by mouth in the morning and 2.5 mL at noon and 2.5 mL before bedtime. with meals. * Telephone Encounter - Amita Grimm OSA - 04/09/2024 2:39 PM EDT Did you pend patient's preferred pharmacy and medication before forwarding?yes Pharmacy: [id number] [address] [facility] Pending Prescriptions: Disp Refills Erythromycin Ethylsuccinate 200 MG/5ML Or*250 mL 5 Sig: Take 2.5 mL by mouth in [...] appointment Last date the medication was ordered: 06/28/2023 Is this request for a controlled substance?No Urine Drug Screen:No results found for this or any previous visit. Patient Phone Numbers Labs: Lab Results Component Value Date/Time CREAT 0.8 03/23/2024 03:35 PM POTASSIUM 4.5 03/23/2024 03:35 PM TSH 1.84 09/09/2022 02:52 PM LDLCALC 131 (H) 01/20/2023 02:20 PM ALT 22 01/03/2024 02:05 PM HGBA1C 7.5 (H) 03/23/2024 03:35 PM documented in this encounter Plan of Treatment Upcoming Encounters Date Type Department Care Team (Late st Contact Info) Description 04/11/2024 4:00 PM EDT Imaging Radiology [facility] [address] [place] [address] 04/12/2024 2:00 PM EDT Office Visit Cardiology, [facility] [address] [place] [address] [address] Judit Little CRNP [address] [place] [address] 04/20/2024 8:00 AM EDT Office Visit General Surgery, [facility] [address] [place] [address] Helder Borrego MD [address] [place] [address] 04/24/2024 2:40 PM EDT Office Visit Podiatry [facility] [address] [place] [address] Oneyda Grigsby [facility] [address] [place] [address] 05/30/2024 1:00 PM EDT Office Visit Pharmacy, [facility] [address] [facility] [address] [place] [address] 05/30/2024 1:30 PM EDT Pharmacy Pharmacy, [facility] [address] [place] [address] [facility] [address] [place] [address] 06/29/2024 3:00 PM EST Office Visit Family Practice [facility] [address] [place] [address] Charito Valdez CRNP [address] [place] [address] 07/16/2024 11:40 AM EST Office Visit Otolaryngology [facility] [address] [place] [address] Ross Martin PA-C [address] [place] [address] 11/01/2024 3:20 PM EDT Office Visit Dermatology[address] [place] [address] Mariola Gonzalez PA-C [address] [place] [address] [place] [address] Health Maintenance Due Date Last Done Comments Depression Monitoring 1956 Zoster Vaccines (1 of 2) 1994 Adult Wellness Visit 2010 DXA Scan 08/05/2022 08/05/2015, 08/05/2015 COVID-19 Vaccine ( season) 2023 11/08/2020, 10/11/2020 Diabetic Foot Exam 06/10/2023 06/10/2022, 06/22/2021 Influenza Vaccine (FLU shot) (#1) 2024 06/16/2023, [...] this encounter Medical Devices Implanted Type Area Decating Machine Operator Device Identifier Shelf Expiration Date Model / Serial / Lot Lens Intraoc 22.5 - [id number] - [id number] Implanted:Qty: 1 on 10/19/2022 by Jamaal Cristina MD at OR [facility] Left: Eye BAUSCH & LOMB 07/14/2027 [id number] / [id number] / [id number] documented as of this encounter Visit Diagnoses [...] Power of Attor jasmyne? No Care Teams Clinical Trial Head Relationship Specialty Start Date End Date Charito Valdez CRNP [address] [place] [address] PCP - General Nurse Practitioner 10/08/22 documented as of this encounter
--- OUTSIDE RECORDS SUMMARY | 2024-10-05 12:13 | External Medical Summary | Summary of Care ---
Author Name Unknown Organization [facility] Address [address] [place] [address] Phone [phone] Care Team Providers Care Glass Beveler Name Role Phone Charito Valdez Argelia JOHNSON Primary Care Provider Reason for Visit * Reason Comments Follow Up Hernia. Encounter Details Date Type Department Care Team (Late st Contact Info) Description 04/25/2024 3:45 PM EDT Office Visit General Surgery, [facility] [address] [place] [address] Yovany Lynn MD [address] [place] [address] Lipoma of torso* Allergies Active Allergy Reactions [...] every morning. Active Global Ease Inject Pen [place] 31G X 8 MM (Insulin Pen Needle) [...] 03/28/2024 Bilateral leg edema 01/27/2024 Need for loxuxvsiwm-mzulljp-brxihbeco (Tdap) vac cine 01/27/2024 Skin lesion 10/07/2023 [...] examination 12/09/2022 03/15/2023 [facility] 06/10/2022 08/16/2023 [...] Lynn MD - 04/25/2024 2:57 PM EDT [facility] [address] [facility] [place] [address] [facility] Chief Complaint: Pt. c/o lower abdominal wall mass; 8 cm HPI: Patient is seen in request of Charito JOHNSON. Melanie Arrieta is a 78 year old female who presents with lower abdominal wall mass; 8 cm. Past Surgical History: Procedure Laterality Date CORONARY ANGIOGRAPHY W/LEFT HEART CATH Right 09/30/2023 CORONARY ANGIOGRAPHY W/LEFT HEART CATH performed by Abdullahi Richards [place] [facility] [place]OVE CATARACT, INSERT LENS PROSTH Left 10/19/2022 LEFT EXTRACAPSULAR CATARACT REMOVAL WITH INTRAOCULAR LENS performed by Jamaal Cristina MD at OR [facility] Past Medical History: Diagnosis Date Sleep apnea, [...] Reported on 11/09/2023) Global Ease Inject Pen [place] 31G X 8 MM (Insulin Pen Needle) [...] mass; 8 cm PLAN: Will excsie at [facility] on 05/18/2024 Pt. understands this, all questions were answered to the pt. satisfaction and they signed the consent for surgery. Yovany Lynn MD 04/25/2024 3:02 PM documented in this encounter H&P Notes * Yovany Lynn MD - 04/25/2024 3:03 PM EDT [facility] [address] [place] [address] [facility] Chief Complaint: Pt. c/o lower abdominal wall mass; 8 cm HPI: Patient is seen in request of Charito JOHNSON. Melanie Arrieta is a 78 year old female who presents with lower abdominal wall mass; 8 cm. Past Surgical History: Procedure Laterality Date CORONARY ANGIOGRAPHY W/LEFT HEART CATH Right 09/30/2023 CORONARY ANGIOGRAPHY W/LEFT HEART CATH performed by Abdullahi Richards MD [place] [facility] REMOVE CATARACT, INSERT LENS PROSTH Left 10/19/2022 LEFT EXTRACAPSULAR CATARACT REMOVAL WITH INTRAOCULAR LENS performed by Jamaal Cristina MD at OR [facility] Past Medical History: Diagnosis Date Sleep apnea, [...] Reported on 11/09/2023) Global Ease Inject Pen [place] 31G X 8 MM (Insulin Pen Needle) [...] mass; 8 cm PLAN: Will excsie at [facility] on 05/18/2024 Pt. understands this, [...] 05/30/2024 1:00 PM EDT Office Visit Pharmacy, [facility] [address] [address] [facility] [address] [place] [address] 05/30/2024 1:30 PM EDT Pharmacy Pharmacy, [facility] [address] [address] [facility] [address] [place] [address] 06/29/2024 3:00 PM EST Office Visit Family Practice [facility] [address] [place] [address] Charito Valdez CRNP [address] [place] [address] 07/16/2024 11:40 AM EST Office Visit Otolaryngology [facility] [address] [place] [address] Ross Martin PA-C [address] [place] [address] 07/26/2024 3:00 PM EST Office Visit Cardiology, [facility] [address] [place] [address] Judit Little CRNP [address] [place] [address] 11/01/2024 3:20 PM EDT Office Visit Dermatology[address], [place] [address] Mariola Gonzalez PA-C [address] [place] [address] [place] [address] Scheduled Procedures Name Priority Associated Diagnoses Date/Ti [...] this encounter Medical Devices Implanted Type Area Metallurgical Inspector Device Identifier Shelf Expiration Date Model / Serial / Lot Lens Intraoc 22.5 - [id number] - [id number] Implanted:Qty: 1 on 10/19/2022 by Jamaal Cristina MD at OR [facility] Left: Eye BAUSCH & LOMB 07/14/2027 [id number] / [id number] / [id number] documented as of this encounter Visit Diagnoses [...] Power of Attor jasmyne? No Care Teams Glass Beveler Relationship Specialty Start Date End Date Charito Valdez CRNP [address] [place] [address] PCP - General Nurse Practitioner 10/08/22 documented as of this encounter
--- OUTSIDE RECORDS SUMMARY | 2024-10-05 12:13 | External Medical Summary | Summary of Care ---
Author Name Unknown Organization [facility] Address [address] [place] [address] Phone [phone] Care Team Providers Care Flare Stitcher Name Role Phone Charito Valdez Primary Care Provider Reason for Visit * Reason Comments NEW PATIENT Nail * Evaluate & Treat - Unlimited Visits (Within 30 days (routine)) - Authorized Specialty Diagnoses / Procedures Referred By Shannon hardin Referred To Contact Podiatry Diagnoses Deformity of toenail Charito Valdez CRNP [address] [place] [address] Referral ID Status Reason Start Date Expiration Date Visits Requested Visits Authorized [id number] Authorized Specialty Services Required 03/28/[phone] Encounter Details Date Type Department Care Team (Late st Contact Info) Description 04/24/2024 2:40 PM EDT Office Visit Podiatry [facility] [address] [facility] [place] [address] Oneyda Grigsby DPM [address] [place] [address] Ingrowing nail, right great toe*; Onychomycosis; Pain in toes of both feet; Type 2 diabetes mellitus with diabetic polyneuropathy, with long-term current use of insulin (HCC) Allergies Active Allergy Reactions Criticality Noted Date Comments Statins Muscle pain 10/08/2021 Sulfa Antibiotics Hives 03/20/2021 documented as of this encounter (statuses as of 04/24/2024) Medications Medication Sig Dispensed Refills Start Date [...] every morning. Active Global Ease Inject Pen [place] 31G X 8 MM (Insulin Pen Needle) [...] diabetic peripheral angiopathy without gangrene, unspecified whether nursing home insulin use (HCC) INJECT UNDER THE SKIN 40 UNITS 3 TIMES A DAY BEFORE MEALS. 40 mL 2 04/04/2024 Active Erythromycin Ethylsuccinate 200 MG/5ML Oral Suspension Reconstituted (Ees)Indications:Jordyn roparesis Take 2.5 mL by mouth in the morning and 2.5 mL at noon and 2.5 mL before bedtime. with meals. 250 mL 1 04/10/2024 Active documented as of this encounter (statuses as of 04/24/2024) Active Problems Problem Noted Date Diagnosed Date Deformity of toenail 03/28/2024 Onychomycosis 03/28/2024 Upper respiratory tract infection 03/28/2024 Suprapubic mass 03/28/2024 Bilateral leg edema 01/27/2024 Need for tfuwyizehk-nbraifl-pdqotbivu (Tdap) vac cine 01/27/2024 Skin lesion 10/07/2023 [...] as of this encounter (statuses as of 04/24/2024) Resolved Problems Problem Noted Date Diagnosed Date [...] as of this encounter (statuses as of 04/24/2024) Immunizations Name Administration Dates Next Due COVID-19 [...] as of this encounter Progress Notes * Oneyda Grigsby, DPM - 04/24/2024 3:04 PM EDT Podiatry New Patient Note [facility] Name: Melanie Arrieta : 1945 Date: 04/24/2024 CHIEF COMPLAINT: Routine Nail Care HISTORY OF PRESENT ILLNESS: This patient is a 78 year old female who presents today routine nail care. Pt states she is having pain to the right great toe and all the toenail on her left foot are thickened and painful. She has pain when wearing shoes. Does not see a chemical cell changer for nail care. Deniesany other complaints. Past Medical History: Diagnosis Date Sleep apnea, obstructive Past Surgical History: Procedure Laterality Date CORONARY ANGIOGRAPHY W/LEFT HEART CATH Right 09/30/2023 CORONARY ANGIOGRAPHY W/LEFT HEART CATH performed by Abdullahi Richards MD at [facility] REMOVE CATARACT, INSERT LENS PROSTH Left 10/19/2022 LEFT EXTRACAPSULAR CATARACT REMOVAL WITH INTRAOCULAR LENS performed by Jamaal Cristina MD at OR [facility] No family history on file. Social History Socioeconomic History Marital status: Single Tobacco Use Smoking status: Never Smokeless tobacco: Never Vaping Use Vaping status: Never Used Substance and Sexual Activity Alcohol use: Never Drug use: Never Social Determinants of Health Social Connections Current Outpatient Medications Medication Sig Dispense Refill [...] Reported on 11/09/2023) Global Ease Inject Pen [place] 31G X 8 MM (Insulin Pen Needle) [...] No current facility-administered medications for this visit. ALLERGIES: Review of patient's allergies indicates: Allergen Reactions Statins Muscle pain Sulfa Antibiotics Hives REVIEW OF SYSTEMS: CONSTITUTIONAL: No change in weight, No weakness, No fatigue, and No fevers, sweats, or chills EYE: No recent significant change in vision and No eye pain, redness, discharge EARS: No ear pain and No recent change in hearing NOSE: No history of frequent colds or sinusitis and No nasal stuffiness PULMONARY: No cough, sputum, or hemoptysis and No recent change in breathing CARDIOVASCULAR: No chest pain and No shortness of breath EXTREMITIES: Elongated nails SKIN/INTEGUMENTARY: No edema, No rash, and No itching NEUROLOGIC: Normal balance, No headaches, No seizures, and No weakness PSYCHIATRIC: No depression, No anxiety, and No psychosis FOCUSED PODIATRIC EXAM: Vitals: There were no vitals filed for this visit. General: Patient is awake alert oriented to person place time. No apparent distress. Vascular: DP/PT pulses palpable, danilo. CFT < 3 sec 1-5, danilo. No edema noted, danilo. Temperature gradient is normal warm to cold, danilo. Neurologic: Protective sensation intact to light touch, danilo. Sensation to sharp/dull is intact, danilo. Dermatological: Skin is normal in appearance with no open lesions or interdigital macerations, danilo. Nails 1-5, leftare thickened and discolored. Ingrowing nail noted to the medial border, right great toe. Nails 2-5, right are normal in length and thickness. Pedal hair is absent, danilo. Musculoskeletal: POP noted to the right great toe and nails to the left foot. No pain with active or passive ROM of the digits or ankle joint, danilo. Muscle strength is 5/5 for all muscle groups of the lower extremity,danilo. DIAGNOSTIC STUDIES: None ASSESSMENT: Ingrowing nail, medial border, right great toe Onychomycosis Pain in toes, danilo DM2 PLAN: - Nails 1-5, left were trimmed with a nail nipper to appropriate length and thickness. - Right hallux nail trimmed with a nail nipper with relief for ingrowing nail. - Explained we are not currently accepting any new nail care patients and have not for the past 7 years. List of local nail care providers given. - Activity to tolerance - OTC pain medication PRN. - Pt to RTC PRN. Instructed to call with any problems or questions. Oneyda Grigsby DPM Referring: Charito JOHNSON documented in this encounter Nursing Notes * Marialuisa Velez LPN - 04/24/2024 2:45 PM EDT Pt presents for new visit, referred by PCP. States some of her nails are painful, feels they need 'sanded off'. The bilateral first toenails are the most painful, at the corners. States she doesn't think her shoes are too tight across the toes. documented in this encounter Plan of Treatment Upcoming Encounters Date Type Department Care Team (Late st Contact Info) Description 04/25/2024 3:45 PM EDT Office Visit General Surgery, [facility] [address] [address] Yovany Lynn MD [address] [place] [address] [address] 05/30/2024 1:00 PM EDT Office Visit Pharmacy, [facility] [address] [place] [address] [address] [facility] [address] [place] [address] [address] 05/30/2024 1:30 PM EDT Pharmacy Pharmacy, [facility] [address] [address] [facility] [address] [place] [address] 06/29/2024 3:00 PM EST Office Visit Family Practice [facility] [address] [place] [address] Charito Valdez CRNP [address] [place] [address] 07/16/2024 11:40 AM EST Office Visit Otolaryngology [facility] [address] [place] [address] Ross Martin PA-C [address] [place] [address] 07/26/2024 3:00 PM EST Office Visit Cardiology, [facility] [address] [place] [address] Judit Little CRNP [address] [place] [address] 11/01/2024 3:20 PM EDT Office Visit Dermatology[address] [place] [address] Mariola Gonzalez [place]helsea [address] [place] [address] [place] [address] Scheduled Referrals Name Type Priority Associated Diagnoses Orde r Schedule PODIATRY REFERRAL OP Referral Within 30 days (routine) Deformity of toenail Ordered: 03/28/2024 Health Maintenance Due Date Last Done Comments Depression Monitoring 1956 Zoster Vaccines (1 of 2) 1994 Adult Wellness Visit 2010 DXA Scan 08/05/2022 08/05/2015, 08/05/2015 Diabetic Foot Exam 06/10/2023 06/10/2022, 06/22/2021 COVID-19 Vaccine (3 - 2023-24 season) 2024 11/08/2020, 10/11/2020 Influenza Vaccine (FLU [...] this encounter Medical Devices Implanted Type Area Joint Setter Device Identifier Shelf Expiration Date Model / Serial / Lot Lens Intraoc 22.5 - [id number] - [id number] Implanted:Qty: 1 on 10/19/2022 by Jamaal Cristina MD at OR [facility] Left: Eye BAUSCH & LOMB 07/14/2027 [id number] / [id number] / [id number] documented as of this encounter Visit Diagnoses Diagnosis Ingrowing nail, right great toe- Primary Ingrowing nail Onychomycosis Dermatophytosis of nail Pain in toes of both feet Type 2 diabetes mellitus with diabetic polyneuropathy, [...] Power of Attor jasmyne? No Care Teams Flare Stitcher Relationship Specialty Start Date End Date Charito Valdez CRNP [address] [place] [address] PCP - General Nurse Practitioner 10/08/22 documented as of this encounter
--- OUTSIDE RECORDS SUMMARY | 2024-10-05 12:13 | External Medical Summary | Summary of Care ---
Author Name Unknown Organization [facility] Address [address] [place] [address] Phone [phone] Care Team Providers Care Can Inspector Name Role Phone Charito Valdez Primary Care Provider Reason for Visit * Reason Comments NEW PATIENT Nail * Evaluate & Treat - Unlimited Visits (Within 30 days (routine)) - Authorized Specialty Diagnoses / Procedures Referred By Shannon hardin Referred To Contact Podiatry Diagnoses Deformity of toenail Charito Valdez CRNP [address] [place] [address] Referral ID Status Reason Start Date Expiration Date Visits Requested Visits Authorized [id number] Authorized Specialty Services Required 03/28/[phone] Encounter Details Date Type Department Care Team (Late st Contact Info) Description 04/24/2024 2:40 PM EDT Office Visit Podiatry [facility] [address] [facility] [place] [address] Oneyda Grigsby DPM [address] [place] [address] Ingrowing nail, right great toe*; Onychomycosis; Pain [...] every morning. Active Global Ease Inject Pen [place] 31G X 8 MM (Insulin Pen Needle) [...] peripheral angiopathy without gangrene, unspecified whether senior care insulin use (HCC) INJECT UNDER THE SKIN [...] 03/28/2024 Bilateral leg edema 01/27/2024 Need for prqwnfghex-zslbqnd-argiumlig (Tdap) vac cine 01/27/2024 Skin lesion 10/07/2023 [...] 3:04 PM EDT Podiatry New Patient Note [facility] Name: Melanie Arrieta : 1945 Date: 04/24/2024 CHIEF COMPLAINT: Routine Nail Care HISTORY OF PRESENT ILLNESS: This patient is a 78 year old female who presents today routine nail care. Pt states she is having pain to the right great toe and all the toenail on her left foot are thickened and painful. She has pain when wearing shoes. Does not see a medical affairs director for nail care. Deniesany other complaints. Past Medical History: Diagnosis Date Sleep apnea, obstructive Past Surgical History: Procedure Laterality Date CORONARY ANGIOGRAPHY W/LEFT HEART CATH Right 09/30/2023 CORONARY ANGIOGRAPHY W/LEFT HEART CATH performed by Abdullahi Richards MD at [facility] REMOVE CATARACT, INSERT LENS PROSTH Left 10/19/2022 LEFT EXTRACAPSULAR CATARACT REMOVAL WITH INTRAOCULAR LENS performed by Jamaal Cristina MD at [facility] No family history on file. Social [...] Reported on 11/09/2023) Global Ease Inject Pen [place] 31G X 8 MM (Insulin Pen Needle) [...] 3 sec 1-5, danilo. No edema noted, dnailo. Temperature gradient is normal warm to cold, [...] 3:45 PM EDT Office Visit General Surgery, [facility] [address] [address] Yovany Lynn MD [address] [place] [address] 05/30/2024 1:00 PM EDT Office Visit Pharmacy, [facility] [address] [place] [address] [facility] [address] [place] [address] 05/30/2024 1:30 PM EDT Pharmacy Pharmacy, [facility] [address] [address] [facility] [address] [place] [address] 06/29/2024 3:00 PM EST Office Visit Family Practice [facility] [address] [place] [address] Charito Valdez CRNP [address] [place] [address] 07/16/2024 11:40 AM EST Office Visit Otolaryngology [facility] [address] [place] [address] Ross Martin PA-C [address] [place] [address] 07/26/2024 3:00 PM EST Office Visit Cardiology, [facility] [address] [place] [address] Judit Little CRNP [address] [place] [address] 11/01/2024 3:20 PM EDT Office Visit Dermatology[address] [place] [address] Mariola Gonzalez PAChelsea [address] [place] [address] [place] [address] Scheduled Referrals Name Type Priority Associated Diagnoses [...] this encounter Medical Devices Implanted Type Area Metal Sander And Finisher Device Identifier Shelf Expiration Date Model / Serial / Lot Lens Intraoc 22.5 - [id number] - [id number] Implanted:Qty: 1 on 10/19/2022 by Jamaal Cristina MD at [facility] Left: Eye [employer]USCH [employer] LOMB 07/14/2027 [id number] / [id number] / [id number] documented as of this encounter Visit Diagnoses [...] Power of Attor jasmyne? No Care Teams Can Inspector Relationship Specialty Start Date End Date Charito Valdez CRNP [address] [place] [address] PCP - General Nurse Practitioner 10/08/22 documented as of this encounter
--- OUTSIDE RECORDS SUMMARY | 2024-10-05 12:13 | External Medical Summary | Summary of Care ---
Author Name Unknown Organization [facility] Address [address] [place] [address] Phone [phone] Care Team Providers Care Holistic Specialist Name Role Phone Charito Valdez Argelia JOHNSON Primary Care Provider Reason for Visit * Reason Comments NEW PATIENT Hernia Encounter Details Date Type Department Care Team (Late st Contact Info) Description 04/19/2024 3:30 PM EDT Office Visit General Surgery, [facility] [address] [place] [address] Yovany Lynn MD [address] [facility] [place] [address] Ventral hernia without obstruction or gangrene*; Abdominal wall mass Allergies Active Allergy Reactions Criticality Noted Date Comments Statins Muscle pain 10/08/2021 Sulfa Antibiotics Hives 03/20/2021 documented as of this encounter (statuses as of 04/19/2024) Medications Medication Sig Dispensed Refills Start Date [...] every morning. Active Global Ease Inject Pen [place] 31G X 8 MM (Insulin Pen Needle) [...] diabetic peripheral angiopathy without gangrene, unspecified whether ad terminal makeup operator insulin use (HCC) INJECT UNDER THE SKIN 40 UNITS 3 TIMES A DAY BEFORE MEALS. 40 mL 2 04/04/2024 Active Erythromycin Ethylsuccinate 200 MG/5ML Oral Suspension Reconstituted (Ees)Indications:Jordyn roparesis Take 2.5 mL by mouth in the morning and 2.5 mL at noon and 2.5 mL before bedtime. with meals. 250 mL 1 04/10/2024 Active documented as of this encounter (statuses as of 04/19/2024) Active Problems Problem Noted Date Diagnosed Date Deformity of toenail 03/28/2024 Onychomycosis 03/28/2024 Upper respiratory tract infection 03/28/2024 Suprapubic mass 03/28/2024 Bilateral leg edema 01/27/2024 Need for ivpwrfocor-jijsjry-cyrljnuog (Tdap) vac cine 01/27/2024 Skin lesion 10/07/2023 [...] as of this encounter (statuses as of 04/19/2024) Resolved Problems Problem Noted Date Diagnosed Date Resolved Date Hospital discharge follow-up 10/07/2023 01/27/2024 Otitis externa 06/16/2023 01/03/2024 Preoperative general physical examination 12/09/2022 03/15/2023 [facility] 06/10/2022 08/16/2023 Overview: More specified condition noted on pl PRUITT (dyspnea on exertion) 12/08/2021 Type 2 diabetes mellitus wit h diabetic peripheral angiopathy without gangrene 11/23/2021 0 03/15/2023 documented as of this encounter (statuses as of 04/19/2024) Immunizations Name Administration Dates Next Due COVID-19 [...] Progress Notes * Yovany Lynn MD - 04/19/2024 3:32 PM EDT [facility] [address] [place] [address] [facility] HPI.: Melanie Arrieta is a 78 year old female seen in consultation for Chief Complaint Patient presents with NEW PATIENT Hernia . They have had symptoms present for months duration. The symptoms did not started at work. Their pain is intermittent and is usually associated with lifting. The lump is not reducible. The patient hasno symptoms of chronic constipation,chronic cough,difficulty urinating. The hernia is associated with a previous scar from a low midline. Past Medical History Past Medical History: Diagnosis Date Sleep apnea, obstructive Past Surgical History Past Surgical History: Procedure Laterality Date CORONARY ANGIOGRAPHY W/LEFT HEART CATH Right 09/30/2023 CORONARY ANGIOGRAPHY W/LEFT HEART CATH performed by Abdullahi Richards MD at [facility] REMOVE CATARACT, INSERT LENS PROSTH Left 10/19/2022 LEFT EXTRACAPSULAR CATARACT REMOVAL WITH INTRAOCULAR LENS performed by Jamaal Cristina MD at [facility] Medications: Current Outpatient Medications Medication Sig Dispense Refill [...] Reported on 11/09/2023) Global Ease Inject Pen [place] 31G X 8 MM (Insulin Pen Needle) [...] No current facility-administered medications for this visit. Allergies: Allergies as of 04/19/2024 - Reviewed 04/19/2024 Allergen Reaction Noted Statins Muscle pain 10/08/2021 Sulfa antibiotics Hives 03/20/2021 Family History No family history on file. Social History Social History Socioeconomic History Marital status: [...] Social History Narrative Not on file Social Determinants of Health Financial Resource Strain: Not on file Food Insecurity: Not on file Transportation Needs: Not on file Social Connections: Unknown (01/31/2024) Social Connections How often do you feel lonely or isolated from those around you? (Adult - for ages 18 years and over): Not on file Housing Stability: Not on file ROS: GEN: no weight loss, fever, fatigue HEENT: no changes in vision or hearing, no sinus problems, no sore throat, no hoarseness RESPIRATORY: no cough, wheezing, SOB or change in breathing CARDIOVASCULAR: no exertional chest pain, dyspnea, palpitations GI: no melena or hemetemesis, no change in bowel habits, no nausea or vomiting : no dysuria, hematuria, frequency MUSCULOSKELETAL: no change in joint pains, no new arthritis PSYCHIATRIC: no significant anxiety or depression, unchanged sleep pattern HEME: no bleeding tendency, no clotting tendency NEURO: no significant headache, no seizures , no tremors SKIN: no new rashes, no itching Physical Exam: There were no vitals taken for this visit. Constitutional: alert,healthy,well nourished Head: normocephalic,atraumatic Eyes: conjunctiva non-injected,sclera white,EOMI Ears: pinna normal shape and color Neck: supple,no JVD,trachea midline Lungs: clear to auscultation,breath sounds are equal and symmetric,no crepitus Heart: regular rate & rhythm,no murmur, gallops or rubs Abdomen: soft ,positive bowel sounds,non-tender; questionable ventral/incisional hernia suprapubic in low midline, reducible Extremities: no joint deformities, effusion, or inflammation,no edema,no skin discoloration Neuro: alert,gait normal,motor normal Skin: no obvious rashes or significant lesions,warm and dry with good turgor Imaging:US pending IMP: Melanie Arrieta is a 78 year old female with a possible ventral/incisional hernia which is currently symptomatic. For this reason, I have recommended that the patient consider a hernia repair. This could be performed in open or laparascopic approach. Laparascopic surgery is useful in with incisional hernias and complex ventral hernias with fewer wound/mesh problems and early return to normal activity. I discussed the surgery in detail and the complications related to the surgery and the anesthesia. The risks of inherent to laparascopic surgery including seroma formation and the possibility of injuring the bowel or blood vessels were also discussed. Overall risks include, but are not limited to: recurrence of the hernia, post-op and chronic pain, numbness, bleeding, wound problems and mesh infection requiring mesh removal. Patient understands these risks. Expected same day nature of surgery and postoperative recovery period reviewed. Activity restrictions postoperatively to include no heavy lifting or high impact activity for three to six weeks reviewed. All questions were answered to the patient's satisfaction and consent was signed. Conservative treatment with avoidance of heavy lifting or straining until after surgical repair was discussed. We also reviewed the signs and symptoms of incarceration/strangulationand the patient was instructed to go directly to the emergency room should this occur. PLAN:Will check US and see back; possible lap ventral/incisional hernia repair with mesh. Yovany Lynn MD 04/19/2024 3:32 PM documented in this encounter Nursing Notes * Ja Alvarez MED ASSIST - 04/19/2024 3:37 PM EDT Chief Complaint Patient presents with NEW PATIENT Hernia Verified patient. Some pain 6/10 constant. documented in this encounter Plan of Treatment Upcoming Encounters Date Type Department Care Team (Late st Contact Info) Description 04/20/2024 11:15 AM EDT Imaging Radiology [address] [place] [address] 04/24/2024 2:40 PM EDT Office Visit [facility]iat[facility] [place] [address] Oneyda Grigsby DPM [address] [place] [address] 04/25/2024 3:45 PM EDT Office Visit General Surgery, [facility] [address] [place] [address] Yovany Lynn MD [address] [place] [address] 05/30/2024 1:00 PM EDT Office Visit Pharmacy, [facility] [address] [place] [address] [facility] [address] [place] [address] 05/30/2024 1:30 PM EDT Pharmacy Pharmacy, [facility] [address] [place] [address] [facility] [address] [place] [address] 06/29/2024 3:00 PM EST Office Visit Family Practice [facility] [address] [place] [address] Charito Valdez CRNP [address] [place] [address] 07/16/2024 11:40 AM EST Office Visit Otolaryngology [facility] [address] [place] [address] Ross Martin PA-C [address] [place] [address] 07/26/2024 3:00 PM EST Office Visit Cardiology, [facility] [address] [place] [address] Judit Little CRNP [address] [place] [address] 11/01/2024 3:20 PM EDT Office Visit Dermatology[address] [place] [address] Mariola Gonzalez PA-C [address] [place] [address] [place] [address] Scheduled Orders Name Type Priority Associated Diagnoses Orde r Schedule US ABDOMEN LIMITED Medical Imaging Routine Ventral hernia without obstruction or gangrene Abdominal wall mass Expected: 05/03/2024 (Approximate), Expires: 05/19/2025 Health Maintenance Due Date Last Done Comments [...] this encounter Medical Devices Implanted Type Area Crusher And Blender Operator Device Identifier Shelf Expiration Date Model / Serial / Lot Lens Intraoc 22.5 - [id number] - [id number] Implanted:Qty: 1 on 10/19/2022 by Jamaal Cristina MD at [facility] Left: Eye BAUSCH & LOMB 07/14/2027 [id number] / [id number] / [id number] documented as of this encounter Visit Diagnoses Diagnosis Ventral hernia without obstruction or gangrene- Primary Ventral hernia, unspecified, without mention of obstruction or gangrene Abdominal wall mass Abdominal or pelvic swelling, mass or lump, unspecified site documented in this encounter Advance Directives * [...] Power of Attor jasmyne? No Care Teams Holistic Specialist Relationship Specialty Start Date End Date Charito Valdez CRNP [address] [place] [address] PCP - General Nurse Practitioner 10/08/22 documented as of this encounter
[2024-10-05] MEDS: OPTIRAY 320 125ml IV ONE (12:31)
--- NOTE | 2024-10-05 12:43 | XRay Report ---
PA CHEST RADIOGRAPH AND UPRIGHT AND SUPINE AP RADIOGRAPHS OF THE ABDOMEN CLINICAL HISTORY: Abdominal pain. COMPARISON STUDY: CT of the abdomen and pelvis July 20, 2023. Chest radiograph July 20, 2023. FINDINGS: No pneumothorax or pleural effusion is present. Mild cardiomegaly is noted. There is no ev idence for pulmonary edema. A 6.5 cm hazy right lower lung opacity is present. Status post cholecyste ctomy. Gas throughout small and large bowel is noted. There is a moderate amount of stool within the colon and rectum. No evidence for a bowel obstruction. No free air. IMPRESSION: 1. 6.5 cm hazy right lower lung opacity. Given pulmonary emboli on same-day chest CT, this represent s a pulmonary infarct. 2. No free air or evidence for a bowel obstruction. 3. Moderate amount of stool within the colon and rectum. ACT 112: Negative or not required by law. Electronically signed by: Maik Chakraborty M.D. 10/05/2024 12:41 PM
--- NOTE | 2024-10-05 13:03 | CT Scan Report ---
CT angio chest PE protocol CT DOSE: 2380.91 mGy.cm HISTORY: Right upper quadrant pain, shortness of breath, hemoptysis TECHNIQUE: Multiple CTA images of the chest were obtained after the intravenous administration of 112 ml Optiray. Coronal and sagittal MIPS were obtained from the axial data set and were submitted for review. All measurements were obtained according to NASCET criteria. A dose lowering technique was u tilized adhering to the principles of ALARA. COMPARISON STUDY: None FINDINGS: There are multiple bilateral acute pulmonary emboli resulting in a moderate clot burden. Th ere is no definite evidence of significant right heart strain at the present time. There is a consolidation in the periphery of the right upper lobe. It is somewhat wedge-shaped. It co uld represent a pulmonary infarct. There is also an area of pleural enhancement in the left lower lob e for which a CT follow-up is recommended in 3 months. The lung bae otherwise clear. The upper airway is unremarkable. The heart is enlarged. There is no pericardial effusion. IMPRESSION: Bilateral, moderate clot burden pulmonary emboli. No definite evidence of right heart str ain. Developing pulmonary infarct versus pneumonia right upper lobe. Focal area of pleural thickening and enhancement left lower lobe. Recommend a 3 month follow-up chest CT for evaluation of this finding. ACT 112: Negative or not required by law. The above report was generated using voice recognition software. It may contain grammatical, syntax o r spelling errors. Electronically signed by: Renea Daniels M.D. 10/05/2024 1:01 PM
--- NOTE | 2024-10-05 13:15 | CT Scan Report ---
CT OF THE ABDOMEN AND PELVIS WITH CONTRAST CLINICAL HISTORY: Abdominal pain. COMPARISON STUDY: CT of the abdomen and pelvis July 20, 2023. TECHNIQUE: Following IV administration of 120 mL of Optiray, axial images of the abdomen and pelvis w ere obtained from the lung bases to the proximal femurs. Images were reviewed in the axial, sagittal, and coronal planes. IV contrast was administered without complication. Automated exposure control w as utilized for the study. A dose lowering technique was utilized adhering to the principles of JOSE Hernández. FINDINGS: Multiple pulmonary emboli are better depicted on the chest CT. A right middle lobe airspace opacity represents a pulmonary infarct. No pneumatosis, free air or portal venous gas is present. Bi liary ductal dilatation is unchanged and related to cholecystectomy. There are no hepatic lesions. Sp tuan, adrenal glands and pancreas are unremarkable. There is no evidence for a bowel obstruction. Sig moid diverticulosis is noted. No evidence for acute diverticulitis. There is no lymphadenopathy. Ther e are no fluid collections. A 3.8 cm hypodense right ovarian lesion is noted. Nodular component withi n the wall measures approximately 1.7 cm. This lesion is indeterminate. No hydronephrosis. Left lower pole renal cyst is present. IMPRESSION: 1. No acute process within the abdomen or pelvis. 2. No bowel obstruction. No bowel wall thickening. Colonic diverticulosis. No evidence for acute dive rticulitis. 3. 3.8 cm cystic right ovarian lesion with possible nodular thickening of the wall. This is indetermi sandra. Nonemergent pelvic ultrasound is recommended to assess complexity. 4. Multiple pulmonary emboli and a right middle lobe pulmonary infarct better depicted on the chest C T which will be reported separately. ACT 112: Positive. There are findings on this exam that require communication between the performing entity and the patient following Patient Test Result Information Act ([place] Act 112) guidelines. Electronically signed by: Maik Chakraborty M.D. 10/05/2024 1:12 PM
[2024-10-05] MEDS: Heparin IV Adult Wt-Based Standard w/ INITIAL Bolus Protocol IV STA (13:48)
[2024-10-05] MEDS: HEPARIN SOD (PORCINE) 1000 UNIT/ML IV ONE (13:49)
[2024-10-05] MEDS: HEPARIN 25000 UNIT/500 ML D5W 25,000 UNITS/500 ML BAG IV SCH (13:50)
--- NOTE | 2024-10-05 14:12 | History & Physical Report ---
Date of Service October 05, 2024 Assessment & Plan (1) Acute pulmonary embolism: (2) CAD (coronary artery disease): (3) Hypertension: (4) Hyperlipidemia: (5) Diabetes mellitus, type 2: (6) GERD (gastroesophageal reflux disease): (7) Sleep apnea: Plan Acute Pulmonary Emboli RML Pulmonary Infarct - Admit to telemetry, PCU - Heparin bolus plus drip initiated in the ER, will continue - Pt with complaints of hemoptysis, monitor closely while on heparin - Ddimer 5860 - Increased edema BLE, will obtain venous Dopplers to rule out DVT - Noted CTA chest findings as above. Multiple PE with moderate clot burden. RML pulmonary infarct noted. Will need repeat CT chest in 3 months to ensure resolved. - CT abdomen pelvis is negative for acute process, but w/ incidental finding of ovarian lesion - Cont supplemental O2 prn, wears CPAP HS, currently on RA with O2 sats 93% - Pain control with tylenol and tramadol prn for moderate-severe pain. Was given a dose of Toradol in the ER but will DC this due to the increased risk of bleeding while being on heparin. CAD HTN HLD -Home med includes full dose aspirin daily- HOLD while on heparin. Cont metoprolol succinate 12.5 daily -Cholesterol panel from outpatient epic reviewed, total cholesterol 241 as of May 2024, triglycerides 191, LDL 158, HDL 45. DM II -ISS with Accu-Cheks ACHS -Takes insulin glargine 50 units twice daily at home, additional insulin aspart 40 units 3 times daily, Trulicity once per week (Tuesday) -Last A1c 7.6 on 06/05/2024, recheck with am labs RANDALL - Cont cpap HS Ovarian lesion - incidental finding on CT - 3.8 cm hypodense right ovarian lesion is noted - will need outpt follow up CODE: Full code Dispo: From home, likely to remain in the hospital x 1-2 days I spent a total of 75 minutes with greater than 50% of that time face to face with the patient, personally reviewing all current laboratories, imaging studies, past medication reconciliation, outpatient chart review, and discussion with specialists to collaborate care for the patient excluding time spent in the performance of separately billed services or time spent by another provider/QHP. Please see attending documentation for corrections and/or additions. History of Present Illness Chief Complaint: RUQ pain and hemotpysis Primary Care Provider: ALEX Josehp This is a 78-year-old female with PMHx of DM type II, aortic stenosis, HLD, CAD, obstructive sleep apnea, chronic lower extremity edema presents to the hospital with complaints of right upper quadrant pain and a cough with hemoptysis. Pain in the R rib/upper abdomen was just noticed today is constant but and is much worse with a deep breath. Given toradol in the ER and was slightly improved. She is a fairly sedentary person, knitting and chrocheting at home in her apartment. She notes about 1 month ago R lower leg had been very painful, denies known injury to the area, but since then she notes increased edema in the RLE as well as the left. CTA chest shows multiple bilateral acute pulmonary emboli resulting in moderate clot burden. No definitive evidence of significant right heart strain currently. Consolidation in the periphery of the right upper lobe likely representing a pulmonary infarct vs pneumonia. Follow-up recommended in [address] abdomen and pelvis with contrast was obtained with D-dimer elevated at 5860 and found to have multiple pulmonary emboli, right middle lobe pulmonary infarct. She is status postcholecystectomy. No evidence of bowel obstruction, sigmoid diverticulosis is noted, no diverticulitis. 3.8 cm hypodense right ovarian lesion is noted. Nodular component within the wall measures approximately 1.7 cm this lesion is indeterminate. No hydronephrosis. Allergies Allergy/AdvReac Type Severity Reaction Status Date / Time Sulfa (Sulfonamide Allergy Intermediate Rash Verified 10/05/24 13:43 Antibiotics) [id number] Reductase AdvReac Intermediate MUSCLE Verified 10/05/24 13:43 Inhibitor PAIN/STIFFNESS Home Medications Medication Instructions Recorded Confirmed Type duloxetine 60 mg capsule,delayed 60 mg PO QAM 11/25/21 10/05/24 History release sprinkle gabapentin 300 mg capsule 300 mg PO TID 11/25/21 10/05/24 History insulin aspart U-100 100 unit/mL 40 unit subcut TIDM 11/25/21 10/05/24 History subcutaneous solution insulin glargine 100 unit/mL (3 50 unit subcut BID 11/25/21 10/05/24 History mL) subcutaneous pen pantoprazole 40 mg tablet,delayed 40 mg PO QAM 11/25/21 10/05/24 History release aspirin 325 mg tablet,delayed 325 mg PO QAM 10/20/22 10/05/24 History release metoprolol succinate 25 mg 12.5 mg PO QAM 10/20/22 10/05/24 History tablet,extended release 24 hr psyllium husk 0.4 gram capsule 0.4 g PO DAILY PRN Constipation 10/20/22 10/05/24 History (Metamucil) cholecalciferol (vitamin D3) 25 25 mcg PO DAILY 10/05/24 10/05/24 History mcg (1,000 unit) tablet (Vitamin D3) dulaglutide 0.75 mg/0.5 mL 0.75 mg subcut WK 10/05/24 10/05/24 History subcutaneous pen injector (Trulicity) Past Med/Surg History Problem List (Updated 10/05/24 @ 15:26 by Mejia Carroll MD) Pulmonary emboli (Acute) CAD (coronary artery disease) Acute pulmonary embolism Encounter for pre-operative examination Medical History Diastolic heart failure Aortic stenosis Borderline severe per 10/14/22 ECHO Poor historian Hard of hearing Femoral artery stenosis, left stent placed several yrs ago Neuropathy Depression Constipation Irregular heart beat metoprolol for this per pt> follows with Dr. Marley Hyperlipidemia hx of > no meds Hypertension History of COVID-2020 Sleep apnea cpap Diabetes mellitus, type 2 GERD (gastroesophageal reflux disease) Surgical History Hx of lipoma removed from neck History of total knee replacement left History of colonoscopy History of cholecystectomy History of appendectomy History of cataract surgery bilat Family History Mother Diabetes Grandmother (Maternal) Diabetes Social History Smoking Status: Never smoker Second Hand Exposure: No; Do You Dip or Chew Tobacco: No; Hx Alcohol Use: No Hx Substance Use: No Preferred Language: Cymraes Communication Ability: Effective Professional Services Consultant Required: No Beliefs That Will Affect Care: None Current Living Situation: Alone Other Information That Helps Us Care for You: No Feels Safe at Home: Yes Safety Concerns: Feels Safe At This Time Assistive Devices: CPAP, Glasses, Hearing Aid - Bilateral and Walker Review of Systems Review of Systems: Constitutional: No fever, sweats or chills Eyes: No diplopia, no worsening or blurred vision ENT: normal hearing, no trouble swallowing Respiratory: +cough, + hemopytyis, about 1 Tablespoon sputum, + increased dyspnea on exertion but not at rest, + pain with inspiration Cardiovascular: No chest pain, tightness or palpitations Abdomen: No pain, nausea, vomiting, diarrhea or constipation Musculoskeletal: No joint pain, calf pain, + BLE swelling Neurologic: No weakness, numbness/tingling, or balance problems Psychiatric: No anxiety or depression Skin: No rash or itch Physical Exam Physical Exam: General: awake, alert, no apparent distress, elderly white female Head: Normocephalic, atraumatic ENT: PERRL, EOMI, no pharyngeal exudate, mucous membranes moist Chest: Clear to auscultation, on room air, no adventitious breath sounds Cardiac: Regular rate and rhythm, no murmur, no JVD, normal peripheral pulses, good capillary refill Abdominal: NABS x 4 quadrants, soft, nondistended, nontender to palpation, no rebound or guarding Extremities: 2+ nonpitting edema BLE, no peripheral erythema, calfs nontender to palpation Psych: Normal mood and affect Neuro: AAO x 3, strength intact bilaterally and rated 5/5, no motor deficits, speech is clear, no peripheral sensory deficits Results & Data Results & Data Vital Signs (Past 12 Hours) Vital Signs Temp Pulse Pulse Resp BP BP Pulse Ox 10/05/24 12:48 65 16 132/44 L 93 10/05/24 11:30 67 20 137/60 92 10/05/24 11:00 72 14 130/60 97 10/05/24 10:41 75 20 96 10/05/24 10:29 37 C 74 25 H 158/66 H 96 10/05/24 10:28 37 C 74 25 H 158/66 H 96 10/05/24 10:14 70 O2 Del Method 10/05/24 12:48 Room Air 10/05/24 11:30 Room Air 10/05/24 11:00 Room Air 10/05/24 10:41 Room Air 10/05/24 10:29 Room Air 10/05/24 10:28 Room Air 10/05/24 10:14 Laboratory Results 10/05/24 10/05/24 10:59 10:10 WBC 12.86 H RBC 3.91 L Hgb 11.6 L Hct 35.5 L MCV 90.8 MCH 29.7 MCHC 32.7 RDW Std Deviation 49.2 H RDW Coeff of Elaine 14.9 H Plt Count 253 MPV 9.0 L Immature Gran % (Auto) 0.5 Neut % (Auto) 68.9 Lymph % (Auto) 17.9 [place] % (Auto) 11.2 Eos % (Auto) 1.0 Baso % (Auto) 0.5 Neut # (Auto) 8.86 H Lymph # (Auto) 2.30 [place] # (Auto) 1.44 H Eos # (Auto) 0.13 Baso # (Auto) 0.07 Immature Gran # (Auto) 0.06 PT 10.9 INR 1.0 APTT 28 PTT Ratio 1.0 D-Dimer 5860 H* Sodium 138 Potassium 3.8 Chloride 98 Carbon Dioxide 32 Anion Gap 8 BUN 12 Creatinine 0.74 Est Cr Clr Drug Dosing 77.7 eGFR 82.25 BUN/Creatinine Ratio 16.2 Glucose 177 H Calcium 9.2 Total Bilirubin 0.8 Direct Bilirubin 0.2 AST 12 L ALT 9 Alkaline Phosphatase 61 Troponin I High Sens 10.2 Total Protein 7.3 Albumin 3.9 Lipase 3 L SARS-CoV-2 (PCR) NEGATIVE Influenza Type A (PCR) Negative Influenza Type B (PCR) Negative RSV (RT-PCR) Negative Diagnostic Findings Chest/Abdomen X-ray 10/05/24 10:41 PA CHEST RADIOGRAPH AND UPRIGHT AND SUPINE AP RADIOGRAPHS OF THE ABDOMEN CLINICAL HISTORY: Abdominal pain. COMPARISON STUDY: CT of the abdomen and pelvis July 20, 2023. Chest radio graph July 20, 2023. FINDINGS: No pneumothorax or pleural effusion is present. Mild cardiomegaly is noted. There is no evidence for pulmonary edema. A 6.5 cm hazy right lower lung opacity is present. Status post cholecystectomy. Gas throughout small and large bowel is noted. There is a moderate amount of stool within the colon and rectum. No evidence for a bowel obstruction. No free air. IMPRESSION: 1. 6.5 cm hazy right lower lung opacity. Given pulmonary emboli on same-day chest CT, this represents a pulmonary infarct. 2. No free air or evidence for a bowel obstruction. 3. Moderate amount of stool within the colon and rectum. ACT 112: Negative or not required by law. Electronically signed by: Maik Chakraborty M.D. 10/05/2024 12:41 PM Gallbladder Ultrasound 10/05/24 10:41 US gallbladder CLINICAL HISTORY: ruq pain status post cholecystectomy COMPARISON STUDY: CT dated 07/20/2023 FINDINGS: The pancreas is obscured by bowel gas and body habitus. The liver is diffusely echogenic, likely associated with steatosis. No focal liver lesions are depicted. There is no ascites. The gallbladder surgically absent. The common bile duct measures 14 mm which is rather distended even for the postcholecystectomy patient. The right kidney demonstrate no focal lesions. No hydronephrosis. IMPRESSION: Echogenic liver consistent with steatosis. Dilated common bile duct of uncertain significance and status post cholecystectomy patient. ACT 112: Negative or not required by law. Electronically signed by: Renea Daniels M.D. 10/05/2024 12:03 PM Chest CTA 10/05/24 11:48 CT angio chest PE protocol CT DOSE: 2380.91 mGy.cm HISTORY: Right upper quadrant pain, shortness of breath, hemoptysis TECHNIQUE: Multiple CTA images of the chest were obtained after the intravenous administration of 112 ml Optiray. Coronal and sagittal MIPS were obtained from the axial data set and were submitted for review. All measurements were obtained according to NASCET criteria. A dose lowering technique was utilized adhering to the principles of ALARA. COMPARISON STUDY: None FINDINGS: There are multiple bilateral acute pulmonary emboli resulting in a moderate clot burden. There is no definite evidence of significant right heart strain at the present time. There is a consolidation in the periphery of the right upper lobe. It is somewhat wedge-shaped. It could represent a pulmonary infarct. There is also an area of pleural enhancement in the left lower lobe for which a CT follow-up is recommended in 3 months. The lung bae otherwise clear. The upper airway is unremarkable. The heart is enlarged. There is no pericardial effusion. IMPRESSION: Bilateral, moderate clot burden pulmonary emboli. No definite evidence of right heart strain. Developing pulmonary infarct versus pneumonia right upper lobe. Focal area of pleural thickening and enhancement left lower lobe. Recommend a 3 month follow-up chest CT for evaluation of this finding. ACT 112: Negative or not required by law. The above report was generated using voice recognition software. It may contain grammatical, syntax or spelling errors. Electronically signed by: Renea Daniels M.D. 10/05/2024 1:01 PM Abdomen/Pelvis CT 10/05/24 12:29 CT OF THE ABDOMEN AND PELVIS WITH CONTRAST CLINICAL HISTORY: Abdominal pain. COMPARISON STUDY: CT of the abdomen and pelvis July 20, 2023. TECHNIQUE: Following IV administration of 120 mL of Optiray, axial images of the abdomen and pelvis were obtained from the lung bases to the proximal femurs. Images were reviewed in the axial, sagittal, and coronal planes. IV contrast was administered without complication. Automated exposure control was utilized for the study. A dose lowering technique was utilized adhering to the principles of ALARA. FINDINGS: Multiple pulmonary emboli are better depicted on the chest CT. A right middle lobe airspace opacity represents a pulmonary infarct. No pneumatosis, free air or portal venous gas is present. Biliary ductal dilatation is unchanged and related to cholecystectomy. There are no hepatic lesions. Spleen, adrenal glands and pancreas are unremarkable. There is no evidence for a bowel obstruction. Sigmoid diverticulosis is noted. No evidence for acute diverticulitis. There is no lymphadenopathy. There are no fluid collections. A 3.8 cm hypodense right ovarian lesion is noted. Nodular component within the wall measures approximately 1.7 cm. This lesion is indeterminate. No hydronephrosis. Left lower pole renal cyst is present. IMPRESSION: 1. No acute process within the abdomen or pelvis. 2. No bowel obstruction. No bowel wall thickening. Colonic diverticulosis. No evidence for acute diverticulitis. 3. 3.8 cm cystic right ovarian lesion with possible nodular thickening of the wall. This is indeterminate. Nonemergent pelvic ultrasound is recommended to assess complexity. 4. Multiple pulmonary emboli and a right middle lobe pulmonary infarct better depicted on the chest CT which will be reported separately. ACT 112: Positive. There are findings on this exam that require communication between the performing entity and the patient following Patient Test Result Information Act ([place] Act 112) guidelines. Electronically signed by: Maik Chakraborty M.D. 10/05/2024 1:12 PM Code Status & VTE Plan Code Status Full code - discussed with the pt at bedside Supervising Physician Co-Signing Physician Notes Pt seen and examined by mi, care coordinated fantasma/ G. ALFONZO Zapata, pls refer to her note above for further detail. 78 yo F with DM type II, aortic stenosis, HLD, CAD, obstructive sleep apnea, chronic lower extremity edema presents w/right upper quadrant pain and a cough with hemoptysis. In the ED, CTA chest c/w multiple bilateral acute pulmonary emboli resulting in moderate clot burden. No definitive evidence of significant right heart strain currently. Consolidation in the periphery of the right upper lobe likely representing a pulmonary infarct vs pneumonia. Follow-up recommended in 3 months. Pt is currently lying in bed in NAD, alert oriented, answers appropriately, says she feels better since being here, IV heparin was started in ED. Lungs clear, but some decreased breath sounds on the right. Abdomen soft, tender at RUQ. Pt moves extremities. skin is warm, dry. Cont. IV heparin. Cont. to closely monitor hemodynamic status. Pulm. consult. MD Malvin
[2024-10-05] MEDS ORDERED: CARBOHYDRATES FOR HYPOGLYCEMIA PO PRN (15:47)
[2024-10-05] MEDS ORDERED: DEXTROSE 50% 50 ML SYRINGE IV PRN (15:47)
[2024-10-05] MEDS ORDERED: GLUCOSE 10 TAB/TUBE PO PRN (15:47)
[2024-10-05] MEDS ORDERED: GLUCAGON FOR INJ 1 MG VIAL SQ PRN (15:47)
[2024-10-05] MEDS ORDERED: ONDANSETRON INJ 2 MG/ML 2 ML VIAL IV PRN (15:47)
[2024-10-05] MEDS ORDERED: GLUCOSE 40% GEL 15 GM TUBE PO PRN (15:47)
--- NOTE | 2024-10-05 15:55 | Ultrasound Report ---
BILATERAL LOWER EXTREMITY VENOUS DOPPLER HISTORY: Pulmonary emboli Eval for DVT COMPARISON STUDY: None FINDINGS: Duplex and color Doppler evaluation of the deep venous system of the lower legs was perform ed. On the left side, the major deep venous channels are patent and compressible with no intraluminal filling defects or occlusive disease identified. In the right leg, there is intraluminal stranding and nonocclusive thrombus identified in the distal femoral vein, popliteal vein, and there is a broken flow identified within the posterior tibial vein and peroneal veins. IMPRESSION: No evidence of DVT left leg. Evidence of chronic DVT right leg. ACT 112: Negative or not required by law. Electronically signed by: Renea Daniels M.D. 10/05/2024 3:53 PM
[2024-10-05] MEDS: INSULIN ASPART PER UNIT CHARGE SC SCH (17:07)
[2024-10-05] MEDS: traMADol HCL 50 MG TABLET PO PRN (17:08)
[2024-10-05] MEDS: LANTUS PER UNIT CHARGE SC SCH (20:55)
[2024-10-05] MEDS: GABAPENTIN 300 MG CAP PO SCH (20:59)
[2024-10-05 21:47] LABS: ANTI-Xa, UFH(UnfractionatedHep 0.37 IU/ml (0.3-0.7)
[2024-10-06 06:20] LABS: Hematocrit (blood only) 33.5 % (37.0-47.0); Hemoglobin 10.7 g/dl (12.0-16.0); Mean Corpuscular Hemoglobin 29.4 pg (25.0-34.0); Mean Corpuscular Hgb Conc 31.9 g/dL (32.0-36.0); Mean Platelet Volume 8.8 fL (9.4-12.4); Platelet Count 242 K/uL (130-400); RDW Coefficient of Variation 14.8 % (11.5-14.5); RDW Standard Deviation 50.3 fL (36.4-46.3); Red Blood Count 3.64 M/uL (4.20-5.40); White Blood Count 11.61 K/ul (4.8-10.8)
[2024-10-06 06:28] LABS: BUN Creatinine Ratio 16.5 (10-20); Calcium 8.6 mg/dl (8.6-10.3); Potassium 3.9 mmol/L (3.5-5.1)
[2024-10-06 06:33] LABS: ANTI-Xa, UFH(UnfractionatedHep 0.26 IU/ml (0.3-0.7)
[2024-10-06] MEDS: METOPROLOL SUCC 25MG EXT REL TAB PO SCH (08:12)
[2024-10-06] MEDS: CHOLECALCIFEROL 25 MCG (1000 UNITS) TAB PO SCH (08:12)
[2024-10-06] MEDS: DULoxetine HCL 60 MG CAP PO SCH (08:12)
[2024-10-06] MEDS: PANTOprazole 40 MG TAB PO SCH (08:12)
[2024-10-06 09:13] LABS: Estimated Average Glucose 163 mg/dl; Hemoglobin A1C 7.3 % (4.5-5.6)
--- NOTE | 2024-10-06 09:43 | Hospitalist Progress Note ---
Date of Service October 06, 2024 Assessment & Plan (1) Acute pulmonary embolism: (2) CAD (coronary artery disease): (3) Hypertension: (4) Hyperlipidemia: (5) Diabetes mellitus, type 2: (6) GERD (gastroesophageal reflux disease): (7) Sleep apnea: Plan Pt is a 78-year-old female with PMHx of DM type II, aortic stenosis, HLD, CAD, obstructive sleep apnea, chronic lower extremity edema who presents to the hospital with complaints of right upper quadrant pain and a cough with hemoptysis. Pulmonary Emboli Pulmonary Infarct Chronic DVT, Right Leg Hemoptysis Patient presenting with hemoptysis and right chest pain and RUQ abdominal pain Flu, COVID and RSV testing negative Chest x-ray as well as XR abdomen pelvis noting a right lower lobe 6.5 cm hazy opacity D-dimer elevated Chest CT noting bilateral pulmonary emboli without right heart strain as well as episodes of developing pulmonary infarct versus pneumonia right upper lobe CT abd pelvis noting multiple pulmonary emboli as well and possible new right middle pulmonary infarct Doppler ultrasound of the bilateral lower extremities noting chronic DVT in right leg EKG with NSR Echo completed for further heart strain evaluation, pending read Continue IV heparin at this time Pulmonary consulted, appreciate recs Currently on 2L oxygen Continue to monitor R ovarian Lesion CT of the abdomen pelvis noting a 3.8 cm ovarian cyst-like lesion with nodular wall thickening Ultrasound pelvis ordered to evaluate oncological cause of blood clots noted above CA-125 levels ordered ENGINE EMISSION TECHNICIAN consult for further recs Constipation Noted on KUB Bowel regimen with scheduled colace and prn miralax Anemia Hgb 11.6 to 10.7 today AM anemia panel Continue to monitor for signs of bleeding while on heparin Monitor H/H Leukocytosis WBC elevated UA ordered and pending Procalcitonin normal ? of pulm infection Possibly reactive elevation Continue to monitor DMII ISS with Accu-Cheks ACHS Takes insulin glargine 50 units twice daily at home, additional insulin aspart 40 units 3 times daily, Trulicity once per week (Tuesday) [id number] pf 7.3 Basal Bolus per protocol RANDALL Cont cpap HS CAD HTN HLD Home med includes full dose aspirin daily- HOLD while on heparin. Cont metoprolol succinate 12.5 daily Diet: HH DVT prophylaxis: on hep drip Dispo: PT/OT ordered for further recs Admission and Anticipated Discharge Date Admission Date: October 05, 2024 Subjective Pt was seen sitting in the chair Denied SOB, chest pain or palps at the time States she has been having some dysuria Notes a Hx of having a fallopian tube being removed many years ago. Review of Systems Review of Systems: All systems reviewed & are unremarkable except as noted in Subjective Physical Exam Physical Exam: General: Alert, oriented. No acute distress Psych: Appropriate mood and affect HEENT: NC/AT CV: RRR Resp: Breath sounds clear bilaterally, no increased effort of breathing Abdomen:Soft, nontender, nondistended Results & Data Results & Data Vital Signs (Past 12 Hours) Vital Signs Temp Pulse Pulse Pulse Resp BP BP 10/06/24 09:00 10/06/24 08:10 36.7 C 79 19 131/71 10/06/24 04:30 37.3 C 83 18 120/56 L 10/05/24 22:30 76 19 10/05/24 22:16 36.9 C 77 18 109/66 10/05/24 21:52 78 Pulse Ox O2 Del Method O2 Flow Rate 10/06/24 09:00 Nasal Cannula 2 10/06/24 08:10 93 Nasal Cannula 3 10/06/24 04:30 93 Nasal Cannula 3 10/05/24 22:30 92 10/05/24 22:16 90 Room Air 10/05/24 21:52 Diagnostic Findings Chest/Abdomen X-ray 10/05/24 10:41 PA CHEST RADIOGRAPH AND UPRIGHT AND SUPINE AP RADIOGRAPHS OF THE ABDOMEN CLINICAL HISTORY: Abdominal pain. COMPARISON STUDY: CT of the abdomen and pelvis July 20, 2023. Chest radiograph July 20, 2023. FINDINGS: No pneumothorax or pleural effusion is present. Mild cardiomegaly is noted. There is no evidence for pulmonary edema. A 6.5 cm hazy right lower lung opacity is present. Status post cholecystectomy. Gas throughout small and large bowel is noted. There is a moderate amount of stool within the colon and rectum. No evidence for a bowel obstruction. No free air. IMPRESSION: 1. 6.5 cm hazy right lower lung opacity. Given pulmonary emboli on same-day chest CT, this represents a pulmonary infarct. 2. No free air or evidence for a bowel obstruction. 3. Moderate amount of stool within the colon and rectum. ACT 112: Negative or not required by law. Electronically signed by: Maik Chakraborty M.D. 10/05/2024 12:41 PM Gallbladder Ultrasound 10/05/24 10:41 US gallbladder CLINICAL HISTORY: ruq pain status post cholecystectomy COMPARISON STUDY: CT dated 07/20/2023 FINDINGS: The pancreas is obscured by bowel gas and body habitus. The liver is diffusely echogenic, likely associated with steatosis. No focal liver lesions are depicted. There is no ascites. The gallbladder surgically absent. The common bile duct measures 14 mm which is rather distended even for the postcholecystectomy patient. The right kidney demonstrate no focal lesions. No hydronephrosis. IMPRESSION: Echogenic liver consistent with steatosis. Dilated common bile duct of uncertain significance and status post cholecystectomy patient. ACT 112: Negative or not required by law. Electronically signed by: Renea Daniels M.D. 10/05/2024 12:03 PM Chest CTA 10/05/24 11:48 CT angio chest PE protocol CT DOSE: 2380.91 mGy.cm HISTORY: Right upper quadrant pain, shortness of breath, hemoptysis TECHNIQUE: Multiple CTA images of the chest were obtained after the intravenous administration of 112 ml Optiray. Coronal and sagittal MIPS were obtained from the axial data set and were submitted for review. All measurements were obtained according to NASCET criteria. A dose lowering technique was utilized adhering to the principles of ALARA. COMPARISON STUDY: None FINDINGS: There are multiple bilateral acute pulmonary emboli resulting in a moderate clot burden. There is no definite evidence of significant right heart strain at the present time. There is a consolidation in the periphery of the right upper lobe. It is somewhat wedge-shaped. It could represent a pulmonary infarct. There is also an area of pleural enhancement in the left lower lobe for which a CT follow-up is recommended in 3 months. The lung bae otherwise clear. The upper airway is unremarkable. The heart is enlarged. There is no pericardial effusion. IMPRESSION: Bilateral, moderate clot burden pulmonary emboli. No definite evidence of right heart strain. Developing pulmonary infarct versus pneumonia right upper lobe. Focal area of pleural thickening and enhancement left lower lobe. Recommend a 3 month follow-up chest CT for evaluation of this finding. ACT 112: Negative or not required by law. The above report was generated using voice recognition software. It may contain grammatical, syntax or spelling errors. Electronically signed by: Renea Daniels M.D. 10/05/2024 1:01 PM Abdomen/Pelvis CT 10/05/24 12:29 CT OF THE ABDOMEN AND PELVIS WITH CONTRAST CLINICAL HISTORY: Abdominal pain. COMPARISON STUDY: CT of the abdomen and pelvis July 20, 2023. TECHNIQUE: Following IV administration of 120 mL of Optiray, axial images of the abdomen and pelvis were obtained from the lung bases to the proximal femurs. Images were reviewed in the axial, sagittal, and coronal planes. IV contrast was administered without complication. Automated exposure control was utilized for the study. A dose lowering technique was utilized adhering to the principles of ALARA. FINDINGS: Multiple pulmonary emboli are better depicted on the chest CT. A right middle lobe airspace opacity represents a pulmonary infarct. No pneumatosis, free air or portal venous gas is present. Biliary ductal dilatation is unchanged and related to cholecystectomy. There are no hepatic lesions. Spleen, adrenal glands and pancreas are unremarkable. There is no evidence for a bowel obstruction. Sigmoid diverticulosis is noted. No evidence for acute diverticulitis. There is no lymphadenopathy. There are no fluid collections. A 3.8 cm hypodense right ovarian lesion is noted. Nodular component within the wall measures approximately 1.7 cm. This lesion is indeterminate. No hydro nephrosis. Left lower pole renal cyst is present. IMPRESSION: 1. No acute process within the abdomen or pelvis. 2. No bowel obstruction. No bowel wall thickening. Colonic diverticulosis. No evidence for acute diverticulitis. 3. 3.8 cm cystic right ovarian lesion with possible nodular thickening of the wall. This is indeterminate. Nonemergent pelvic ultrasound is recommended to assess complexity. 4. Multiple pulmonary emboli and a right middle lobe pulmonary infarct better depicted on the chest CT which will be reported separately. ACT 112: Positive. There are findings on this exam that require communication between the performing entity and the patient following Patient Test Result Information Act ([place] Act 112) guidelines. Electronically signed by: Maik Chakraborty M.D. 10/05/2024 1:12 PM Venous Doppler Study 10/05/24 14:25 BILATERAL LOWER EXTREMITY VENOUS DOPPLER HISTORY: Pulmonary emboli Eval for DVT COMPARISON STUDY: None FINDINGS: Duplex and color Doppler evaluation of the deep venous system of the lower legs was performed. On the left side, the major deep venous channels are patent and compressible with no intraluminal filling defects or occlusive disease identified. In the right leg, there is intraluminal stranding and nonocclusive thrombus identified in the distal femoral vein, popliteal vein, and there is a broken flow identified within the posterior tibial vein and peroneal veins. IMPRESSION: No evidence of DVT left leg. Evidence of chronic DVT right leg. ACT 112: Negative or not required by law. Electronically signed by: Renea Daniels M.D. 10/05/2024 3:53 PM Pelvis Ultrasound 10/06/24 10:00 INDICATION: Pelvic pain. COMPARISON: None. TECHNIQUE: Transabdominal and endovaginal pelvic ultrasound was performed. FINDINGS: Uterus: Measures 6.3 x 2.2 x 2.1 cm. Endometrium: Measures 0.2 cm thickness. Right Ovary: Measures 5.3 x 4.2 x 3.8 cm. Cyst/follicle measuring 3.7 cm. Limited visualization of the right ovary/evaluation of right ovarian blood flow secondary to bowel gas/body habitus. Left Ovary: Not visualized secondary to body habitus/bowel gas. No free fluid. No adnexal mass. IMPRESSION: 1. Uterus appears unremarkable. 2. Right Ovary: Measures 5.3 x 4.2 x 3.8 cm. Cyst/follicle measuring 3.7 cm. Limited visualization of the right ovary/evaluation of right ovarian blood flow secondary to bowel gas/body habitus. 3. Left Ovary: Not visualized secondary to body habitus/bowel gas. 4. Follow-up as clinically relevant. Electronically signed by Matheus Miranda 10-06-2024 3:47 PM
[2024-10-06] MEDS ORDERED: POLYETHYLENE (MIRALAX) 17 GM PACK PO PRN (10:06)
[2024-10-06 13:36] LABS: ANTI-Xa, UFH(UnfractionatedHep 0.27 IU/ml (0.3-0.7)
[2024-10-06] MEDS: DOCUSATE SODIUM 100 MG CAP PO SCH (14:20)
--- NOTE | 2024-10-06 15:47 | Ultrasound Report ---
INDICATION: Pelvic pain. COMPARISON: None. TECHNIQUE: Transabdominal and endovaginal pelvic ultrasound was performed. FINDINGS: Uterus: Measures 6.3 x 2.2 x 2.1 cm. Endometrium: Measures 0.2 cm thickness. Right Ovary: Measures 5.3 x 4.2 x 3.8 cm. Cyst/follicle measuring 3.7 cm. Limited visualization of the right ovary/evaluation of right ovarian blood flow secondary to bowel gas/body habitus. Left Ovary: Not visualized secondary to body habitus/bowel gas. No free fluid. No adnexal mass. IMPRESSION: 1. Uterus appears unremarkable. 2. Right Ovary: Measures 5.3 x 4.2 x 3.8 cm. Cyst/follicle measuring 3.7 cm. Limited visualization of the right ovary/evaluation of right ovarian blood flow secondary to bowel gas/body habitus. 3. Left Ovary: Not visualized secondary to body habitus/bowel gas. 4. Follow-up as clinically relevant. Electronically signed by Matheus Miranda 10-06-2024 3:47 PM
--- NOTE | 2024-10-06 15:51 | Pulmonary Consultation ---
Date of Consultation October 06, 2024 Assessment & Plan (1) Acute pulmonary embolism: Continue heparin for today and transition to DOAC tomorrow. Recommend discussing with the anticoagulation clinic regarding DOAC therapy given her elevated BMI. Patient notes multiple family members have a history of MTHFR mutation along with herself. Patient denies any prior history of DVTs. Patient will need lifelong anticoagulation given this history also given the fact that she is very sedentary, obese and her mobility is very limited. (2) Right leg DVT: Continue anticoagulation as above. (3) MTHFR mutation: Recommend outpatient hematology follow-up. (4) Hypoxia: Multifactorial in the setting of acute PE, obesity, valvular heart disease and pulmonary infarct. Wean as able. Recommend two step prior to discharge. (5) Pulmonary infarct: Suspect large area right lower lobe pulmonary infarct. Will need a follow-up CT in 3 months. Pain is minimal at this time. Hemoptysis is resolved. (6) Abnormal CT scan, chest: Pleural thickening versus atelectasis in the left lower lobe. Recommend follow- up CT in 2 to 3 months. (7) Ovarian cyst: Patient being worked up for a SHERIFF DEPUTY/ONC malignancy by the primary service. Pelvic ultrasound reveals a 5.3 x 4.2 x 3.8 cm cyst. She may ultimately require evaluation by a gynecologic oncology as an outpatient. Plan Patient, patient's son and grandson present during the visit and expressed understanding of the diagnosis and treatment plan. Thank you for the consult. Please call with questions. Pulmonary signout. History of Present Illness Reason for Consultation: Pulmonary embolism Attending Physician: Bailey Prado MD History of Present Illness 78-year-old female with a past medical history of MTHFR mutation, obesity, diabetes, RANDALL on CPAP, aortic valve stenosis and hypertension who presented to the hospital with complaints of right-sided chest pain and abdominal pain. She had hemoptysis for the past 2 days. She also notes pleurisy. She notes that he has trouble with ambulation in May had a fall. She also notes that she had some form of surgical procedure in her abdomen over the fall/winter. She has been having pain in her right lower extremity which is chronic along with edema. She had a chest CTA on admission which revealed bilateral pulmonary emboli with evidence of pulmonary infarct in the right upper lobe. A focal area of pleural thickening was also noted on the left lower lobe and a 3-month CT was recommended for follow-up. Upon my review of the left lower lobe normality appears to be possible atelectasis. Incidentally she was also found to have a 3.8 cm cystic right ovarian lesion with nodular thickening. Lower extremity ultrasounds revealed intraluminal stranding and nonocclusive thrombus identified in the distal femoral vein, popliteal vein and posterior tibial/peroneal vein. She is currently on a heparin infusion. Echo revealed an EF of 55 to 60%. Moderate valvular aortic stenosis. Mild aortic regurgitation, mild mitral regurgitation, mild mitral stenosis, mild tricuspid regurgitation. No evidence of pulm hypertension. Allergies Allergy/AdvReac Type Severity Reaction Status Date / Time Sulfa (Sulfonamide Allergy Intermediate Rash Verified 10/05/24 13:43 Antibiotics) [id number] Reductase AdvReac Intermediate MUSCLE Verified 10/05/24 13:43 Inhibitor PAIN/STIFFNESS Home Medications Medication Instructions Recorded Confirmed Type duloxetine 60 mg capsule,delayed 60 mg PO QAM 11/25/21 10/05/24 History release sprinkle gabapentin 300 mg capsule 300 mg PO TID 11/25/21 10/05/24 History insulin aspart U-100 100 unit/mL 40 unit subcut TIDM 11/25/21 10/05/24 History subcutaneous solution insulin glargine 100 unit/mL (3 50 unit subcut BID 11/25/21 10/05/24 History mL) subcutaneous pen pantoprazole 40 mg tablet,delayed 40 mg PO QAM 11/25/21 10/05/24 History release aspirin 325 mg tablet,delayed 325 mg PO QAM 10/20/22 10/05/24 History release metoprolol succinate 25 mg 12.5 mg PO QAM 10/20/22 10/05/24 History tablet,extended release 24 hr psyllium husk 0.4 gram capsule 0.4 g PO DAILY PRN Constipation 10/20/22 10/05/24 History (Metamucil) cholecalciferol (vitamin D3) 25 25 mcg PO DAILY 10/05/24 10/05/24 History mcg (1,000 unit) tablet (Vitamin D3) dulaglutide 0.75 mg/0.5 mL 0.75 mg subcut WK 10/05/24 10/05/24 History subcutaneous pen injector (Trulicity) Patient History Medical History Diastolic heart failure Aortic stenosis Borderline severe per 10/14/22 ECHO Poor historian Hard of hearing Femoral artery stenosis, left stent placed several yrs ago Neuropathy Depression Constipation Irregular heart beat metoprolol for this per pt> follows with Dr. Marley Hyperlipidemia hx of > no meds Hypertension History of COVID-2020 Sleep apnea cpap Diabetes mellitus, type 2 GERD (gastroesophageal reflux disease) Surgical History Hx of lipoma removed from neck History of total knee replacement left History of colonoscopy History of cholecystectomy History of appendectomy History of cataract surgery bilat Family History Mother Diabetes Grandmother (Maternal) Diabetes Social History Smoking Status: Never smoker Second Hand Exposure: No; Do You Dip or Chew Tobacco: No; Hx Alcohol Use: No Hx Substance Use: No Preferred Language: [place] Communication Ability: Effective Incident Response Consultant Required: No Beliefs That Will Affect Care: None Current Living Situation: Alone Other Information That Helps Us Care for You: No Feels Safe at Home: Yes Safety Concerns: Feels Safe At This Time Assistive Devices: CPAP, Glasses, Hearing Aid - Bilateral and Walker Review of Systems Review of Systems: All systems reviewed & are unremarkable except as noted in HPI & below Physical Exam Physical Exam: Constitutional: Patient appears to be of their stated age. Patient is in no apparent distress. Patient is well-developed. Eyes: Pupils are equal round and reactive to light. Conjunctivae are normal. Anicteric sclera. Ears nose, mouth and throat: No perioral cyanosis. Nasal cannula in place. Neck: Trachea is midline. Visual inspection is normal. Respiratory: Clear to auscultation bilaterally. No use of accessory muscles. No significant clubbing noted. Cardiovascular: Mild systolic flow murmur and diastolic rumble. Edema in the right lower extremity. Gastrointestinal: Normal bowel sounds, soft, nontender and nondistended. No hepatosplenomegaly noted. Musculoskeletal: No cyanosis. Patient is able to move all extremities. Strength is 5 out of 5 in the upper and lower extremities. Skin: No rashes, warm dry and intact. Neurologic: No obvious focal neurological deficits seen. Psychiatric: Alert and oriented x3 with a euthymic affect. Results & Data Results & Data Vital Signs (Past 12 Hours) Vital Signs Temp Pulse Pulse Resp BP BP Pulse Ox 10/06/24 11:04 36.8 C 75 23 109/55 L 91 10/06/24 09:00 10/06/24 08:10 36.7 C 79 19 131/71 93 10/06/24 04:30 37.3 C 83 18 120/56 L 93 O2 Del Method O2 Flow Rate 10/06/24 11:04 Nasal Cannula 2 10/06/24 09:00 Nasal Cannula 2 10/06/24 08:10 Nasal Cannula 3 10/06/24 04:30 Nasal Cannula 3 PG Care Time/CCT Total # of Minutes Spent Total Time Spent with Patient: Total time spent is greater than 50% in coordination of care (as documented) at patient's floor/unit and/or counseling patient: Coding Level of Care Code 38643 INT INP/OBS CARE 2/55MIN Diagnoses Acute pulmonary embolism I26.99 Right leg DVT I82.401 MTHFR mutation Z15.89 Hypoxia R09.02 Pulmonary infarct I26.[address] scan, chest R93.89 Ovarian cyst N83.209
--- NOTE | 2024-10-06 19:24 | Consultation ---
Date of Consultation October 06, 2024 Assessment & Plan (1) Ovarian cyst: I reviewed the CT findings and transvaginal ultrasound findings. Cyst of the right ovary appears to be an incidental finding. I do not recommend any follow- up. History of Present Illness Requesting Physician: Wallace Coombs Reason for Consultation: Patient has small cystic lesion of the right ovary Attending Physician: Bailey Prado MD History of Present Illness Patient is 78-year-old 7 para 7. Patient underwent menopause in her 50s had no bleeding since. Patient does not get regular mammograms. Or regular pelvic exams. Was admitted through the ER with hemoptysis shortness of breath. Diagnosed with pulmonary embolisms. Abdominal CT scan revealed a lesion of the right ovary. Pelvic ultrasound confirmed this lesion. Right ovary is 5.3 cm x 4.2 cm x 3.8 cm. There is a unilocular 3.7 cm cyst. Cyst appears to be benign secondary to its small size and unilocular anatomy. Allergies Allergy/AdvReac Type Severity Reaction Status Date / Time Sulfa (Sulfonamide Allergy Intermediate Rash Verified 10/05/24 13:43 Antibiotics) [id number] Reductase AdvReac Intermediate MUSCLE Verified 10/05/24 13:43 Inhibitor PAIN/STIFFNESS Home Medications Medication Instructions Recorded Confirmed Type duloxetine 60 mg capsule,delayed 60 mg PO QAM 11/25/21 10/05/24 History release sprinkle gabapentin 300 mg capsule 300 mg PO TID 11/25/21 10/05/24 History insulin aspart U-100 100 unit/mL 40 unit subcut TIDM 11/25/21 10/05/24 History subcutaneous solution insulin glargine 100 unit/mL (3 50 unit subcut BID 11/25/21 10/05/24 History mL) subcutaneous pen pantoprazole 40 mg tablet,delayed 40 mg PO QAM 11/25/21 10/05/24 History release aspirin 325 mg tablet,delayed 325 mg PO QAM 10/20/22 10/05/24 History release metoprolol succinate 25 mg 12.5 mg PO QAM 10/20/22 10/05/24 History tablet,extended release 24 hr psyllium husk 0.4 gram capsule 0.4 g PO DAILY PRN Constipation 10/20/22 10/05/24 History (Metamucil) cholecalciferol (vitamin D3) 25 25 mcg PO DAILY 10/05/24 10/05/24 History mcg (1,000 unit) tablet (Vitamin D3) dulaglutide 0.75 mg/0.5 mL 0.75 mg subcut WK 10/05/24 10/05/24 History subcutaneous pen injector (Trulicity) Patient History Medical History Diastolic heart failure Aortic stenosis Borderline severe per 10/14/22 ECHO Poor historian Hard of hearing Femoral artery stenosis, left stent placed several yrs ago Neuropathy Depression Constipation Irregular heart beat metoprolol for this per pt> follows with Dr. Marley Hyperlipidemia hx of > no meds Hypertension History of COVID-2020 Sleep apnea cpap Diabetes mellitus, type 2 GERD (gastroesophageal reflux disease) Surgical History Hx of lipoma removed from neck History of total knee replacement left History of colonoscopy History of cholecystectomy History of appendectomy History of cataract surgery bilat Family History Mother Diabetes Grandmother (Maternal) Diabetes Social History Smoking Status: Never smoker Second Hand Exposure: No; Do You Dip or Chew Tobacco: No; Hx Alcohol Use: No Hx Substance Use: No Preferred Language: Surinamese Communication Ability: Effective Dethistler Operator Required: No Beliefs That Will Affect Care: None Current Living Situation: Alone Other Information That Helps Us Care for You: No Feels Safe at Home: Yes Safety Concerns: Feels Safe At This Time Assistive Devices: CPAP, Glasses, Hearing Aid - Bilateral and Walker Physical Exam Physical Exam: Patient appeared to be 78-year-old white female alert oriented x 3 cooperative. Patient is somewhat poor historian. Heart had a regular rhythm. Teeth were in a poor state of condition. Abdomen soft and nontender. No CVA tenderness. Moderate amount of edema of the feet. Results & Data Vital Signs (Past 12 Hours) Vital Signs Temp Pulse Resp BP Pulse Ox O2 Del Method O2 Flow Rate 10/06/24 15:34 36.8 C 66 20 135/65 99 Nasal Cannula 2 10/06/24 11:04 36.8 C 75 23 109/55 L 91 Nasal Cannula 2 10/06/24 09:00 Nasal Cannula 2 10/06/24 08:10 36.7 C 79 19 131/71 93 Nasal Cannula 3 Diagnostic Findings Benign appearing cystic lesion of the right ovary. 3.7 cm. Unilocular.
[2024-10-06] MEDS: ACETAMINOPHEN 325 MG TAB PO PRN (20:14)
[2024-10-06 20:25] LABS: Appearance Urine Clear (Clear); Bacteria Urine Automated None Seen (None Seen); Bilirubin Urine Negative (Negative); Blood Urine Negative (Negative); Cast Urine Automated 0-2 /lpf (0-2); Color Urine Yellow; Epithelial Cell Urine Auto 0-2 /hpf (0-2); Glucose Urine UA Negative (Negative); Ketones Urine Negative (Negative); Leukocyte Esterase Urine Trace (Negative); Nitrite Urine Negative (Negative); Protein Urine Negative (Negative); RBC Urine Automated 0-2 /hpf (0-2); Specific Gravity Urine 1.008 (1.000-1.030); Urobilinogen Urine Negative (Negative)
[2024-10-06 21:07] LABS: ANTI-Xa, UFH(UnfractionatedHep 0.36 IU/ml (0.3-0.7)
[2024-10-07 07:46] LABS: Basophils # (auto) 0.04 K/uL (0.00-0.20); Basophils % (auto) 0.5 %; Eosinophils # (auto) 0.26 K/uL (0.00-0.50); Eosinophils % (auto) 3.1 %; Hematocrit (blood only) 31.6 % (37.0-47.0); Hemoglobin 10.4 g/dl (12.0-16.0); Immature Granulocytes # (auto) 0.03 K/uL (0.01-0.20); Immature Granulocytes % (auto) 0.4 %; Lymphocytes # (auto) 2.16 K/uL (1.20-3.40); Lymphocytes % (auto) 25.5 %; Mean Corpuscular Hemoglobin 30.1 pg (25.0-34.0); Mean Corpuscular Hgb Conc 32.9 g/dL (32.0-36.0); Mean Corpuscular Volume 91.3 fL (80.0-100.0); Mean Platelet Volume 8.9 fL (9.4-12.4); Monocytes # (auto) 0.87 K/uL (0.11-0.59); Monocytes % (auto) 10.3 %; Neutrophils % (auto) 60.2 %; Platelet Count 218 K/uL (130-400); RDW Coefficient of Variation 14.5 % (11.5-14.5); RDW Standard Deviation 48.5 fL (36.4-46.3); Red Blood Count 3.46 M/uL (4.20-5.40); White Blood Count 8.46 K/ul (4.8-10.8)
[2024-10-07 07:58] LABS: BUN Creatinine Ratio 24.2 (10-20); Calcium 8.7 mg/dl (8.6-10.3); Creatinine Clr Calc Pharmacy 85.3 ml/min; Magnesium 2.2 mg/dl (1.7-2.4); Phosphorus 3.4 mg/dl (2.5-4.9); Potassium 3.9 mmol/L (3.5-5.1)
[2024-10-07 08:17] LABS: Ferritin 80.4 ng/ml (8-388)
[2024-10-07 08:22] LABS: Folate (Folic Acid),Ser orPlas > 22.30 ng/ml (>5.38)
[2024-10-07 08:23] LABS: Vitamin B12 697 pg/ml (180-914)
[2024-10-07 08:32] LABS: ANTI-Xa, UFH(UnfractionatedHep 0.37 IU/ml (0.3-0.7)
[2024-10-07] MEDS: IRON SUCROSE 200 MG in SODIUM CHLORIDE 0.9% 100 ML IV ONE (10:06)
--- NOTE | 2024-10-07 10:10 | Electrocardiogram Report ---
Test Reason : Blood Pressure : */* mmHG Vent. Rate : 69 BPM Atrial Rate : 69 BPM P-R Int : 174 ms QRS Dur : 130 ms QT Int : 466 ms P-R-T Axes : 57 -41 -4 degrees QTcB Int : 499 ms Normal sinus rhythm Left axis deviation Right bundle branch block Abnormal ECG When compared with ECG of 20-Jul-2023 15:08, No significant change was found Confirmed by Sonu Rodriguez ([id number]) on 10/07/2024 10:09:51 AM Referred By: REFERRED SELF Confirmed By: Sonu Rodriguez
[2024-10-07] MEDS: APIXABAN 5 MG TABLET PO SCH (12:01)
--- NOTE | 2024-10-07 14:07 | Hospitalist Progress Note ---
Date of Service October 07, 2024 Assessment & Plan (1) Acute pulmonary embolism: (2) CAD (coronary artery disease): (3) Hypertension: (4) Hyperlipidemia: (5) Diabetes mellitus, type 2: (6) GERD (gastroesophageal reflux disease): (7) Sleep apnea: Plan Pt is a 78-year-old female with PMHx of DM type II, aortic stenosis, HLD, CAD, obstructive sleep apnea, chronic lower extremity edema who presents to the hospital with complaints of right upper quadrant pain and a cough with hemoptysis. Pulmonary Emboli Pulmonary Infarct Chronic DVT, Right Leg Hemoptysis Patient presenting with hemoptysis and right chest pain and RUQ abdominal pain Flu, COVID and RSV testing negative Chest x-ray as well as XR abdomen pelvis noting a right lower lobe 6.5 cm hazy opacity D-dimer elevated Chest CT noting bilateral pulmonary emboli without right heart strain as well as episodes of developing pulmonary infarct versus pneumonia right upper lobe CT abd pelvis noting multiple pulmonary emboli as well and possible new right middle pulmonary infarct Doppler ultrasound of the bilateral lower extremities noting chronic DVT in right leg EKG with NSR Echo completed for further heart strain evaluation, pending read Transitioned from IV heparin to Eliquis, currently awaiting determination of cost for use moving forward Pulmonary consulted, appreciate recs Currently on 2L oxygen Continue to monitor R ovarian Lesion CT of the abdomen pelvis noting a 3.8 cm ovarian cyst-like lesion with nodular wall thickening Ultrasound pelvis ordered to evaluate oncological cause of blood clots noted above CA-125 levels ordered SHIFT MGR consult for further recs Constipation Noted on KUB Bowel regimen with scheduled colace and prn miralax Anemia Hgb 11.6 to 10.7 today Anemia panel noting iron deficiency, s/p 1 bag of IV Venofer on 10/07/24 Continue to monitor for signs of bleeding while on heparin Monitor H/H Leukocytosis WBC elevated UA unremarkable Procalcitonin normal ? of pulm infection Possibly reactive elevation Continue to monitor improving DMII ISS with Accu-Cheks AMAURY Takes insulin glargine 50 units twice daily at home, additional insulin aspart 40 units 3 times daily, Trulicity once per week (Tuesday) hgba1c pf 7.3 Basal Bolus per protocol RANDALL Cont cpap HS CAD HTN HLD Home med includes full dose aspirin daily- HOLD while on heparin. Cont metoprolol succinate 12.5 daily Diet: HH DVT prophylaxis: on hep drip Dispo: PT/OT ordered for further recs Admission and Anticipated Discharge Date Admission Date: October 05, 2024 Subjective Pt was seen with PT at bedside Denied SOB, chest pain or palps at the time Still having the right sided abd pain with coughing Awaiting discharge and transition to DOAC/cost Review of Systems Review of Systems: All systems reviewed & are unremarkable except as noted in Subjective Physical Exam Physical Exam: General: Alert, oriented. No acute distress Psych: Appropriate mood and affect HEENT: NC/AT CV: RRR Resp: Breath sounds clear bilaterally, no increased effort of breathing Abdomen:Soft, nontender, nondistended Results & Data Results & Data Vital Signs (Past 12 Hours) Vital Signs Temp Pulse Pulse Resp BP Pulse Ox O2 Del Method 10/07/24 11:46 99 10/07/24 11:22 36.5 C 61 17 118/69 99 Nasal Cannula 10/07/24 09:25 73 10/07/24 08:16 36.8 C 67 20 98 Nasal Cannula 10/07/24 08:00 Nasal Cannula 10/07/24 03:50 17 95 10/07/24 02:38 36.8 C 66 19 98/58 L 90 Room Air O2 Flow Rate 10/07/24 11:46 10/07/24 11:22 3 10/07/24 09:25 10/07/24 08:16 3 10/07/24 08:00 3 10/07/24 03:50 2 10/07/24 02:38
[2024-10-08 06:48] LABS: Basophils # (auto) 0.04 K/uL (0.00-0.20); Basophils % (auto) 0.5 %; Eosinophils # (auto) 0.24 K/uL (0.00-0.50); Eosinophils % (auto) 2.8 %; Hematocrit (blood only) 32.3 % (37.0-47.0); Hemoglobin 10.4 g/dl (12.0-16.0); Immature Granulocytes # (auto) 0.05 K/uL (0.01-0.20); Immature Granulocytes % (auto) 0.6 %; Lymphocytes # (auto) 1.99 K/uL (1.20-3.40); Mean Corpuscular Hemoglobin 29.8 pg (25.0-34.0); Mean Corpuscular Hgb Conc 32.2 g/dL (32.0-36.0); Mean Corpuscular Volume 92.6 fL (80.0-100.0); Monocytes # (auto) 1.07 K/uL (0.11-0.59); Monocytes % (auto) 12.4 %; Neutrophils # (auto) 5.26 K/uL (1.40-6.50); Neutrophils % (auto) 60.7 %; Platelet Count 251 K/uL (130-400); RDW Coefficient of Variation 14.6 % (11.5-14.5); RDW Standard Deviation 49.1 fL (36.4-46.3); Red Blood Count 3.49 M/uL (4.20-5.40); White Blood Count 8.65 K/ul (4.8-10.8)
[2024-10-08 07:07] LABS: BUN Creatinine Ratio 17.8 (10-20); Calcium 8.8 mg/dl (8.6-10.3); Creatinine Clr Calc Pharmacy 77.8 ml/min; Magnesium 2.2 mg/dl (1.7-2.4); Phosphorus 4.1 mg/dl (2.5-4.9); Potassium 4.2 mmol/L (3.5-5.1)
[2024-10-08 13:30] LABS: Appearance Urine Clear (Clear); Bacteria Urine Automated None Seen (None Seen); Bilirubin Urine Negative (Negative); Blood Urine 1+ (Negative); Color Urine Dark Yellow; Epithelial Cell Urine Auto >20 /hpf (0-2); Glucose Urine UA Negative (Negative); Ketones Urine Trace (Negative); Leukocyte Esterase Urine Trace (Negative); Nitrite Urine Negative (Negative); Protein Urine 1+ (Negative); Urobilinogen Urine Positive (Negative); WBC Urine Automated 0-5 /hpf (0-5); pH Urine 6.5 (4.5-7.5)
[2024-10-08] MEDS: POLYETHYLENE (MIRALAX) 17 GM PACK PO SCH (13:36)
--- NOTE | 2024-10-08 13:43 | Pulmonology Progress Note ---
Date of Service October 08, 2024 Assessment & Plan (1) Acute pulmonary embolism: (2) Right leg DVT: (3) MTHFR mutation: (4) Hypoxia: (5) Pulmonary infarct: (6) Abnormal CT scan, chest: (7) Ovarian cyst: Plan CT chest 10/05/2024 personally reviewed: Pulmonary emboli appreciated in the right main going into the right middle and right lower lobe subsegmental pulmonary arteries Haziness appreciated in the lateral segment of the right middle lobe, likely early infarct Minimal dependent ectasis bilateral lower lobes No significant mediastinal lymphadenopathy 2D echo 10/06/2024: EF 55-60%, RV normal in size and function, moderate aortic stenosis, mild AR, mild MR, mild TR, PASP 36 mmHg --Acute pulmonary emboli Diagnosed 10/05/2024 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 Hopefully hemoptysis will subside with time. If there is any significant worsening of hemoptysis while the patient is on blood thinner then IVC filter could be thought of Please note the above document was generated using voice recognition software. It may contain grammatical, syntax or spelling errors.Any formal questions or concerns about the content, text or information contained within the body of this dictation should be directly addressed to the provider for clarification. Admission and Anticipated Discharge Date Admission Date: October 05, 2024 Subjective 78-year-old female was admitted to the hospital because of hypoxia was found to have pulmonary emboli Patient was seen by Dr. Galvan on 10/06/2024 as a consult and he signed off. Pulmonary reconsulted today for hemoptysis At the time of examination patient was saturating 90-92% on room air. Her saturation went up to 94-95% when she took deep breath. She is still complaining of right-sided pleuritic chest pain. She had a bout of hemoptysis earlier today which was bright red. Did not have any other episodes after that. No shortness of breath at rest. Denies any nausea vomiting. Fair appetite No hematuria, no hematochezia Social history: Lifetime non-smoker Review of Systems 2 Review of Systems: All systems reviewed & are unremarkable except as noted in Subjective Physical Exam 2 Physical Exam: Constitutional: No acute distress HEENT: EOMI, PERRLA Respiratory system: Decreased air entry bilaterally, no wheeze, no rhonchi, positive crackles bilaterally more on the right side CVS: S1-S2 positive, positive 2 out of 6 systolic murmur appreciated best at aorta Abdomen: Soft, nontender, nondistended, positive bowel sounds x4, obese Extremities: +2 pulses bilaterally radialis/ dorsalis pedis, no cyanosis, positive pitting edema bilateral lower extremity Neuro: Awake alert oriented x3 Psych: Normal mood and affect G/U: No [place] Skin: no rashes, warm and dry Lymphatic: no cervical or axillary lymphadenopathy Results & Data Results & Data Vital Signs (Past 12 Hours) Vital Signs Temp Pulse Pulse Resp BP BP Pulse Ox 10/08/24 10:50 36.8 C 62 18 142/67 H 93 10/08/24 10:50 10/08/24 07:38 37.0 C 63 18 149/65 H 97 10/08/24 07:12 63 10/08/24 04:01 70 27 H 95 10/08/24 03:20 36.9 C 69 18 95/47 L 92 O2 Del Method O2 Flow Rate 10/08/24 10:50 Room Air 10/08/24 10:50 Room Air 94 10/08/24 07:38 Nasal Cannula 3 10/08/24 07:12 10/08/24 04:01 2 10/08/24 03:20 CPAP Laboratory Results 10/08/24 06:18 10/08/24 06:18 PG Care Time/CCT Total # of Minutes Spent Total Time Spent with Patient: Total time spent is greater than 50% in coordination of care (as documented) at patient's floor/unit and/or counseling patient: Coding Level of Care Code 54525 SUB INP/OBS CARE 3/50MIN Diagnoses Acute pulmonary embolism I26.99 Right leg DVT I82.401 MTHFR mutation Z15.89 Hypoxia R09.02 Pulmonary infarct I26.[address] scan, chest R93.89 Ovarian cyst N83.209
--- NOTE | 2024-10-08 17:34 | Hospitalist Progress Note ---
Date of Service October 08, 2024 Assessment & Plan (1) Acute pulmonary embolism: (2) CAD (coronary artery disease): (3) Hypertension: (4) Hyperlipidemia: (5) Diabetes mellitus, type 2: (6) GERD (gastroesophageal reflux disease): (7) Sleep apnea: Plan Pt is a 78-year-old female with PMHx of DM type II, aortic stenosis, HLD, CAD, obstructive sleep apnea, chronic lower extremity edema who presents to the hospital with complaints of right upper quadrant pain and a cough with hemoptysis. Pulmonary Emboli Pulmonary Infarct Chronic DVT, Right Leg Hemoptysis Patient presenting with hemoptysis and right chest pain and RUQ abdominal pain Flu, COVID and RSV testing negative Chest x-ray as well as XR abdomen pelvis noting a right lower lobe 6.5 cm hazy opacity D-dimer elevated Chest CT noting bilateral pulmonary emboli without right heart strain as well as episodes of developing pulmonary infarct versus pneumonia right upper lobe CT abd pelvis noting multiple pulmonary emboli as well and possible new right middle pulmonary infarct Doppler ultrasound of the bilateral lower extremities noting chronic DVT in right leg EKG with NSR Echo completed for further heart strain evaluation, pending read Transitioned from IV heparin to Eliquis, Eliquis will cost $15 Pulmonary consulted, appreciate recs Currently on 2L oxygen Continue to monitor 10/08/24- pt noting episodes of hemoptysis once more. Pulm kindly asked for further recs once more R ovarian Lesion CT of the abdomen pelvis noting a 3.8 cm ovarian cyst-like lesion with nodular wall thickening Ultrasound pelvis ordered to evaluate oncological cause of blood clots noted above CA-125 levels ordered [employer] consult for further recs -no concern for malignancy Constipation Noted on KUB Bowel regimen Dysuria UA repeated x 2 Not suggestive of infection Notes she recently completed treatment for a UTI However pt noting persistent bothersome dysuria again pyridium prn Empiric cefdinir x 5 days Continue to monitor Anemia Hgb 11.6 to 10.7 today Anemia panel noting iron deficiency, s/p 1 bag of IV Venofer on 10/07/24 Continue to monitor for signs of bleeding while on heparin Monitor H/H Leukocytosis WBC elevated UA unremarkable Procalcitonin normal ? of pulm infection Possibly reactive elevation Continue to monitor improving DMII ISS with Accu-Cheks AMAURY Takes insulin glargine 50 units twice daily at home, additional insulin aspart 40 units 3 times daily, Trulicity once per week (Tuesday) hgba1c pf 7.3 Basal Bolus per protocol RANDALL Cont cpap HS CAD HTN HLD Home med includes full dose aspirin daily- HOLD while on heparin. Cont metoprolol succinate 12.5 daily Diet: HH DVT prophylaxis: on hep drip Dispo: PT/OT ordered for further recs Admission and Anticipated Discharge Date Admission Date: October 05, 2024 Subjective pt was seen sitting in the chair at bedside. States she is having dysuria once more Also noticing hemoptysis once more Review of Systems Review of Systems: All systems reviewed & are unremarkable except as noted in Subjective Physical Exam Physical Exam: General: Alert, oriented. No acute distress Psych: Appropriate mood and affect HEENT: NC/AT CV: RRR Resp: Breath sounds clear bilaterally, no increased effort of breathing Abdomen:Soft, nontender, nondistended Results & Data Results & Data Vital Signs (Past 12 Hours) Vital Signs Temp Pulse Pulse Resp BP BP Pulse Ox 10/08/24 15:32 36.9 C 65 18 131/79 93 10/08/24 14:02 63 10/08/24 13:48 10/08/24 10:50 36.8 C 62 18 142/67 H 93 10/08/24 10:50 10/08/24 07:38 37.0 C 63 18 149/65 H 97 10/08/24 07:12 63 Pulse Ox Pulse Ox Pulse Ox O2 Del Method O2 Flow Rate O2 Flow Rate O2 Flow Rate 10/08/24 15:32 Room Air 10/08/24 14:02 10/08/24 13:48 94 99 93 0 2 10/08/24 10:50 Room Air 10/08/24 10:50 Room Air 94 10/08/24 07:38 Nasal Cannula 3 10/08/24 07:12 O2 Flow Rate 10/08/24 15:32 10/08/24 14:02 10/08/24 13:48 0 10/08/24 10:50 10/08/24 10:50 10/08/24 07:38 10/08/24 07:12 Diagnostic Findings Chest/Abdomen X-ray 10/05/24 10:41 PA CHEST RADIOGRAPH AND UPRIGHT AND SUPINE AP RADIOGRAPHS OF THE ABDOMEN CLINICAL HISTORY: Abdominal pain. COMPARISON STUDY: CT of the abdomen and pelvis July 20, 2023. Chest radiograph July 20, 2023. FINDINGS: No pneumothorax or pleural effusion is present. Mild cardiomegaly is noted. There is no evidence for pulmonary edema. A 6.5 cm hazy right lower lung opacity is present. Status post cholecystectomy. Gas throughout small and large bowel is noted. There is a moderate amount of stool within the colon and rectum. No evidence for a bowel obstruction. No free air. IMPRESSION: 1. 6.5 cm hazy right lower lung opacity. Given pulmonary emboli on same-day chest CT, this represents a pulmonary infarct. 2. No free air or evidence for a bowel obstruction. 3. Moderate amount of stool within the colon and rectum. ACT 112: Negative or not required by law. Electronically signed by: Maik Chakraborty M.D. 10/05/2024 12:41 PM Gallbladder Ultrasound 10/05/24 10:41 US gallbladder CLINICAL HISTORY: ruq pain status post cholecystectomy COMPARISON STUDY: CT dated 07/20/2023 FINDINGS: The pancreas is obscured by bowel gas and body habitus. The liver is diffusely echogenic, likely associated with steatosis. No focal liver lesions are depicted. There is no ascites. The gallbladder surgically absent. The common bile duct measures 14 mm which is rather distended even for the postcholecystectomy patient. The right kidney demonstrate no focal lesions. No hydronephrosis. IMPRESSION: Echogenic liver consistent with steatosis. Dilated common bile duct of uncertain significance and status post cholecystectomy patient. ACT 112: Negative or not required by law. Electronically signed by: Renea Daniels M.D. 10/05/2024 12:03 PM Chest CTA 10/05/24 11:48 CT angio chest PE protocol CT DOSE: 2380.91 mGy.cm HISTORY: Right upper quadrant pain, shortness of breath, hemoptysis TECHNIQUE: Multiple CTA images of the chest were obtained after the intravenous administration of 112 ml Optiray. Coronal and sagittal MIPS were obtained from the axial data set and were submitted for review. All measurements were obtained according to NASCET criteria. A dose lowering technique was utilized adhering to the principles of ALARA. COMPARISON STUDY: None FINDINGS: There are multiple bilateral acute pulmonary emboli resulting in a moderate clot burden. There is no definite evidence of significant right heart strain at the present time. There is a consolidation in the periphery of the right upper lobe. It is somewhat wedge-shaped. It could represent a pulmonary infarct. There is also an area of pleural enhancement in the left lower lobe for which a CT follow-up is recommended in 3 months. The lung bae otherwise clear. The upper airway is unremarkable. The heart is enlarged. There is no pericardial effusion. IMPRESSION: Bilateral, moderate clot burden pulmonary emboli. No definite evidence of right heart strain. Developing pulmonary infarct versus pneumonia right upper lobe. Focal area of pleural thickening and enhancement left lower lobe. Recommend a 3 month follow-up chest CT for evaluation of this finding. ACT 112: Negative or not required by law. The above report was generated using voice recognition software. It may contain grammatical, syntax or spelling errors. Electronically signed by: Renea Daniels M.D. 10/05/2024 1:01 PM Abdomen/Pelvis CT 10/05/24 12:29 CT OF THE ABDOMEN AND PELVIS WITH CONTRAST CLINICAL HISTORY: Abdominal pain. COMPARISON STUDY: CT of the abdomen and pelvis July 20, 2023. TECHNIQUE: Following IV administration of 120 mL of Optiray, axial images of the abdomen and pelvis were obtained from the lung bases to the proximal femurs. Images were reviewed in the axial, sagittal, and coronal planes. IV contrast was administered without complication. Automated exposure control was utilized for the study. A dose lowering technique was utilized adhering to the principles of ALARA. FINDINGS: Multiple pulmonary emboli are better depicted on the chest CT. A right middle lobe airspace opacity represents a pulmonary infarct. No pneumatosis, free air or portal venous gas is present. Biliary ductal dilatation is unchanged and related to cholecystectomy. There are no hepatic lesions. Spleen, adrenal glands and pancreas are unremarkable. There is no evidence for a bowel obstruction. Sigmoid diverticulosis is noted. No evidence for acute diverticulitis. There is no lymphadenopathy. There are no fluid collections. A 3.8 cm hypodense right ovarian lesion is noted. Nodular component within the wall measures approximately 1.7 cm. This lesion is indeterminate. No hydronephrosis. Left lower pole renal cyst is present. IMPRESSION: 1. No acute process within the abdomen or pelvis. 2. No bowel obstruction. No bowel wall thickening. Colonic diverticulosis. No evidence for acute diverticulitis. 3. 3.8 cm cystic right ovarian lesion with possible nodular thickening of the wall. This is indeterminate. Nonemergent pelvic ultrasound is recommended to assess complexity. 4. Multiple pulmonary emboli and a right middle lobe pulmonary infarct better depicted on the chest CT which will be reported separately. ACT 112: Positive. There are findings on this exam that require communication between the performing entity and the patient following Patient Test Result Information Act ([place] Act 112) guidelines. Electronically signed by: Maik Chakraborty M.D. 10/05/2024 1:12 PM Venous Doppler Study 10/05/24 14:25 BILATERAL LOWER EXTREMITY VENOUS DOPPLER HISTORY: Pulmonary emboli Eval for DVT COMPARISON STUDY: None FINDINGS: Duplex and color Doppler evaluation of the deep venous system of the lower legs was performed. On the left side, the major deep venous channels are patent and compressible with no intraluminal filling defects or occlusive disease identified. In the right leg, there is intraluminal stranding and nonocclusive thrombus identified in the distal femoral vein, popliteal vein, and there is a broken flow identified within the posterior tibial vein and peroneal veins. IMPRESSION: No evidence of DVT left leg. Evidence of chronic DVT right leg. ACT 112: Negative or not required by law. Electronically signed by: Renea Daniels M.D. 10/05/2024 3:53 PM Pelvis Ultrasound 10/06/24 10:00 INDICATION: Pelvic pain. COMPARISON: None. TECHNIQUE: Transabdominal and endovaginal pelvic ultrasound was performed. FINDINGS: Uterus: Measures 6.3 x 2.2 x 2.1 cm. Endometrium: Measures 0.2 cm thickness. Right Ovary: Measures 5.3 x 4.2 x 3.8 cm. Cyst/follicle measuring 3.7 cm. Limited visualization of the right ovary/evaluation of right ovarian blood flow secondary to bowel gas/body habitus. Left Ovary: Not visualized secondary to body habitus/bowel gas. No free fluid. No adnexal mass. IMPRESSION: 1. Uterus appears unremarkable. 2. Right Ovary: Measures 5.3 x 4.2 x 3.8 cm. Cyst/follicle measuring 3.7 cm. Limited visualization of the right ovary/evaluation of right ovarian blood flow secondary to bowel gas/body habitus. 3. Left Ovary: Not visualized secondary to body habitus/bowel gas. 4. Follow-up as clinically relevant. Electronically signed by Matheus Miranda 10-06-2024 3:47 PM
[2024-10-08] MEDS: SOD PHOSPHATE/SOD BIPHOSPHATE ENEMA 132 ML BTL PR STA (18:31)
[2024-10-08] MEDS: ADVANCED PROBIOTIC 625 MG CAPSULE PO SCH (18:48)
[2024-10-08] MEDS: PHENAZOPYRIDINE HCL 200 MG TAB PO STA (18:48)
[2024-10-08 19:50] VITALS: TEMP 98.2
[2024-10-08] MEDS: CEFDINIR 300 MG CAP PO SCH (21:07)
[2024-10-09 06:55] LABS: Basophils # (auto) 0.05 K/uL (0.00-0.20); Basophils % (auto) 0.6 %; Eosinophils # (auto) 0.26 K/uL (0.00-0.50); Eosinophils % (auto) 3.1 %; Hematocrit (blood only) 32.2 % (37.0-47.0); Hemoglobin 10.6 g/dl (12.0-16.0); Immature Granulocytes # (auto) 0.03 K/uL (0.01-0.20); Immature Granulocytes % (auto) 0.4 %; Lymphocytes % (auto) 26.3 %; Mean Corpuscular Hemoglobin 29.9 pg (25.0-34.0); Mean Corpuscular Hgb Conc 32.9 g/dL (32.0-36.0); Mean Platelet Volume 8.7 fL (9.4-12.4); Monocytes # (auto) 0.94 K/uL (0.11-0.59); Monocytes % (auto) 11.2 %; Neutrophils # (auto) 4.88 K/uL (1.40-6.50); Neutrophils % (auto) 58.4 %; Platelet Count 270 K/uL (130-400); RDW Coefficient of Variation 14.6 % (11.5-14.5); Red Blood Count 3.54 M/uL (4.20-5.40); White Blood Count 8.36 K/ul (4.8-10.8)
[2024-10-09 07:13] VITALS: RESP 18
[2024-10-09 07:14] LABS: BUN Creatinine Ratio 20.3 (10-20); Calcium 8.5 mg/dl (8.6-10.3); Creatinine Clr Calc Pharmacy 96.3 ml/min; Magnesium 2.2 mg/dl (1.7-2.4); Phosphorus 4.3 mg/dl (2.5-4.9); Potassium 4.1 mmol/L (3.5-5.1)
--- NOTE | 2024-10-09 10:37 | XRay Report ---
XR chest 1V portable CLINICAL HISTORY: f/u COMPARISON STUDY: 10/05/2024 FINDINGS: Stable cardiomegaly with mild pulmonary vascular congestion. There is increased patchy opac ity at the lateral right lung base. No pleural effusion or pneumothorax. IMPRESSION: Pneumonia right lung base. ACT 112: Negative or not required by law. Electronically signed by: Ahmet Forrest M.D. 10/09/2024 10:36 AM
--- NOTE | 2024-10-09 11:26 | Pulmonology Progress Note ---
Date of Service October 09, 2024 Assessment & Plan (1) Acute pulmonary embolism: (2) Right leg DVT: (3) MTHFR mutation: (4) Hypoxia: (5) Pulmonary infarct: (6) Abnormal CT scan, chest: (7) Ovarian cyst: Plan CT chest 10/05/2024 personally reviewed: Pulmonary emboli appreciated in the right main going into the right middle and right lower lobe subsegmental pulmonary arteries Haziness appreciated in the lateral segment of the right middle lobe, likely early infarct Minimal dependent ectasis bilateral lower lobes No significant mediastinal lymphadenopathy 2D echo 10/06/2024: EF 55-60%, RV normal in size and function, moderate aortic stenosis, mild AR, mild MR, mild TR, PASP 36 mmHg --Acute pulmonary emboli Diagnosed 10/05/2024 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 Patient seen and examined at bedside. No acute distress, no adverse events overnight She is still complaining of pleuritic pain when she takes a deep breath and on the right side Has been taking tramadol for it along with Tylenol Hemoptysis has not worsened. She still gets a dark red blood occasionally. She was saturating 95 to 96% on room air No nausea or vomiting, fair appetite Constitutional: No acute distress HEENT: EOMI, PERRLA Respiratory system: Decreased air entry bilaterally, no wheeze, no rhonchi, positive crackles bilaterally more on the right side CVS: S1-S2 positive, positive 2 out of 6 systolic murmur appreciated best at aorta Abdomen: Soft, nontender, nondistended, positive bowel sounds x4, obese Extremities: +2 pulses bilaterally radialis/ dorsalis pedis, no cyanosis, positive pitting edema bilateral lower extremity Neuro: Awake alert oriented x3 Psych: Normal mood and affect G/U: No [place] Plan: Chest x-ray from today shows haziness in the right lower peripheral region. Which is likely from the known infarct on the CAT scan of the chest No clear pleural effusion Patient's H&H is stable. I was able to look at the hemoptysis. It is dark brown blood. Likely old. Recommend antitussive medication [id number] Avoid flutter valve. If there is any significant worsening of hemoptysis while the patient is on blood thinner then IVC filter could be thought of Case was discussed with primary team Please note the above document was generated using voice recognition software. It may contain grammatical, syntax or spelling errors.Any formal questions or concerns about the content, text or information contained within the body of this dictation should be directly addressed to the provider for clarification. Subjective Patient seen and evaluated at bedside. She still complains of some pleuritic discomfort. She has not ambulated much today. She has some ongoing scant brown-tinged sputum. No new blood hemoptysis Review of Systems 2 Review of Systems: As per subjective Physical Exam 2 Physical Exam: Constitutional: No acute distress HEENT: EOMI, PERRLA Respiratory system: Decreased air entry bilaterally, no wheeze, no rhonchi, positive crackles bilaterally more on the right side CVS: S1-S2 positive, positive 2 out of 6 systolic murmur appreciated best at aorta Abdomen: Soft, nontender, nondistended, positive bowel sounds x4, obese Extremities: +2 pulses bilaterally radialis/ dorsalis pedis, no cyanosis, positive pitting edema bilateral lower extremity Neuro: Awake alert oriented x3 Psych: Normal mood and affect G/U: No [place] Skin: no rashes, warm and dry Lymphatic: no cervical or axillary lymphadenopathy Results & Data Results & Data Vital Signs (Past 12 Hours) Vital Signs Temp Pulse Pulse Resp BP Pulse Ox O2 Del Method 10/09/24 11:14 63 10/09/24 10:39 36.8 C 63 18 131/80 96 Room Air 10/09/24 07:12 36.8 C 63 18 164/68 H 97 Room Air 10/09/24 03:40 64 25 H 96 10/09/24 02:56 36.8 C 70 16 150/66 H 98 Room Air 10/08/24 23:27 74 32 H 90 O2 Flow Rate 10/09/24 11:14 10/09/24 10:39 10/09/24 07:12 10/09/24 03:40 2 02/25/25 02:56 10/08/24 23:27 2 Laboratory Results 10/09/24 06:38 10/09/24 06:38 PG Care Time/CCT Total # of Minutes Spent Total Time Spent with Patient: Total time spent is greater than 50% in coordination of care (as documented) at patient's floor/unit and/or counseling patient: Coding Level of Care Code 85081 SUB INP/OBS CARE 2/35MIN Diagnoses Acute pulmonary embolism I26.99 Right leg DVT I82.401 MTHFR mutation Z15.89 Hypoxia R09.02 Pulmonary infarct I26.[address] scan, chest R93.89 Ovarian cyst N83.209
[2024-10-09] MEDS: guaiFENesin/DEXTROM SYRUP 200MG/20MG 10ML UDC PO SCH (14:28)
--- NOTE | 2024-10-09 15:15 | Discharge Summary ---
Discharge Summary Date of Service October 09, 2024 Principal Dx & Hospital Course #1 = Principal Diagnosis (1) Acute pulmonary embolism: (2) CAD (coronary artery disease): (3) Hypertension: (4) Hyperlipidemia: (5) Diabetes mellitus, type 2: (6) GERD (gastroesophageal reflux disease): (7) Sleep apnea: Plan Pt is a 78-year-old female with PMHx of DM type II, aortic stenosis, HLD, CAD, obstructive sleep apnea, chronic lower extremity edema who presents to the hospital with complaints of right upper quadrant pain and a cough with hemoptysis. Pulmonary Emboli Pulmonary Infarct Chronic DVT, Right Leg Hemoptysis Patient presenting with hemoptysis and right chest pain and RUQ abdominal pain Flu, COVID and RSV testing negative Chest x-ray as well as XR abdomen pelvis noting a right lower lobe 6.5 cm hazy opacity D-dimer elevated Chest CT noting bilateral pulmonary emboli without right heart strain as well as episodes of developing pulmonary infarct versus pneumonia right upper lobe CT abd pelvis noting multiple pulmonary emboli as well and possible new right middle pulmonary infarct Doppler ultrasound of the bilateral lower extremities noting chronic DVT in right leg EKG with NSR Echo completed for further heart strain evaluation, EF 55 to 60%, moderate aortic stenosis, mild MR, MS, TR, AR. No evidence of pulmonary hypertension. Transitioned from IV heparin to Eliquis, Eliquis will cost $15. Will need Hematology followup for DOAC vs. warfarin determination for bad credit collector treatment. Will need anticoagulation indefinitely. Question of MHFTR mutation Pulmonary consulted, recommended/stated the following: "...Recommend lifetime anticoagulation. Choice between DOACs versus warfarin will be deferred to hematology...Hemoptysis...Likely from pulmonary infarct...Would recommend antitussive medication [id number]...Avoid flutter valve. If there is any significant worsening of hemoptysis while the patient is on blood thinner then IVC filter could be thought of...Repeat CT chest in 3 months..." Repeat Chest CT in 3 months Will need close Hematology followup to determine DOAC vs. warfarin for longterm treatment On the day of discharge, pt ambulating the halls without issue, no increased oxygen requirement. Discharged on Eliquis and with cough syrup with close PCP and Hematology followup. R ovarian Lesion CT of the abdomen pelvis noting a 3.8 cm ovarian cyst-like lesion with nodular wall thickening Ultrasound pelvis ordered to evaluate oncological cause of blood clots noted above CA-125 level normal at 22 RESPIRATORY SUPPORT TECHNICIAN consult for further recs. Noted.stated the following, per Dr Merritt Antunez: -"...I reviewed the CT findings and transvaginal ultrasound findings. Cyst of the right ovary appears to be an incidental finding. I do not recommend any follow-up..." Close PCP and RESPIRATORY SUPPORT TECHNICIAN followup after discharge Constipation Noted on KUB Bowel regimen Discharged with daily colace BID with daily miralax daily for 14 days. Will need daily regimen Dysuria UA repeated x 2 Not suggestive of infection Notes she recently completed treatment for a UTI However pt noting persistent bothersome dysuria again pyridium prn Empiric cefdinir x 5 days PCP followup Anemia Hgb 11.6 to 10.7 Anemia panel noting iron deficiency, s/p 1 bag of IV Venofer on 10/07/24 Consider every other day supplement given pt's chronic hx of constipation PCP followup Leukocytosis WBC elevated UA unremarkable Procalcitonin normal Question of pulm infection Possibly reactive elevation Resolved on discharge DMII ISS with Accu-Cheks ACHS Takes insulin glargine 50 units twice daily at home, additional insulin aspart 40 units 3 times daily, Trulicity once per week (Tuesday) [id number] pf 7.3 Basal Bolus per protocol Resume home regimen on discharge with pcp followup RANDALL Cont cpap HS CAD HTN HLD Home med includes full dose aspirin daily Cont metoprolol succinate 12.5 daily Notes For Next Care Provider Repeat Chest CT in 3 months Will need close Hematology followup to determine DOAC vs. warfarin for longterm treatment Medication Changes From Visit Per pulmonology: Cough syrup around the clock Eliquis starter pack For dysuria: cefdinir 300mg BID x 4 more days with prn pyridium For constipation: daily colace BID with daily miralax daily for 14 days Admission HPI Per Admitting Provider This is a 78-year-old female with PMHx of DM type II, aortic stenosis, HLD, CAD, obstructive sleep apnea, chronic lower extremity edema presents to the hospital with complaints of right upper quadrant pain and a cough with hemoptysis. Pain in the R rib/upper abdomen was just noticed today is constant but and is much worse with a deep breath. Given toradol in the ER and was slightly improved. She is a fairly sedentary person, knitting and chrocheting at home in her apartment. She notes about 1 month ago R lower leg had been very painful, denies known injury to the area, but since then she notes increased edema in the RLE as well as the left. CTA chest shows multiple bilateral acute pulmonary emboli resulting in moderate clot burden. No definitive evidence of significant right heart strain currently. Consolidation in the periphery of the right upper lobe likely representing a pulmonary infarct vs pneumonia. Follow-up recommended in [address] abdomen and pelvis with contrast was obtained with D-dimer elevated at 5860 and found to have multiple pulmonary emboli, right middle lobe pulmonary infarct. She is status postcholecystectomy. No evidence of bowel obstruction, sigmoid diverticulosis is noted, no diverticulitis. 3.8 cm hypodense right ovarian lesion is noted. Nodular component within the wall measures approximately 1.7 cm this lesion is indeterminate. No hydronephrosis. Admission Exam Per Admitting Provider General: awake, alert, no apparent distress, elderly white female Head: Normocephalic, atraumatic ENT: PERRL, EOMI, no pharyngeal exudate, mucous membranes moist Chest: Clear to auscultation, on room air, no adventitious breath sounds Cardiac: Regular rate and rhythm, no murmur, no JVD, normal peripheral pulses, good capillary refill Abdominal: NABS x 4 quadrants, soft, nondistended, nontender to palpation, no rebound or guarding Extremities: 2+ nonpitting edema BLE, no peripheral erythema, calfs nontender to palpation Psych: Normal mood and affect Neuro: AAO x 3, strength intact bilaterally and rated 5/5, no motor deficits, speech is clear, no peripheral sensory deficits Discharge Exam General: Alert, oriented. No acute distress Psych: Appropriate mood and affect HEENT: NC/AT CV: RRR Resp: Breath sounds clear bilaterally, no increased effort of breathing Abdomen:Soft, tender in RLL, nondistended Updated Medication List Medication Instructions Recorded Confirmed Type duloxetine 60 mg capsule,delayed 60 mg PO QAM 11/25/21 10/05/24 History release sprinkle gabapentin 300 mg capsule 300 mg PO TID 11/25/21 10/05/24 History insulin aspart U-100 100 unit/mL 40 unit subcut TIDM 11/25/21 10/05/24 History subcutaneous solution insulin glargine 100 unit/mL (3 50 unit subcut BID 11/25/21 10/05/24 History mL) subcutaneous pen pantoprazole 40 mg tablet,delayed 40 mg PO QAM 11/25/21 10/05/24 History release aspirin 325 mg tablet,delayed 325 mg PO QAM 10/20/22 10/05/24 History release metoprolol succinate 25 mg 12.5 mg PO QAM 10/20/22 10/05/24 History tablet,extended release 24 hr psyllium husk 0.4 gram capsule 0.4 g PO DAILY PRN Constipation 10/20/22 10/05/24 History (Metamucil) cholecalciferol (vitamin D3) 25 25 mcg PO DAILY 10/05/24 10/05/24 History mcg (1,000 unit) tablet (Vitamin D3) dulaglutide 0.75 mg/0.5 mL 0.75 mg subcut WK 10/05/24 10/05/24 History subcutaneous pen injector (Trulicity) apixaban 5 mg (74 tabs) tablets in 5 mg PO BID #74 ea 10/09/24 Rx a dose pack (Eliquis) cefdinir 300 mg capsule 300 mg PO BID #8 caps 10/09/24 Rx dextromethorphan-guaifenesin 5 10 ml PO Q8 #500 mL 10/09/24 Rx mg-100 mg/5 mL oral liquid (Robitussin Cough-Chest Congestion DM) docusate sodium 100 mg capsule 100 mg PO BID #30 caps 10/09/24 Rx phenazopyridine 200 mg tablet 200 mg PO Q8H PRN pain 6 doses #6 10/09/24 Rx (Pyridium) tabs polyethylene glycol 3350 17 gram 17 g PO DAILY #14 ea 10/09/24 Rx oral powder packet (Miralax) Hospital Stay Data Consultations 10/05/24 13:21 ED Decision to Admit Stat 10/05/24 15:47 Consult Pulmonology Routine 10/06/24 16:13 Consult Gynecology Routine 10/08/24 13:04 Consult Pulmonology Routine Diagnostic Imagining Performed 10/05/24 10:41 US gallbladder Stat 10/05/24 11:48 CT angio chest PE protocol Stat 10/05/24 12:29 CT abd pelvis IV con only Stat 10/05/24 14:25 US venous doppler LE BI Stat 10/06/24 10:00 US pelvic complete Urgent 10/06/24 10:01 US transvaginal Urgent Chest/Abdomen X-ray 10/05/24 10:41 PA CHEST RADIOGRAPH AND UPRIGHT AND SUPINE AP RADIOGRAPHS OF THE ABDOMEN CLINICAL HISTORY: Abdominal pain. COMPARISON STUDY: CT of the abdomen and pelvis July 20, 2023. Chest radiograph July 20, 2023. FINDINGS: No pneumothorax or pleural effusion is present. Mild cardiomegaly is noted. There is no evidence for pulmonary edema. A 6.5 cm hazy right lower lung opacity is present. Status post cholecystectomy. Gas throughout small and large bowel is noted. There is a moderate amount of stool within the colon and rectum. No evidence for a bowel obstruction. No free air. IMPRESSION: 1. 6.5 cm hazy right lower lung opacity. Given pulmonary emboli on same-day chest CT, this represents a pulmonary infarct. 2. No free air or evidence for a bowel obstruction. 3. Moderate amount of stool within the colon and rectum. ACT 112: Negative or not required by law. Electronically signed by: Maik Chakraborty M.D. 10/05/2024 12:41 PM Gallbladder Ultrasound 10/05/24 10:41 US gallbladder CLINICAL HISTORY: ruq pain status post cholecystectomy COMPARISON STUDY: CT dated 07/20/2023 FINDINGS: The pancreas is obscured by bowel gas and body habitus. The liver is diffusely echogenic, likely associated with steatosis. No focal liver lesions are depicted. There is no ascites. The gallbladder surgically absent. The common bile duct measures 14 mm which is rather distended even for the postcholecystectomy patient. The right kidney demonstrate no focal lesions. No hydronephrosis. IMPRESSION: Echogenic liver consistent with steatosis. Dilated common bile duct of uncertain significance and status post cholecystectomy patient. ACT 112: Negative or not required by law. Electronically signed by: Renea Daniels M.D. 10/05/2024 12:03 PM Chest CTA 10/05/24 11:48 CT angio chest PE protocol CT DOSE: 2380.91 mGy.cm HISTORY: Right upper quadrant pain, shortness of breath, hemoptysis TECHNIQUE: Multiple CTA images of the chest were obtained after the intravenous administration of 112 ml Optiray. Coronal and sagittal MIPS were obtained from the axial data set and were submitted for review. All measurements were obtained according to NASCET criteria. A dose lowering technique was utilized adhering to the principles of ALARA. COMPARISON STUDY: None FINDINGS: There are multiple bilateral acute pulmonary emboli resulting in a moderate clot burden. There is no definite evidence of significant right heart strain at the present time. There is a consolidation in the periphery of the right upper lobe. It is somewhat wedge-shaped. It could represent a pulmonary infarct. There is also an area of pleural enhancement in the left lower lobe for which a CT follow-up is recommended in 3 months. The lung bae otherwise clear. The upper airway is unremarkable. The heart is enlarged. There is no pericardial effusion. IMPRESSION: Bilateral, moderate clot burden pulmonary emboli. No definite evidence of right heart strain. Developing pulmonary infarct versus pneumonia right upper lobe. Focal area of pleural thickening and enhancement left lower lobe. Recommend a 3 month follow-up chest CT for evaluation of this finding. ACT 112: Negative or not required by law. The above report was generated using voice recognition software. It may contain grammatical, syntax or spelling errors. Electronically signed by: Renea Daniels M.D. 10/05/2024 1:01 PM Abdomen/Pelvis CT 10/05/24 12:29 CT OF THE ABDOMEN AND PELVIS WITH CONTRAST CLINICAL HISTORY: Abdominal pain. COMPARISON STUDY: CT of the abdomen and pelvis July 20, 2023. TECHNIQUE: Following IV administration of 120 mL of Optiray, axial images of the abdomen and pelvis were obtained from the lung bases to the proximal femurs. Images were reviewed in the axial, sagittal, and coronal planes. IV contrast was administered without complication. Automated exposure control was utilized for the study. A dose lowering technique was utilized adhering to the principles of ALARA. FINDINGS: Multiple pulmonary emboli are better depicted on the chest CT. A right middle lobe airspace opacity represents a pulmonary infarct. No pneumatosis, free air or portal venous gas is present. Biliary ductal dilatation is unchanged and related to cholecystectomy. There are no hepatic lesions. Spleen, adrenal glands and pancreas are unremarkable. There is no evidence for a bowel obstruction. Sigmoid diverticulosis is noted. No evidence for acute diverticulitis. There is no lymphadenopathy. There are no fluid collections. A 3.8 cm hypodense right ovarian lesion is noted. Nodular component within the wall measures approximately 1.7 cm. This lesion is indeterminate. No hydronephrosis. Left lower pole renal cyst is present. IMPRESSION: 1. No acute process within the abdomen or pelvis. 2. No bowel obstruction. No bowel wall thickening. Colonic diverticulosis. No evidence for acute diverticulitis. 3. 3.8 cm cystic right ovarian lesion with possible nodular thickening of the wall. This is indeterminate. Nonemergent pelvic ultrasound is recommended to assess complexity. 4. Multiple pulmonary emboli and a right middle lobe pulmonary infarct better depicted on the chest CT which will be reported separately. ACT 112: Positive. There are findings on this exam that require communication between the performing entity and the patient following Patient Test Result Information Act ([place] Act 112) guidelines. Electronically signed by: Maik Chakraborty M.D. 10/05/2024 1:12 PM Venous Doppler Study 10/05/24 14:25 BILATERAL LOWER EXTREMITY VENOUS DOPPLER HISTORY: Pulmonary emboli Eval for DVT COMPARISON STUDY: None FINDINGS: Duplex and color Doppler evaluation of the deep venous system of the lower legs was performed. On the left side, the major deep venous channels are patent and compressible with no intraluminal filling defects or occlusive disease identified. In the right leg, there is intraluminal stranding and nonocclusive thrombus identified in the distal femoral vein, popliteal vein, and there is a broken flow identified within the posterior tibial vein and peroneal veins. IMPRESSION: No evidence of DVT left leg. Evidence of chronic DVT right leg. ACT 112: Negative or not required by law. Electronically signed by: Renea Daniels M.D. 10/05/2024 3:53 PM Pelvis Ultrasound 10/06/24 10:00 INDICATION: Pelvic pain. COMPARISON: None. TECHNIQUE: Transabdominal and endovaginal pelvic ultrasound was performed. FINDINGS: Uterus: Measures 6.3 x 2.2 x 2.1 cm. Endometrium: Measures 0.2 cm thickness. Right Ovary: Measures 5.3 x 4.2 x 3.8 cm. Cyst/follicle measuring 3.7 cm. Limited visualization of the right ovary/evaluation of right ovarian blood flow secondary to bowel gas/body habitus. Left Ovary: Not visualized secondary to body habitus/bowel gas. No free fluid. No adnexal mass. IMPRESSION: 1. Uterus appears unremarkable. 2. Right Ovary: Measures 5.3 x 4.2 x 3.8 cm. Cyst/follicle measuring 3.7 cm. Limited visualization of the right ovary/evaluation of right ovarian blood flow secondary to bowel gas/body habitus. 3. Left Ovary: Not visualized secondary to body habitus/bowel gas. 4. Follow-up as clinically relevant. Electronically signed by Matheus Miranda 10-06-2024 3:47 PM Chest X-Ray 10/09/24 10:08 XR chest 1V portable CLINICAL HISTORY: f/u COMPARISON STUDY: 10/05/2024 FINDINGS: Stable cardiomegaly with mild pulmonary vascular congestion. There is increased patchy opacity at the lateral right lung base. No pleural effusion or pneumothorax. IMPRESSION: Pneumonia right lung base. ACT 112: Negative or not required by law. Electronically signed by: Ahmet Forrest M.D. 10/09/2024 10:36 AM Discharge Instructions Given to Patient (Per Discharging Provider) Melanie, You were admitted and treated for blood clots in your lungs. You were seen by the developer architect. Please continue with the Eliquis prescribed until you follow up with Hematology as an outpatient. You will need to be on a blood thinner for the rest of your life. Continue with the cough syrup every eight hours to help with your cough per Pulmonology. The developer architect notes that you are coughing up old blood. Please let your primary care provider know if it is worsening and at that time a device such as an IVC filter can be considered per pulmonology. You will need a repeat Chest CT in 3 months. You also noted burning with urination. Continue with the antibiotic cefdinir for an additional 4 more days to help with that as well as the medication Pyridium as needed. You also appear to be chronically constipated. We treated you with enemas here but you should continue with a daily stool softener Colace, as well as Miralax for the next 14 days to help with your constipation. Please keep close follow up with your primary care provider and Hematology after discharge. Please do not hesitate to come back to the emergency room if your symptoms worsen or return. It was a pleasure taking care of you while you were here. Total Time Total Time Spent Total Time Spent (In Minutes): 60
[2024-10-09 16:47] VITALS: BP 149/65; PULSE 83; O2SAT 96
== END 2024-10-09 18:15 | disposition home or self-care (01) | DRG 176 ==
LOC: ED 09:58 → SUATTDRO 14:18 → 2S 14:18
DX: I82.531 Chronic embolism and thrombosis of right popliteal vein; D50.9 Iron deficiency anemia, unspecified; Z79.85 Long-term (current) use of injectable non-insulin antidiabetic drugs; E72.12 Methylenetetrahydrofolate reductase deficiency; R30.0 Dysuria; K21.9 Gastro-esophageal reflux disease without esophagitis; I26.93 Single subsegmental thrombotic pulmonary embolism without acute cor pulmonale; I82.511 Chronic embolism and thrombosis of right femoral vein; I10 Essential (primary) hypertension; I25.10 Atherosclerotic heart disease of native coronary artery without angina pectoris; N83.201 Unspecified ovarian cyst, right side; Z88.2 Allergy status to sulfonamides; I35.0 Nonrheumatic aortic (valve) stenosis; E11.9 Type 2 diabetes mellitus without complications; E78.5 Hyperlipidemia, unspecified; I08.3 Combined rheumatic disorders of mitral, aortic and tricuspid valves; G47.33 Obstructive sleep apnea (adult) (pediatric)